=== PATIENT | female | born 1970 | race Caucasian/White ===

== ENCOUNTER 2016-07-29 00:56 | Inpatient (IN) | payer OTHER ==
[~2016-07-29] VITALS: Ht 157.5 cm; Wt 111.1 kg
[~2016-07-29 00:56] MED LIST: ACETAMINOPHEN/T1 TA1 PO; ALBUTEROL2.5 MG/3 M INH; ALLEGRA-D 24 H1 EACH PO; ALPRAZOLAM0.5 M3 PO; AMOXICILLIN500 M2 PO; AUGMENTIN 875875 MG PO; AZITHROMYCIN500 M3 PO; CIPRO 500MG TA500 MG PO; DIAZEPAM5 MG PO; DIOVAN HCT 25 M1 TAB PO; DIVALPROEX SOD500 M3 PO; EXCEDRIN MIGRA1 EAC1 PO; FLONASE ALLERG9.9 ML NAS; FOLIC ACID 1 MG PO; FOLIC ACID1 M1 PO; HYDROCHLOROTHIA25 M1 PO; HYDRODIURIL 2525 MG PO; HYDRODIURIL 5050 MG PO; IPRATROPIU0.2 MG/1 M INH; LEVAQUIN500 M1 PO; MONTELUKAST SOD10 M1 PO; NAPROXEN500 MG PO; NICORELIEF2 MG PO; NICOTINE GUM4 MG PO; NORVASC10 M1 PO; NYSTOP60 GM TOP; ONE DAILY MULT1 EAC2 PO; PREDNISONE 20MG20 MG PO; PREDNISONE10 M2 PO; PREDNISONE2.5 M1 PO; PROPRANOLOL HC120 M1 PO; PROPRANOLOL HY120 MG PO; QUETIAPINE FUM100 MG PO; SEROQUEL XR150 M1 PO; SEROQUEL XR50 MG PO; SEROQUEL50 MG PO; SYMBICORT 16010.2 GM INH; SYNTHROID0.1 MG PO; TORADOL10 MG PO; TRAMADOL HCL50 M1 PO; TYLENOL TAB 32325 MG PO; ULTRACET 325 MG1 TAB PO; ULTRAM(MONOGRAP50 MG PO; VALACYCLOVIR HYD1 GM PO; VALACYCLOVIR1 GM PO; VALACYCLOVIR1000 MG PO; VENTOLIN HFA18 GM INH; VICODIN 5-3001 EACH PO; VITAB121000 SL; VITAMIN B COMP1 EACH PO; VITAMIN B-1100 MG PO; VITAMIN B-150 MG PO; XANAX0.5 M1 PO; nebulizer machine
--- NOTE | 2016-07-29 01:05 | ED DYSPNEA/ASTHMA COMPLAINT ---
History of Present Illness General Chief Complaint: Dyspnea (COPD, CHF, Other) Stated Complaint: DIFF BREATHING Source: patient Exam Limitations: no limitations Vital Signs & Intake/Output Vital Signs & Intake/Output Vital Signs Date Time Temp Pulse Resp B/P Pulse O2 O2 Flow FiO2 Ox Delivery Rate 07/29 0405 98.5 88 20 152/80 94 Nasal 4.0L Cannula 07/29 0210 92 Nasal 5.0L Cannula 07/29 0203 92 Nasal 4.0L Cannula 07/29 0108 98.8 103 24 138/79 92 Nasal 4.0L Cannula Allergies Coded Allergies: apple (Intermediate, HIVES FROM APPLE CIDER 05/21/16) hydromorphone (Intermediate, LIP SWELLING 05/21/16) phenytoin (Intermediate, HIVES 05/21/16) lidocaine (SVT 05/21/16) oxycodone (From Percocet) (ITCHY 05/21/16) Reconcile Medications Acetaminophen/Aspirin/Caffei (Excedrin 250 MG-250 MG-65 MG) 1 TAB TAB 1 TAB PO DAILY SINUS HEADACHE (Reported) Albuterol Sulfate 2.5 MG/3 ML (0.083 %) VIAL.NEB 3 ML INH TID PRN asthma Albuterol Sulfate (Ventolin Hfa) 90 MCG HFA.AER.AD 2 PUF INH Q4-6 PRN PRN asthma Alprazolam (Xanax) 0.5 MG TABLET 1 TAB PO Q6H PRN ANXIETY (Reported) Amlodipine Besylate (Norvasc) 10 MG TABLET 1 TAB PO DAILY hypertension Budesonide/Formoterol Fumarate (Symbicort 160-4.5 Mcg Inhaler) 160 MCG-4.5 MCG/ ACTUATION HFA.AER.AD 2 PUF INH BID ASTHMA (Reported) Divalproex Sodium (Divalproex Sodium ER) 500 MG TAB.ER.24H 1,500 MG PO QPM MENTAL HEALTH (Reported) FEXOFENADINE/PSEUDOEPHEDRINE (Shannan-D 24 Hour Tablet) 180 MG-240 MG TAB.ER.24H 1 TAB PO DAILY ALLERGIES (Reported) Fluticasone Propionate (Flonase) 50 MCG/ACTUATION SPRAY.SUSP 1 SPRAY ELLA BID ALLERGIES (Reported) Levothyroxine Sodium (Synthroid) 0.1 MG TAB 1 TAB PO DAILY AC THYROID ( Reported) Montelukast Sodium 10 MG TABLET 1 TAB PO QHS ASTHMA (Reported) Multivitamin (One Daily Multivitamin) 1 EACH TABLET 1 TAB PO DAILY supplement Nicotine Polacrilex (Nicotine Gum) 4 MG GUM 4 MG PO Q6H PRN SMOKING CESSATION (Reported) Nystatin (Nystop) 100,000 UNIT/GRAM POWDER 1 KAYLEIGH TOP BID UNDER BREASTS ( Reported) Prednisone 2.5 MG TABLET 1 TAB PO DAILY GAL'S (Reported) Propranolol HCl (Propranolol HCl ER) 120 MG CAP.SA.24H 1 CAP PO BID BP ( Reported) Quetiapine Fumarate (Seroquel XR) 150 MG TAB.ER.24H 1 TAB PO QPM MENTAL HEALTH (Reported) Quetiapine Fumarate (Seroquel) 50 MG TAB 1-3 TAB PO QPM SLEEP/MENTAL HEALTH ( Reported) Tramadol HCl 50 MG TABLET 1 TAB PO Q6P PRN PAIN SCALE 7-10 (SEVERE) (Reported ) Valacyclovir HCl (Valacyclovir) 1,000 MG TABLET 1 TAB PO DAILY ANTI VIRAL ( Reported) Triage Nurses Notes Reviewed? yes Onset: Gradual Duration: hour(s):, getting worse Timing: recent history Severity: moderate Activities at Onset: none Prior Episodes/Possible Cause: occasional episodes Modifying Factors: Worsens With: other (worse w/smoking). Associated Symptoms: cough, wheezing HPI: 45 yo h/o asthma presents with 2-3 days of wheezing, cough, phlegm. Symptoms worsened after smoking a cigarette tonight. "I was wheezing so badly that I couldn't even walk across the room." Medics noted that her 02 sat was 75% in the field. She received solumedrol 125mg iv in the field. She notes a cough productive of green sputum. She notes no fever, chills, nausea, vomiting, diarrhea, chest pain. Past History Travel History Traveled to [place] past 21 day No Medical History Any Pertinent Medical History? see below for history Neurological: NONE EENT: allergies Cardiovascular: hypertension Respiratory: asthma, bronchitis Gastrointestinal: NONE Hepatic: RENAL FAILURE Renal: acute kidney injury Musculoskeletal: chronic back pain Psychiatric: alcohol dependence, depression, substance abuse, bipolar disorder, MRE manic Endocrine: hypothyroidism, ADDISONS DX Hashimotos thyroiditis Blood Disorders: NONE Cancer(s): NONE CRM SPECIALIST/Reproductive: Other Medical Hx: Unknown History of MRSA: Yes History of VRE: No History of CDIFF: No Pneumonia Vaccine: 07/07/15 Influenza Vaccine: 04/10/16 Tetanus Vaccine: 11/28/14 Surgical History Surgical History: S/P I&D ABSCESS S/P KNEE SURGERY Psychosocial History Who do you live with Patient/Self Services at Home None What is your primary language Serbian Family History Family History, If Any: MOTHER Relation not specified for: FH: lung cancer Hx Contributory? No Review of Systems Review of Systems Constitutional: Reports: no symptoms. EENTM: Reports: no symptoms. Respiratory: Reports: no symptoms. Cardiovascular: Reports: no symptoms. GI: Reports: no symptoms. Genitourinary: Reports: no symptoms. Musculoskeletal: Reports: no symptoms. Skin: Reports: no symptoms. Neurological/Psychological: Reports: no symptoms. Hematologic/Endocrine: Reports: no symptoms. Immunologic/Allergic: Reports: no symptoms. All Other Systems: Reviewed and Negative Physical Exam Physical Exam General Appearance: well developed/nourished, moderate distress Head: atraumatic, normal appearance Eyes: Bilateral: normal appearance. Ears, Nose, Throat: normal pharynx, normal ENT inspection Neck: normal inspection, supple, full range of motion Respiratory: wheezing, wheezing with prolonged expiratory phase. pt able to speak in complete sentences without problem. Cardiovascular: regular rate/rhythm Gastrointestinal: normal bowel sounds, soft, non-tender, no organomegaly Extremities: normal inspection Neurologic/Psych: no motor/sensory deficits, awake, alert, oriented x 3 Skin: intact, normal color, warm/dry Core Measures ACS in differential dx? No Severe Sepsis Present: No Septic Shock Present: No Progress Differential Diagnosis: asthma, bronchitis, CHF, COPD Plan of Care: Orders Procedure Date/time Status Regular Diet 07/29 B Active CBC WITHOUT DIFFERENTIAL 07/29 06 Active BASIC ELECTROLYTES PLUS BUN&CR 07/29 06 Active Pathway - chart 07/29 0328 Active Code Status 07/29 0328 Active Patient Data 07/29 0235 Active Intake & Output 07/29 0201 Active LOWER RESPIRATORY CULTURE 07/29 0131 Active Saline Lock 07/29 011 Active Misc Message 07/29 011 Active ED Holding Orders 07/29 011 Active Admit to inpatient 07/29 011 Active Vital Signs 07/29 011 Active BLOOD CULTURE 07/29 114 Active Code Status 07/29 011 Complete BLOOD CULTURE 07/29 0114 Active TROPONIN LEVEL 07/29 104 Complete HUMAN BETA HCG SCREEN 07/29 104 Complete COMPREHENSIVE METABOLIC PANEL 07/29 104 Complete CBC WITHOUT DIFFERENTIAL 07/29 104 Complete EKG 07/29 104 Active TRC EVALUATION (GEN) 07/29 UNK Active House Staff 07/29 UNK Active VTE Mechanical Prophylaxis 07/29 UNK Active Vital Signs 07/29 UNK Active CIWA 07/29 UNK Active Current Medications Sig/Rosio Start time Last Medication Dose Stop Time Status Admin Azithromycin 500 MG 07/30 020 AC (Zithromax) Dextrose/Water 250 ML (D5W) Ceftriaxone Sodium 1,000 MG 07/30 020 AC (Rocephin) Divalproex Sodium 1,500 MG AT BEDTIME 07/29 220 AC (Depakote ER) Montelukast Sodium 10 MG AT BEDTIME 07/29 220 AC (Singulair) Quetiapine Fumarate 150 MG AT BEDTIME 07/29 220 AC (SEROquel) Amlodipine Besylate 10 MG DAILY 07/29 1000 AC (Norvasc) Budesonide/ 2 PUF BID 07/29 1000 AC Formoterol Fumarate (Symbicort) Enoxaparin Sodium 40 MG DAILY 07/29 1000 AC (Lovenox) Patient Own 1 UNIT DAILY 07/29 1000 AC Medication (Patients Own Med) Propranolol HCl 120 MG BID 07/29 1000 AC (Inderal [place] 120MG) Valacyclovir HCl 1,000 MG DAILY 07/29 1000 AC (Valtrex) Levothyroxine Sodium 0.1 MG DAILY AC 07/29 0700 AC (Synthroid) Methylprednisolone 40 MG Q6 07/29 0600 AC (Solumedrol) Acetaminophen 650 MG Q6P PRN 07/29 0330 AC (Tylenol) Alprazolam 0.5 MG Q6-PRN PRN 07/29 0330 AC (Xanax) 08/05 032 Nicotine 4 MG Q6P PRN 07/29 033 AC (Nicotine) Tramadol HCl 50 MG Q6P PRN 07/29 033 AC (Ultram) Nystatin 1 KAYLEIGH BID 07/29 0326 AC (Mycostatin) Laboratory Tests 07/29/16 0140: Anion Gap 8, Estimated GFR > 60, BUN/Creatinine Ratio 6.7 L, Glucose 107 H, Calcium 9.4, Total Bilirubin 0.6, AST 31, ALT 45, Alkaline Phosphatase 81, Troponin I < 0.01, Total Protein 6.3, Albumin 3.5, Globulin 2.8, Albumin/ Globulin Ratio 1.3, Total Beta HCG NEGATIVE, CBC w Diff NO MAN DIFF REQ, RBC 3.66 L, MCV 100.2 H, MCH 33.5 H, RDW 17.1 H, MPV 6.9 L, Gran % 72.7, Lymphocytes % 19.9 L, Monocytes % 6.6, Eosinophils % 0.4, Basophils % 0.4, Absolute Granulocytes 7.2 H, Absolute Lymphocytes 2.0, Absolute Monocytes 0.7 H, Absolute Eosinophils 0, Absolute Basophils 0, PUBS MCHC 33.5 Microbiology 07/29 144 BLOOD: Blood Culture - RECD 07/29 139 BLOOD: Blood Culture - RECD 07/29 130 LOWER RESP: Respiratory Culture - ORD 07/29 130 LOWER RESP: Gram Stain - ORD Diagnostic Imaging: Viewed by Me: Radiology Read. Discussed w/RAD: Radiology Read. CXR Impression: no acute abnormality, no infiltrates, normal size heart, normal mediastinum Initial ED EKG: sinus tach Comments: PATIENT: VENICE DAWKINS PRESENT AGE: 45 PATIENT ACCOUNT NO: [id number] : 71 LOCATION: [facility] ORDERING PHYSICIAN: ANDREA FELIZ MD SERVICE DATE: 07/29/16 EXAM TYPE: RAD - XRY-PORTABLE CHEST XRAY EXAMINATION: XR PORTABLE CHEST CLINICAL INFORMATION: Dyspnea, hypoxia COMPARISON: 07/05/2016 TECHNIQUE: Portable view of the chest was obtained. FINDINGS: The lungs are clear with no focal consolidation. No evidence of pneumothorax, pulmonary edema, or pleural effusions. Cardiac size is at the upper limits of normal. No acute osseous findings are seen. IMPRESSION: No acute cardiopulmonary findings. DICTATED BY: MERCEDEZ DE SANTIAGO MD DATE/TIME DICTATED:07/29/16352 DIRECTOR OF CLINICAL SERVICES:SMILEY DATE/TIME TRANSCRIBED:07/29/16352 CONFIDENTIAL, DO NOT COPY WITHOUT APPROPRIATE AUTHORIZATION. <Electronically signed in Other Vendor System> SIGNED BY: MERCEDEZ DE SANTIAGO MD 07/29/16357 Departure Departure Disposition: STILL A PATIENT Condition: Stable Clinical Impression Primary Impression: Asthma exacerbation Referrals: RACHELE HAWK MD (PCP/Family) Departure Forms: Customer Survey General Discharge Information Admission Note Spoke With: SUZANNA WEINER MD Documentation of Exam: Documentation of any treatments & extenuating circumstances including Concerns Regarding Discharge (functional status, medication knowledge or non-compliance, living conditions, etc.) that warrant an admission rather than observation: pt with asthma exacerbation with hypoxia in the field (75%), now feeling better after solumedrol in the field, nebs, abx, 02 support. Given hypoxia, pt merits admission for 02 support. Critical Care Note Critical Care Note Critical Care Time: non-applicable
--- NOTE | 2016-07-29 01:40 | NUR ---
LABS DRAWN--SST,DEL CID,BLUE,LAV, 1ST SET OF BL CULT ALL SENT TO LAB.
--- NOTE | 2016-07-29 01:45 | NUR ---
2ND SET OF BL CULT DRAWN AND SENT.
[2016-07-29 01:59] LABS: ABSOLUTE BASOPHIL COUNT 0 /CUMM (0.0-0.2); ABSOLUTE EOSINOPHIL COUNT 0 /CUMM (0.0-0.7); ABSOLUTE GRANULOCYTE CT 7.2 /CUMM (1.4-6.5); ABSOLUTE MONOCYTE COUNT 0.7 /CUMM (0.10-0.60); BASOPHIL % 0.4 % (0.0-2.0); EOSINOPHIL % 0.4 % (0-5); GRANULOCYTE % 72.7 % (42.2-75.2); HEMATOCRIT 36.7 % (37-47); MEAN CORPUSCULAR HGB 33.5 PG (27.0-31.0); MEAN CORPUSCULAR HGB CONC 33.5 G/DL (33.0-37.0); MEAN CORPUSCULAR VOLUME 100.2 FL (81.0-99.0); MEAN PLATELET VOLUME 6.9 FL (7.4-10.4); PLATELET COUNT 238 /CUMM (130-400); RBC DISTRIBUTION WIDTH 17.1 % (11.5-14.5); RED BLOOD CELL CT 3.66 /CUMM (4.20-5.40); WHITE BLOOD CELL COUNT 9.9 /CUMM (4.8-10.8)
--- NOTE | 2016-07-29 02:02 | NUR ---
PT BIBA FROM HOME C/O SOB X1 WEEK, AND A PRODUCTIVE "JUNKY" COUGH X2 DAYS. PT RECIEVED SOLUMEDROL AND A DUONEB EN ROUTE. PER EMS PT WAS SATTING 75% ON RA UPON THEIR ARRIVAL. UPON ARRIVAL TO THE ED PT SATTING 92% ON 4 L NC. AUDIBLE WHEEZES AND RHONCHI NOTED. AT BEDSIDE FOR EVAL.
--- NOTE | 2016-07-29 02:02 | NUR ---
PT MEDICATED WITH 1G ROCEPHIN AND ZITHRO 500MG INFUSING AT THIS TIME PER ORDER (SEE MAR). RADIOLOGY AT BEDSIDE FOR PORTABLE CHEST XRAY.
--- NOTE | 2016-07-29 02:05 | NUR ---
RESP AT BEDSIDE FOR TX
--- NOTE | 2016-07-29 02:54 | NUR ---
HOUSE STAFF IN TO EVAL PT
--- NOTE | 2016-07-29 03:53 | NUR ---
REPORT GIVEN TO AZUL REAVES 2NB
--- NOTE | 2016-07-29 03:58 | RADIOLOGY REPORT ---
EXAMINATION: XR PORTABLE CHEST CLINICAL INFORMATION: Dyspnea, hypoxia COMPARISON: 07/05/2016 TECHNIQUE: Portable view of the chest was obtained. FINDINGS: The lungs are clear with no focal consolidation. No evidence of pneumothorax, pulmonary edema, or pleural effusions. Cardiac size is at the upper limits of normal. No acute osseous findings are seen. IMPRESSION: No acute cardiopulmonary findings.
--- NOTE | 2016-07-29 04:23 | History & Physical ---
NEGRITO JAIN,WESTON 07/29/16 0422: General Information and HPI MD Statement: I have seen and personally examined VENICE DAWKINS and documented this H&P. The patient is a 45 year old F who presented with a patient stated chief complaint of [Difficulty breathing]. Source of Information: patient, old records, EMS Exam Limitations: no limitations History of Present Illness: Patient is a 45 YO F with PMH significant for HTN, asthma/COPD, bronchitis, alcohol dependence, substance abuse, Hypothyroidism (Joann's), bipolar disorder came to the ER with progressively worsening shortness of breath, weakness and tiredness. Patient got recently discharged from hospital on 2015 and started smoking again along with alcohol intake. She is recently discharged with home oxygentherapy and her oxygen demand appears increasing from 1.5 L to 2 L to 2.5 L.. Yesterday she started to desaturate from 87-93% on 3 L of oxygen and today (07/28/2016) morning she is 69% with oxygen and got confused. She also reports productive cough with greenish phlegm production for the past 3 days. She took Robitussin without any help and also reports fevers since discharge which have to be evaluated. She denies any chest tightness, sick contacts, recent travels. She reports nausea and vomiting along with prednisone intake and she just completed her prednisone taper yesterday. she is alcohol dependent and her last alcohol intake is yesterday with 2 shots of tequila and one new. Allergies/Medications Allergies: Coded Allergies: apple (Intermediate, HIVES FROM APPLE CIDER 05/21/16) hydromorphone (Intermediate, LIP SWELLING 05/21/16) phenytoin (Intermediate, HIVES 05/21/16) lidocaine (SVT 05/21/16) oxycodone (From Percocet) (ITCHY 05/21/16) Home Med list Acetaminophen/Aspirin/Caffei (Excedrin 250 MG-250 MG-65 MG) 1 TAB TAB 1 TAB PO DAILY SINUS HEADACHE (Reported) Albuterol Sulfate 2.5 MG/3 ML (0.083 %) VIAL.NEB 3 ML INH TID PRN asthma Albuterol Sulfate (Ventolin Hfa) 90 MCG HFA.AER.AD 2 PUF INH Q4-6 PRN PRN asthma Alprazolam (Xanax) 0.5 MG TABLET 1 TAB PO Q6H PRN ANXIETY (Reported) Amlodipine Besylate (Norvasc) 10 MG TABLET 1 TAB PO DAILY hypertension Budesonide/Formoterol Fumarate (Symbicort 160-4.5 Mcg Inhaler) 160 MCG-4.5 MCG/ ACTUATION HFA.AER.AD 2 PUF INH BID ASTHMA (Reported) Divalproex Sodium (Divalproex Sodium ER) 500 MG TAB.ER.24H 1,500 MG PO QPM MENTAL HEALTH (Reported) FEXOFENADINE/PSEUDOEPHEDRINE (Shannan-D 24 Hour Tablet) 180 MG-240 MG TAB.ER.24H 1 TAB PO DAILY ALLERGIES (Reported) Fluticasone Propionate (Flonase) 50 MCG/ACTUATION SPRAY.SUSP 1 SPRAY ELLA BID ALLERGIES (Reported) Levothyroxine Sodium (Synthroid) 0.1 MG TAB 1 TAB PO DAILY AC THYROID ( Reported) Montelukast Sodium 10 MG TABLET 1 TAB PO QHS ASTHMA (Reported) Multivitamin (One Daily Multivitamin) 1 EACH TABLET 1 TAB PO DAILY supplement Nicotine Polacrilex (Nicotine Gum) 4 MG GUM 4 MG PO Q6H PRN SMOKING CESSATION (Reported) Nystatin (Nystop) 100,000 UNIT/GRAM POWDER 1 KAYLEIGH TOP BID UNDER BREASTS ( Reported) Prednisone 2.5 MG TABLET 1 TAB PO DAILY GAL'S (Reported) Propranolol HCl (Propranolol HCl ER) 120 MG CAP.SA.24H 1 CAP PO BID BP ( Reported) Quetiapine Fumarate (Seroquel XR) 150 MG TAB.ER.24H 1 TAB PO QPM MENTAL HEALTH (Reported) Quetiapine Fumarate (Seroquel) 50 MG TAB 1-3 TAB PO QPM SLEEP/MENTAL HEALTH ( Reported) Tramadol HCl 50 MG TABLET 1 TAB PO Q6P PRN PAIN SCALE 7-10 (SEVERE) (Reported ) Valacyclovir HCl (Valacyclovir) 1,000 MG TABLET 1 TAB PO DAILY ANTI VIRAL ( Reported) Compliance With Home Meds: GOOD Past History Travel History Traveled to [place] past 21 day No Medical History Neurological: NONE EENT: allergies Cardiovascular: hypertension Respiratory: asthma, bronchitis Gastrointestinal: NONE Hepatic: RENAL FAILURE Renal: acute kidney injury Musculoskeletal: chronic back pain Psychiatric: alcohol dependence, depression, substance abuse, bipolar disorder, MRE manic Endocrine: hypothyroidism, ADDISONS DX Hashimotos thyroiditis Blood Disorders: NONE Cancer(s): NONE 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 Ambulation: independent IADLs Independent: shopping, housework, finances, food prep, telephone, transportation , medication admin. Review of Systems Review of Systems Constitutional: Reports: see HPI, fever, malaise, weakness. EENTM: Reports: no symptoms. Cardiovascular: Reports: see HPI. Respiratory: Reports: cough, short of breath, sputum production. GI: Reports: see HPI, nausea, vomiting. Genitourinary: Reports: see HPI. Musculoskeletal: Reports: see HPI. Skin: Reports: see HPI. Neurological/Psychological: Reports: anxiety. Comments Oral thrush evident cushingoid appearance Exam & Diagnostic Data Last 24 Hrs of Vital Signs/I&O Vital Signs Date Time Temp Pulse Resp B/P Pulse O2 O2 Flow FiO2 Ox Delivery Rate 07/29 0526 98.1 90 20 130/90 96 Nasal 4.0L Cannula 07/29 0451 Nasal 4.0L Cannula 07/29 0405 98.5 88 20 152/80 94 Nasal 4.0L Cannula 07/29 0210 92 Nasal 5.0L Cannula 07/29 0203 92 Nasal 4.0L Cannula 07/29 0108 98.8 103 24 138/79 92 Nasal 4.0L Cannula Intake & Output 07/29 0800 07/29 0000 07/28 1600 Intake Total 490 Output Total Balance 490 Intake, IV 250 Intake, Oral 240 Patient 111.13 kg Weight Physical Exam General Appearance Alert, Oriented X3, Cooperative, Mild Distress Skin No Rashes, No Breakdown HEENT Atraumatic, PERRLA, EOMI Neck Supple, No JVD Cardiovascular Regular Rate, Normal S1, Normal S2, No Murmurs Lungs Clear to Auscultation, Normal Air Movement, scattered expiratory wheezing evident Abdomen Normal Bowel Sounds, Soft, No Tenderness Neurological Normal Speech, Strength at 5/5 X4 Ext, Normal Tone Extremities No Clubbing, No Cyanosis, 4+ edema over both the feet Vascular Pulses Symmetrical Last 24 Hrs of Labs/Kartik: Laboratory Tests 07/29/16 014: Anion Gap 8, Estimated GFR > 60, BUN/Creatinine Ratio 6.7 L, Glucose 107 H, Calcium 9.4, Total Bilirubin 0.6, AST 31, ALT 45, Alkaline Phosphatase 81, Troponin I < 0.01, Total Protein 6.3, Albumin 3.5, Globulin 2.8, Albumin/ Globulin Ratio 1.3, Total Beta HCG NEGATIVE, CBC w Diff NO MAN DIFF REQ, RBC 3.66 L, MCV 100.2 H, MCH 33.5 H, RDW 17.1 H, MPV 6.9 L, Gran % 72.7, Lymphocytes % 19.9 L, Monocytes % 6.6, Eosinophils % 0.4, Basophils % 0.4, Absolute Granulocytes 7.2 H, Absolute Lymphocytes 2.0, Absolute Monocytes 0.7 H, Absolute Eosinophils 0, Absolute Basophils 0, PUBS MCHC 33.5 Microbiology 07/29 144 BLOOD: Blood Culture - RECD 07/29 139 BLOOD: Blood Culture - RECD 07/29 130 LOWER RESP: Respiratory Culture - ORD 07/29 130 LOWER RESP: Gram Stain - ORD Assessment/Plan Assessment: Patient is a 45 YO F with PMH significant for HTN, asthma/COPD, bronchitis, alcohol dependence, substance abuse, Addisons disease, Hypothyroidism (Joann 's), bipolar disorder came to the ER with progressively worsening shortness of breath, weakness and tiredness. She also found to have cough with productive cough and fevers. ER course Vital signs T - afebrile, HR 103, RR 24, BP 138/79, O2 sat 92% on 5 L supplemental O2 Signficant labs include WBC of 9.9, H&H 12.3/36.7, platelet 238, sodium 137, K4.7, BUN 4, creatinine 0.6 , blood glucose 107, normal LFT, troponin negative, beta-hCG negative EKG revealed normal sinus rhythm with rate of 92, no acute ST-T changes, poor R- wave progression unchanged from previous EKG from, QTC 406 She received a single dose of IV solumedriol 125mg in the ER along IV ceftriaxone and azithromycin. Admitted to Gen med floor. Plan Acute hypoxic respiratory failure secondary to COPD exacerbation * Frequent flyer with recurrent exacerbation due to tobacco/alcohol dependence. * Started on IV steroids again with methyl prednisone 40mg Q8 * IV azithromycin * TRC/Nebs/oxygen supplementation as needed * Pulm consult in am * ABG in the am as per her clinical condition Alcohol dependence * Check CIWA score. * start protocol as needed. Hypertension * We will continue her home medications propronol 120mg BID and amlodipine 10mg daily Addissions disease * As she is currently on IV steroids we will hold off her home steroid dosage hypothyroidism secondary to Joann thyroiditis * On levothyroxine * We will continue her home medication Oral thrush * Secondary to chronic steroid intake * starting on nystatin swish and swallow Psychiatric problems * She had bipolar disorder, anxiety/depression * On Seroquel 150 mg at bedtime and naltrexone 50 mg along with proximal 0.5 mg * We will continue her home medications for now Smoking cessation * Patient is educated several times about quitting smoking * Unable to quit despite counseling * Nicotine gum is provided as it helps her according to patient. DVT prophylaxis * Subcutaneous heparin CODE STATUS * Full code As Ranked By This Provider Problem List: 1. Full code status 2. DVT prophylaxis 3. Plantar fasciitis 4. COPD exacerbation 5. Alcohol dependence 6. Bronchitis 7. COPD exacerbation 8. Asthma exacerbation Core Measures/Miscellaneous Acute Coronary Syndrome ACS Diagnosis: No Cerebrovascular Accident CVA/TIA Diagnosis: No Congestive Heart Failure CHF Diagnosis: No Venous Thromboembolism VTE Risk Factors: Immobility, paresis VTE Prophylaxis Ordered Inpt: Pharm- Lovenox No Mech VTE prophylaxis d/t: No contraindications No VTE Pharm Prophylaxis d/t: No contraindications VTE Diagnosis: No VTE Type: NONE VTE Confirmed by (Test): NONE Severe Sepsis Severe Sepsis Present: No Septic Shock Septic Shock Present: No Miscellaneous Documentation Attending Case Discussed With: SUZANNA WEINER MD Primary Care Physician: RACHELE HAWK MD Patient sees these Specialists none Level of Patient Care: General Medicine Consults Needed: Consulting Specialty: Pulmonary Disease Consulting Physician: Reason for Consult: COPD/Asthma exacerbation ADRIANA CASTELLANO MD 07/29/16 0423: Resident Review Statement Resident Statement: examined this patient, discussed with communications marketing intern, agreed with communications marketing intern, reviewed EMR data (avail), reviewed images, amended to note Other Findings: This is 45-year-old morbidly obese female who is a current smoker with past medical history of [place]ke[place]'s disease on prednisone, alcohol dependence, bipolar disorder with history of suicide attempt, anxiety depression, hypertension, asthma/COPD on 2.5 L nocturnal O2, migraine headache, MRSA, Joann thyroiditis who was recently admitted to [facility] in May 2016 and June 2016 for acute COPD/asthma exacerbation and discharged on prednisone taper and supplement O2 was brought in by ambulance from home with chief complaint of progressively worsening shortness of breath and hypoxia. Patient remained noncompliant and has been smoking since discharge from the hospital. She supposed to follow-up with pulmonary Dr. Hilton but hasn't seen him yet. As per the patient for past 3 days her shortness of breath was significantly worse and she started bringing up yellow-green productive cough. She denies any recent sick contact, sore throat, fever, chills, nausea, vomiting, abdominal pain, chest pain, urinary symptoms. She has been drinking 2 shots of tequila and 1 New twice a week with most recent drink was a day prior to admission. Her vitals on admission were T 98.8, HR 103, RR 24, BP 138/79, O2 sat 92% on 5 L supplemental O2 On physical exam patient is alert oriented 3 in moderate respiratory distress, HEENT PERRLA EOMI, noted oral thrush, heart S1-S2 normal without murmur, lungs decrease air entry bilaterally with expiratory wheeze and prolonged expiratory phase, abdomen soft nontender nondistended with preserved bowel sounds, no focal neurologic deficit, bilateral lower extremity 1-2+ pitting edema. Noted cushingoid appearance with back hump and round rocky face. Labs revealed normal WBC of 9.9, H&H 12.3/36.7, platelet 238, sodium 137, K4.7, BUN 4, creatinine 0.6, blood glucose 107, normal LFT, troponin negative, beta- hCG negative EKG revealed normal sinus rhythm with rate of 92, no acute ST-T changes, poor R- wave progression unchanged from previous EKG from, QTC 406 Assessment and plan: 1. Acute hypoxic respiratory failure secondary to COPD exacerbation Admit to general medicine floor Continue supplemental O2 Follow-up sputum culture and blood culture Continue IV Solu-Medrol 40 mg every 6 Continue IV azithromycin for possible bronchitis TRC Continue Symbicort and Singulair Pulmonary consult in a.m. 2. Alcohol dependence Check CIWA score And if needed start Ativan as per CIWA score 3. [place]'s disease Patient is on IV steroid Hold home dose oral steroid 4. Hypertension Continue home dose amlodipine and propranolol 5. Oral thrush Start nystatin swish and swallow 6. Left foot plantar fasciitis Continue pain control with tramadol as needed 7. Joann's thyroiditis Continue Synthroid 8. Anxiety/depression Continue home dose Ativan, Seroquel and Depakote 9. Smoking Patient will was given extensive education about quitting smoking and related risk including worsening COPD/asthma or lung cancer Will start nicotine gum 10. DVT prophylaxis Subcutaneous Lovenox 11. Full code SUZANNA WEINER 07/29/16 0702: Attending MD Review Statement Attending Statement Attending MD Statement: examined this patient, discuss w/resident/PA/HEDIS NURSE, agreed w/resident/PA/HEDIS NURSE, reviewed EMR data (avail), reviewed images, amended to note Attending Assessment/Plan: CC: Acute worsening of shortness of breath PMH: Asthma/COPD, Poughke[place]ie's disease, Joann's thyroiditis, hypothyroidism, migraine, anxiety/depression, bipolar disorder, alcohol dependence, current smoker. Patient presented with acute worsening of shortness of breath, increased oxygen requirement at home, productive cough. Patient was saturating 79-80% at home on 3 L oxygen that's when she called EMS to come to ER. Patient denies any fever or chills, loss of consciousness, pedal edema, palpitation or chest pain. Vitals: Afebrile, mildly tachycardic, RR, BP stable, saturating 94% on 4 L nasal cannula. On examination: A O 3, respiratory distress, morbidly obese, pedal edema, neck supple, no lymphadenopathy, no upper respiratory congestion, and RS: Markedly decreased air entry bilaterally, occasional wheezing present. CVS: S1- S2, RRR. Abdomen: Soft, NT, ND, bowel sounds present. No focal neurological deficit. Labs: Bicarbonate 30, otherwise CBC, BMP, LFT unremarkable, troponin negative Chest x-ray: No acute cardiopulmonary process, EKG unremarkable. ANP #1 asthma/COPD exacerbation: Continue IV methylprednisolone 40 mg 6-8 hourly, IV azithromycin, albuterol Atrovent nebulization, O2 by nasal cannula, Mucinex, incentive spirometry, consult pulmonology in a.m. Repeat ABG at later in AM: Patient appears lethargic, she might be sleepy because overnight in ER but respiratory worsening is a possibility. #2 alcohol dependence: Continue to replace electrolytes, nutritional supplementation with thiamine folate, when necessary Ativan according to CIWA score. #3 [place]'s disease, Joann's thyroiditis, hypothyroidism, migraine, anxiety /depression, bipolar disorder: Continue home medications. #4 DVT prophylaxis with Lovenox, adequate pain control.
[2016-07-29 05:26] VITALS: BP 130/90
--- NOTE | 2016-07-29 05:30 | NUR ---
NURSE NOTE: REPORT RECIEVED FROM SHARDA IN ED. PT BROUGHT UP TO FLOOR AT 0445. AAOX3, 4LNC, INDEPENDENT OOB. IV ACCESS. VITALS: 130/90, 90 PULSE, 98.1, 20 RESP, AND 96% 4LNC. ORIENTED TO FLOOR. CALL RAE IN REACH. BED IN LOWEST POSITION.
--- NOTE | 2016-07-29 06:29 | NUR ---
NURSE NOTE: PT HAS PRE HOSP LINE IN RIGHT HAND. DOES NOT WANT ME TO TAKE OUT AT THIS TIME " JUST INCASE", STATES SHE IS A HARD STICK AND WANTS TO KEEP IN FOR NOW. WILL LET NEXT NURSE KNOW.
--- NOTE | 2016-07-29 07:04 | Admission Certification ---
Admission Certification Certification Statement - As attending physician, I certify that at the time of - admission, based on clinical presentation, severity of - symptoms, need for further diagnostic testing and - therapeutic interventions, and risk of adverse outcomes - without in-hospital treatment, in my clinical assessment, - this patient requires an acute hospital stay for a minimum - of two nights or longer. I have also considered psychsocial - factors such as support system, advanced age, financial - issues, cognitive issues, and failed out-patient treatments, - past re-admission history, safety of patient, and lack of - compliance as applicable. Specific rationale supporting this admission is: Asthma/COPD exacerbation
[2016-07-29 08:19] VITALS: BP 138/70; BP 138/84
[2016-07-29 08:20] VITALS: BP 138/84
[2016-07-29 09:55] LABS: ABSOLUTE BASOPHIL COUNT 0 /CUMM (0.0-0.2); ABSOLUTE EOSINOPHIL COUNT 0 /CUMM (0.0-0.7); ABSOLUTE GRANULOCYTE CT 7.1 /CUMM (1.4-6.5); ABSOLUTE LYMPH COUNT 0.7 /CUMM (1.2-3.4); ABSOLUTE MONOCYTE COUNT 0.1 /CUMM (0.10-0.60); BASOPHIL % 0 % (0.0-2.0); EOSINOPHIL % 0.1 % (0-5); HEMATOCRIT 38.7 % (37-47); MEAN CORPUSCULAR HGB CONC 32.8 G/DL (33.0-37.0); MEAN CORPUSCULAR VOLUME 100.6 FL (81.0-99.0); PLATELET COUNT 219 /CUMM (130-400); RBC DISTRIBUTION WIDTH 17.5 % (11.5-14.5); RED BLOOD CELL CT 3.85 /CUMM (4.20-5.40); WHITE BLOOD CELL COUNT 7.8 /CUMM (4.8-10.8)
[2016-07-29 10:46] LABS: GRANULOCYTE % 90.7 % (42.2-75.2)
--- NOTE | 2016-07-29 12:24 | Cons- Pulmonary ---
General Information and HPI Consulting Request Date of Consult: 07/29/16 Requested By: Dr. Ponce Reason for Consult: dyspnea, hypoxemia Source of Information: patient Exam Limitations: no limitations History of Present Illness: 45 year old woman with a significant smoking history, still smokes 15 cigarettes daily. 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 Persistent pitting edema. Presents with dyspnea, leg edema and an episode of desaturation. Her medical issues other than the above include reactive airway disease, bipolar disorder. Recent admission for dyspnea. History of ground glass opacities. Some productive cough with greenish phlegm, no obvious fevers at this time. No leukocytosis, cxr shows clear lungs. On 5LNC saturating 96%. Speaks in full sentences. Has etoh intake. No hx of withdrawal. No n/v/d/c. Leg edema persists. No cp. Allergies/Medications Allergies: Coded Allergies: apple (Intermediate, HIVES FROM APPLE CIDER 05/21/16) hydromorphone (Intermediate, LIP SWELLING 05/21/16) phenytoin (Intermediate, HIVES 05/21/16) lidocaine (SVT 05/21/16) oxycodone (From Percocet) (ITCHY 05/21/16) Home Med List: Acetaminophen/Aspirin/Caffei (Excedrin 250 MG-250 MG-65 MG) 1 TAB TAB 1 TAB PO DAILY SINUS HEADACHE (Reported) Albuterol Sulfate 2.5 MG/3 ML (0.083 %) VIAL.NEB 3 ML INH TID PRN asthma Albuterol Sulfate (Ventolin Hfa) 90 MCG HFA.AER.AD 2 PUF INH Q4-6 PRN PRN asthma Alprazolam (Xanax) 0.5 MG TABLET 1 TAB PO Q6H PRN ANXIETY (Reported) Amlodipine Besylate (Norvasc) 10 MG TABLET 1 TAB PO DAILY hypertension Budesonide/Formoterol Fumarate (Symbicort 160-4.5 Mcg Inhaler) 160 MCG-4.5 MCG/ ACTUATION HFA.AER.AD 2 PUF INH BID ASTHMA (Reported) Divalproex Sodium (Divalproex Sodium ER) 500 MG TAB.ER.24H 1,500 MG PO QPM MENTAL HEALTH (Reported) FEXOFENADINE/PSEUDOEPHEDRINE (Shannan-D 24 Hour Tablet) 180 MG-240 MG TAB.ER.24H 1 TAB PO DAILY ALLERGIES (Reported) Fluticasone Propionate (Flonase) 50 MCG/ACTUATION SPRAY.SUSP 1 SPRAY ELLA BID ALLERGIES (Reported) Levothyroxine Sodium (Synthroid) 0.1 MG TAB 1 TAB PO DAILY AC THYROID ( Reported) Montelukast Sodium 10 MG TABLET 1 TAB PO QHS ASTHMA (Reported) Multivitamin (One Daily Multivitamin) 1 EACH TABLET 1 TAB PO DAILY supplement Nicotine Polacrilex (Nicotine Gum) 4 MG GUM 4 MG PO Q6H PRN SMOKING CESSATION (Reported) Nystatin (Nystop) 100,000 UNIT/GRAM POWDER 1 KAYLEIGH TOP BID UNDER BREASTS ( Reported) Prednisone 2.5 MG TABLET 1 TAB PO DAILY GRISELDA'S (Reported) Propranolol HCl (Propranolol HCl ER) 120 MG CAP.SA.24H 1 CAP PO BID BP ( Reported) Quetiapine Fumarate (Seroquel XR) 150 MG TAB.ER.24H 1 TAB PO QPM MENTAL HEALTH (Reported) Quetiapine Fumarate (Seroquel) 50 MG TAB 1-3 TAB PO QPM SLEEP/MENTAL HEALTH ( Reported) Tramadol HCl 50 MG TABLET 1 TAB PO Q6P PRN PAIN SCALE 7-10 (SEVERE) (Reported ) Valacyclovir HCl (Valacyclovir) 1,000 MG TABLET 1 TAB PO DAILY ANTI VIRAL ( Reported) Current Medications: Current Medications Sig/Rosio Start time Last Medication Dose Route Stop Time Status Admin Acetaminophen 650 MG Q6P PRN 07/29 0330 AC PO Albuterol Sulfate 3 ML EVERY 4 HRS/AWAKE 07/29 1200 AC 07/29 INH 1043 Albuterol Sulfate 3 ML ONCE ONE 07/29 011 DC 07/29 INH 07/29 0116 0210 Alprazolam 0.5 MG Q6-PRN PRN 07/29 0330 AC 07/29 PO 08/05 0329 0614 Amlodipine Besylate 10 MG DAILY 07/29 1000 AC 07/29 PO 0958 Azithromycin 500 MG 0200 07/30 0200 AC Dextrose/Water 250 ML IV Azithromycin 500 MG ONCE ONE 07/29 0115 DC 07/29 Dextrose/Water 250 ML IV 07/29 0214 0200 Budesonide/ 2 PUF BID 07/29 1000 AC 07/29 Formoterol Fumarate INH 0957 Ceftriaxone Sodium 1,000 MG 0200 07/30 0200 CAN IV Ceftriaxone Sodium 0 .STK-MED ONE 07/29 0150 DC .ROUTE Ceftriaxone Sodium 1,000 MG ONCE ONE 07/29 0115 DC 07/29 IV 07/29 011 0200 Divalproex Sodium 1,500 MG AT BEDTIME 07/29 2200 AC PO Enoxaparin Sodium 40 MG DAILY 07/29 1000 AC 07/29 SC 0959 Ipratropium [place] 2.5 ML EVERY 4 HRS/AWAKE 07/29 1600 AC INH Ipratropium [place] 2.5 ML ONCE ONE 07/29 0115 DC 07/29 INH 07/29 011 0209 Levothyroxine Sodium 0.1 MG DAILY AC 07/29 0700 AC PO Methylprednisolone 40 MG Q6 07/29 0600 AC 07/29 IV 1152 Montelukast Sodium 10 MG AT BEDTIME 07/29 2200 AC PO Nicotine 2 MG Q6-PRN PRN 07/29 1045 DC PO Nicotine 4 MG Q6P PRN 07/29 0330 AC PO Nystatin 5 ML 4 TIMES/DAY 07/29 0330 AC 07/29 PO 0957 Nystatin 1 KAYLEIGH BID 07/29 0326 AC 07/29 TOP 0956 Patient Own 1 UNIT DAILY 07/29 1000 AC Medication PO Propranolol HCl 120 MG BID 07/29 1000 DC PO Propranolol HCl 120 MG BID 07/29 1000 AC 07/29 PO 0959 Quetiapine Fumarate 150 MG AT BEDTIME 07/29 2200 AC PO Quetiapine Fumarate 150 MG ONCE ONE 07/29 0545 DC 07/29 PO 07/29 0546 0615 Tramadol HCl 50 MG Q6P PRN 07/29 0330 AC PO Valacyclovir HCl 1,000 MG DAILY 07/29 1000 AC 07/29 PO 0958 Review of Systems Comments 18 point Review of Systems performed. Positive and negative pertinent findings are deliniated in the HPI. Otherwise the ROS is negative. 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 Ambulation: independent IADLs Independent: shopping, housework, finances, food prep, telephone, transportation , medication admin. ECHO Results (as available) Date of last Echo 09/26/14 EF% 70 Exam & Diagnostic Data Last 24 Hrs of Vital Signs/I&O Vital Signs Date Time Temp Pulse Resp B/P Pulse O2 O2 Flow FiO2 Ox Delivery Rate 07/29 1114 Nasal 5.0L Cannula 07/29 1040 96 Nasal 5.0L Cannula 07/29 0959 103 138/84 07/29 0958 103 138/84 07/29 0820 98.2 103 20 138/84 93 Nasal 4.0L Cannula 07/29 0819 98.2 103 20 138/84 93 Nasal 4.0L Cannula 07/29 0800 103 07/29 0800 93 Nasal 4.0L Cannula 07/29 0526 98.1 90 20 130/90 96 Nasal 4.0L Cannula 07/29 0451 Nasal 4.0L Cannula 07/29 0405 98.5 88 20 152/80 94 Nasal 4.0L Cannula 07/29 0210 92 Nasal 5.0L Cannula 07/29 0203 92 Nasal 4.0L Cannula 07/29 0108 98.8 103 24 138/79 92 Nasal 4.0L Cannula Intake & Output 07/29 1600 07/29 0800 07/29 0000 Intake Total 490 Output Total Balance 490 Intake, IV 250 Intake, Oral 240 Patient 245 lb Weight Physical Exam Other Physical Findings: gen awake and alert heent ncat cvs s1, s2 lungs rare rhonchi abd soft bs+ ext edematous Last 48 Hrs of Labs/Kartik: Laboratory Tests 07/29/16 1025: pH 7.40, pCO2 43, pO2 99, HCO3 26, ABG O2 Sat (Measured) 98.0, P-50 (Temp Corrected) YES, Carboxyhemoglobin 2.8, O2 Concentration % 5L, Temperature 98.2, O2 Delivery Method NC, Phlebotomy Draw Site LEFT RADIAL 07/29/16 0910: Anion Gap 7, Estimated GFR > 60, BUN/Creatinine Ratio 8.3, CBC w Diff NO MAN DIFF REQ, RBC 3.85 L, MCV 100.6 H, MCH 33.0 H, RDW 17.5 H, MPV 7.0 L, Gran % 90.7 H, Lymphocytes % 8.5 L, Monocytes % 0.7 L, Eosinophils % 0.1, Basophils % 0 L, Absolute Granulocytes 7.1 H, Absolute Lymphocytes 0.7 L, Absolute Monocytes 0.1 L, Absolute Eosinophils 0, Absolute Basophils 0, PUBS MCHC 32.8 L 07/29/16 0140: Anion Gap 8, Estimated GFR > 60, BUN/Creatinine Ratio 6.7 L, Glucose 107 H, Calcium 9.4, Total Bilirubin 0.6, AST 31, ALT 45, Alkaline Phosphatase 81, Troponin I < 0.01, Total Protein 6.3, Albumin 3.5, Globulin 2.8, Albumin/ Globulin Ratio 1.3, Total Beta HCG NEGATIVE, CBC w Diff NO MAN DIFF REQ, RBC 3.66 L, MCV 100.2 H, MCH 33.5 H, RDW 17.1 H, MPV 6.9 L, Gran % 72.7, Lymphocytes % 19.9 L, Monocytes % 6.6, Eosinophils % 0.4, Basophils % 0.4, Absolute Granulocytes 7.2 H, Absolute Lymphocytes 2.0, Absolute Monocytes 0.7 H, Absolute Eosinophils 0, Absolute Basophils 0, PUBS MCHC 33.5 Assessment/Plan Impression/Plan: 45 year old woman * reactive airway disease * hypoxemic respiratory failure, previously seen ground glass opacities with a broad differential likely reactive/inflammatory/smoking/environmental exposure related * Francisco's disease/adrenal insufficiency Plan -would reduce solumedrol to 40mg iv q12h in conjunction with endocrinology, plan to taper to baseline and please d/w endocrinology next steps and consideration for adding mineralocorticoids -singulair -albuterol mdi -nebulzier tx/TRC/nebs -cont symbicort -smoking cessation counseling/nicotine patch -pt requests psych consultation to evaluate seroquel need -spo2 goal >88% -DVT prophylaxis at all times Consult Acknowledgment - Thank you for your consult request.
--- NOTE | 2016-07-29 13:14 | PN- Att Addend ---
Attending Addendum Attending Brief Note Patient seen and examined. Resting comfortably in bed not in acute distress. She reports feeling better compared to presentation. Staff reported that she was mildly confused this morning after receiving seroquel. She is currently alert and oriented 3, conversing appropriately. She reports compliance with her respiratory regimen at home. She however does admit to continued tobacco use. She also admits to pet exposure which may be contributing to her exacerbations as well. Vital Signs Date Time Temp Pulse Resp B/P Pulse O2 O2 Flow FiO2 Ox Delivery Rate 07/29 1114 Nasal 5.0L Cannula 07/29 1040 96 Nasal 5.0L Cannula 07/29 0959 103 138/84 07/29 0958 103 138/84 07/29 0820 98.2 103 20 138/84 93 Nasal 4.0L Cannula 07/29 0819 98.2 103 20 138/84 93 Nasal 4.0L Cannula 07/29 0800 103 07/29 0800 93 Nasal 4.0L Cannula 07/29 0526 98.1 90 20 130/90 96 Nasal 4.0L Cannula 07/29 0451 Nasal 4.0L Cannula 07/29 0405 98.5 88 20 152/80 94 Nasal 4.0L Cannula 07/29 0210 92 Nasal 5.0L Cannula 07/29 0203 92 Nasal 4.0L Cannula 07/29 0108 98.8 103 24 138/79 92 Nasal 4.0L Cannula Gen. appearance: Not in acute distress Heart: S1-S2 regular Lungs: Diminished air entry bilaterally, no added sounds Abdomen: Soft, nontender with normal bowel sounds. Extremities: Trace pedal edema bilaterally. Neurologic: Alert and oriented 3 with no gross focal deficits. Laboratory Tests 07/29/16 1025: pH 7.40, pCO2 43, pO2 99, HCO3 26, ABG O2 Sat (Measured) 98.0, P-50 (Temp Corrected) YES, Carboxyhemoglobin 2.8, O2 Concentration % 5L, Temperature 98.2, O2 Delivery Method NC, Phlebotomy Draw Site LEFT RADIAL 07/29/16 0910: Anion Gap 7, Estimated GFR > 60, BUN/Creatinine Ratio 8.3, CBC w Diff NO MAN DIFF REQ, RBC 3.85 L, MCV 100.6 H, MCH 33.0 H, RDW 17.5 H, MPV 7.0 L, Gran % 90.7 H, Lymphocytes % 8.5 L, Monocytes % 0.7 L, Eosinophils % 0.1, Basophils % 0 L, Absolute Granulocytes 7.1 H, Absolute Lymphocytes 0.7 L, Absolute Monocytes 0.1 L, Absolute Eosinophils 0, Absolute Basophils 0, PUBS MCHC 32.8 L 07/29/16 0140: Anion Gap 8, Estimated GFR > 60, BUN/Creatinine Ratio 6.7 L, Glucose 107 H, Calcium 9.4, Total Bilirubin 0.6, AST 31, ALT 45, Alkaline Phosphatase 81, Troponin I < 0.01, Total Protein 6.3, Albumin 3.5, Globulin 2.8, Albumin/ Globulin Ratio 1.3, Total Beta HCG NEGATIVE, CBC w Diff NO MAN DIFF REQ, RBC 3.66 L, MCV 100.2 H, MCH 33.5 H, RDW 17.1 H, MPV 6.9 L, Gran % 72.7, Lymphocytes % 19.9 L, Monocytes % 6.6, Eosinophils % 0.4, Basophils % 0.4, Absolute Granulocytes 7.2 H, Absolute Lymphocytes 2.0, Absolute Monocytes 0.7 H, Absolute Eosinophils 0, Absolute Basophils 0, PUBS MCHC 33.5 Problems: 1. Acute on chronic hypoxic respiratory failure 2. Secondary to asthma/COPD exacerbation. Likely component of interstitial lung disease. 3. Bipolar disorder 4. Hypothyroidism 5. Maricao's disease Plan: -She has evidence of bronchospasm at present. She has evidence of underlying infectious process.-Continue smoking has likely contributed to her recurrent exacerbations since discharge a few weeks ago. There may also be a component of deconditioning related to her Elmo's disease. -Continue bronchodilator therapy. Follow-up with the pulmonary service regarding tapering off her steroid therapy given the lack of bronchospasm at present. -Wean down oxygen supplementation. -Labs today revealed metabolic alkalosis however ABG does not show evidence of respiration acidosis. -Follow-up with psychiatry service regarding her Seroquel. Patient reports confusion on and off when she takes this medication. She is requesting to see a psychiatrist. -Patient has a long-standing history of Maricao's disease. She is currently only on glucocorticoid replacement therapy. Electrolytes are within normal limits. She should continue follow-up with her manager of purchasing as an outpatient.
[2016-07-29 16:11] VITALS: BP 130/80
--- NOTE | 2016-07-29 18:29 | Cons- Endocrinology ---
General Information and HPI Consulting Request Date of Consult: 07/29/16 Requested By: medical team Reason for Consult: History of adrenal insufficiency Source of Information: patient, old records Exam Limitations: poor historian History of Present Illness: This 45-year-old woman with a known history of COPD and heavy smoking came to emergency room because of shortness of breath. She has a history of bipolar disorder alcohol dependence and substance abuse in the past. She also has been told of adrenal insufficiency in the past. She was seen previously in June when she was admitted with shortness of breath and required high-dose steroid therapy. She states after she left the hospital she worked with her medical orderly Dr. Kolton De La Rosa to reduce the dose of prednisone. The patient has had evidence in the past of iatrogenic Francisco's disease with a very round face easy bruisability and weight gain. The patient also has a history of Joann's thyroiditis and is on levothyroxine 0.1 mg daily. Once again during this hospitalization the patient was treated with high-dose steroids. She is presently on methylprednisolone 40 mg twice a day. Allergies/Medications Allergies: Coded Allergies: apple (Intermediate, HIVES FROM APPLE CIDER 05/21/16) hydromorphone (Intermediate, LIP SWELLING 05/21/16) phenytoin (Intermediate, HIVES 05/21/16) lidocaine (SVT 05/21/16) oxycodone (From Percocet) (ITCHY 05/21/16) Home Med List: Acetaminophen/Aspirin/Caffei (Excedrin 250 MG-250 MG-65 MG) 1 TAB TAB 1 TAB PO DAILY SINUS HEADACHE (Reported) Albuterol Sulfate 2.5 MG/3 ML (0.083 %) VIAL.NEB 3 ML INH TID PRN asthma Albuterol Sulfate (Ventolin Hfa) 90 MCG HFA.AER.AD 2 PUF INH Q4-6 PRN PRN asthma Amlodipine Besylate (Norvasc) 10 MG TABLET 1 TAB PO DAILY hypertension Azithromycin 500 MG TABLET 1 TAB PO DAILY BRONCHITIS/COPD STOP AFTER LAST DOSE ON 08/02. Budesonide/Formoterol Fumarate (Symbicort 160-4.5 Mcg Inhaler) 160 MCG-4.5 MCG/ ACTUATION HFA.AER.AD 2 PUF INH BID ASTHMA (Reported) Divalproex Sodium 500 MG TABLET.DR 1,250 MG PO AT BEDTIME MENTAL HEALTH FEXOFENADINE/PSEUDOEPHEDRINE (Shannan-D 24 Hour Tablet) 180 MG-240 MG TAB.ER.24H 1 TAB PO DAILY ALLERGIES (Reported) Fluticasone Propionate (Flonase) 50 MCG/ACTUATION SPRAY.SUSP 1 SPRAY ELLA BID ALLERGIES (Reported) Levothyroxine Sodium (Synthroid) 0.1 MG TAB 1 TAB PO DAILY AC THYROID ( Reported) Montelukast Sodium 10 MG TABLET 1 TAB PO QHS ASTHMA (Reported) Multivitamin (One Daily Multivitamin) 1 EACH TABLET 1 TAB PO DAILY supplement Nicotine Polacrilex (Nicotine Gum) 4 MG GUM 4 MG PO Q6H PRN SMOKING CESSATION (Reported) Nystatin (Nystop) 100,000 UNIT/GRAM POWDER 1 KAYLEIGH TOP BID UNDER BREASTS ( Reported) Prednisone 10 MG TABLET 1 TAB PO DAILY COPD DATE DOSE 08/02 50MG 08/03- 40MG 08/05- 30MG 08/07- 20MG 08/09- 10MG AFTER 08/10, TAKE 10MG DAILY UNTIL YOU SEE Propranolol HCl (Propranolol HCl ER) 120 MG CAP.SA.24H 1 CAP PO BID BP ( Reported) Quetiapine Fumarate (Seroquel XR) 150 MG TAB.ER.24H 1 TAB PO QPM MENTAL HEALTH (Reported) Tramadol HCl 50 MG TABLET 1 TAB PO Q6P PRN PAIN SCALE 7-10 (SEVERE) (Reported ) Valacyclovir HCl (Valacyclovir) 1,000 MG TABLET 1 TAB PO DAILY ANTI VIRAL ( Reported) Review of Systems Review of Systems Constitutional: Denies: chills, fever. Cardiovascular: Denies: chest pain. Respiratory: Reports: cough, short of breath. GI: Denies: abdominal pain. Skin: Reports: rash (ecchymoses). Neurological/Psychological: Reports: anxiety, depressed, emotional problems. Hematologic/Endocrine: Denies: polyuria, polydipsia. 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 Ambulation: independent IADLs Independent: shopping, housework, finances, food prep, telephone, transportation , medication admin. ECHO Results (as available) Date of last Echo 09/26/14 EF% 70 Exam & Diagnostic Data Last 24 Hrs of Vital Signs/I&O Vital Signs Date Time Temp Pulse Resp B/P Pulse O2 O2 Flow FiO2 Ox Delivery Rate 07/29 1702 102 07/29 1650 95 Nasal 3.0L Cannula 07/29 1611 97.5 107 20 130/80 94 Nasal 4.0L Cannula 07/29 1600 95 Nasal 3.0L Cannula 07/29 1114 Nasal 5.0L Cannula 07/29 1040 96 Nasal 5.0L Cannula 07/29 0959 103 138/84 07/29 0958 103 138/84 07/29 0820 98.2 103 20 138/84 93 Nasal 4.0L Cannula 07/29 0819 98.2 103 20 138/84 93 Nasal 4.0L Cannula 07/29 0800 103 07/29 0800 93 Nasal 4.0L Cannula 07/29 0526 98.1 90 20 130/90 96 Nasal 4.0L Cannula 07/29 0451 Nasal 4.0L Cannula 07/29 0405 98.5 88 20 152/80 94 Nasal 4.0L Cannula 07/29 0210 92 Nasal 5.0L Cannula 07/29 0203 92 Nasal 4.0L Cannula 07/29 0108 98.8 103 24 138/79 92 Nasal 4.0L Cannula Intake & Output 07/29 1600 07/29 0800 07/29 0000 Intake Total 600 490 Output Total Balance 600 490 Intake, IV 250 Intake, Oral 600 240 Patient 245 lb Weight Vital Signs Date Time Temp Pulse Resp B/P Pulse O2 O2 Flow FiO2 Ox Delivery Rate 07/29 1702 102 07/29 1650 95 Nasal 3.0L Cannula 07/29 1611 97.5 107 20 130/80 94 Nasal 4.0L Cannula 07/29 1600 95 Nasal 3.0L Cannula 07/29 1114 Nasal 5.0L Cannula 07/29 1040 96 Nasal 5.0L Cannula 07/29 0959 103 138/84 07/29 0958 103 138/84 07/29 0820 98.2 103 20 138/84 93 Nasal 4.0L Cannula 07/29 0819 98.2 103 20 138/84 93 Nasal 4.0L Cannula 07/29 0800 103 07/29 0800 93 Nasal 4.0L Cannula 07/29 0526 98.1 90 20 130/90 96 Nasal 4.0L Cannula 07/29 0451 Nasal 4.0L Cannula 07/29 0405 98.5 88 20 152/80 94 Nasal 4.0L Cannula 07/29 0210 92 Nasal 5.0L Cannula 07/29 0203 92 Nasal 4.0L Cannula 07/29 0108 98.8 103 24 138/79 92 Nasal 4.0L Cannula Intake & Output 07/29 1600 07/29 0800 07/29 0000 Intake Total 600 490 Output Total Balance 600 490 Intake, IV 250 Intake, Oral 600 240 Patient 245 lb Weight Physical Exam General Appearance: alert, awake, comfortable, round face with plethora Head: normal appearance Eyes: Bilateral: normal appearance. Neck: normal inspection Respiratory: normal breath sounds Cardiovascular: regular rate/rhythm Extremities: swelling (both lower legs 2-3+) Labs/Kartik Results: Laboratory Tests 07/29 07/29 1025 0910 Blood Gas pH (7.35 - 7.45 PH) 7.40 pCO2 (35 - 45 TORR) 43 pO2 (80 - 100 TORR) 99 HCO3 (21 - 28 MEQ/L) 26 ABG O2 Sat (Measured) (>96.0 %) 98.0 P-50 (Temp Corrected) YES Carboxyhemoglobin (1.5 - 5.0 %) 2.8 O2 Concentration % 5L Temperature (97.0 - 100.0 FARH) 98.2 O2 Delivery Method NC Chemistry Sodium (137 - 145 mmol/L) 137 Potassium (3.5 - 5.1 mmol/L) 4.9 Chloride (98 - 107 mmol/L) 96 L Carbon Dioxide (22 - 30 mmol/L) 34 H Anion Gap (5 - 16) 7 BUN (7 - 17 mg/dL) 5 L Creatinine (0.5 - 1.0 mg/dL) 0.6 Estimated GFR (>60 ml/min) > 60 BUN/Creatinine Ratio (7 - 25 %) 8.3 Hematology CBC w Diff NO MAN DIFF REQ WBC (4.8 - 10.8 /CUMM) 7.8 RBC (4.20 - 5.40 /CUMM) 3.85 L Hgb (12.0 - 16.0 G/DL) 12.7 Hct (37 - 47 %) 38.7 MCV (81.0 - 99.0 FL) 100.6 H MCH (27.0 - 31.0 PG) 33.0 H RDW (11.5 - 14.5 %) 17.5 H Plt Count (130 - 400 /CUMM) 219 MPV (7.4 - 10.4 FL) 7.0 L Gran % (42.2 - 75.2 %) 90.7 H Lymphocytes % (20.5 - 51.1 %) 8.5 L Monocytes % (1.7 - 9.3 %) 0.7 L Eosinophils % (0 - 5 %) 0.1 Basophils % (0.0 - 2.0 %) 0 L Absolute Granulocytes (1.4 - 6.5 /CUMM) 7.1 H Absolute Lymphocytes (1.2 - 3.4 /CUMM) 0.7 L Absolute Monocytes (0.10 - 0.60 /CUMM) 0.1 L Absolute Eosinophils (0.0 - 0.7 /CUMM) 0 Absolute Basophils (0.0 - 0.2 /CUMM) 0 PUBS MCHC (33.0 - 37.0 G/DL) 32.8 L Miscellaneous Phlebotomy Draw Site LEFT RADIAL 07/29 0140 Chemistry Sodium (137 - 145 mmol/L) 137 Potassium (3.5 - 5.1 mmol/L) 4.7 Chloride (98 - 107 mmol/L) 98 Carbon Dioxide (22 - 30 mmol/L) 30 Anion Gap (5 - 16) 8 BUN (7 - 17 mg/dL) 4 L Creatinine (0.5 - 1.0 mg/dL) 0.6 Estimated GFR (>60 ml/min) > 60 BUN/Creatinine Ratio (7 - 25 %) 6.7 L Glucose (65 - 99 mg/dL) 107 H Calcium (8.4 - 10.2 mg/dL) 9.4 Total Bilirubin (0.2 - 1.3 mg/dL) 0.6 AST (14 - 36 U/L) 31 ALT (9 - 52 U/L) 45 Alkaline Phosphatase (<127 U/L) 81 Troponin I (< 0.11 ng/ml) < 0.01 Total Protein (6.3 - 8.2 g/dL) 6.3 Albumin (3.5 - 5.0 g/dL) 3.5 Globulin (1.9 - 4.2 gm/dL) 2.8 Albumin/Globulin Ratio (1.1 - 2.2 %) 1.3 Total Beta HCG (NEGATIVE) NEGATIVE Hematology CBC w Diff NO MAN DIFF REQ WBC (4.8 - 10.8 /CUMM) 9.9 RBC (4.20 - 5.40 /CUMM) 3.66 L Hgb (12.0 - 16.0 G/DL) 12.3 Hct (37 - 47 %) 36.7 L MCV (81.0 - 99.0 FL) 100.2 H MCH (27.0 - 31.0 PG) 33.5 H RDW (11.5 - 14.5 %) 17.1 H Plt Count (130 - 400 /CUMM) 238 MPV (7.4 - 10.4 FL) 6.9 L Gran % (42.2 - 75.2 %) 72.7 Lymphocytes % (20.5 - 51.1 %) 19.9 L Monocytes % (1.7 - 9.3 %) 6.6 Eosinophils % (0 - 5 %) 0.4 Basophils % (0.0 - 2.0 %) 0.4 Absolute Granulocytes (1.4 - 6.5 /CUMM) 7.2 H Absolute Lymphocytes (1.2 - 3.4 /CUMM) 2.0 Absolute Monocytes (0.10 - 0.60 /CUMM) 0.7 H Absolute Eosinophils (0.0 - 0.7 /CUMM) 0 Absolute Basophils (0.0 - 0.2 /CUMM) 0 PUBS MCHC (33.0 - 37.0 G/DL) 33.5 Assessment/Plan Assessment/Plan At the present time this patient is on high-dose steroid therapy. We do not have to worry about adrenal insufficiency until steroids are tapered to doses which are below 7 1/2 mg of prednisone once a day. The patient has had frequent high-dose steroids because of her pulmonary condition and has evidence of iatrogenic Keota's disease. Her adrenal insufficiency may be due to suppression of the pituitary adrenal axis secondary to high-dose steroids in the past. A 21 hydroxylase antibody to rule out primary adrenal insufficiency was recommended during her last admission but this test was not done. I recommend that this test be done during this admission. In addition we should repeat the patient's thyroid function tests including a free T4 and TSH. To help counteract the effect of high-dose steroids on her bones the patient should be on vitamin D at least 1000 units daily. I also recommended Accu-Cheks be done twice a day before breakfast and before supper while on high-dose steroids to make sure that her blood sugar does not become elevated. In addition the patient is on Inderal LA which is usually contraindicated in COPD and asthma with wheezing. This needs to be reevaluated. Consult Acknowledgment - Thank you for your consult request.
[2016-07-29 23:40] VITALS: BP 116/71
--- NOTE | 2016-07-30 03:38 | PN- Housestaff ---
RENÉ JAIN,HILL 07/30/16 0338: Subjective Follow-up For: COPD exacerbation Subjective: Patient seen and examined at bedside. She reports feeling much better with no compalints. However she becomes very dyspenic off the oxygen when she goes the bathroom and thus would not feel comfortable going home at all. She is coughing intermittently, productive of green sputum. No fever and vitals WNL/stable. Denies any chest pain, palpitations, n/v/c/d. Review of Systems Constitutional: Reports: see HPI. Objective Last 24 Hrs of Vital Signs/I&O Vital Signs Date Time Temp Pulse Resp B/P Pulse O2 O2 Flow FiO2 Ox Delivery Rate 07/30 1221 94 Nasal 2.0L Cannula 07/30 1012 82 138/90 07/30 1011 82 138/90 07/30 0815 97.8 82 20 138/90 98 Nasal 3.0L Cannula 07/30 0800 95 Nasal 2.0L Cannula 07/30 0756 95 Nasal 3.0L Cannula 07/30 0000 Nasal 3.0L Cannula 07/29 2340 99.4 94 20 116/71 96 Nasal 4.0L Cannula 07/29 2135 102 128/88 07/29 1702 102 07/29 1650 95 Nasal 3.0L Cannula 07/29 1611 97.5 107 20 130/80 94 Nasal 4.0L Cannula 07/29 1600 95 Nasal 3.0L Cannula Intake & Output 07/30 1600 07/30 0800 07/30 0000 Intake Total 780 1080 Output Total Balance 780 1080 Intake, IV 300 Intake, Oral 480 1080 Physical Exam General Appearance: Alert, Oriented X3, Cooperative, No Acute Distress Other Physical Findings: Skin No Rashes, No Breakdown HEENT Atraumatic, PERRLA, EOMI Neck Supple, No JVD Cardiovascular Regular Rate, Normal S1, Normal S2, No Murmurs Lungs Clear to Auscultation, Normal Air Movement, No wheezes, Minimal rhonchi Abdomen Normal Bowel Sounds, Soft, No Tenderness Neurological Normal Speech, Strength at 5/5 X4 Ext, Normal Tone Extremities No Clubbing, No Cyanosis, 2+ edema over both the feet Vascular Pulses Symmetrical Current Medications: Current Medications Sig/Rosio Start time Last Medication Dose Route Stop Time Status Admin Acetaminophen 650 MG Q6P PRN 07/29 0330 AC PO Albuterol Sulfate 3 ML EVERY 4 HRS/AWAKE 07/29 1200 AC 07/30 INH 1120 Alprazolam 0.5 MG Q6-PRN PRN 07/29 0330 AC 07/30 PO 08/05 0329 0446 Amlodipine Besylate 10 MG DAILY 07/29 1000 AC 07/30 PO 1011 Azithromycin 500 MG 0200 07/30 0200 AC 07/30 Dextrose/Water 250 ML IV 0217 Budesonide/ 2 PUF BID 07/29 1000 AC 07/30 Formoterol Fumarate INH 1012 Divalproex Sodium 1,500 MG AT BEDTIME 07/29 2200 AC 07/29 PO 2134 Enoxaparin Sodium 40 MG DAILY 07/29 1000 AC 07/30 SC 1013 Ibuprofen 400 MG Q6-PRN PRN 07/30 0745 AC 07/30 PO 1017 Ipratropium Marceline 2.5 ML EVERY 4 HRS/AWAKE 07/29 1600 AC 07/30 INH 1120 Levothyroxine Sodium 0.1 MG DAILY AC 07/29 0700 AC 07/30 PO 0445 Methylprednisolone 40 MG Q12 07/29 2199 DC 07/30 IV 1012 Methylprednisolone 40 MG Q6 07/29 0600 DC 07/29 IV 1152 Montelukast Sodium 10 MG AT BEDTIME 07/29 2200 AC 07/29 PO 2135 Nicotine 4 MG Q6P PRN 07/29 0330 AC PO Nystatin 5 ML 4 TIMES/DAY 07/29 0330 AC 07/30 PO 1012 Nystatin 1 KAYLEIGH BID 07/29 0326 AC 07/30 TOP 1012 Patient Medication 1 ED .STK-MED ONE 07/30 1259 OH Teaching ED 07/30 1300 Patient Own 1 UNIT DAILY 07/29 1000 AC Medication PO Prednisone 40 MG DAILY 07/31 1000 AC PO Prednisone 20 MG ONCE ONE 07/30 1600 AC PO 07/30 1601 Propranolol HCl 120 MG BID 07/29 1000 AC 07/30 PO 1012 Quetiapine Fumarate 150 MG AT BEDTIME 07/29 2199 AC 07/29 PO 2135 Tramadol HCl 50 MG Q6P PRN 07/29 0330 AC 07/30 PO 1016 Valacyclovir HCl 1,000 MG DAILY 07/29 1000 AC 07/30 PO 1011 Last 24 Hrs of Lab/Kartik Results Last 24 Hrs of Labs/Mics: Laboratory Tests 07/30/16 0638: Anion Gap 6, Estimated GFR > 60, BUN/Creatinine Ratio 23.3, TSH 0.115 L, Free T4 1.21, CBC w Diff NO MAN DIFF REQ, RBC 3.49 L, MCV 100.1 H, MCH 33.5 H, RDW 17.3 H, MPV 7.2 L, Gran % 84.6 H, Lymphocytes % 10.1 L, Monocytes % 5.3, Eosinophils % 0, Basophils % 0 L, Absolute Granulocytes 9.9 H, Absolute Lymphocytes 1.2, Absolute Monocytes 0.6, Absolute Eosinophils 0, Absolute Basophils 0, PUBS MCHC 33.5 Microbiology 07/29 2139 LOWER RESP: Respiratory Culture - RES 07/29 2139 LOWER RESP: Gram Stain - RES Assessment/Plan Assessment: Patient is a 45 YO F with PMH significant for HTN, asthma/COPD, bronchitis, alcohol dependence, substance abuse, Addisons disease, Hypothyroidism (Joann 's), bipolar disorder came to the ER with progressively worsening shortness of breath, weakness and tiredness. She also found to have cough with productive cough and fevers, most likely 2/2 COPD exacerbation. # Acute hypoxic respiratory failure secondary to COPD exacerbation She has had multiple admissions recently due to recurrent exacerbation from tobacco/alcohol dependence. Upon admission patient was started on IV Zithromax and Solumedrol 40mg Q8 and then Q12, transitioned to PO prednisone on 07/30. * Cont steroid taper slowly, prednisone 60mg daily for now * Cont IV Zithromax * TRC/Nebs/oxygen supplementation as needed * Cont to appreciate pulm recs # Alcohol dependence * CIWA scores have been 0 * Ativan PRN as needed # Hypertension * Continue her home meds propronol 120mg BID and amlodipine 10mg daily for now * Regarding her home med pranolol patient was told to discuss with her PCP Dr. De La Rosa regarding continuing this medication at such a high dose in the setting of COPD/asthma # Addissions disease * As she is currently on high dose steroids for COPD exacerbation we will hold off her home steroid dosage * Appreciate endo recs - patient has been instructed to follow up with her senior electronics technician Dr. De La Rosa regarding her steroid dose and further workup (i.e. 21- hydroxylase and aldactone levels) to confirm or r/o the diagnosis of [place]'s disease. 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 Free T4 normal at 1.21. * Cont home med levothyroxine 0.1mg PO daily * Patient will need to follow up with Dr. De La Rosa regarding the workup for her low TSH and adjustment of her synthroid dose. # Oral thrush * Secondary to chronic steroid intake * Cont nystatin swish and swallow # Psychiatric problems She carries a h/o bipolar disorder, anxiety/depression for which she takes Seroquel 150 mg at bedtime and naltrexone 50 mg along with proximal 0.5 mg * We will continue her home medications for now * Psych consulted, appreciate recs # Smoking cessation * Patient is educated several times about quitting smoking * Unable to quit despite counseling * Nicotine gum is provided as it helps her according to patient. # DVT prophylaxis * Subcutaneous heparin # CODE STATUS * Full code Problem List: 1. COPD exacerbation Pain Ratin Pain Location: 0 Pain Goal: Remain pain free Pain Plan: Mild path Tomorrow's Labs & Rationales: CBC to monitor for signs of infxn Consulting Request: Consulting Specialty: Pulmonary Disease Consulting Physician: Reason for Consult: COPD/Asthma exacerbation LEONEL PETERSON MD 07/30/16 1207: Attending MD Review Statement Attending Statement Attending MD Statement: examined this patient, discuss w/resident/PA/HOT METAL MIXER OPERATOR, agreed w/resident/PA/HOT METAL MIXER OPERATOR, reviewed EMR data (avail), discussed with nursing, discussed with case mgmt, amended to note Attending Assessment/Plan: Patient seen and examined. Sitting comfortably in bed not in acute distress. She reports feeling better. Her oxygen demand has improved. She denies shortness of breath or cough at rest though she does admit to some dyspnea with exertion. On examination lungs are clear to auscultation bilaterally with adequate air entry. Problems: 1. Acute on chronic hypoxic respiratory failure 2. Secondary to asthma/COPD exacerbation. Likely component of interstitial lung disease. 3. Bipolar disorder 4. Hypothyroidism 5. Adrenal insufficiency Recommendations: -Continue bronchodilator therapy. Taper prednisone as recommended by the pulmonology service. She has been started on oral steroids today. Would recommend tapering down to 10 mg daily after which she should follow-up with her senior electronics technician in [place] for further dosing recommendations. Recommendations made by Dr. Lombardo appreciated however patient states that she will be following up with her own senior electronics technician in [place] upon discharge. -Need to abstain from cigarette smoking has been reinforced. Patient declines referral to any outpatient program. She is willing to try the nicotine gum. -Endocrinology follow-up appreciated. There is concern that her adrenal insufficiency may be due to suppression of the pituitary adrenal axis by exogenous steroids. This may also be causing suppression of her TSH. 21- hydroxylase antibody testing would be appropriate to confirm this diagnosis. This testing however is not available in the hospital and results will not be immediately available if ordered. She also wishes to follow-up with her own senior electronics technician. Patient has been notified of the recommendations. The medical team will call her senior electronics technician and notify him of these recommendations as well as recommendations regarding her prednisone therapy. -Patient has been on propanolol for several years. She appears to be on this for blood pressure control. She reports that her dose was recently doubled by her senior electronics technician who also serves as her primary care provider. She has no history of underlying coronary artery disease. Recommend follow-up with her PCP /senior electronics technician Dr. Roddy De La Rosa for further management of her blood pressure. -Anticipate discharge home tomorrow if she is doing well on oral steroid therapy. She will need to continue on oxygen supplementation at home upon discharge.
--- NOTE | 2016-07-30 07:49 | PN- Endocrinology ---
Assessment/Plan Assessment: The patient states she feels improved. She is still on methylprednisolone 40 mg twice a day. She states that her breathing is good. She is still raising a lot of sputum. Most likely her adrenal insufficiency is due to suppression of the pituitary adrenal axis by exogenous steroids. The patient complains of some leg weakness but this could be due to proximal myopathy related to high-dose steroids. Plan: While the patient is on high-dose steroids she certainly does not need a minerlocorticoid. We can check her aldosterone level today however.. Also her 21 hydroxylase antibodies should be measured. If her 21 hydroxylase antibodies negative than primary adrenal insufficiency would be extremely unlikely. When her steroid therapy gets down to the equivalent dose of prednisone of less than 7-1/2 mg a day then she may want to consider every other day steroid therapy as a way of helping her pituitary adrenal axis recover. Subjective Subjective: Feels improved Review of Systems Constitutional: Denies: chills, fever. Cardiovascular: Denies: chest pain. Respiratory: Reports: cough, short of breath. Gastrointestinal: Denies: nausea, vomiting. Skin: Reports: erythema (FACE). Hematologic/Endocrine: Reports: bruising. Denies: polyuria, polydipsia. Objective Last 24 Hrs of Vital Signs/I&O Vital Signs Date Time Temp Pulse Resp B/P Pulse O2 O2 Flow FiO2 Ox Delivery Rate 07/30 0000 Nasal 3.0L Cannula 07/29 2340 99.4 94 20 116/71 96 Nasal 4.0L Cannula 07/29 2135 102 128/88 07/29 1702 102 07/29 1650 95 Nasal 3.0L Cannula 07/29 1611 97.5 107 20 130/80 94 Nasal 4.0L Cannula 07/29 1600 95 Nasal 3.0L Cannula 07/29 1114 Nasal 5.0L Cannula 07/29 1040 96 Nasal 5.0L Cannula 07/29 0959 103 138/84 07/29 0958 103 138/84 07/29 0820 98.2 103 20 138/84 93 Nasal 4.0L Cannula 07/29 0819 98.2 103 20 138/84 93 Nasal 4.0L Cannula 07/29 0800 103 07/29 0800 93 Nasal 4.0L Cannula Intake & Output 07/30 0800 07/30 0000 07/29 1600 Intake Total 780 1080 600 Output Total Balance 780 1080 600 Intake, IV 300 Intake, Oral 480 7501 076
[2016-07-30 08:11] LABS: ABSOLUTE BASOPHIL COUNT 0 /CUMM (0.0-0.2); ABSOLUTE EOSINOPHIL COUNT 0 /CUMM (0.0-0.7); ABSOLUTE GRANULOCYTE CT 9.9 /CUMM (1.4-6.5); ABSOLUTE LYMPH COUNT 1.2 /CUMM (1.2-3.4); ABSOLUTE MONOCYTE COUNT 0.6 /CUMM (0.10-0.60); BASOPHIL % 0 % (0.0-2.0); EOSINOPHIL % 0 % (0-5); HEMATOCRIT 34.9 % (37-47); MEAN CORPUSCULAR HGB 33.5 PG (27.0-31.0); MEAN CORPUSCULAR HGB CONC 33.5 G/DL (33.0-37.0); MEAN CORPUSCULAR VOLUME 100.1 FL (81.0-99.0); MEAN PLATELET VOLUME 7.2 FL (7.4-10.4); PLATELET COUNT 216 /CUMM (130-400); RBC DISTRIBUTION WIDTH 17.3 % (11.5-14.5); RED BLOOD CELL CT 3.49 /CUMM (4.20-5.40); WHITE BLOOD CELL COUNT 11.7 /CUMM (4.8-10.8)
[2016-07-30 08:15] VITALS: BP 138/90
[2016-07-30 09:23] LABS: GRANULOCYTE % 84.6 % (42.2-75.2)
--- NOTE | 2016-07-30 10:50 | PN- Pulmonary ---
Subjective HPI/Critical Care Issues: Patient seen and examined. No chest pain, dyspnea has significantly improved. No nausea, vomiting, diarrhea or constipation. Afebrile and hemodynamically stable. Saturating 98% on 3 L nasal cannula. Objective Current Medications: Current Medications Sig/Rosio Start time Last Medication Dose Route Stop Time Status Admin Acetaminophen 650 MG Q6P PRN 07/29 0330 AC PO Albuterol Sulfate 3 ML EVERY 4 HRS/AWAKE 07/29 1200 AC 07/30 INH 0753 Alprazolam 0.5 MG Q6-PRN PRN 07/29 0330 AC 07/30 PO 08/05 0329 0446 Amlodipine Besylate 10 MG DAILY 07/29 1000 AC 07/30 PO 1011 Azithromycin 500 MG 0200 07/30 0200 AC 07/30 Dextrose/Water 250 ML IV 0217 Budesonide/ 2 PUF BID 07/29 1000 AC 07/30 Formoterol Fumarate INH 1012 Divalproex Sodium 1,500 MG AT BEDTIME 07/29 2200 AC 07/29 PO 2134 Enoxaparin Sodium 40 MG DAILY 07/29 1000 AC 07/30 SC 1013 Ibuprofen 400 MG Q6-PRN PRN 07/30 0745 AC 07/30 PO 1017 Ipratropium [place]ushing 2.5 ML EVERY 4 HRS/AWAKE 07/29 1600 AC 07/30 INH 0753 Levothyroxine Sodium 0.1 MG DAILY AC 07/29 0700 AC 07/30 PO 0445 Methylprednisolone 40 MG Q12 07/29 2200 AC 07/30 IV 1012 Methylprednisolone 40 MG Q6 07/29 0600 DC 07/29 IV 1152 Montelukast Sodium 10 MG AT BEDTIME 07/29 2200 AC 07/29 PO 2135 Nicotine 2 MG Q6-PRN PRN 07/29 1045 DC PO Nicotine 4 MG Q6P PRN 07/29 0330 AC PO Nystatin 5 ML 4 TIMES/DAY 07/29 0330 AC 07/30 PO 1012 Nystatin 1 KAYLEIGH BID 07/29 0326 AC 07/30 TOP 1012 Patient Own 1 UNIT DAILY 07/29 1000 AC Medication PO Propranolol HCl 120 MG BID 07/29 1000 AC 07/30 PO 1012 Quetiapine Fumarate 150 MG AT BEDTIME 07/29 2200 AC 07/29 PO 2135 Tramadol HCl 50 MG Q6P PRN 07/29 0330 AC 07/30 PO 1016 Valacyclovir HCl 1,000 MG DAILY 07/29 1000 AC 07/30 PO 1011 Vital Signs & I&O Last 24 Hrs of Vitals and I&O: Vital Signs Date Time Temp Pulse Resp B/P Pulse O2 O2 Flow FiO2 Ox Delivery Rate 07/30 1012 82 138/90 07/30 1011 82 138/90 07/30 0815 97.8 82 20 138/90 98 Nasal 3.0L Cannula 07/30 0800 95 Nasal 2.0L Cannula 07/30 0756 95 Nasal 3.0L Cannula 07/30 0000 Nasal 3.0L Cannula 07/29 2340 99.4 94 20 116/71 96 Nasal 4.0L Cannula 07/29 2135 102 128/88 07/29 1702 102 07/29 1650 95 Nasal 3.0L Cannula 07/29 1611 97.5 107 20 130/80 94 Nasal 4.0L Cannula 07/29 1600 95 Nasal 3.0L Cannula 07/29 1114 Nasal 5.0L Cannula Intake & Output 07/30 1600 07/30 0800 07/30 0000 Intake Total 780 1080 Output Total Balance 780 1080 Intake, IV 300 Intake, Oral 480 1080 Exam Other Physical Findings: gen awake and alert heent ncat cvs s1, s2 lungs rare rhonchi abd soft bs+ ext edematous Results Last 24 Hrs of Lab Results: Laboratory Tests 07/30/16 0638: Anion Gap 6, Estimated GFR > 60, BUN/Creatinine Ratio 23.3, TSH 0.115 L, Free T4 1.21, CBC w Diff NO MAN DIFF REQ, RBC 3.49 L, MCV 100.1 H, MCH 33.5 H, RDW 17.3 H, MPV 7.2 L, Gran % 84.6 H, Lymphocytes % 10.1 L, Monocytes % 5.3, Eosinophils % 0, Basophils % 0 L, Absolute Granulocytes 9.9 H, Absolute Lymphocytes 1.2, Absolute Monocytes 0.6, Absolute Eosinophils 0, Absolute Basophils 0, PUBS MCHC 33.5 Impression/Plan Impression/Plan Impression/Plan: 45 year old woman * reactive airway disease * hypoxemic respiratory failure, previously seen ground glass opacities with a broad differential likely reactive/inflammatory/smoking/environmental exposure related * Francisco's disease/adrenal insufficiency Plan -Would continue aggressive reduction of steroids in conjunction with endocrinology, plan to taper to baseline and please d/w endocrinology next steps and consideration for adding mineralocorticoids -singulair -albuterol mdi -nebulzier tx/TRC/nebs -cont symbicort -smoking cessation counseling/nicotine patch -pt requests psych consultation to evaluate seroquel need -spo2 goal >88% -DVT prophylaxis at all times
--- NOTE | 2016-07-30 11:21 | ECHOCARDIOGRAM REPORT ---
VENICE DAWKINS Age: 45 : 1970 Gender: F Exam Date: 07/29/2016 19:46 Exam Location: [address] [place] [address] Ht (in): 62 Wt (lb): 244 BSA: 2.27 BP: 138 / 84 Ordering Physician: HILL MERRITT MD Referring Physician: Moisse Shankar MD Technologist: Cady Chau [facility] Room Number: 213 Indications: LIGHTHEADEDNESS Rhythm: Sinus Technical Quality: Good FINDINGS Left Ventricle Normal global left ventricular size, wall thickness, systolic function with no obvious regional wall motion abnormalities. Normal left ventricular ejection fraction visually estimated at >60 %. Right Ventricle Normal right ventricular size and function. Right Atrium Normal right atrial size. Left Atrium Mild left atrial dilatation. Mitral Valve Structurally normal mitral valve. Trace mitral regurgitation. Aortic Valve Structurally normal trileaflet aortic valve. No aortic stenosis. No aortic regurgitation. Tricuspid Valve Tricuspid valve not well visualized, grossly normal. Trace tricuspid regurgitation. Pulmonic Valve Pulmonic valve not well visualized, grossly normal. Pericardium No pericardial effusion. Great Vessels Normal size aortic root. CONCLUSIONS Normal global left ventricular size, wall thickness, systolic function with no obvious regional wall motion abnormalities. Normal left ventricular ejection fraction visually estimated at >60 Mild left atrial dilatation. Trace tricuspid regurgitation. Moises Shankar M.D. (Electronically Signed) Final Date: 30 July 2016 11:20 MEASUREMENTS (Male / Female) Normal Values 2D ECHO LV Diastolic Diameter PLAX 4.2 cm 4.2 - 5.9 / 3.9 - 5.3 cm LV Systolic Diameter PLAX 2.6 cm 2.1 - 4.0 cm LV Fractional Shortening PLAX 38.1 % 25 - 46 % LV Ejection Fraction 2D Teich 68.7 % IVS Diastolic Thickness 1.2 cm LVPW Diastolic Thickness 1.0 cm LV Relative Wall Thickness 0.5 RV Internal Dim ED PLAX 2.5 cm 1.9 - 3.8 cm LVOT Diameter 1.8 cm Aortic Root Diameter 2.2 cm LA Systolic Diameter LX 4.1 cm 3.0 - 4.0 / 2.7 - 3.8 cm LA Volume 25.0 cm 18 - 58 / 22 - 52 cm Ascending Aorta Diameter 2.4 cm DOPPLER AV Peak Velocity 180.0 cm/s AV Peak Gradient 13.0 mmHg AV Mean Velocity 125.0 cm/s AV Mean Gradient 7.0 mmHg AV Velocity Time Integral 35.3 cm LVOT Peak Velocity 146.0 cm/s LVOT Peak Gradient 8.5 mmHg LVOT Mean Velocity 89.0 cm/s LVOT Mean Gradient 4.0 mmHg LVOT Velocity Time Integral 24.7 cm LVOT Stroke Volume 62.9 cm AV Area Cont Eq vti 1.8 cm AV Area Cont Eq pk 2.1 cm MV Peak Velocity 107.0 cm/s MV Peak Gradient 4.6 mmHg MV Mean Velocity 77.7 cm/s MV Mean Gradient 3.0 mmHg Mitral E Point Velocity 112.0 cm/s Mitral A Point Velocity 137.0 cm/s Mitral E to A Ratio 0.8 MV PHT Velocity 113.0 cm/s MV Deceleration Gordon 710.0 cm/s MV Pressure Half Time 47.7 ms MV Area PHT 4.6 cm MV Deceleration Time 198.0 ms PV Peak Velocity 150.0 cm/s PV Peak Gradient 9.0 mmHg PV Mean Velocity 98.6 cm/s PV Mean Gradient 5.0 mmHg PV Velocity Time Integral 32.6 cm LV E' Lateral Velocity 10.0 cm/s Mitral E to LV E' Lateral Ratio 11.2 LV E' Septal Velocity 5.5 cm/s Mitral E to LV E' Septal Ratio 20.3
[2016-07-30] MEDS ORDERED: AZITHROMYCIN500 M3 PO (13:43)
[2016-07-30] MEDS ORDERED: PREDNISONE20 M1 PO (13:48)
--- NOTE | 2016-07-30 13:53 | Patient Discharge Instructions ---
Discharge Instructions General Discharge Information You were seen/treated for: COPD exacerbation Special Instructions: 1. Please follow up with Dr. De La Rosa (primary care & endocrinology) within a week of discharge. You should address your concerns with your doctor regarding: - Prednisone dose - Prapranolol dose in the setting of COPD/asthma - Checking 24-hydroxylase and aldactone levels to confirm the diagnosis of [place]'s disease - Work up for your low TSH. 2. Please follow up with Dr. Hilton (lung doctor) within a week of discharge. 3. Please restrain from smoking. 4. Please stay on 3L of oxygen continuously until you are further evaluated by Dr. Hilton. We advise that you do not go back to work until then. Diet Continue normal diet: Yes Activity Full Activity/No Limits: Yes Acute Coronary Syndrome Inclusion Criteria At DC or during hospital stay patient has or had the following: ACS DIAGNOSIS No Discharge Core Measures Meds if any: Prescribed or Continued at Discharge Meds if any: NOT Prescribed or Continued at Discharge Congestive Heart Failure Inclusion Criteria At DC or during hospital stay patient has or had the following: CHF DIAGNOSIS No Discharge Core Measures Meds if any: Prescribed or Continued at Discharge Meds if any: NOT Prescribed or Continued at Discharge Cerebrovascular accident Inclusion Criteria At DC or during hospital stay patient has or had the following: CVA/TIA Diagnosis No Discharge Core Measures Meds if any: Prescribed or Continued at Discharge Meds if any: NOT Prescribed or Continued at Discharge Venous thromboembolism Inclusion Criteria VTE Diagnosis No VTE Type NONE VTE Confirmed by (Test) NONE Discharge Core Measures - Per Current guidelines, there needs to be overlap - treatment for the first 5 days of Warfarin therapy. - If discharged on Warfarin prior to 5 days of - overlap therapy, the patient will need to be - assessed for post discharge needs including - *Post discharge parental anticoagulation - *Warfarin and/or parental anticoagulation education - *Follow up date to check INR post discharge At least 5 days overlap therapy as Inpatient No Meds if any: Prescribed or Continued at Discharge Note: Overlap Therapy is Warfarin and Anticoagulant Meds if any: NOT Prescribed or Continued at Discharge
--- NOTE | 2016-07-30 13:54 | Discharge Summary ---
Visit Information Visit Dates Admission Date: 07/29/16 Discharge Date: 08/01/16 Hospital Course Course Attending Physician: LEONEL PETERSON M.D Primary Care Physician: RACHELE DE LA ROSA MD Consulting Request: Consulting Specialty: Pulmonary Disease Consulting Physician: Reason for Consult: COPD/Asthma exacerbation Hospital Course: Patient is a 45 YO F with PMH significant for HTN, asthma/COPD, bronchitis, alcohol dependence, substance abuse, Addisons disease, Hypothyroidism (Joann 's), bipolar disorder came to the ER with progressively worsening shortness of breath, weakness and tiredness. She also found to have cough with productive cough and fevers, most likely 2/2 COPD exacerbation. # Acute hypoxic respiratory failure secondary to COPD exacerbation She has had multiple admissions recently due to recurrent exacerbation from tobacco/alcohol dependence. Upon admission patient was started on IV Zithromax and Solumedrol 40mg Q8. Steroid was tapered to Solumedrol 40mg Q12 and then transitioned to PO Prednisone on 07/30. Patient was discharged on Prednisone taper with a dose of Zithromax to finish at home. During the hospital stay patient required 3 liters of oxygen to maintain saturation above 92% both at rest and on exertion. # Hypertension We continued her home meds propronol 120mg BID and amlodipine 10mg daily. Regarding her home med pranolol patient was told to discuss with her PCP Dr. De La Rosa regarding continuing this medication at such a high dose in the setting of COPD/asthma # Addissions disease Since she was on high dose steroids for COPD exacerbation we held off her home steroid dosage. Endocrinology was consulted and recommended a further workup for her presumed [place]'s disease. Patient was instructed to follow up with her master naval parachutist Dr. De La Rosa regarding her steroid dose and further workup (i.e. 21- hydroxylase and aldactone levels) to confirm or r/o the diagnosis of [place]'s disease. 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 Patient was kept on home med levothyroxine 0.1mg PO daily. Patient was instructed to follow up with Dr. De La Rosa regarding the workup for her low TSH and adjustment of her synthroid dose. # Oral thrush Most likely secondary to chronic steroid intake. Patient was given nystatin swish and swallow. # Psychiatric problems She carries a h/o bipolar disorder, anxiety/depression for which she takes Seroquel 150 mg at bedtime and naltrexone 50 mg. Patient was kept on her home psych meds. Patient's depakote dose was reduced to 1250mg PO qHS per psych rec because her valproprate level was elevated at 91.2 initially. Repeat level was 67.7 after adjusting the dose. Patient was instructed not to take the additional dose of quetiapine 150 mg at 5 p.m. after discharge, until she has spoken with her psychiatrist. # Smoking cessation * Patient was educated several times about quitting smoking * Unable to quit despite counseling * Nicotine gum is provided as it helps her according to patient. Allergies: Coded Allergies: apple (Intermediate, HIVES FROM APPLE CIDER 05/21/16) hydromorphone (Intermediate, LIP SWELLING 05/21/16) phenytoin (Intermediate, HIVES 05/21/16) lidocaine (SVT 05/21/16) oxycodone (From Percocet) (ITCHY 05/21/16) Disposition Summary Disposition Principal Diagnosis: COPD exacerbation Additional Diagnosis: Acute hypoxic respiratory failure Discharge Disposition: home or self care Discharge Instructions General Discharge Information Code Status: Full Code Patient's Diet: Heart healthy Patient's Activity: Full as tolerated with oxygen Follow-Up Instructions/Appts: 1. Please follow up with Dr. De La Rosa (primary care & endocrinology) within a week of discharge. You should address your concerns with your doctor regarding: - Prednisone dose - Prapranolol dose in the setting of COPD/asthma - Checking 24-hydroxylase and aldactone levels to confirm the diagnosis of [place]'s disease - Work up for your low TSH. 2. Please follow up with Dr. Hilton (lung doctor) within a week of discharge. 3. Please restrain from smoking. 4. Please stay on 3L of oxygen continuously until you are further evaluated by Dr. Hilton. We advise that you do not go back to work until then. Medications at Discharge Discharge Medications: Stop taking the following medications: Alprazolam (Xanax) 0.5 MG TABLET ORAL Q6H as needed for ANXIETY Prednisone (Prednisone) 2.5 MG TABLET ORAL DAILY Divalproex Sodium (Divalproex Sodium) [address] GARDNER TWICE DAILY Continue taking these medications: Levothyroxine Sodium (Synthroid) 0.1 MG TAB 1 Tablet ORAL DAILY BEFORE BREAKFAST Qty = 30 Comments: PER PT FEXOFENADINE/PSEUDOEPHEDRINE (Shannan-D 24 Hour Tablet) 180 MG-240 MG TAB.ER.24H 1 Tablet ORAL DAILY Qty = 30 Comments: PER PT Fluticasone Propionate (Flonase) 50 MCG/ACTUATION SPRAY.SUSP 1 [place] In the nose TWICE DAILY Comments: PER PT Acetaminophen/Aspirin/Caffei (Excedrin 250 MG-250 MG-65 MG) 1 TAB TAB 1 Tablet ORAL DAILY Comments: PER PT Propranolol HCl (Propranolol HCl ER) 120 MG CAP.SA.24H 1 Capsule ORAL TWICE DAILY Comments: Last Taken: 08/01/16 Time: 9:00 AM Quetiapine Fumarate (Seroquel XR) 150 MG TAB.ER.24H 1 Tablet ORAL Every night Comments: Last Taken: 07/31/16 Time: 10:00 PM Montelukast Sodium (Montelukast Sodium) 10 MG TABLET 1 Tablet ORAL TAKE AT BEDTIME Qty = 30 Comments: Last Taken: 07/31/16 Time: 10:00PM Budesonide/Formoterol Fumarate (Symbicort 160-4.5 Mcg Inhaler) 160 MCG-4.5 MCG/ ACTUATION HFA.AER.AD 2 Puff Inhale through mouth TWICE DAILY Qty = 10 Comments: Last Taken: 08/01/16 Time: 9:00 AM Valacyclovir HCl (Valacyclovir) 1,000 MG TABLET 1 Tablet ORAL DAILY Qty = 28 Comments: Last Taken: 08/01/16 Time: 10:00 AM Tramadol HCl (Tramadol HCl) 50 MG TABLET 1 Tablet ORAL EVERY SIX HOURS NEEDED as needed for PAIN SCALE 7-10 ( SEVERE) Comments: Last Taken: 08/01/16 Time: 8:00 AM Albuterol Sulfate (Albuterol Sulfate) 2.5 MG/3 ML (0.083 %) VIAL.NEB 3 [place]iliters Inhale through mouth THREE TIMES DAILY as needed for asthma Qty = 5 Comments: Last Taken: 08/01/16 Time: 12:30 PM Multivitamin (One Daily Multivitamin) 1 EACH TABLET 1 Tablet ORAL DAILY Qty = 30 Comments: NOT GIVEN IN HOSPTIAL Amlodipine Besylate (Norvasc) 10 MG TABLET 1 Tablet ORAL DAILY Qty = 30 Comments: Last Taken: 08/01/16 Time: 9:00 AM Albuterol Sulfate (Ventolin Hfa) 90 MCG HFA.AER.AD 2 Puff Inhale through mouth EVERY 4-6 HOURS NEEDED as needed for asthma Qty = 1 Comments: NOT GIVEN IN HOSPITAL Nicotine Polacrilex (Nicotine Gum) 4 MG GUM 4 Milligram ORAL Q6H as needed for SMOKING CESSATION Comments: NOT GIVEN IN HOSPTIAL Nystatin (Nystop) 100,000 UNIT/GRAM POWDER 1 Application On the skin TWICE DAILY Qty = 60 Comments: Last Taken: 08/01/16 Time: 9:00 AM Start taking the following new medications: Azithromycin (Azithromycin) 500 MG TABLET 1 Tablet ORAL DAILY Days = 1 No Refills Instructions: STOP AFTER LAST DOSE ON 08/02. Comments: NOT GIVEN IN HOSPITAL (RECEIVED IV IN HOSPTIAL) Prednisone (Prednisone) 10 MG TABLET 1 Tablet ORAL DAILY Qty = 30 No Refills Instructions: DATE DOSE 08/02 50MG 08/03- 40MG 08/05- 30MG 08/07- 20MG 08/09- 10MG AFTER 08/10, TAKE 10MG DAILY UNTIL YOU SEE Comments: Last Taken: 08/01/16 Time: 9:00 AM Divalproex Sodium (Divalproex Sodium) 500 MG TABLET. 1,250 Milligram ORAL AT BEDTIME Days = 14 No Refills Comments: Last Taken: 07/31/16 Time: 10:00 PM Copies To: FITO JAIN,WICHO; KENN JAIN,RACHELE Barker; KENNA JAIN,GUANAKITO
[2016-07-30 16:09] VITALS: BP 132/98
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
[2016-07-31 00:12] VITALS: BP 140/100
--- NOTE | 2016-07-31 07:58 | PN- Housestaff ---
See Addendum Subjective Follow-up For: COPD exacerbation Complaints: no complaints Subjective: Patient seen and examined at bedside this AM. She reports her respiratory status is much improved and the nurse is tapering down FiO2 as her saturations allow. She is currently on 1 L and saturating well. Patient reports minimal-no wheezing. She does admit to mild low back pain secondary to menstrual cramps. Review of Systems Constitutional: Denies: chills, fever, malaise. EENTM: Denies: blurred vision, visual changes, hearing changes, throat pain. Cardiovascular: Denies: chest pain, palpitations, peripheral edema. Respiratory: Reports: cough, short of breath (Chronic). Denies: wheezing. Gastrointestinal: Denies: abdominal pain, bloating, constipation, diarrhea. Genitourinary: Denies: pain. Musculoskeletal: Reports: back pain (From menstrual cramps). Skin: Denies: change in skin color, change in hair/nails. Neurological/Psychological: Denies: confusion, headache, numbness. Hematologic/Endocrine: Denies: bruising, bleeding. Objective Last 24 Hrs of Vital Signs/I&O Vital Signs Date Time Temp Pulse Resp B/P Pulse O2 O2 Flow FiO2 Ox Delivery Rate 07/31 0918 68 139/83 07/31 0814 97 Nasal 1.0L Cannula 07/31 0806 97.8 68 20 139/83 97 Nasal 2.0L Cannula 07/31 0800 97 Nasal 2.0L Cannula 07/31 0012 98.2 85 20 140/100 92 07/31 0000 96 Nasal 2.0L Cannula 07/30 2146 97 138/98 07/30 2135 95 Nasal 2.0L Cannula 07/30 1710 94 Nasal 2.0L Cannula 07/30 1609 96.8 97 19 132/98 93 Nasal 2.0L Cannula 07/30 1600 93 Nasal 2.0L Cannula 07/30 1221 94 Nasal 2.0L Cannula Intake & Output 07/31 1600 07/31 0800 07/31 0000 Intake Total 680 1180 Output Total Balance 680 1180 Intake, IV 200 Intake, Oral 480 1180 Number 1 Bowel Movements Physical Exam General Appearance: Alert, Oriented X3, Cooperative, No Acute Distress Skin: No Significant Lesion HEENT: Atraumatic, Mucous Membr. moist/pink Neck: Supple Lymphatic: Cervical nl Cardiovascular: Regular Rate, Normal S1, Normal S2 Lungs: CTA B/L, normal air movement, no wheezing appreciated with minimal basilar rhonchi. Abdomen: Normal Bowel Sounds, Soft Neurological: Normal Speech, Normal Tone Extremities: No Clubbing, No Cyanosis Vascular: Pulses Symmetrical Current Medications: Current Medications Sig/Rosio Start time Last Medication Dose Route Stop Time Status Admin Acetaminophen 650 MG Q6P PRN 07/29 0330 AC PO Albuterol Sulfate 3 ML EVERY 4 HRS/AWAKE 07/29 1200 AC 07/31 INH 0810 Alprazolam 0.5 MG Q6-PRN PRN 07/29 0330 AC 07/31 PO 08/05 0329 0919 Amlodipine Besylate 10 MG DAILY 07/29 1000 AC 07/31 PO 0918 Azithromycin 500 MG 0200 07/30 0200 AC 07/31 Dextrose/Water 250 ML IV 0112 Budesonide/ 2 PUF BID 07/29 1000 AC 07/31 Formoterol Fumarate INH 0918 Divalproex Sodium 1,500 MG AT BEDTIME 07/29 2200 AC 07/30 PO 2147 Enoxaparin Sodium 40 MG DAILY 07/29 1000 AC 07/30 SC 1013 Ibuprofen 400 MG Q6-PRN PRN 07/30 0745 AC 07/31 PO 0047 Ipratropium [place] 2.5 ML EVERY 4 HRS/AWAKE 07/29 1600 AC 07/31 INH 0810 Levothyroxine Sodium 0.1 MG DAILY AC 07/29 0700 AC 07/31 PO 0618 Methylprednisolone 40 MG Q12 07/29 2200 DC 07/30 IV 1012 Montelukast Sodium 10 MG AT BEDTIME 07/29 2200 AC 07/30 PO 2147 Nicotine 4 MG Q6P PRN 07/29 0330 AC PO Nystatin 5 ML 4 TIMES/DAY 07/29 0330 AC 07/31 PO 0918 Nystatin 1 KAYLEIGH BID 07/29 0326 AC 07/31 TOP 0917 Patient Medication 1 ED .STK-MED ONE 07/30 1259 LA Teaching ED 07/30 1300 Patient Own 1 UNIT DAILY 07/29 1000 AC Medication PO Prednisone 40 MG DAILY 07/31 1000 AC 07/31 PO 0918 Prednisone 20 MG ONCE ONE 07/30 1600 DC 07/30 PO 07/30 1601 1627 Propranolol HCl 120 MG BID 07/29 1000 AC 07/31 PO 0918 Quetiapine Fumarate 150 MG AT BEDTIME 07/29 2200 AC 07/30 PO 2147 Tramadol HCl 50 MG Q6P PRN 07/29 0330 AC 07/31 PO 0047 Valacyclovir HCl 1,000 MG DAILY 07/29 1000 AC 07/31 PO 0919 Last 24 Hrs of Lab/Kartik Results Last 24 Hrs of Labs/Mics: Laboratory Tests 07/31/16 0800: CBC w Diff NO MAN DIFF REQ, RBC 3.57 L, MCV 100.8 H, MCH 33.3 H, RDW 17.4 H, MPV 6.9 L, Gran % 76.0 H, Lymphocytes % 18.5 L, Monocytes % 5.2, Eosinophils % 0, Basophils % 0.3, Absolute Granulocytes 10.2 H, Absolute Lymphocytes 2.5, Absolute Monocytes 0.7 H, Absolute Eosinophils 0, Absolute Basophils 0, PUBS MCHC 33.0, Valproic Acid 91.2 07/30/16 2000: Valproic Acid Cancelled Orders ECHO Findings: CONCLUSIONS Normal global left ventricular size, wall thickness, systolic function with no obvious regional wall motion abnormalities. Normal left ventricular ejection fraction visually estimated at >60 Radiology Findings: EXAMINATION: XR PORTABLE CHEST CLINICAL INFORMATION: Dyspnea, hypoxia COMPARISON: 07/05/2016 TECHNIQUE: Portable view of the chest was obtained. FINDINGS: The lungs are clear with no focal consolidation. No evidence of pneumothorax, pulmonary edema, or pleural effusions. Cardiac size is at the upper limits of normal. No acute osseous findings are seen. IMPRESSION: No acute cardiopulmonary findings. Assessment/Plan Assessment: Patient is a 45 YO F with PMH significant for HTN, asthma/COPD, bronchitis, alcohol dependence, substance abuse, Addisons disease, Hypothyroidism (Joann 's), bipolar disorder came to the ER with progressively worsening shortness of breath, weakness and tiredness. She also found to have cough with productive cough and fevers, most likely 2/2 COPD exacerbation. # Acute hypoxic respiratory failure secondary to COPD exacerbation She has had multiple admissions recently due to recurrent exacerbation from tobacco/alcohol dependence. Upon admission patient was started on IV Zithromax and Solumedrol 40mg Q8 and then Q12, transitioned to PO prednisone on 07/30. * Cont steroid taper slowly, prednisone 40mg daily for now * Cont IV Zithromax * TRC/Nebs/oxygen supplementation as needed, taper FiO2 as O2 saturations allow * Cont to appreciate pulm recs # Alcohol dependence * CIWA scores have been 0 * Ativan PRN as needed # Hypertension * Continue her home meds propronol 120mg BID and amlodipine 10mg daily for now * Regarding her home med pranolol patient was told to discuss with her PCP Dr. De La Rosa regarding continuing this medication at such a high dose in the setting of COPD/asthma # Addissions disease * As she is currently on high dose steroids for COPD exacerbation we will hold off her home steroid dosage * Appreciate endo recs - patient has been instructed to follow up with her stock supervisor Dr. De La Rosa regarding her steroid dose and further workup (i.e. 21- hydroxylase and aldactone levels) to confirm or r/o the diagnosis of [place]field's disease. 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 Free T4 normal at 1.21. * Cont home med levothyroxine 0.1mg PO daily * Patient will need to follow up with Dr. De La Rosa regarding the workup for her low TSH and adjustment of her synthroid dose. # Oral thrush * Secondary to chronic steroid intake * Cont nystatin swish and swallow # Psychiatric problems She carries a h/o bipolar disorder, anxiety/depression for which she takes Seroquel 150 mg at bedtime and naltrexone 50 mg along with proximal 0.5 mg * We will continue her home medications for now * Psych consulted, appreciate recs * Valproic acid this AM is 91.2, will call psych for recommendations on adjustment of depakote dose * Discharge summary to be sent to her psychiatrist Dr. Lazaro Resendiz * Please will be instructed not to take the additional dose of quetiapine 150 mg at 5 p.m. after discharge, until she has spoken with her psychiatrist. # Smoking cessation * Patient is educated several times about quitting smoking * Unable to quit despite counseling * Nicotine gum is provided as it helps her according to patient. # DVT prophylaxis * Subcutaneous heparin # CODE STATUS * Full code Problem List: 1. Hypothyroidism 2. Acute and chronic respiratory failure with hypoxia 3. Adrenal insufficiency 4. COPD exacerbation Pain Ratin Pain Location: Lower back Pain Goal: Pain 4 or less Pain Plan: Motrin as needed for back pain. Tomorrow's Labs & Rationales: CBC (monitor leukocytosis), BEP (monitor electrolytes, HCO3) Consulting Request: Consulting Specialty: Pulmonary Disease Consulting Physician: Reason for Consult: COPD/Asthma exacerbation
[2016-07-31 08:06] VITALS: BP 139/83
[2016-07-31 09:19] LABS: ABSOLUTE BASOPHIL COUNT 0 /CUMM (0.0-0.2); ABSOLUTE EOSINOPHIL COUNT 0 /CUMM (0.0-0.7); ABSOLUTE GRANULOCYTE CT 10.2 /CUMM (1.4-6.5); ABSOLUTE LYMPH COUNT 2.5 /CUMM (1.2-3.4); ABSOLUTE MONOCYTE COUNT 0.7 /CUMM (0.10-0.60); BASOPHIL % 0.3 % (0.0-2.0); EOSINOPHIL % 0 % (0-5); MEAN PLATELET VOLUME 6.9 FL (7.4-10.4); PLATELET COUNT 215 /CUMM (130-400); RBC DISTRIBUTION WIDTH 17.4 % (11.5-14.5); RED BLOOD CELL CT 3.57 /CUMM (4.20-5.40); WHITE BLOOD CELL COUNT 13.5 /CUMM (4.8-10.8)
[2016-07-31 09:56] LABS: HEMATOCRIT 35.9 % (37-47); MEAN CORPUSCULAR HGB 33.3 PG (27.0-31.0); MEAN CORPUSCULAR VOLUME 100.8 FL (81.0-99.0)
--- NOTE | 2016-07-31 10:41 | PN- Pulmonary ---
Subjective HPI/Critical Care Issues: Patient is resting comfortably on nasal oxygen Objective Current Medications: Current Medications Sig/Rosio Start time Last Medication Dose Route Stop Time Status Admin Acetaminophen 650 MG Q6P PRN 07/29 0330 AC PO Albuterol Sulfate 3 ML EVERY 4 HRS/AWAKE 07/29 1200 AC 07/31 INH 0810 Alprazolam 0.5 MG Q6-PRN PRN 07/29 0330 AC 07/31 PO 08/05 0329 0919 Amlodipine Besylate 10 MG DAILY 07/29 1000 AC 07/31 PO 0918 Azithromycin 500 MG 0200 07/30 0200 AC 07/31 Dextrose/Water 250 ML IV 0112 Budesonide/ 2 PUF BID 07/29 1000 AC 07/31 Formoterol Fumarate INH 0918 Divalproex Sodium 1,500 MG AT BEDTIME 07/29 2200 AC 07/30 PO 2147 Enoxaparin Sodium 40 MG DAILY 07/29 1000 AC 07/30 SC 1013 Ibuprofen 400 MG Q6-PRN PRN 07/30 0745 AC 07/31 PO 0047 Ipratropium [place] 2.5 ML EVERY 4 HRS/AWAKE 07/29 1600 AC 07/31 INH 0810 Levothyroxine Sodium 0.1 MG DAILY AC 07/29 0700 AC 07/31 PO 0618 Methylprednisolone 40 MG Q12 07/29 220 DC 07/30 IV 1012 Montelukast Sodium 10 MG AT BEDTIME 07/29 220 AC 07/30 PO 2147 Nicotine 4 MG Q6P PRN 07/29 0330 AC PO Nystatin 5 ML 4 TIMES/DAY 07/29 0330 AC 07/31 PO 0918 Nystatin 1 KAYLEIGH BID 07/29 0326 07/31 TOP 0917 Patient Medication 1 ED .STK-MED ONE 07/30 1259 IN Teaching ED 07/30 1300 Patient Own 1 UNIT DAILY 07/29 1000 AC Medication PO Prednisone 40 MG DAILY 07/31 1000 AC 07/31 PO 0918 Prednisone 20 MG ONCE ONE 07/30 1600 DC 07/30 PO 07/30 1601 1627 Propranolol HCl 120 MG BID 07/29 1000 AC 07/31 PO 0918 Quetiapine Fumarate 150 MG AT BEDTIME 07/29 2200 AC 07/30 PO 2147 Tramadol HCl 50 MG Q6P PRN 07/29 0330 AC 07/31 PO 0047 Valacyclovir HCl 1,000 MG DAILY 07/29 1000 AC 07/31 PO 0919 Vital Signs & I&O Last 24 Hrs of Vitals and I&O: Vital Signs Date Time Temp Pulse Resp B/P Pulse O2 O2 Flow FiO2 Ox Delivery Rate 07/31 0918 68 139/83 07/31 0814 97 Nasal 1.0L Cannula 07/31 0806 97.8 68 20 139/83 97 Nasal 2.0L Cannula 07/31 0800 97 Nasal 2.0L Cannula 07/31 0012 98.2 85 20 140/100 92 07/31 0000 96 Nasal 2.0L Cannula 07/30 2146 97 138/98 07/30 2135 95 Nasal 2.0L Cannula 07/30 1710 94 Nasal 2.0L Cannula 07/30 1609 96.8 97 19 132/98 93 Nasal 2.0L Cannula 07/30 1600 93 Nasal 2.0L Cannula 07/30 1221 94 Nasal 2.0L Cannula Intake & Output 07/31 1600 07/31 0800 07/31 0000 Intake Total 680 1180 Output Total Balance 680 1180 Intake, IV 200 Intake, Oral 480 1180 Number 1 Bowel Movements Ox and saturation 1 L 97% exam for chest shows faint expiratory wheezes bilaterally cardiac exam shows regular S1 and S2 without murmurs Impression/Plan Impression/Plan Impression/Plan: 45-year-old woman has evidence of bronchospasm which appears to be slowly improving Recommendations: Continue prednisone check room air oxygen saturations
--- NOTE | 2016-07-31 13:19 | PN- Endocrinology ---
Assessment/Plan Assessment: The patient states she feels improved. Solumedrol was discontinued. She is on prednisone taper. She received prednisone 60 mg today. She will be on prednisone 50 mg tomorrow. Most likely her adrenal insufficiency is due to suppression of the pituitary adrenal axis by exogenous steroids. Her glucose levels were 128, 123, 184, 128 and 82. As per patient, she probably will go home tomorrow. Plan: Taper down prednisone as per pulmonary. F/U with her care attendant after discharge. Subjective Subjective: She feels better today. Objective Last 24 Hrs of Vital Signs/I&O Vital Signs Date Time Temp Pulse Resp B/P Pulse O2 O2 Flow FiO2 Ox Delivery Rate 07/31 0918 68 139/83 07/31 0814 97 Nasal 1.0L Cannula 07/31 0806 97.8 68 20 139/83 97 Nasal 2.0L Cannula 07/31 0800 97 Nasal 2.0L Cannula 07/31 0012 98.2 85 20 140/100 92 07/31 0000 96 Nasal 2.0L Cannula 07/30 2146 97 138/98 07/30 2135 95 Nasal 2.0L Cannula 07/30 1710 94 Nasal 2.0L Cannula 07/30 1609 96.8 97 19 132/98 93 Nasal 2.0L Cannula 07/30 1600 93 Nasal 2.0L Cannula Intake & Output 07/31 1600 07/31 0800 07/31 0000 Intake Total 680 1180 Output Total Balance 680 1180 Intake, IV 200 Intake, Oral 480 1180 Number 1 Bowel Movements Results Pertinent Lab/Kartik Results: Laboratory Tests 07/31 07/30 0800 2000 Hematology CBC w Diff NO MAN DIFF REQ WBC (4.8 - 10.8 /CUMM) 13.5 H RBC (4.20 - 5.40 /CUMM) 3.57 L Hgb (12.0 - 16.0 G/DL) 11.9 L Hct (37 - 47 %) 35.9 L MCV (81.0 - 99.0 FL) 100.8 H MCH (27.0 - 31.0 PG) 33.3 H RDW (11.5 - 14.5 %) 17.4 H Plt Count (130 - 400 /CUMM) 215 MPV (7.4 - 10.4 FL) 6.9 L Gran % (42.2 - 75.2 %) 76.0 H Lymphocytes % (20.5 - 51.1 %) 18.5 L Monocytes % (1.7 - 9.3 %) 5.2 Eosinophils % (0 - 5 %) 0 Basophils % (0.0 - 2.0 %) 0.3 Absolute Granulocytes (1.4 - 6.5 /CUMM) 10.2 H Absolute Lymphocytes (1.2 - 3.4 /CUMM) 2.5 Absolute Monocytes (0.10 - 0.60 /CUMM) 0.7 H Absolute Eosinophils (0.0 - 0.7 /CUMM) 0 Absolute Basophils (0.0 - 0.2 /CUMM) 0 PUBS MCHC (33.0 - 37.0 G/DL) 33.0 Toxicology Valproic Acid (50 - 120 ug/mL) 91.2 Cancelled
[2016-07-31 16:01] VITALS: BP 132/88
[2016-07-31 23:51] VITALS: BP 132/88
[2016-08-01 08:05] VITALS: BP 142/98
--- NOTE | 2016-08-01 08:33 | PN- Housestaff ---
ERNÉ JAIN,[place] 08/01/16 0833: Subjective Follow-up For: COPD exacerbation Subjective: Patient seen and examined at bedside this AM. She reports her respiratory status is much improved and the nurse is tapering down FiO2 as her saturations allow. She is currently on 2-3 L and saturating well. She would really like to go home today. Review of Systems Constitutional: Reports: see HPI. Objective Last 24 Hrs of Vital Signs/I&O Vital Signs Date Time Temp Pulse Resp B/P Pulse O2 O2 Flow FiO2 Ox Delivery Rate 08/01 1100 92 Nasal 3.0L Cannula 08/01 1030 87 Nasal 2.0L Cannula 08/01 0915 68 142/98 08/01 0915 68 142/98 08/01 0855 98 Nasal 1.0L Cannula 08/01 0805 97.7 68 20 142/98 94 08/01 0800 94 Nasal 1.0L Cannula 08/01 0000 98 Nasal 1.0L Cannula 07/31 2351 98.1 96 20 132/88 94 07/31 2311 135/87 07/31 1617 93 Nasal 1.0L Cannula 07/31 1601 98.0 88 17 132/88 92 Nasal 1.0L Cannula 07/31 1600 Nasal 2.0L Cannula Intake & Output 08/01 1600 08/01 0800 08/01 0000 Intake Total 730 650 Output Total Balance 730 650 Intake, IV 250 Intake, Oral 480 650 Physical Exam General Appearance: Alert, Oriented X3, Cooperative, No Acute Distress Other Physical Findings: Skin No Rashes, No Breakdown HEENT Atraumatic, PERRLA, EOMI Neck Supple, No JVD Cardiovascular Regular Rate, Normal S1, Normal S2, No Murmurs Lungs Clear to Auscultation, Normal Air Movement, No wheezes, Minimal rhonchi Abdomen Normal Bowel Sounds, Soft, No Tenderness Neurological Normal Speech, Strength at 5/5 X4 Ext, Normal Tone Extremities No Clubbing, No Cyanosis, 2+ edema over both the feet Vascular Pulses Symmetrical Current Medications: Current Medications Sig/Rosio Start time Last Medication Dose Route Stop Time Status Admin Acetaminophen 650 MG Q6P PRN 07/29 0330 DCD PO Albuterol Sulfate 3 ML EVERY 4 HRS/AWAKE 07/29 1200 DCD 08/01 INH 0853 Alprazolam 0.5 MG Q6-PRN PRN 07/29 0330 DCD 08/01 PO 08/05 0329 0312 Amlodipine Besylate 10 MG DAILY 07/29 1000 DCD 08/01 PO 0915 Azithromycin 500 MG 0200 07/30 0200 DCD 08/01 Dextrose/Water 250 ML IV 0104 Budesonide/ 2 PUF BID 07/29 1000 DCD 08/01 Formoterol Fumarate INH 0917 Divalproex Sodium 1,250 MG AT BEDTIME 07/31 2199 DCD 07/31 PO 2200 Enoxaparin Sodium 40 MG DAILY 07/29 1000 DCD 07/30 SC 1013 Ibuprofen 400 MG Q6-PRN PRN 07/30 0745 DCD 08/01 PO 0759 Ipratropium [place] 2.5 ML EVERY 4 HRS/AWAKE 07/29 1600 DCD 08/01 INH 0853 Levothyroxine Sodium 0.1 MG DAILY AC 07/29 0700 DCD 08/01 PO 0552 Montelukast Sodium 10 MG AT BEDTIME 07/29 2199 DCD 07/31 PO 2206 Nicotine 4 MG Q6P PRN 07/29 0330 DCD PO Nystatin 5 ML 4 TIMES/DAY 07/29 0330 DCD 07/31 PO 2204 Nystatin 1 KAYLEIGH BID 07/29 0326 DCD 08/01 TOP 0917 Patient Own 1 UNIT DAILY 07/29 1000 DCD Medication PO Prednisone 50 MG DAILY 08/01 1000 DCD 08/01 PO 0916 Propranolol HCl 120 MG BID 07/29 1000 DCD 08/01 PO 0915 Quetiapine Fumarate 150 MG AT BEDTIME 07/29 2199 DCD 07/31 PO 2201 Tramadol HCl 50 MG Q6P PRN 07/29 0330 DCD 08/01 PO 0759 Valacyclovir HCl 1,000 MG DAILY 07/29 1000 DCD 08/01 PO 0916 Last 24 Hrs of Lab/Kartik Results Last 24 Hrs of Labs/Mics: Laboratory Tests 08/01/16 0750: Anion Gap 3 L, Estimated GFR > 60, BUN/Creatinine Ratio 30.0 H, CBC w Diff NO MAN DIFF REQ, RBC 3.31 L, MCV 101.1 H, MCH 33.4 H, RDW 17.2 H, MPV 6.6 L, Gran % 61.4, Lymphocytes % 30.7, Monocytes % 7.7, Eosinophils % 0, Basophils % 0.2, Absolute Granulocytes 6.0, Absolute Lymphocytes 3.0, Absolute Monocytes 0.8 H, Absolute Eosinophils 0, Absolute Basophils 0, PUBS MCHC 33.0, Valproic Acid 67.7 Assessment/Plan Assessment: Patient is a 45 YO F with PMH significant for HTN, asthma/COPD, bronchitis, alcohol dependence, substance abuse, Addisons disease, Hypothyroidism (Joann 's), bipolar disorder came to the ER with progressively worsening shortness of breath, weakness and tiredness. She also found to have cough with productive cough and fevers, most likely 2/2 COPD exacerbation. # Acute hypoxic respiratory failure secondary to COPD exacerbation She has had multiple admissions recently due to recurrent exacerbation from tobacco/alcohol dependence. Upon admission patient was started on IV Zithromax and Solumedrol 40mg Q8 and then Q12, transitioned to PO prednisone on 07/30. * Cont steroid taper slowly, prednisone 50mg daily for today * Cont IV Zithromax * TRC/Nebs/oxygen supplementation as needed, taper FiO2 as O2 saturations allow * Cont to appreciate pulm recs # Alcohol dependence * CIWA scores have been 0 * Ativan PRN as needed # Hypertension * Continue her home meds propronol 120mg BID and amlodipine 10mg daily for now * Regarding her home med pranolol patient was told to discuss with her PCP Dr. De La Rosa regarding continuing this medication at such a high dose in the setting of COPD/asthma # Addissions disease * As she is currently on high dose steroids for COPD exacerbation we will hold off her home steroid dosage * Appreciate endo recs - patient has been instructed to follow up with her graduate engineer Dr. De La Rosa regarding her steroid dose and further workup (i.e. 21- hydroxylase and aldactone levels) to confirm or r/o the diagnosis of [place]'s disease. 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 Free T4 normal at 1.21. * Cont home med levothyroxine 0.1mg PO daily * Patient will need to follow up with Dr. De La Rosa regarding the workup for her low TSH and adjustment of her synthroid dose. # Oral thrush * Secondary to chronic steroid intake * Cont nystatin swish and swallow # Psychiatric problems She carries a h/o bipolar disorder, anxiety/depression for which she takes Seroquel 150 mg at bedtime and naltrexone 50 mg along with proximal 0.5 mg * We will continue her home medications for now * Psych consulted, appreciate recs * Reduced depakote dose to 1250mg PO qHS per psych rec * Discharge summary to be sent to her psychiatrist Dr. Lazaro Resendiz * Please will be instructed not to take the additional dose of quetiapine 150 mg at 5 p.m. after discharge, until she has spoken with her psychiatrist. # Smoking cessation * Patient is educated several times about quitting smoking * Unable to quit despite counseling * Nicotine gum is provided as it helps her according to patient. # DVT prophylaxis * Subcutaneous heparin # CODE STATUS * Full code Problem List: 1. Acute and chronic respiratory failure with hypoxia 2. COPD exacerbation Pain Ratin Pain Location: 0 Pain Goal: Remain pain free Pain Plan: Mild path Tomorrow's Labs & Rationales: None Consulting Request: Consulting Specialty: Pulmonary Disease Consulting Physician: Reason for Consult: COPD/Asthma exacerbation REJI JAIN,[facility] 08/01/16 1252: Attending MD Review Statement Attending Statement Attending MD Statement: examined this patient, discuss w/resident/PA/TECHNICAL SPECIALIST, agreed w/resident/PA/TECHNICAL SPECIALIST, discussed with family, reviewed EMR data (avail), discussed with nursing, discussed with case mgmt, reviewed images, amended to note Attending Assessment/Plan: Patient seen and examined. Sitting comfortably in bed currently on 2 L of oxygen. And she ambulated without oxygen and desaturated to 83. Patient will need oxygen at home 31/01. She is aware of this. We checked her saturation on ambulating with oxygen, she'll need about 3 L of oxygen. Patient was informed to see Dr. Hilton & primary care within a week. She was also consult use oxygen 24 hours, unless she sees Dr. Hilton and her primary care and is reevaluated. 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 All this was explained to the patient. She can be discharged home today on by mouth steroid taper.
[2016-08-01 09:15] VITALS: BP 142/98
[2016-08-01] MEDS ORDERED: PREDNISONE20 M1 PO (10:08)
[2016-08-01 10:24] LABS: ABSOLUTE BASOPHIL COUNT 0 /CUMM (0.0-0.2); ABSOLUTE EOSINOPHIL COUNT 0 /CUMM (0.0-0.7); ABSOLUTE MONOCYTE COUNT 0.8 /CUMM (0.10-0.60); BASOPHIL % 0.2 % (0.0-2.0); EOSINOPHIL % 0 % (0-5); GRANULOCYTE % 61.4 % (42.2-75.2); HEMATOCRIT 33.5 % (37-47); MEAN CORPUSCULAR HGB 33.4 PG (27.0-31.0); MEAN CORPUSCULAR VOLUME 101.1 FL (81.0-99.0); MEAN PLATELET VOLUME 6.6 FL (7.4-10.4); PLATELET COUNT 178 /CUMM (130-400); RBC DISTRIBUTION WIDTH 17.2 % (11.5-14.5); RED BLOOD CELL CT 3.31 /CUMM (4.20-5.40); WHITE BLOOD CELL COUNT 9.8 /CUMM (4.8-10.8)
[2016-08-01] MEDS ORDERED: PREDNISONE10 M2 PO ×2 (11:07→11:39)
[2016-08-01] MEDS ORDERED: AZITHROMYCIN500 M3 PO (11:09)
[2016-08-01] MEDS ORDERED: DIVALPROEX SOD500 M3 PO (11:24)
[2016-08-01] MEDS ORDERED: DIVALPROEX SOD500 M2 PO ×2 (11:26→11:27)
--- NOTE | 2016-08-01 11:55 | PN- Pulmonary ---
Subjective HPI/Critical Care Issues: Patient feels somewhat improved remains oxygen dependent Objective Current Medications: Current Medications Sig/Rosio Start time Last Medication Dose Route Stop Time Status Admin Acetaminophen 650 MG Q6P PRN 07/29 0330 AC PO Albuterol Sulfate 3 ML EVERY 4 HRS/AWAKE 07/29 1200 AC 08/01 INH 0853 Alprazolam 0.5 MG Q6-PRN PRN 07/29 0330 AC 08/01 PO 08/05 0329 0312 Amlodipine Besylate 10 MG DAILY 07/29 1000 AC 08/01 PO 0915 Azithromycin 500 MG 0200 07/30 0200 AC 08/01 Dextrose/Water 250 ML IV 0104 Budesonide/ 2 PUF BID 07/29 1000 AC 08/01 Formoterol Fumarate INH 0917 Divalproex Sodium 1,250 MG AT BEDTIME 07/31 220 AC 07/31 PO 2200 Enoxaparin Sodium 40 MG DAILY 07/29 1000 AC 07/30 SC 1013 Ibuprofen 400 MG Q6-PRN PRN 07/30 0745 AC 08/01 PO 0759 Ipratropium [place] 2.5 ML EVERY 4 HRS/AWAKE 07/29 1600 AC 08/01 INH 0853 Levothyroxine Sodium 0.1 MG DAILY AC 07/29 0700 AC 08/01 PO 0552 Montelukast Sodium 10 MG AT BEDTIME 07/29 2199 AC 07/31 PO 2206 Nicotine 4 MG Q6P PRN 07/29 0330 AC PO Nystatin 5 ML 4 TIMES/DAY 07/29 0330 AC 07/31 PO 2204 Nystatin 1 KAYLEIGH BID 07/29 0326 AC 08/01 TOP 0917 Patient Own 1 UNIT DAILY 07/29 1000 AC Medication PO Prednisone 50 MG DAILY 08/01 1000 AC 08/01 PO 0916 Prednisone 20 MG ONCE ONE 07/31 1230 DC 07/31 PO 07/31 1231 1426 Prednisone 10 MG ONCE ONE 07/31 1215 CAN PO 07/31 1216 Prednisone 40 MG DAILY 07/31 1000 DC 07/31 PO 0918 Propranolol HCl 120 MG BID 07/29 1000 AC 08/01 PO 0915 Quetiapine Fumarate 150 MG AT BEDTIME 07/29 2200 AC 07/31 PO 2201 Tramadol HCl 50 MG Q6P PRN 07/29 0330 AC 08/01 PO 0759 Valacyclovir HCl 1,000 MG DAILY 07/29 1000 AC 08/01 PO 0916 Vital Signs & I&O Last 24 Hrs of Vitals and I&O: Vital Signs Date Time Temp Pulse Resp B/P Pulse O2 O2 Flow FiO2 Ox Delivery Rate 08/01 1100 92 Nasal 3.0L Cannula 08/01 1030 87 Nasal 2.0L Cannula 08/01 0915 68 142/98 08/01 0915 68 142/98 08/01 0855 98 Nasal 1.0L Cannula 08/01 0805 97.7 68 20 142/98 94 08/01 0800 94 Nasal 1.0L Cannula 08/01 0000 98 Nasal 1.0L Cannula 07/31 2351 98.1 96 20 132/88 94 07/31 2311 135/87 07/31 1617 93 Nasal 1.0L Cannula 07/31 1601 98.0 88 17 132/88 92 Nasal 1.0L Cannula 07/31 1600 Nasal 2.0L Cannula Intake & Output 08/01 1600 08/01 0800 08/01 0000 Intake Total 730 650 Output Total Balance 730 650 Intake, IV 250 Intake, Oral 480 650 Impression/Plan Impression/Plan Impression/Plan: 45-year-old woman has evidence of bronchospasm which appears to be slowly improving patient extensively counseled regarding the need for smoking cessation Recommendations: Continue prednisone attempt to taper O2 sat
--- NOTE | 2016-08-01 12:23 | PN- Endocrinology ---
Assessment/Plan Assessment: The patient states she feels improved. Solumedrol was discontinued. She is on prednisone taper. She received prednisone 60 mg yesterday. She will be on prednisone 50 mg today. She will go home today. Most likely her adrenal insufficiency is due to suppression of the pituitary adrenal axis by exogenous steroids. Her glucose levels were 78 and 110. Plan: Prednisone taper is as per pulmonary. 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 Subjective Subjective: She is going home today. Objective Last 24 Hrs of Vital Signs/I&O Vital Signs Date Time Temp Pulse Resp B/P Pulse O2 O2 Flow FiO2 Ox Delivery Rate 08/01 1100 92 Nasal 3.0L Cannula 08/01 1030 87 Nasal 2.0L Cannula 08/01 0915 68 142/98 08/01 0915 68 142/98 08/01 0855 98 Nasal 1.0L Cannula 08/01 0805 97.7 68 20 142/98 94 08/01 0800 94 Nasal 1.0L Cannula 08/01 0000 98 Nasal 1.0L Cannula 07/31 2351 98.1 96 20 132/88 94 07/31 2311 135/87 07/31 1617 93 Nasal 1.0L Cannula 07/31 1601 98.0 88 17 132/88 92 Nasal 1.0L Cannula 07/31 1600 Nasal 2.0L Cannula Intake & Output 08/01 1600 08/01 0800 08/01 0000 Intake Total 730 650 Output Total Balance 730 650 Intake, IV 250 Intake, Oral 480 650 Results Pertinent Lab/Kartik Results: Laboratory Tests 08/01 0750 Chemistry Sodium (137 - 145 mmol/L) 138 Potassium (3.5 - 5.1 mmol/L) 4.1 Chloride (98 - 107 mmol/L) 96 L Carbon Dioxide (22 - 30 mmol/L) 38 H Anion Gap (5 - 16) 3 L BUN (7 - 17 mg/dL) 21 H Creatinine (0.5 - 1.0 mg/dL) 0.7 Estimated GFR (>60 ml/min) > 60 BUN/Creatinine Ratio (7 - 25 %) 30.0 H Hematology CBC w Diff NO MAN DIFF REQ WBC (4.8 - 10.8 /CUMM) 9.8 RBC (4.20 - 5.40 /CUMM) 3.31 L Hgb (12.0 - 16.0 G/DL) 11.1 L Hct (37 - 47 %) 33.5 L MCV (81.0 - 99.0 FL) 101.1 H MCH (27.0 - 31.0 PG) 33.4 H RDW (11.5 - 14.5 %) 17.2 H Plt Count (130 - 400 /CUMM) 178 MPV (7.4 - 10.4 FL) 6.6 L Gran % (42.2 - 75.2 %) 61.4 Lymphocytes % (20.5 - 51.1 %) 30.7 Monocytes % (1.7 - 9.3 %) 7.7 Eosinophils % (0 - 5 %) 0 Basophils % (0.0 - 2.0 %) 0.2 Absolute Granulocytes (1.4 - 6.5 /CUMM) 6.0 Absolute Lymphocytes (1.2 - 3.4 /CUMM) 3.0 Absolute Monocytes (0.10 - 0.60 /CUMM) 0.8 H Absolute Eosinophils (0.0 - 0.7 /CUMM) 0 Absolute Basophils (0.0 - 0.2 /CUMM) 0 PUBS MCHC (33.0 - 37.0 G/DL) 33.0 Toxicology Valproic Acid (50 - 120 ug/mL) 67.7
--- NOTE | 2016-08-01 13:05 | NUR ---
NURSING NOTE: DISCHARGE INSTURCTIONS AND PRECRIPTIONS GIVEN WITH VERBAL UNDERSTANDING. PT EDUCATED ON THE NEED TO QUIT SMOKING.
== END 2016-08-01 13:10 | DRG 190 ==
LOC: ENRESERVTM → ENRESERVDT → ERH 00:56 → ERHI 01:15 → 2NB 01:15 → ENPENDDIS 01:15 → ERH 01:32 → 2NB 04:39
PROVIDERS: Internal Medicine; Pediatrics; Student in an Organized Health Care Education/Training Program; ADMIT Internal Medicine
DX: J44.1 Chronic obstructive pulmonary disease with (acute) exacerbation (principal); J96.01 Acute respiratory failure with hypoxia; E27.1 Primary adrenocortical insufficiency; B37.0 Candidal stomatitis; I10 Essential (primary) hypertension; F10.20 Alcohol dependence, uncomplicated; E06.3 Autoimmune thyroiditis; F31.9 Bipolar disorder, unspecified; F17.200 Nicotine dependence, unspecified, uncomplicated
CPT/HCPCS: 2NBP; 36415; 82436; 87040; 87070; 87071; 87804; 87804-59; 93005; 93010; 93306; 96374; 99233; J0456; J0696; J1650; J2920; J3490; J7060

== ENCOUNTER 2016-08-26 17:41 | Inpatient (IN) | payer OTHER ==
[~2016-08-26] VITALS: Ht 157.5 cm; Wt 115.7 kg
[~2016-08-26 17:41] MED LIST changes: +DIVALPROEX SOD500 M2 PO; +PREDNISONE20 M1 PO
--- NOTE | 2016-08-26 17:45 | NUR ---
ELLIOT FROM HOME FOR LOW SPO2 AND SOB. PT STATES SHE WAS COOKING AND CHECKED HER SPO2, WAS 65% HX COPD AND ADRENAL INSUFFICIENCY. WAS RECENTLY DECREASED ON HER PREDNISONE. RECEIVED 2 ALBUTEROL TXS AND 2 GRAMS OF MAGENSIUM BY EMS.
--- NOTE | 2016-08-26 17:49 | NUR ---
AMALIA [place] TO BEDSIDE FOR EVAL. RT TO BEDSIDE AT THIS TIME.
--- NOTE | 2016-08-26 17:51 | ED DYSPNEA/ASTHMA COMPLAINT ---
History of Present Illness General Chief Complaint: Dyspnea (COPD, CHF, Other) Stated Complaint: BIBA LOW SPO2 AND SOB Source: patient, old records, EMS Exam Limitations: no limitations Vital Signs & Intake/Output Vital Signs & Intake/Output Vital Signs Date Time Temp Pulse Resp B/P Pulse O2 O2 Flow FiO2 Ox Delivery Rate 08/26 2132 98.5 87 24 124/60 92 Nasal 3.0L Cannula 08/26 1836 84 24 120/61 93 Nasal 4.0L Cannula 08/26 1753 86 08/26 175 Room Air 08/26 1745 96 30 85 Room Air Allergies Coded Allergies: apple (Intermediate, HIVES FROM APPLE CIDER 08/26/16) hydromorphone (Intermediate, LIP SWELLING 08/26/16) phenytoin (Intermediate, HIVES 08/26/16) lidocaine (SVT 08/26/16) oxycodone (From Percocet) (ITCHY 08/26/16) Triage Nurses Notes Reviewed? yes Onset: Abrupt Duration: day(s): (couple), getting worse Timing: recent history Severity: moderate, severe HPI: 45-year-old female with a history of asthma bronchitis and COPD comes into emergency room with shortness of breath since been going on worse over last [address] Hilton. Patient reports that her oxygen level at home was 65%. Patient reports her breathing got progressively worse. Patient came in by ambulance. O2 saturation is in the mid 80s on room air. Denies any chest pain. Denies any fever. Symptoms of the cough. Denies any other associated symptoms. (DES HOLLAND,MARCUS) Reconcile Medications Albuterol Sulfate 2.5 MG/3 ML (0.083 %) VIAL.NEB 3 ML INH TID PRN asthma Albuterol Sulfate (Ventolin Hfa) 90 MCG HFA.AER.AD 2 PUF INH Q4-6 PRN PRN asthma Alprazolam 0.5 MG TABLET 1 TAB PO Q6H ANXIETY (Reported) Amlodipine Besylate (Norvasc) 10 MG TABLET 1 TAB PO DAILY hypertension Aspirin/Acetaminophen/Caffeine (Excedrin Migraine Caplet) 250 MG-250 MG-65 MG TABLET 1 TAB PO DAILY SINUS HEADACHE (Reported) Budesonide/Formoterol Fumarate (Symbicort 160-4.5 Mcg Inhaler) 160 MCG-4.5 MCG/ ACTUATION HFA.AER.AD 2 PUF INH BID ASTHMA (Reported) Cyclobenzaprine HCl 5 MG TABLET 1 TAB PO PRN MUSCLE SPASMS (Reported) Fexofenadine/Pseudoephedrine (Shannan-D 24 Hour Tablet) 180 MG-240 MG TAB.ER.24H 1 TAB PO DAILY ALLERGIES (Reported) Fluticasone Propionate (Flonase Allergy Relief) 50 MCG/ACTUATION SPRAY.SUSP 1 SPRAY ELLA BID ALLERGIES (Reported) Levothyroxine Sodium (Synthroid) 88 MCG TABLET 1 TAB PO DAILY THYROID ( Reported) Montelukast Sodium 10 MG TABLET 1 TAB PO QHS ASTHMA (Reported) Multivitamin (One Daily Multivitamin) 1 EACH TABLET 1 TAB PO DAILY supplement Nicotine Polacrilex (Nicotine Gum) 4 MG GUM 4 MG PO Q6H PRN SMOKING CESSATION (Reported) Nystatin (Nystop) 100,000 UNIT/GRAM POWDER 1 KAYLEIGH TOP BID UNDER BREASTS ( Reported) Prednisone 5 MG TABLET 1 TAB PO EOD CUSHINGS (Reported) Prednisone 10 MG TABLET 1 TAB PO EOD CUSHINGS (Reported) Propranolol HCl (Propranolol HCl ER) 120 MG CAP.SA.24H 1 CAP PO BID BP ( Reported) Quetiapine Fumarate 50 MG TABLET 150 MG PO QPM MENTAL HEALTH/SLEEP (Reported) Tramadol HCl 50 MG TABLET 1 TAB PO Q6P PRN PAIN SCALE 7-10 (SEVERE) (Reported ) Valacyclovir HCl (Valacyclovir) 1,000 MG TABLET 1 TAB PO DAILY ANTI VIRAL ( Reported) (LEANDER CAPUTO MD) Past History Medical History Any Pertinent Medical History? 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 No (MARCUS ORNELAS) Review of Systems Review of Systems Constitutional: Reports: no symptoms. EENTM: Reports: no symptoms. Respiratory: Reports: see HPI. Cardiovascular: Reports: no symptoms. GI: Reports: no symptoms. Genitourinary: Reports: no symptoms. Musculoskeletal: Reports: no symptoms. Skin: Reports: no symptoms. Neurological/Psychological: Reports: no symptoms. Hematologic/Endocrine: Reports: no symptoms. Immunologic/Allergic: Reports: no symptoms. All Other Systems: Reviewed and Negative (MARCUS ORNELAS) Physical Exam Physical Exam General Appearance: alert, awake, moderate distress Head: atraumatic, normal appearance Eyes: Bilateral: normal appearance, EOMI. Ears, Nose, Throat: normal pharynx, normal ENT inspection Neck: normal inspection, full range of motion Respiratory: decreased breath sounds, rhonchi, wheezing, respiratory distress ( moderate) Cardiovascular: regular rate/rhythm Gastrointestinal: soft Extremities: normal inspection Neurologic/Psych: awake, alert, oriented x 3, normal gait, normal mood/affect Skin: intact, normal color Core Measures ACS in differential dx? No Severe Sepsis Present: No Septic Shock Present: No (MARCUS ORNELAS) Progress Differential Diagnosis: asthma, AMI, bronchitis, costochondritis, CHF, COPD, musculoskeletal pain, pericarditis, pulmonary embolism, pneumonia, pneumothorax, rib fracture, unstable angina Plan of Care: Orders Procedure Date/time Status Regular Diet 08/27 B Active Intake & Output 08/26 2132 Active TRC EVALUATION (GEN) 08/26 2118 Active OXYGEN SETUP (GEN) 08/26 2118 Active Pathway - chart 08/26 2118 Active House Staff 08/26 2118 Active Patient Data 08/26 2118 Active Code Status 08/26 2118 Active Patient Data 08/26 2015 Active OXYGEN SETUP (GEN) 08/26 1948 Active Saline Lock 08/26 1948 Active Admit to inpatient 08/26 194 Active Vital Signs 08/26 1948 Active Activity/Ambulation 08/26 1948 Active Code Status 08/26 1948 Complete TROPONIN LEVEL 08/26 175 Complete COMPREHENSIVE METABOLIC PANEL 08/26 1750 Complete CBC WITHOUT DIFFERENTIAL 08/26 1750 Complete EKG 08/26 1750 Active PEAK FLOW MEASUREMENT (GEN) 08/26 UNK Active VTE Mechanical Prophylaxis 08/26 UNK Active CIWA 08/26 UNK Active Current Medications Sig/Rosio Start time Last Medication Dose Stop Time Status Admin Amlodipine Besylate 10 MG DAILY 08/27 1000 AC (Norvasc) Enoxaparin Sodium 40 MG DAILY 08/27 1000 AC (Lovenox) Multivitamins 1 TAB DAILY 08/27 1000 AC Therapeutic (Theragran-M Vitamins Tabs) Valacyclovir HCl 1,000 MG DAILY 08/27 1000 AC (Valtrex) Levothyroxine Sodium 0.088 MG DAILY AC 08/27 0700 AC (Synthroid) Budesonide/ 2 PUF BID 08/26 2199 AC Formoterol Fumarate (Symbicort) Fluticasone 1 SPRAY BID 08/26 2199 AC Propionate (Flonase) Methylprednisolone 40 MG Q8 08/26 2199 AC (Solumedrol) Montelukast Sodium 10 MG AT BEDTIME 08/26 2199 AC (Singulair) Quetiapine Fumarate 150 MG QPM 08/26 2199 AC (SEROquel) Albuterol Sulfate 3 ML TID PRN 08/26 2129 AC (Proventil) Alprazolam 0.5 MG Q6-PRN PRN 08/26 2129 AC (Xanax) 09/02 2128 Ibuprofen 600 MG Q6 PRN 08/26 2129 AC (Motrin) Ipratropium [place] 2.5 ML Q4 HRS NEEDED PRN 08/26 2129 AC (Atrovent) Nicotine 4 MG Q6H PRN 08/26 2129 AC (Nicotine) Non-Formulary 0 SEE ADMIN CRITERIA 08/26 2129 UNVr Medication (NON FORMULARY) Non-Formulary 0 SEE ADMIN CRITERIA 08/26 2129 UNVr Medication (NON FORMULARY) Tramadol HCl 50 MG Q6P PRN 08/26 2129 AC (Ultram) Laboratory Tests 08/26/16 1830: Anion Gap 12, Estimated GFR > 60, BUN/Creatinine Ratio 13.3, Glucose 126 H, Calcium 9.4, Total Bilirubin 0.5, AST 48 H, ALT 63 H, Alkaline Phosphatase 87, Troponin I < 0.01, Total Protein 6.6, Albumin 3.9, Globulin 2.7, Albumin/ Globulin Ratio 1.4, CBC w Diff NO MAN DIFF REQ, RBC 3.66 L, MCV 98.9, MCH 32.5 H, RDW 16.8 H, MPV 6.7 L, Gran % 77.0 H, Lymphocytes % 19.1 L, Monocytes % 3.2, Eosinophils % 0.6, Basophils % 0.1, Absolute Granulocytes 11.2 H, Absolute Lymphocytes 2.8, Absolute Monocytes 0.5, Absolute Eosinophils 0.1, Absolute Basophils 0, PUBS MCHC 32.8 L Diagnostic Imaging: Viewed by Me: Radiology Read. Discussed w/RAD: Radiology Read. Radiology Impression: EXAM TYPE: RAD - XRY-PORTABLE CHEST XRAY EXAMINATION: XR PORTABLE CHEST CLINICAL INFORMATION: Shortness of breath in a 45-year-old female. COMPARISON: Chest x-ray done 07/29/2016. TECHNIQUE: Portable portable semierect view of the chest was obtained. FINDINGS: The heart remains normal in size. Lungs are symmetrically aerated and clear showing no sign of edema or consolidation. There is no pleural effusion is visible on this exam. IMPRESSION: Unremarkable examination. Initial ED EKG: normal intervals, normal QRS complex, normal sinus rhythm, rate (84) (MARCUS ORNELAS) Departure Departure Disposition: STILL A PATIENT Condition: Stable Clinical Impression Primary Impression: Hypoxia Secondary Impressions: COPD exacerbation Referrals: KENN JAIN,RACHELE Barker (PCP/Family) Departure Forms: Customer Survey General Discharge Information Admission Note Spoke With: SUZANNA WEINER MD Documentation of Exam: Documentation of any treatments & extenuating circumstances including Concerns Regarding Discharge (functional status, medication knowledge or non-compliance, living conditions, etc.) that warrant an admission rather than observation: Patient will require IV steroids. Supplemental oxygen. Pulmonary consult. Serial breathing treatments. Repeat blood work. Possibly IV magnesium. High risk. Patient came in in moderate respiratory distress. Hypoxia of 84-85% on room air. Patient reports her oxygen level was 65% when she was at home. Patient would do poorly as an outpatient. (MARCUS ORNELAS) PA/[employer]UTION [employer]ER Co-Sign Statement Statement: ED Attending supervision documentation- x I saw and evaluated the patient. I have also reviewed all the pertinent lab results and diagnostic results. I agree with the findings and the plan of care as documented in the PA's/FLUORESCENT SOLUTION MIXER's documentation. [] I have reviewed the ED Record and agree with the PA's/FLUORESCENT SOLUTION MIXER's documentation. [] Additions or exceptions (if any) to the PAs/FLUORESCENT SOLUTION MIXER's note and plan are summarized below: [] (HARSHAL JAIN,LEANDER) Critical Care Note Critical Care Note Critical Care Time: non-applicable (DES HOLLAND,MARCUS)
--- NOTE | 2016-08-26 18:19 | RADIOLOGY REPORT ---
EXAMINATION: XR PORTABLE CHEST CLINICAL INFORMATION: Shortness of breath in a 45-year-old female. COMPARISON: Chest x-ray done 07/29/2016. TECHNIQUE: Portable portable semierect view of the chest was obtained. FINDINGS: The heart remains normal in size. Lungs are symmetrically aerated and clear showing no sign of edema or consolidation. There is no pleural effusion is visible on this exam. IMPRESSION: Unremarkable examination.
--- NOTE | 2016-08-26 18:33 | NUR ---
LABS DRAWN AND SENT BY THIS [facility] (2 SST,LAV,DEL CID)
[2016-08-26 18:46] LABS: ABSOLUTE BASOPHIL COUNT 0 /CUMM (0.0-0.2); ABSOLUTE EOSINOPHIL COUNT 0.1 /CUMM (0.0-0.7); ABSOLUTE GRANULOCYTE CT 11.2 /CUMM (1.4-6.5); ABSOLUTE LYMPH COUNT 2.8 /CUMM (1.2-3.4); ABSOLUTE MONOCYTE COUNT 0.5 /CUMM (0.10-0.60); BASOPHIL % 0.1 % (0.0-2.0); EOSINOPHIL % 0.6 % (0-5); HEMATOCRIT 36.2 % (37-47); MEAN CORPUSCULAR HGB 32.5 PG (27.0-31.0); MEAN CORPUSCULAR HGB CONC 32.8 G/DL (33.0-37.0); MEAN CORPUSCULAR VOLUME 98.9 FL (81.0-99.0); MEAN PLATELET VOLUME 6.7 FL (7.4-10.4); PLATELET COUNT 289 /CUMM (130-400); RBC DISTRIBUTION WIDTH 16.8 % (11.5-14.5); RED BLOOD CELL CT 3.66 /CUMM (4.20-5.40); WHITE BLOOD CELL COUNT 14.5 /CUMM (4.8-10.8)
--- NOTE | 2016-08-26 19:43 | NUR ---
AMALIA DES TO BEDSIDE TO DISCUSS RESULTS AND POC.
[2016-08-26] MEDS ORDERED: SYNTHROID88 MCG PO (19:57)
[2016-08-26] MEDS ORDERED: ALPRAZOLAM0.5 M4 PO (19:58)
[2016-08-26] MEDS ORDERED: QUETIAPINE FUMA50 M1 PO (20:00)
[2016-08-26] MEDS ORDERED: CYCLOBENZAPRINE5 M2 PO (20:01)
[2016-08-26] MEDS ORDERED: PREDNISONE5 M1 PO (20:03)
[2016-08-26] MEDS ORDERED: PREDNISONE10 M2 PO (20:03)
--- NOTE | 2016-08-26 20:34 | History & Physical ---
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 She told that she had sinusitis but denies fever, chills, nausea, vomiting, diarrhea, constipation, dysuria, anorexia. 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 Family history-history of lung cancer Allergies/Medications Allergies: Coded Allergies: apple (Intermediate, HIVES FROM APPLE CIDER 08/26/16) hydromorphone (Intermediate, LIP SWELLING 08/26/16) phenytoin (Intermediate, HIVES 08/26/16) lidocaine (SVT 08/26/16) oxycodone (From Percocet) (ITCHY 08/26/16) Home Med list Albuterol Sulfate 2.5 MG/3 ML (0.083 %) VIAL.NEB 3 ML INH TID PRN asthma Albuterol Sulfate (Ventolin Hfa) 90 MCG HFA.AER.AD 2 PUF INH Q4-6 PRN PRN asthma Alprazolam 0.5 MG TABLET 1 TAB PO Q6H ANXIETY (Reported) Amlodipine Besylate (Norvasc) 10 MG TABLET 1 TAB PO DAILY hypertension Aspirin/Acetaminophen/Caffeine (Excedrin Migraine Caplet) 250 MG-250 MG-65 MG TABLET 1 TAB PO DAILY SINUS HEADACHE (Reported) Budesonide/Formoterol Fumarate (Symbicort 160-4.5 Mcg Inhaler) 160 MCG-4.5 MCG/ ACTUATION HFA.AER.AD 2 PUF INH BID ASTHMA (Reported) Cyclobenzaprine HCl 5 MG TABLET 1 TAB PO PRN MUSCLE SPASMS (Reported) Fexofenadine/Pseudoephedrine (Shannan-D 24 Hour Tablet) 180 MG-240 MG TAB.ER.24H 1 TAB PO DAILY ALLERGIES (Reported) Fluticasone Propionate (Flonase Allergy Relief) 50 MCG/ACTUATION SPRAY.SUSP 1 SPRAY ELLA BID ALLERGIES (Reported) Levothyroxine Sodium (Synthroid) 88 MCG TABLET 1 TAB PO DAILY THYROID ( Reported) Montelukast Sodium 10 MG TABLET 1 TAB PO QHS ASTHMA (Reported) Multivitamin (One Daily Multivitamin) 1 EACH TABLET 1 TAB PO DAILY supplement Nicotine Polacrilex (Nicotine Gum) 4 MG GUM 4 MG PO Q6H PRN SMOKING CESSATION (Reported) Nystatin (Nystop) 100,000 UNIT/GRAM POWDER 1 KAYLEIGH TOP BID UNDER BREASTS ( Reported) Prednisone 10 MG TABLET 0 PO SEE ADMIN CRITERIA bronchospasm please take: 08/29-08/30 30 MG - 3 tabs/day 08/31-09/01 20 MG -2 tabs/day 09/02 10 MG - continue indefinetely Propranolol HCl (Propranolol HCl ER) 120 MG CAP.SA.24H 1 CAP PO BID BP ( Reported) Quetiapine Fumarate 50 MG TABLET 150 MG PO QPM MENTAL HEALTH/SLEEP (Reported) Tramadol HCl 50 MG TABLET 1 TAB PO Q6P PRN PAIN SCALE 7-10 (SEVERE) (Reported ) Valacyclovir HCl (Valacyclovir) 1,000 MG TABLET 1 TAB PO DAILY ANTI VIRAL ( Reported) Past History Travel History Traveled to [place] past 21 day No Medical History Neurological: NONE EENT: allergies Cardiovascular: hypertension Respiratory: asthma, bronchitis Gastrointestinal: NONE Hepatic: RENAL FAILURE Renal: acute kidney injury Musculoskeletal: chronic back pain Psychiatric: alcohol dependence, depression, substance abuse, bipolar disorder, MRE manic Endocrine: hypothyroidism, ADDISONS DX Hashimotos thyroiditis Blood Disorders: NONE Cancer(s): NONE 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 Ambulation: independent IADLs Independent: shopping, housework, finances, food prep, telephone, transportation , medication admin. Review of Systems Review of Systems Constitutional: Reports: weakness. Denies: chills, diaphoresis, fever. EENTM: Denies: no symptoms. Cardiovascular: Denies: chest pain, edema, orthopena, palpitations, peripheral edema. Respiratory: Reports: cough, short of breath, wheezing. Denies: hemoptysis, orthopnea, sputum production, stridor. GI: Denies: abdominal pain, bloating, constipation, diarrhea, distention, bowel incontinence, melena, nausea, bloody stool. Genitourinary: Denies: discharge, dysuria, frequency, hematuria, hesitation, nocturia. Musculoskeletal: Denies: back pain, gout, joint pain, joint swelling, muscle pain. Skin: Reports: change in skin color, erythema. Denies: cysts. Neurological/Psychological: Reports: anxiety, confusion, depressed. Exam & Diagnostic Data Last 24 Hrs of Vital Signs/I&O Vital Signs Date Time Temp Pulse Resp B/P Pulse O2 O2 Flow FiO2 Ox Delivery Rate 08/27 0418 97.4 84 20 138/98 08/27 0015 98.4 08/27 0000 Nasal 3.0L Cannula 08/26 2237 98.1 86 19 161/108 92 Nasal 3.0L Cannula 08/26 2236 92 Nasal 3.0L Cannula 08/26 2133 98.5 87 24 124/60 92 Nasal 3.0L Cannula 08/26 1836 84 24 120/61 93 Nasal 4.0L Cannula 08/26 1753 86 08/26 1750 Room Air 08/26 1745 96 30 85 Room Air Intake & Output 08/27 0800 08/27 0000 08/26 1600 Intake Total 220 50 Output Total 370 Balance -150 50 Intake, Oral 220 50 Output, Urine 370 Patient 115.666 kg Weight Physical Exam General Appearance Alert, Oriented X3, Cooperative, No Acute Distress Skin bluish striae in lower abdoman HEENT Atraumatic, PERRLA, EOMI Neck Supple, No JVD Cardiovascular Normal S1, Normal S2 Lungs wheezing Abdomen Soft, No Tenderness Neurological Normal Speech Extremities No Clubbing, No Cyanosis, bilateral pitting edema Vascular Normal Pulses, Pulses Symmetrical Assessment/Plan Assessment: Patient is a 45-year-old woman with significant past medical history of COPD on oxygen 1 to 1.5 liter, asthma, steroid induced Mclean syndrome on alternate day 5 to 10 milligrams of prednisone, allergic rhinitis using Shannan-D , tensor fasciatis on tramadol, hypertension, chronic back pain, Joann thyroiditis, bipolar, depression, anxiety, genital herpes on valacyclovir prophylaxis, presented with chief complaints of shortness of breath and decreased oxygen saturation 65% on room air. Vital signs at the time of admission-temperature 98.5, pulse 87, respiration 24, blood pressure 124/60, SPO2 92% on nasal cannula 3 liters oxygen. Chest x-ray-no any acute cardiopulmonary abnormality Problem list - Chronic kidney disease Chronic back pain Alcohol dependence Depression Bipolar disorder Hypertension Hypothyroidism Francisco syndrome History of knee surgery Plan - * We'll continue oxygen with a target of SPO2 more than 92% * We'll start her on injection, methylprednisolone 40mg IV BID, * TRC/nebulization * We will continue her on tablet valacyclovir for genital herpes * We'll continue all home medication including Synthyroid, amlodipine. * Will check blood sugar 3 times a day and at the bedtime * We will check CIWA, and gave Ativan according to CIWA protocol * Diet-heart healthy diet * DVT prophylaxis-ALP S/heparin * CODE STATUS-full code As Ranked By This Provider Problem List: 1. Hypothyroidism 2. Adrenal insufficiency 3. COPD exacerbation 4. Hypertension Core Measures/Miscellaneous Acute Coronary Syndrome ACS Diagnosis: No Cerebrovascular Accident CVA/TIA Diagnosis: No Congestive Heart Failure CHF Diagnosis: No Venous Thromboembolism VTE Risk Factors: Age > 40 VTE Prophylaxis Ordered Inpt: Mechanical (ALPS/TEDS) No Mech VTE prophylaxis d/t: No contraindications No VTE Pharm Prophylaxis d/t: No contraindications VTE Diagnosis: No VTE Type: NONE VTE Confirmed by (Test): NONE Severe Sepsis Severe Sepsis Present: No Septic Shock Septic Shock Present: No Miscellaneous Documentation Attending Case Discussed With: WILIAN PEREIRA MD Primary Care Physician: RACHELE HAWK MD Patient sees these Specialists Dr Hilton Level of Patient Care: General Medicine VISH THAKUR 08/27/16 0329: Resident Review Statement Resident Statement: discussed with tax intern Other Findings: She is 45-year-old woman with past medical history of asthma, COPD on nocturnal oxygen 1-1.5 L at home, hypertension, chronic back pain, Joann thyroiditis, 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 According to patient for last 2 days she was using oxygen all the time especially on exertion, 3 L. She received neb treatment and 2 g of magnesium by EMS enroute to hospital. She reports chills and cough but denies any fever, chest pain or discomfort, palpitations, nausea, vomiting, abdominal pain, diarrhea or constipation. She reports left leg swelling that is not new. She was recently discharged from [facility] after getting treatment for COPD exacerbation. Since discharge she was stressed and smoking and drinking a lot. According to patient she was smoking 1- 1 and 1/2 per day and daily at least 3 shots of beer for last few weeks. Denies illicit drug use. Vitals on admission: Temperature 98, pulse 96, respiratory rate 30, blood pressure 120/61 and oxygen saturation 85% room air. She was put on 4 L of oxygen via nasal cannula. Positive physical exam findings: Bee facies. Hooker hump. Abdominal striae. Small bruise on her right leg. Decreased air entry bilaterally on lung auscultation without any wheezing, rales or crackles. Pertinent labs: WBC count 14.5, H&H 11.9/36.2, MCV 98, RDW 16.8, AST 48, ALT 63 EKG: No acute ST-T wave changes CXR: Normal In ER patient was given nebulization treatment, Zithromax 500 mg by mouth 1 and Solu-Medrol 60 mg IV 1. 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 She is going to be admitted on general medicine floor for following problems. Problem list 1. Acute hypoxemic respiratory failure secondary to COPD exacerbation 2. Leukocytosis. Most likely Steroid-induced. Patient is on steroids at home for Morganton's disease. 3. Normocytic anemia 4. Transaminitis. Most likely fatty liver disease/alcohol hepatitis 5. Alcohol abuse Plan * Monitor vitals closely * Continue supplemental oxygen. Keep oxygen saturation more than 92%. Titrate down accordingly. * Continue TRC nebs * We will continue IV steroids. * Sputum cultures * Will check iron panel, folate, vitamin B12 * CIWA protocol and IV Ativan as needed per [facility] * Will continue all her home medications except home dose of by mouth prednisone and propranolol in the setting of probable spasm and COPD exacerbation * Pain management pathway * Subcutaneous Lovenox for DVT prophylaxis * Smoking cessation counseling * Full code SUZANNA WEINER 08/27/16 0644: Attending MD Review Statement Attending Statement Attending MD Statement: examined this patient, discuss w/resident/PA/NUTRITION CONSULTANT, agreed w/resident/PA/NUTRITION CONSULTANT, reviewed EMR data (avail), reviewed images, amended to note Attending Assessment/Plan: CC: Acute worsening of shortness of breath PMH: Asthma/COPD, Morganton's disease with cushingoid features, Joann's thyroiditis, hypothyroidism, migraine, anxiety/depression, bipolar disorder, alcohol dependence, current smoker. Patient presented with acute worsening of shortness of breath, increased oxygen requirement at home, productive cough. Patient was saturating 65% on room air improved to 90% at home on 4 L oxygen but shortness of breath persisted that's when she called EMS to come to ER. Patient denies any fever or chills, loss of consciousness, pedal edema, palpitation or chest pain. Vitals: Afebrile, mildly tachycardic, RR, BP stable, saturating 94% on 4 L nasal cannula. On examination: A O 3, mild respiratory distress, morbidly obese, pedal edema bilateral, neck supple, no lymphadenopathy, no upper respiratory congestion, RS: occasional wheezing present. CVS: S1-S2, RRR. Abdomen: Soft, NT, ND, bowel sounds present. No focal neurological deficit. Labs: WBC 14.5, otherwise unremarkable Chest x-ray: No acute cardiopulmonary process, EKG unremarkable. A and P #1 acute hypoxic respiratory failure secondary to asthma/COPD exacerbation: Continue IV methylprednisolone 40 mg 12 hourly, no antibiotics, albuterol and Atrovent nebulization scheduled and when necessary, O2 by nasal cannula, Mucinex , incentive spirometry, consult pulmonology in a.m. patient still smoking, noncompliant. #2 alcohol dependence: Continue to replace electrolytes, nutritional supplementation with thiamine folate, when necessary Ativan according to CIWA score. #3 Morganton's disease, Joann's thyroiditis, hypothyroidism, migraine, anxiety /depression, bipolar disorder: Continue home medications. #4 DVT prophylaxis with Lovenox, adequate pain control.
--- NOTE | 2016-08-26 20:52 | NUR ---
PT MEDICATED PER EMAR. HOUSE STAFF TO BEDSIDE FOR EVAL.
--- NOTE | 2016-08-26 20:56 | NUR ---
[facility] ASSIGNMENT [phone]
--- NOTE | 2016-08-26 21:33 | NUR ---
REPORT GIVEN TO RN. DISTRIBUTION CALLED FOR PT TRANSPORT.
[2016-08-26 22:37] VITALS: BP 161/108
--- NOTE | 2016-08-26 23:22 | NUR ---
PATIENT ARRIVED TO FLOOR AT 2230 VIA STRETHCER, ON 3L OF 02. PATIENT CURRENTLY NOT SOB, RESTING COMFORTABLY. VSS, ALERT AND ORIENTED X3, PATIENT STATES ONLY PAIN IS CHRONIC BACK PAIN. CALL RAE WITHIN REACH.
[2016-08-27 04:18] VITALS: BP 138/98
--- NOTE | 2016-08-27 06:45 | Admission Certification ---
Admission Certification Certification Statement - As attending physician, I certify that at the time of - admission, based on clinical presentation, severity of - symptoms, need for further diagnostic testing and - therapeutic interventions, and risk of adverse outcomes - without in-hospital treatment, in my clinical assessment, - this patient requires an acute hospital stay for a minimum - of two nights or longer. I have also considered psychsocial - factors such as support system, advanced age, financial - issues, cognitive issues, and failed out-patient treatments, - past re-admission history, safety of patient, and lack of - compliance as applicable. Specific rationale supporting this admission is: COPD exacerbation
--- NOTE | 2016-08-27 06:53 | PN- Housestaff ---
See Addendum Subjective Follow-up For: COPD exacerbation Subjective: I signed examined the patient today morning. She is feeling much better, almost reports back to her baseline. She denies any cough, shortness of breath, fever overnight. Review of Systems Constitutional: Reports: see HPI, malaise, weakness. Comments: ROS negative except the above. Objective Last 24 Hrs of Vital Signs/I&O Vital Signs Date Time Temp Pulse Resp B/P Pulse O2 O2 Flow FiO2 Ox Delivery Rate 08/27 0418 97.4 84 20 138/98 08/27 0015 98.4 08/27 0000 Nasal 3.0L Cannula 08/26 2236 98.1 86 19 161/108 92 Nasal 3.0L Cannula 08/26 223 92 Nasal 3.0L Cannula 08/26 2133 98.5 87 24 124/60 92 Nasal 3.0L Cannula 08/26 1836 84 24 120/61 93 Nasal 4.0L Cannula 08/26 1753 86 08/26 1750 Room Air 08/26 1745 96 30 85 Room Air Intake & Output 08/27 0800 08/27 0000 08/26 1600 Intake Total 220 50 Output Total 370 Balance -150 50 Intake, Oral 220 50 Output, Urine 370 Patient 115.666 kg Weight Physical Exam General Appearance: Alert, Oriented X3, Cooperative, No Acute Distress, Cushingoid features present Skin: No Rashes, No Breakdown HEENT: Atraumatic, PERRLA Neck: Supple Cardiovascular: Regular Rate, Normal S1, Normal S2, No Murmurs Lungs: Clear to Auscultation, Normal Air Movement Abdomen: Normal Bowel Sounds, Soft, No Tenderness Current Medications: Current Medications Sig/Rosio Start time Last Medication Dose Route Stop Time Status Admin Acetaminophen/ 1 TAB Q4P PRN 08/27 1000 AC Butalbital/Caffeine PO Albuterol Sulfate 3 ML TID 08/27 1600 CAN INH Albuterol Sulfate 3 ML TID 08/27 1600 AC 08/27 INH 1935 Albuterol Sulfate 3 ML Q6 PRN 08/27 1315 AC INH Albuterol Sulfate 3 ML TID PRN 08/26 2130 DC INH 08/27 1559 Alprazolam 0.5 MG Q6-PRN PRN 08/26 2130 AC 08/27 PO 09/02 2128 0946 Amlodipine Besylate 10 MG DAILY 08/27 1000 AC 08/27 PO 0938 Azithromycin 0 .STK-MED ONE 08/26 2042 DC PO Azithromycin 500 MG ONCE ONE 08/26 1999 DC 08/26 PO 08/26 Budesonide/ 2 PUF BID 08/26 2200 AC 08/27 Formoterol Fumarate INH 0937 Enoxaparin Sodium 40 MG DAILY 08/27 1000 AC SC Fluticasone 1 SPRAY BID 08/26 2200 AC 08/27 Propionate ELLA 0937 Folic Acid 1 MG DAILY 08/27 1000 AC 08/27 PO 0938 Guaifenesin 600 MG Q12 08/27 1000 AC 08/27 PO 0938 Ibuprofen 400 MG .STK-MED ONE 08/26 2250 DC PO 08/26 2251 Ibuprofen 600 MG Q6 PRN 08/26 2130 AC 08/27 PO 0947 Ipratropium [place] 2.5 ML Q4 HRS NEEDED PRN 08/26 2130 DC INH Levothyroxine Sodium 0.088 MG DAILY AC 08/27 0700 AC 08/27 PO 0602 Lorazepam 0 Q1P PRN 08/27 0345 AC 08/27 IV 0424 Methylprednisolone 40 MG Q12 08/27 1000 DC 08/27 IV 0940 Methylprednisolone 40 MG Q8 08/26 220 DC IV Methylprednisolone 0 .STK-MED ONE 08/26 2043 DC .ROUTE Methylprednisolone 60 MG ONCE ONE 08/26 1999 DC 08/26 IV 08/26 Montelukast Sodium 10 MG AT BEDTIME 08/26 2200 AC 08/27 PO 0024 Multivitamins 1 TAB DAILY 08/27 1000 AC 08/27 Therapeutic PO 0938 Nicotine 4 MG Q6H PRN 08/26 2130 AC PO Prednisone 10 MG DAILY 09/02 1000 AC PO 09/04 0959 Prednisone 20 MG DAILY 08/31 1000 AC PO 09/02 0959 Prednisone 30 MG DAILY 08/29 1000 AC PO 08/31 0959 Prednisone 40 MG DAILY 08/27 1414 AC 08/27 PO 08/29 0959 1531 Prednisone 40 MG DAILY 08/27 1411 CAN PO 09/04 1410 Propranolol HCl 120 MG BID 08/27 1200 AC 08/27 PO 1240 Propranolol HCl 120 MG BID 08/27 1006 DC PO Quetiapine Fumarate 150 MG QPM 08/26 2200 AC 08/27 PO 0024 Ramelteon 8 MG ONCE ONE 08/27 0345 DC PO 08/27 0346 Thiamine HCl 100 MG DAILY 08/27 1000 AC 08/27 PO 0938 Tramadol HCl 50 MG Q6P PRN 08/26 2130 AC 08/27 PO 0946 Valacyclovir HCl 1,000 MG DAILY 08/27 1000 AC 08/27 PO 0939 Last 24 Hrs of Lab/Kartik Results Last 24 Hrs of Labs/Mics: Laboratory Tests 08/27/16 0615: CBC w Diff MAN DIFF ORDERED, RBC 3.55 L, MCV 99.6 H, MCH 32.4 H, RDW 16.7 H, MPV 7.1 L, Gran % 91.1 H, Lymphocytes % 8.1 L, Monocytes % 0.7 L, Eosinophils % 0, Basophils % 0.1, Absolute Granulocytes 9.8 H, Segmented Neutrophils 90 H, Band Neutrophils 1, Absolute Lymphocytes 0.9 L, Lymphocytes 7 L, Monocytes 2, Absolute Monocytes 0.1 L, Absolute Eosinophils 0, Absolute Basophils 0, Platelet Estimate ADEQUATE, Hypochromic-Microcytic 1+, Anisocytosis 1+, Stomatocytes 1+, PUBS MCHC 32.5 L Microbiology 08/27 1540 LOWER RESP: Respiratory Culture - RES 08/27 1540 LOWER RESP: Gram Stain - RES 08/26 2302 LOWER RESP: Respiratory Culture - CAN Cancelled: SPECIMEN NOT RECEIVED IN LABORATORY 08/26 2302 LOWER RESP: Gram Stain - CAN Cancelled: SPECIMEN NOT RECEIVED IN LABORATORY Lines/Diet/Fluids Lines: peripheral lines Assessment/Plan Assessment: Patient is a 45-year-old female with past medical history significant for COPD ( on 1/1.5 L home oxygen, iatrogenic cushingoid habitus, asthma, asthma, hypothyroidism, chronic steroid therapy alternate 5 and 10 mg, allergic rhinitis , tensa fascia is on tramadol, hypertension, chronic back pain, depression, anxiety, genital herpes (on chronic valacyclovir or), bipolar came with shortness of breath and decreased oxygen saturations to 65% on room air. On admission afebrile, mildly tachycardic, saturating well on 4 L oxygen. Significant labs include white count of 14.5. Unremarkable chest x-ray Patient is admitted to general medicine floor and the following issues are addressed Acute hypoxic respiratory failure secondary to asthma/COPD exacerbation * Current smoker, noncompliant patient * Initially started on IV methylprednisone 40 mg every 12, a single dose of azithromycin is also given. * However she appeared so stable today, eventually we converted her to oral prednisone taper * Prednisone taper 402, 302, 202, 10 indefinitely * TRC/nebs/Mucinex * Pulmonary consult placed Dr. Hilton following * She is stable to discharge tomorrow according to their recommendations Chronic steroid therapy for Elmo's disease * Patient had classic cushingoid features as a result of iatrogenic steroid use * She is on alternate 10 and 5 mg of prednisone * Currently she is placed on prednisone taper which stops with 10 mg indefinitely Hypertension * Home medications amlodipine 10 mg once a day and propranolol 120 mg twice a day of continue Hypothyroidism * Home medication levothyroxine 88 g is continued Genital herpes * On valacyclovir maintenance therapy * We will continue that Seasonal allergies * On fluticasone nasal spray and montelukast 10 mg Anxiety/Depression/Bipolar * On xanax, seroquel. * psych consult regarding her Seroquel dose Alcohol dependence * On CIWA protocol, folic acid, thiamine, multivitamin. DVT prophylaxis * Subcutaneous Lovenox CODE STATUS * Full code Problem List: 1. Hypoxia 2. Asthma exacerbation 3. Alcohol dependence 4. COPD exacerbation 5. Acute and chronic respiratory failure with hypoxia 6. Adrenal insufficiency Pain Ratin Pain Location: n/a Pain Goal: Pain 4 or less Pain Plan: Fioricet Q4PRN Tomorrow's Labs & Rationales: none
[2016-08-27 07:51] LABS: ABSOLUTE BASOPHIL COUNT 0 /CUMM (0.0-0.2); ABSOLUTE EOSINOPHIL COUNT 0 /CUMM (0.0-0.7); ABSOLUTE GRANULOCYTE CT 9.8 /CUMM (1.4-6.5); ABSOLUTE LYMPH COUNT 0.9 /CUMM (1.2-3.4); ABSOLUTE MONOCYTE COUNT 0.1 /CUMM (0.10-0.60); BASOPHIL % 0.1 % (0.0-2.0); EOSINOPHIL % 0 % (0-5); GRANULOCYTE % 91.1 % (42.2-75.2); HEMATOCRIT 35.3 % (37-47); MEAN CORPUSCULAR HGB 32.4 PG (27.0-31.0); MEAN CORPUSCULAR HGB CONC 32.5 G/DL (33.0-37.0); MEAN CORPUSCULAR VOLUME 99.6 FL (81.0-99.0); MEAN PLATELET VOLUME 7.1 FL (7.4-10.4); PLATELET COUNT 244 /CUMM (130-400); RBC DISTRIBUTION WIDTH 16.7 % (11.5-14.5); RED BLOOD CELL CT 3.55 /CUMM (4.20-5.40); WHITE BLOOD CELL COUNT 10.8 /CUMM (4.8-10.8)
[2016-08-27 08:34] VITALS: BP 132/78
--- NOTE | 2016-08-27 08:55 | Cons- Pulmonary ---
General Information and HPI Consulting Request Date of Consult: 08/27/16 Requested By: Dr. Darby Reason for Consult: hypoxemic respiratory failure Source of Information: patient Exam Limitations: no limitations History of Present Illness: 45 year old woman with a history of reactive airway disease, recent admission for hypoxemic respiratory failure, previously seen ground glass opacities with a broad differential likely reactive/inflammatory/smoking/environmental exposure related. Cranks's disease/adrenal insufficiency Still smoking since year 1999. Down to about 3/4 PPD from 1PPD. Nocturnal o2 and as needed exertional O2 (J&L). Post nasal drip and allergic rhinitis. Robitussin helps. Leg edema improved. Symbicort 160/4.5 2 puffs am and 2 puffs pm. Proair for rescue. Nebulizer as needed. Was on Prednisone 10mg, now on Solumedrol since admission. CTA 06/2016 Bilateral, multifocal patchy ground-glass opacification and scattered ground-glass centrilobular opacities. Findings are suspicious for an infectious/inflammatory process. Allergies/Medications Allergies: Coded Allergies: apple (Intermediate, HIVES FROM APPLE CIDER 08/26/16) hydromorphone (Intermediate, LIP SWELLING 08/26/16) phenytoin (Intermediate, HIVES 08/26/16) lidocaine (SVT 08/26/16) oxycodone (From Percocet) (ITCHY 08/26/16) Home Med List: Albuterol Sulfate 2.5 MG/3 ML (0.083 %) VIAL.NEB 3 ML INH TID PRN asthma Albuterol Sulfate (Ventolin Hfa) 90 MCG HFA.AER.AD 2 PUF INH Q4-6 PRN PRN asthma Alprazolam 0.5 MG TABLET 1 TAB PO Q6H ANXIETY (Reported) Amlodipine Besylate (Norvasc) 10 MG TABLET 1 TAB PO DAILY hypertension Aspirin/Acetaminophen/Caffeine (Excedrin Migraine Caplet) 250 MG-250 MG-65 MG TABLET 1 TAB PO DAILY SINUS HEADACHE (Reported) Budesonide/Formoterol Fumarate (Symbicort 160-4.5 Mcg Inhaler) 160 MCG-4.5 MCG/ ACTUATION HFA.AER.AD 2 PUF INH BID ASTHMA (Reported) Cyclobenzaprine HCl 5 MG TABLET 1 TAB PO PRN MUSCLE SPASMS (Reported) Fexofenadine/Pseudoephedrine (Shannan-D 24 Hour Tablet) 180 MG-240 MG TAB.ER.24H 1 TAB PO DAILY ALLERGIES (Reported) Fluticasone Propionate (Flonase Allergy Relief) 50 MCG/ACTUATION SPRAY.SUSP 1 SPRAY ELLA BID ALLERGIES (Reported) Levothyroxine Sodium (Synthroid) 88 MCG TABLET 1 TAB PO DAILY THYROID ( Reported) Montelukast Sodium 10 MG TABLET 1 TAB PO QHS ASTHMA (Reported) Multivitamin (One Daily Multivitamin) 1 EACH TABLET 1 TAB PO DAILY supplement Nicotine Polacrilex (Nicotine Gum) 4 MG GUM 4 MG PO Q6H PRN SMOKING CESSATION (Reported) Nystatin (Nystop) 100,000 UNIT/GRAM POWDER 1 KAYLEIGH TOP BID UNDER BREASTS ( Reported) Prednisone 5 MG TABLET 1 TAB PO EOD CUSHINGS (Reported) Prednisone 10 MG TABLET 1 TAB PO EOD CUSHINGS (Reported) Propranolol HCl (Propranolol HCl ER) 120 MG CAP.SA.24H 1 CAP PO BID BP ( Reported) Quetiapine Fumarate 50 MG TABLET 150 MG PO QPM MENTAL HEALTH/SLEEP (Reported) Tramadol HCl 50 MG TABLET 1 TAB PO Q6P PRN PAIN SCALE 7-10 (SEVERE) (Reported ) Valacyclovir HCl (Valacyclovir) 1,000 MG TABLET 1 TAB PO DAILY ANTI VIRAL ( Reported) Current Medications: Current Medications Sig/Rosio Start time Last Medication Dose Route Stop Time Status Admin Acetaminophen/ 1 TAB Q4P PRN 08/27 1000 AC Butalbital/Caffeine PO Albuterol Sulfate 3 ML TID PRN 08/26 2130 AC INH Albuterol Sulfate 3 ML ONCE ONE 08/26 1800 DC 08/26 INH 08/26 1801 1753 Alprazolam 0.5 MG Q6-PRN PRN 08/26 2130 AC 08/26 PO 09/02 212 2255 Amlodipine Besylate 10 MG DAILY 08/27 1000 AC PO Azithromycin 0 .STK-MED ONE 08/26 2042 DC PO Azithromycin 500 MG ONCE ONE 08/26 2000 DC 08/26 PO 08/26 Budesonide/ 2 PUF BID 08/26 2200 AC 08/27 Formoterol Fumarate INH 0026 Enoxaparin Sodium 40 MG DAILY 08/27 1000 AC SC Fluticasone 1 SPRAY BID 08/26 2200 AC 08/27 Propionate ELLA 0025 Folic Acid 1 MG DAILY 08/27 1000 AC PO Guaifenesin 600 MG Q12 08/27 1000 AC PO Ibuprofen 400 MG .STK-MED ONE 08/26 2250 DC PO 08/26 2251 Ibuprofen 600 MG Q6 PRN 08/26 2130 AC PO Ipratropium [place] 2.5 ML Q4 HRS NEEDED PRN 08/26 2130 AC INH Ipratropium [place] 2.5 ML ONCE ONE 08/26 1800 DC 08/26 INH 08/26 1801 1753 Levothyroxine Sodium 0.088 MG DAILY AC 08/27 0700 AC 08/27 PO 0602 Lorazepam 0 Q1P PRN 08/27 0345 AC 08/27 IV 0424 Methylprednisolone 40 MG Q12 08/27 1000 AC IV Methylprednisolone 40 MG Q8 08/26 2200 DC IV Methylprednisolone 0 .STK-MED ONE 08/26 2044 DC .ROUTE Methylprednisolone 60 MG ONCE ONE 08/26 2000 DC 08/26 IV 08/26 Montelukast Sodium 10 MG AT BEDTIME 08/26 2200 AC 08/27 PO 0024 Multivitamins 1 TAB DAILY 08/27 1000 AC Therapeutic PO Nicotine 4 MG Q6H PRN 08/26 2130 AC PO Quetiapine Fumarate 150 MG QPM 08/26 2200 AC 08/27 PO 0024 Ramelteon 8 MG ONCE ONE 08/27 0345 DC PO 08/27 0346 Thiamine HCl 100 MG DAILY 08/27 1000 AC PO Tramadol HCl 50 MG Q6P PRN 08/26 2130 AC 08/26 PO 2255 Valacyclovir HCl 1,000 MG DAILY 08/27 1000 AC PO Review of Systems Comments 18 point Review of Systems performed. Positive and negative pertinent findings are deliniated in the HPI. Otherwise the ROS is negative. 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 Home Services at Home: None Smoking Status: Current Everyday Smoker ETOH Use: heavy use Illicit Drug Use: denies illicit drug use Functional Ability ADLs Independent: dressing, eating, toileting, bathing. Ambulation: independent IADLs Independent: shopping, housework, finances, food prep, telephone, transportation , medication admin. Exam & Diagnostic Data Last 24 Hrs of Vital Signs/I&O Vital Signs Date Time Temp Pulse Resp B/P Pulse O2 O2 Flow FiO2 Ox Delivery Rate 08/27 0938 75 132/78 08/27 0834 98.1 75 20 132/78 97 Nasal 2.0L Cannula 08/27 0418 97.4 84 20 138/98 08/27 0015 98.4 08/27 0000 Nasal 3.0L Cannula 08/26 2237 98.1 86 19 161/108 92 Nasal 3.0L Cannula 08/26 2236 92 Nasal 3.0L Cannula 08/26 2133 98.5 87 24 124/60 92 Nasal 3.0L Cannula 08/26 1836 84 24 120/61 93 Nasal 4.0L Cannula 08/26 1753 86 08/26 1750 Room Air 08/26 1745 96 30 85 Room Air Intake & Output 08/27 1600 08/27 0800 08/27 0000 Intake Total 220 50 Output Total 370 Balance -150 50 Intake, Oral 220 50 Output, Urine 370 Patient 255 lb Weight Physical Exam Other Physical Findings: gen awake and alert heent ncat cvs s1, s2 lungs rare rhonchi at the bases abd soft bs+ ext edematous but improved from baseline Last 48 Hrs of Labs/Kartik: Laboratory Tests 08/27/1615: CBC w Diff MAN DIFF ORDERED, RBC 3.55 L, MCV 99.6 H, MCH 32.4 H, RDW 16.7 H, MPV 7.1 L, Gran % 91.1 H, Lymphocytes % 8.1 L, Monocytes % 0.7 L, Eosinophils % 0, Basophils % 0.1, Absolute Granulocytes 9.8 H, Segmented Neutrophils 90 H, Band Neutrophils 1, Absolute Lymphocytes 0.9 L, Lymphocytes 7 L, Monocytes 2, Absolute Monocytes 0.1 L, Absolute Eosinophils 0, Absolute Basophils 0, Platelet Estimate ADEQUATE, Hypochromic-Microcytic 1+, Anisocytosis 1+, Stomatocytes 1+, PUBS MCHC 32.5 L 08/26/16 1830: Anion Gap 12, Estimated GFR > 60, BUN/Creatinine Ratio 13.3, Glucose 126 H, Calcium 9.4, Total Bilirubin 0.5, AST 48 H, ALT 63 H, Alkaline Phosphatase 87, Troponin I < 0.01, Total Protein 6.6, Albumin 3.9, Globulin 2.7, Albumin/ Globulin Ratio 1.4, CBC w Diff NO MAN DIFF REQ, RBC 3.66 L, MCV 98.9, MCH 32.5 H, RDW 16.8 H, MPV 6.7 L, Gran % 77.0 H, Lymphocytes % 19.1 L, Monocytes % 3.2, Eosinophils % 0.6, Basophils % 0.1, Absolute Granulocytes 11.2 H, Absolute Lymphocytes 2.8, Absolute Monocytes 0.5, Absolute Eosinophils 0.1, Absolute Basophils 0, PUBS MCHC 32.8 L Assessment/Plan Impression/Plan: Impression 45 year old woman * reactive airway disease/bronchospasm * hypoxemic respiratory failure, previously seen ground glass opacities with a broad differential likely reactive/inflammatory/smoking/environmental exposure related * Cranks's disease/adrenal insufficiency Plan -dc solumedrol -prednisone 40mg x 2 days, 30x2, 20x2, 10x2 -okay for dc tomorrow as long as feeling better and o2 sat appropriate -has o2 arranged with [facility] -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
--- NOTE | 2016-08-27 14:29 | PN- Att Addend ---
Attending Addendum Attending Brief Note Patient seen and examined, overall feeling much better. Not requiring any oxygen and denies any shortness of breath. Vital Signs Date Time Temp Pulse Resp B/P Pulse O2 O2 Flow FiO2 Ox Delivery Rate 08/27 1419 97 Non 2.0L ReBreather 08/27 1240 75 132/78 08/27 0938 75 132/78 08/27 0834 98.1 75 20 132/78 97 Nasal 2.0L Cannula 08/27 0800 95 Nasal 2.0L Cannula 08/27 0418 97.4 84 20 138/98 08/27 0015 98.4 08/27 0000 Nasal 3.0L Cannula 08/26 2237 98.1 86 19 161/108 92 Nasal 3.0L Cannula 08/26 2236 92 Nasal 3.0L Cannula 08/26 2133 98.5 87 24 124/60 92 Nasal 3.0L Cannula 08/26 1836 84 24 120/61 93 Nasal 4.0L Cannula 08/26 1753 86 08/26 1750 Room Air 08/26 1745 96 30 85 Room Air on exam; aox3, nad. Cushingoid facies. cv; s1, s2, rrr. resp; clear abd; soft, nt, bs+ ext: no edema. Laboratory Tests 08/27 08/26 0615 1830 Chemistry Sodium (137 - 145 mmol/L) 141 Potassium (3.5 - 5.1 mmol/L) 4.0 Chloride (98 - 107 mmol/L) 100 Carbon Dioxide (22 - 30 mmol/L) 29 Anion Gap (5 - 16) 12 BUN (7 - 17 mg/dL) 8 Creatinine (0.5 - 1.0 mg/dL) 0.6 Estimated GFR (>60 ml/min) > 60 BUN/Creatinine Ratio (7 - 25 %) 13.3 Glucose (65 - 99 mg/dL) 126 H Calcium (8.4 - 10.2 mg/dL) 9.4 Total Bilirubin (0.2 - 1.3 mg/dL) 0.5 AST (14 - 36 U/L) 48 H ALT (9 - 52 U/L) 63 H Alkaline Phosphatase (<127 U/L) 87 Troponin I (< 0.11 ng/ml) < 0.01 Total Protein (6.3 - 8.2 g/dL) 6.6 Albumin (3.5 - 5.0 g/dL) 3.9 Globulin (1.9 - 4.2 gm/dL) 2.7 Albumin/Globulin Ratio (1.1 - 2.2 %) 1.4 Hematology CBC w Diff MAN DIFF ORDERED NO MAN DIFF REQ WBC (4.8 - 10.8 /CUMM) 10.8 14.5 H RBC (4.20 - 5.40 /CUMM) 3.55 L 3.66 L Hgb (12.0 - 16.0 G/DL) 11.5 L 11.9 L Hct (37 - 47 %) 35.3 L 36.2 L MCV (81.0 - 99.0 FL) 99.6 H 98.9 MCH (27.0 - 31.0 PG) 32.4 H 32.5 H RDW (11.5 - 14.5 %) 16.7 H 16.8 H Plt Count (130 - 400 /CUMM) 244 289 MPV (7.4 - 10.4 FL) 7.1 L 6.7 L Gran % (42.2 - 75.2 %) 91.1 H 77.0 H Lymphocytes % (20.5 - 51.1 %) 8.1 L 19.1 L Monocytes % (1.7 - 9.3 %) 0.7 L 3.2 Eosinophils % (0 - 5 %) 0 0.6 Basophils % (0.0 - 2.0 %) 0.1 0.1 Absolute Granulocytes (1.4 - 6.5 /CUMM) 9.8 H 11.2 H Segmented Neutrophils (42.2 - 75.2 %) 90 H Band Neutrophils (0.0 - 5.0 %) 1 Absolute Lymphocytes (1.2 - 3.4 /CUMM) 0.9 L 2.8 Lymphocytes (20.5 - 51.1 %) 7 L Monocytes (1.7 - 9.3 %) 2 Absolute Monocytes (0.10 - 0.60 /CUMM) 0.1 L 0.5 Absolute Eosinophils (0.0 - 0.7 /CUMM) 0 0.1 Absolute Basophils (0.0 - 0.2 /CUMM) 0 0 Platelet Estimate (ADEQUATE) ADEQUATE Hypochromic-Microcytic 1+ Anisocytosis 1+ Stomatocytes 1+ PUBS MCHC (33.0 - 37.0 G/DL) 32.5 L 32.8 L A/P; 45 y/o F with pmh sig for COPD on prn oxygen 1 to 1.5 liter, asthma, on chronic prednisone with steroid induced Francisco syndrome, allergic rhinitis , planter fasciatis on tramadol, hypertension, chronic back pain, Joann thyroiditis, bipolar, depression, anxiety, genital herpes on valacyclovir prophylaxis admitted with acute hypoxic respiratory failure. Patient was on Depakote previously for mode disorder but then has been told by her psychiatrist to stop it because Depakote can produce but with spasm. This respiratory failure was likely secondary to bronchospasm which has not resolved after she was started on steroids. Seen by pulmonology, recommending starting the patient on prednisone tomorrow and then taper. Continue TRC nebs and inhalers per Currently not requiring any oxygen at rest but will check ambulatory O2 sats. Continue all other current medications. DVT prophylaxis: Lovenox. Possible discharge tomorrow.
[2016-08-27] MEDS ORDERED: PREDNISONE10 M2 PO ×2 (15:50→15:52)
[2016-08-27 16:41] VITALS: BP 140/80
--- NOTE | 2016-08-27 19:36 | Patient Discharge Instructions ---
Discharge Instructions General Discharge Information You were seen/treated for: COPD exacerbation Special Instructions: 1. Please follow up with your PCP in a week 2. 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 Please follow up with your in a week. 4. Please follow with AA women's meeting in [place]. Meeting starts around 9AM on Saturdays at the [facility], [address] [place] [address] ( [facility]) 5. Pleaes discuss possible initiation of aripiprazole/Abilify and fluoxetine/ Prozac therapy with your PCP. Diet Continue normal diet: Yes Recommended Diet: Diabetic Activity Full Activity/No Limits: No Activity Self Limited: Yes Acute Coronary Syndrome Inclusion Criteria At DC or during hospital stay patient has or had the following: ACS DIAGNOSIS No Discharge Core Measures Meds if any: Prescribed or Continued at Discharge Meds if any: NOT Prescribed or Continued at Discharge Congestive Heart Failure Inclusion Criteria At DC or during hospital stay patient has or had the following: CHF DIAGNOSIS No Discharge Core Measures Meds if any: Prescribed or Continued at Discharge Meds if any: NOT Prescribed or Continued at Discharge Cerebrovascular accident Inclusion Criteria At DC or during hospital stay patient has or had the following: CVA/TIA Diagnosis No Discharge Core Measures Meds if any: Prescribed or Continued at Discharge Meds if any: NOT Prescribed or Continued at Discharge Venous thromboembolism Inclusion Criteria VTE Diagnosis No VTE Type NONE VTE Confirmed by (Test) NONE Discharge Core Measures - Per Current guidelines, there needs to be overlap - treatment for the first 5 days of Warfarin therapy. - If discharged on Warfarin prior to 5 days of - overlap therapy, the patient will need to be - assessed for post discharge needs including - *Post discharge parental anticoagulation - *Warfarin and/or parental anticoagulation education - *Follow up date to check INR post discharge At least 5 days overlap therapy as Inpatient No Meds if any: Prescribed or Continued at Discharge Note: Overlap Therapy is Warfarin and Anticoagulant Meds if any: NOT Prescribed or Continued at Discharge
--- NOTE | 2016-08-27 20:00 | Cons- Psychiatry ---
Psychiatric Consult Date of Consult: 08/27/16 Reason for Consult: "bipolar, depression, anxiety, patient requested consult for the need of serequel use" History of Present Illness: 45-year-old female brought in by ambulance from home on 08/26/2016 at 1745 with a chief complaint of low SPO2, 65% on room air, in her home. Allergies: Coded Allergies: apple (Intermediate, HIVES FROM APPLE CIDER 08/26/16) hydromorphone (Intermediate, LIP SWELLING 08/26/16) phenytoin (Intermediate, HIVES 08/26/16) lidocaine (SVT 08/26/16) oxycodone (From Percocet) (ITCHY 08/26/16) Current Medications: Current Medications Sig/Rosio Start time Last Medication Dose Route Stop Time Status Admin Acetaminophen/ 1 TAB Q4P PRN 08/27 1000 AC Butalbital/Caffeine PO Albuterol Sulfate 3 ML TID 08/27 1600 CAN INH Albuterol Sulfate 3 ML TID 08/27 1600 AC 08/27 INH 1935 Albuterol Sulfate 3 ML Q6 PRN 08/27 1315 AC INH Albuterol Sulfate 3 ML TID PRN 08/26 2130 DC INH 08/27 1559 Alprazolam 0.5 MG Q6-PRN PRN 08/26 2130 AC 08/27 PO 09/02 2128 0946 Amlodipine Besylate 10 MG DAILY 08/27 1000 AC 08/27 PO 0938 Azithromycin 0 .STK-MED ONE 08/26 2043 DC PO Azithromycin 500 MG ONCE ONE 08/26 1999 DC 08/26 PO 08/26 Budesonide/ 2 PUF BID 08/26 2200 AC 08/27 Formoterol Fumarate INH 0937 Enoxaparin Sodium 40 MG DAILY 08/27 1000 AC SC Fluticasone 1 SPRAY BID 08/26 2200 AC 08/27 Propionate ELLA 0937 Folic Acid 1 MG DAILY 08/27 1000 AC 08/27 PO 0938 Guaifenesin 600 MG Q12 08/27 1000 AC 08/27 PO 0938 Ibuprofen 400 MG .STK-MED ONE 08/26 2250 DC PO 08/26 2251 Ibuprofen 600 MG Q6 PRN 08/26 2130 AC 08/27 PO 0947 Ipratropium [place] 2.5 ML Q4 HRS NEEDED PRN 08/26 2130 DC INH Levothyroxine Sodium 0.088 MG DAILY AC 08/27 0700 AC 08/27 PO 0602 Lorazepam 0 Q1P PRN 08/27 0345 AC 08/27 IV 0424 Methylprednisolone 40 MG Q12 08/27 1000 DC 08/27 IV 0940 Methylprednisolone 40 MG Q8 08/26 2200 DC IV Methylprednisolone 0 .STK-MED ONE 08/26 2044 DC .ROUTE Methylprednisolone 60 MG ONCE ONE 08/26 2000 DC 08/26 IV 08/26 Montelukast Sodium 10 MG AT BEDTIME 08/26 2200 AC 08/27 PO 0024 Multivitamins 1 TAB DAILY 08/27 1000 AC 08/27 Therapeutic PO 0938 Nicotine 4 MG Q6H PRN 08/26 2130 AC PO Prednisone 10 MG DAILY 09/02 1000 AC PO 09/04 0959 Prednisone 20 MG DAILY 08/31 1000 AC PO 09/02 0959 Prednisone 30 MG DAILY 08/29 1000 AC PO 08/31 0959 Prednisone 40 MG DAILY 08/27 1414 AC 08/27 PO 08/29 0959 1531 Prednisone 40 MG DAILY 08/27 1411 CAN PO 09/04 1410 Propranolol HCl 120 MG BID 08/27 1200 AC 08/27 PO 1240 Propranolol HCl 120 MG BID 08/27 1006 DC PO Quetiapine Fumarate 150 MG QPM 08/26 2200 AC 08/27 PO 0024 Ramelteon 8 MG ONCE ONE 08/27 0345 DC PO 08/27 0346 Thiamine HCl 100 MG DAILY 08/27 1000 AC 08/27 PO 0938 Tramadol HCl 50 MG Q6P PRN 08/26 2130 AC 08/27 PO 0946 Valacyclovir HCl 1,000 MG DAILY 08/27 1000 AC 08/27 PO 0939 Past History Past Medical History Neurological: NONE EENT: allergies Cardiovascular: hypertension Respiratory: asthma, bronchitis Gastrointestinal: NONE Hepatic: RENAL FAILURE Renal: acute kidney injury Musculoskeletal: chronic back pain Psychiatric: alcohol dependence, depression, substance abuse, bipolar disorder, MRE manic Endocrine: hypothyroidism, Cushings Dz, steroid-induced Hashimotos thyroiditis Blood Disorders: NONE Cancer(s): 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 Resendiz Reason for Treatment Bipolar 2 disorder Alcohol dependence History of Opiate overdose Benzodiazepine dependence Response to Treatment Improved Diagnosis: See above Risk Factors: high anxiety/distress, substance abuse, lives alone Substance Use/Abuse History Drug Use/Abuse Substances Used/Abused Yes Substance Used/Abused Alcohol Substance Abuse Treatment Substance Abuse Treatment Past Substance Abuse [place] Yes Inpatient Treatment Yes Outpatient Treatment Yes Location of Treatment [facility] Response to Treatment Improved Assessment/Plan Mental Status Mental Status Exam: The patient's is sitting in her cool, darkened room 214-1, today, Tuesday, 2016, at 1730. She is alert and oriented. Scales her depressive symptoms as 0/10, anxiety is 8/10 (but manageable, per her report); 10/10 would be the most severe in either case. The patient denies suicidal or homicidal ideation. She denies auditory or visual hallucinations, and presents no sophie delusions. Insight and judgment are intact. She reports that she had been drinking more with her friends since we last visited with her last month, but indicates that she wishes to stop. Lab Results: Laboratory Tests 08/27 0615 Hematology CBC w Diff MAN DIFF ORDERED WBC (4.8 - 10.8 /CUMM) 10.8 RBC (4.20 - 5.40 /CUMM) 3.55 L Hgb (12.0 - 16.0 G/DL) 11.5 L Hct (37 - 47 %) 35.3 L MCV (81.0 - 99.0 FL) 99.6 H MCH (27.0 - 31.0 PG) 32.4 H RDW (11.5 - 14.5 %) 16.7 H Plt Count (130 - 400 /CUMM) 244 MPV (7.4 - 10.4 FL) 7.1 L Gran % (42.2 - 75.2 %) 91.1 H Lymphocytes % (20.5 - 51.1 %) 8.1 L Monocytes % (1.7 - 9.3 %) 0.7 L Eosinophils % (0 - 5 %) 0 Basophils % (0.0 - 2.0 %) 0.1 Absolute Granulocytes (1.4 - 6.5 /CUMM) 9.8 H Segmented Neutrophils (42.2 - 75.2 %) 90 H Band Neutrophils (0.0 - 5.0 %) 1 Absolute Lymphocytes (1.2 - 3.4 /CUMM) 0.9 L Lymphocytes (20.5 - 51.1 %) 7 L Monocytes (1.7 - 9.3 %) 2 Absolute Monocytes (0.10 - 0.60 /CUMM) 0.1 L Absolute Eosinophils (0.0 - 0.7 /CUMM) 0 Absolute Basophils (0.0 - 0.2 /CUMM) 0 Platelet Estimate (ADEQUATE) ADEQUATE Hypochromic-Microcytic 1+ Anisocytosis 1+ Stomatocytes 1+ PUBS MCHC (33.0 - 37.0 G/DL) 32.5 L Diffential Diagnosis: Bipolar 2 disorder Alcohol use disorder, moderate Benzodiazepine dependence, prescribed Impression: The patient reports that she has been working closely with her outpatient psychiatrist, Dr. Lazaro Resendiz. The patient had been on: Quetiapine IR 150 mg by mouth at bedtime Quetiapine XL 150 mg by mouth at bedtime Alprazolam 0.5 mg PO 3 times per day, and may take one additional tablet daily Depakote ER 1500 mg by mouth at bedtime She states that Dr. Resendiz believes that the Depakote was contributing to her bilateral lower extremity edema and COPD exacerbations, and instructed her to taper off this medication. The patient felt escobar at a reduced dose of Depakote ER 500 mg at bedtime, increase the dosing to Depakote ER 1000 mg at bedtime, and experienced the COPD exacerbation which resulted in her hospitalization. She discussed this with Dr. Resendiz, who instructed her to stop Depakote. The patient likes this medication, but agrees with the M.D. that it should be discontinued. The patient and Dr. Resendiz also agreed to stop the quetiapine XR 150 mg at bedtime, but to continue the quetiapine IR 150 mg at bedtime. During her last visit, the patient reported that she had had an IM injection of Abilify, but could not recall why it was discontinued. During this visit, the patient reports that this particular medication and route worked very well for her bipolar symptoms. She also reports that she had done well in the past on Prozac, but I informed her that we would be reluctant to restart this unopposed in the setting of diagnosed bipolar spectrum disorder. She is in agreement, and we'll discuss this with Dr. Resendiz, and also asked about the aripiprazole/Abilify IM injection. 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 She is in no apparent distress. She is not suicidal, delirious, nor psychotic. She is ready for discharge from a psychiatric viewpoint. Provisional Treatment Plan: 1. Do not restart Depakote 2. Continue quetiapine IR 150 mg by mouth at bedtime for sleep. This may also be helping with quelling the patient's bipolar symptoms, but she will likely need another supplement, such as aripiprazole from her outpatient provider. 3. Continue alprazolam at her home dosing. I have suggested to the patient that she utilize this medication as a rescue medication, and not scheduled. She is in agreement, and reports that she usually takes no more than 2 per day. I asked that she discuss this with her psychiatrist, and reduce the prescribed amounts if she is not using all her medication, which would be the responsible decision by her as a patient. 4. Remind the patient to discuss possible initiation of aripiprazole/Abilify and fluoxetine/Prozac therapy with her outpatient provider. 5. The patient has expressed an interest in stopping her alcohol consumption, and is interested in attending an AA women's meeting in [place]. Please tell her that this meeting is at 9AM on Saturdays at the [facility], [address] [place] [address] ([facility]) We do not anticipate further visits. Please reconsult if other psychiatric matters arise. Thank you for asking us to participate in Jackie's care. Moises Garcia APRN, pager [phone].
[2016-08-28] VITALS: BP 138/80
--- NOTE | 2016-08-28 08:25 | PN- Housestaff ---
ALY CORDOVA 08/28/16 0824: Subjective Follow-up For: COPD exacerbation Subjective: She was comfortable. Stated that she did not have any difficulty breathing. Afebrile overnight. Vitals were stable overnight. Currently on room air, and states that she has oxygen at home. Uses home oxygen. Patient made aware of use of oxygen. Discussed with her about [id number], temporary office assistant, leadite heater, and psychiatrist. Discussed about prednisone taper. Also made her aware that she needs to discuss about changes in medications related to mental health that need to be changed in the future. Anxious to be discharged. Review of Systems Constitutional: Reports: see HPI. Objective Last 24 Hrs of Vital Signs/I&O Vital Signs Date Time Temp Pulse Resp B/P Pulse O2 O2 Flow FiO2 Ox Delivery Rate 08/28 0821 95 Nasal 2.0L Cannula 08/28 0000 97.5 78 20 138/80 08/28 0000 95 Nasal 2.0L Cannula 08/27 2330 95 Nasal 2.0L Cannula 08/27 2156 78 138/80 08/27 1935 90 Room Air 08/27 1641 97.5 85 20 140/80 100 Room Air 08/27 1600 Nasal 2.0L Cannula 08/27 1423 Nasal 2.0L Cannula 08/27 1419 97 Non 2.0L ReBreather 08/27 1240 75 132/78 08/27 0938 75 132/78 08/27 0834 98.1 75 20 132/78 97 Nasal 2.0L Cannula Intake & Output 08/28 1600 08/28 0800 08/28 0000 Intake Total 240 800 Output Total Balance 240 800 Intake, Oral 240 800 Physical Exam General Appearance: No Acute Distress Other Physical Findings: General Exam: AAOx3, No acute distress, Skin: No rashes, no breakdown HEENT: PERRLA, EOMI Neck: Supple, No JVD No cervical lymphadenopathy CVS: Reg Rate, Normal S1,S2, No MGR Resp: Normal air entry, no ronchi/rales Abdomen: Soft, No tenderness, Normal Bowel Sounds, abdominal striae Neuro: Normal Speech, Strength 5/5 b/l x 4 extremities, Sensation intact, CN III -XII NL, Reflexes 2+ Extremities: No cyanosis, pedal edema 3+ Current Medications: Current Medications Sig/Rosio Start time Last Medication Dose Route Stop Time Status Admin Acetaminophen/ 1 TAB Q4P PRN 08/27 1000 AC Butalbital/Caffeine PO Albuterol Sulfate 3 ML TID 08/27 1600 CAN INH Albuterol Sulfate 3 ML TID 08/27 1600 AC 08/28 INH 0818 Albuterol Sulfate 3 ML Q6 PRN 08/27 1315 AC INH Albuterol Sulfate 3 ML TID PRN 08/26 2130 DC INH 08/27 1559 Alprazolam 0.5 MG Q6-PRN PRN 08/26 2130 AC 08/28 PO 09/02 2129 0207 Amlodipine Besylate 10 MG DAILY 08/27 1000 AC 08/27 PO 0938 Budesonide/ 2 PUF BID 08/26 2200 AC 08/28 Formoterol Fumarate INH 0557 Enoxaparin Sodium 40 MG DAILY 08/27 1000 AC SC Fluticasone 1 SPRAY BID 08/26 2200 AC 08/28 Propionate ELLA 0557 Folic Acid 1 MG DAILY 08/27 1000 AC 08/27 PO 0938 Guaifenesin 600 MG Q12 08/27 1000 AC 08/27 PO 2156 Ibuprofen 600 MG Q6 PRN 08/26 2130 AC 08/28 PO 0206 Ipratropium [place] 2.5 ML Q4 HRS NEEDED PRN 08/26 2130 DC INH Levothyroxine Sodium 0.088 MG DAILY AC 08/27 0700 AC 08/28 PO 0554 Lorazepam 0 Q1P PRN 08/27 0345 AC 08/27 IV 1949 Methylprednisolone 40 MG Q12 08/27 1000 DC 08/27 IV 0940 Montelukast Sodium 10 MG AT BEDTIME 08/26 2200 AC 08/27 PO 2156 Multivitamins 1 TAB DAILY 08/27 1000 AC 08/27 Therapeutic PO 0938 Nicotine 4 MG Q6H PRN 08/26 2130 AC PO Prednisone 10 MG DAILY 09/02 1000 AC PO 09/04 0959 Prednisone 20 MG DAILY 08/31 1000 AC PO 09/02 0959 Prednisone 30 MG DAILY 08/29 1000 AC PO 08/31 0959 Prednisone 40 MG DAILY 08/27 1414 AC 08/27 PO 08/29 0959 1531 Prednisone 40 MG DAILY 08/27 1411 CAN PO 09/04 1410 Propranolol HCl 120 MG BID 08/27 1200 AC 08/27 PO 2156 Propranolol HCl 120 MG BID 08/27 1006 DC PO Quetiapine Fumarate 150 MG QPM 08/26 2200 AC 08/27 PO 2156 Thiamine HCl 100 MG DAILY 08/27 1000 AC 08/27 PO 0938 Tramadol HCl 50 MG Q6P PRN 08/26 2130 AC 08/28 PO 0207 Valacyclovir HCl 1,000 MG DAILY 08/27 1000 AC 08/27 PO 0939 Last 24 Hrs of Lab/Kartik Results Last 24 Hrs of Labs/Mics: Microbiology 08/27 1540 LOWER RESP: Respiratory Culture - RES 08/27 1540 LOWER RESP: Gram Stain - RES Assessment/Plan Assessment: Patient is a 45-year-old female with past medical history significant for COPD ( on 1.5 L home oxygen, iatrogenic cushingoid habitus, asthma, asthma, hypothyroidism, chronic steroid therapy alternate 5 and 10 mg, allergic rhinitis , tensa fascia is on tramadol, hypertension, chronic back pain, depression, anxiety, genital herpes (on chronic valacyclovir or), bipolar came with shortness of breath and decreased oxygen saturations to 65% on room air. Patient is admitted to general medicine floor and the following issues are addressed Acute hypoxic respiratory failure secondary to asthma/COPD exacerbation * Current smoker, motivated to quit. * Started on IV Solu-Medrol which was tapered to by mouth prednisone. * Prednisone taper 401, 302, 202, 10 pills she sees the PCP next. * TRC/nebs/Mucinex * Dr. Hilton advising * Respiratory status stable. Could be discharged home. Chronic steroid therapy for [place]'s disease * Patient had classic cushingoid features as a result of iatrogenic steroid use * She is on alternate 10 and 5 mg of prednisone * Currently on steroids. To continue on 10 mg dose of prednisone pills she sees her PCP/temporary office assistant. Hypertension * Home medications amlodipine 10 mg once a day and propranolol 120 mg twice a day of continue Hypothyroidism * Home medication levothyroxine 88 g is continued Genital herpes * On valacyclovir maintenance therapy * We will continue that Seasonal allergies * On fluticasone nasal spray and montelukast 10 mg Anxiety/Depression/Bipolar * On xanax, seroquel. * To continue the same dose of Seroquel (home dose). To follow-up with her primary care/psychiatrist for change in the dose of Seroquel. Alcohol dependence * On CIWA protocol, folic acid, thiamine, multivitamin. DVT prophylaxis * Subcutaneous Lovenox CODE STATUS * Full code Problem List: 1. Hypothyroidism Pain Ratin Pain Location: Back Pain Goal: Pain 4 or less Pain Plan: Tylenol when necessary Tomorrow's Labs & Rationales: -No labs necessary. The patient is going to be discharged. REJI JAIN,[facility] 08/28/16 1421: Attending MD Review Statement Attending Statement Attending MD Statement: examined this patient, discuss w/resident/PA/REPROGRAPHICS TECHNICIAN, agreed w/resident/PA/REPROGRAPHICS TECHNICIAN, discussed with family, reviewed EMR data (avail), discussed with nursing, discussed with case mgmt, reviewed images, amended to note Attending Assessment/Plan: Patient sitting comfortably in bed. Using her own oxygen. Feeling better and is anxious to go home. She was extensively counseled about the importance of using oxygen at home. She can be discharged on steroid taper. Follow-up primary care physician and Dr. Hilton as an outpatient.
[2016-08-28 08:40] VITALS: BP 132/80
--- NOTE | 2016-08-28 09:29 | PN- Pulmonary ---
Subjective HPI/Critical Care Issues: Patient feels well without shortness of breath Objective Current Medications: Current Medications Sig/Rosio Start time Last Medication Dose Route Stop Time Status Admin Acetaminophen/ 1 TAB Q4P PRN 08/27 1000 AC Butalbital/Caffeine PO Albuterol Sulfate 3 ML TID 08/27 1600 CAN INH Albuterol Sulfate 3 ML TID 08/27 1600 AC 08/28 INH 0818 Albuterol Sulfate 3 ML Q6 PRN 08/27 1315 AC INH Albuterol Sulfate 3 ML TID PRN 08/26 2130 DC INH 08/27 1559 Alprazolam 0.5 MG Q6-PRN PRN 08/26 2130 AC 08/28 PO 09/02 2129 0207 Amlodipine Besylate 10 MG DAILY 08/27 1000 AC 08/27 PO 0938 Budesonide/ 2 PUF BID 08/26 2200 AC 08/28 Formoterol Fumarate INH 0557 Enoxaparin Sodium 40 MG DAILY 08/27 1000 AC SC Fluticasone 1 SPRAY BID 08/26 2200 AC 08/28 Propionate ELLA 0557 Folic Acid 1 MG DAILY 08/27 1000 AC 08/27 PO 0938 Guaifenesin 600 MG Q12 08/27 1000 AC 08/27 PO 2156 Ibuprofen 600 MG Q6 PRN 08/26 2130 AC 08/28 PO 0206 Ipratropium [place] 2.5 ML Q4 HRS NEEDED PRN 08/26 2130 DC INH Levothyroxine Sodium 0.088 MG DAILY AC 08/27 0700 AC 08/28 PO 0554 Lorazepam 0 Q1P PRN 08/27 0345 AC 08/27 IV 1949 Methylprednisolone 40 MG Q12 08/27 1000 DC 08/27 IV 0940 Montelukast Sodium 10 MG AT BEDTIME 08/26 2200 AC 08/27 PO 2156 Multivitamins 1 TAB DAILY 08/27 1000 AC 08/27 Therapeutic PO 0938 Nicotine 4 MG Q6H PRN 08/26 2130 AC PO Prednisone 10 MG DAILY 09/02 1000 AC PO 09/04 0959 Prednisone 20 MG DAILY 08/31 1000 AC PO 09/02 0959 Prednisone 30 MG DAILY 08/29 1000 AC PO 08/31 0959 Prednisone 40 MG DAILY 08/27 1414 AC 08/27 PO 08/29 0959 1531 Prednisone 40 MG DAILY 08/27 1411 CAN PO 09/04 1410 Propranolol HCl 120 MG BID 08/27 1200 AC 08/27 PO 2156 Propranolol HCl 120 MG BID 08/27 1006 DC PO Quetiapine Fumarate 150 MG QPM 08/26 2200 AC 08/27 PO 2156 Thiamine HCl 100 MG DAILY 08/27 1000 AC 08/27 PO 0938 Tramadol HCl 50 MG Q6P PRN 08/26 2130 AC 08/28 PO 0207 Valacyclovir HCl 1,000 MG DAILY 08/27 1000 AC 08/27 PO 0939 Vital Signs & I&O Last 24 Hrs of Vitals and I&O: Vital Signs Date Time Temp Pulse Resp B/P Pulse O2 O2 Flow FiO2 Ox Delivery Rate 08/28 0840 98.1 84 20 132/80 97 Nasal 2.0L Cannula 08/28 0821 95 Nasal 2.0L Cannula 08/28 0000 97.5 78 20 138/80 08/28 0000 95 Nasal 2.0L Cannula 08/27 2330 95 Nasal 2.0L Cannula 08/27 2156 78 138/80 08/27 1935 90 Room Air 08/27 1641 97.5 85 20 140/80 100 Room Air 08/27 1600 Nasal 2.0L Cannula 08/27 1423 Nasal 2.0L Cannula 08/27 1419 97 Non 2.0L ReBreather 08/27 1240 75 132/78 08/27 0938 75 132/78 Intake & Output 08/28 1600 08/28 0800 08/28 0000 Intake Total 240 800 Output Total Balance 240 800 Intake, Oral 240 800 Oxygen saturation 2 L 97% exam for chest shows clear lung [place] are no wheezes heard cardiac exam shows regular S1 and S2 without murmurs Impression/Plan Impression/Plan Impression/Plan: Resolved acute exacerbation of asthma Recommendations: Continue prednisone taper smoking cessation counseling discussed resume baseline outpatient bronchodilator regimen follow-up with Dr. Hilton in the office Taper FiO2
[2016-08-28 09:52] VITALS: BP 142/76
[2016-08-28] MEDS ORDERED: PREDNISONE10 M2 PO ×2 (09:53→10:05)
--- NOTE | 2016-08-29 17:19 | Discharge Summary ---
Visit Information Visit Dates Admission Date: 08/26/16 Discharge Date: 08/28/16 Hospital Course Course Attending Physician: WILIAN PEREIRA MD Primary Care Physician: KENN JAIN,RACHELE Barker Consulting Request: Consulting Specialty: Pulmonary Disease Consulting Physician: Reason for Consult: COPD/asthma exacerbation Hospital Course: Patient is a 45-year-old female with PMH significant for COPD (on 11.5 L home oxygen, iatrogenic cushingoid habitus, asthma, asthma, hypothyroidism, chronic steroid therapy alternate 5 and 10 mg, allergic rhinitis, tensa fascia is on tramadol, hypertension, chronic back pain, depression, anxiety, genital herpes ( on chronic valacyclovir or), bipolar came with shortness of breath and decreased oxygen saturations to 65% on room air. On admission afebrile, mildly tachycardic, saturating well on 4 L oxygen. Significant labs include white count of 14.5. Unremarkable chest x-ray Patient is admitted to general medicine floor and the following issues are addressed Acute hypoxic respiratory failure secondary to asthma/COPD exacerbation She is saturating well on 4L of oxygen in ER (07/11.5 at home). Initially started on IV methylprednisone 40 mg BID with a single dose of azithromycin. However she appeared so stable next day, eventually we converted her to oral prednisone taper of 402, 302, 202, 10 indefinitely. Provided with TRC/nebs/Mucinex. Consulted pulmonology - need to follow as an outpatient. Recently started on Depakote which might have caused bronchospasm and worsened the condition. Her oxygen requirement slowly tapered to 2L. She is a Current smoker and noncompliant patient. Suggested to quit. Need further counselling as an outpatient. Chronic steroid therapy for [place]'s disease Patient had classic cushingoid features as a result of iatrogenic steroid use. She was on alternate 10 and 5 mg of prednisone. Currently she is placed on prednisone taper which stops with 10 mg indefinitely Hypertension Her home medications amlodipine 10 mg once a day and propranolol 120 mg twice a day are continued. Hypothyroidism Her home medication levothyroxine 88 g is continued Genital herpes On valacyclovir maintenance therapy which was continued during her hospital course. Seasonal allergies On fluticasone nasal spray and montelukast 10 mg along with Shannan D which were continued. Anxiety/Depression/Bipolar On xanax, sereoquel. She was recently started on depakote which might have caused her bronchospasm, eventually her psychiatrist advised her to stop the medication. Needs further evaluation regarding her seroquel and depakote maintenence. Alcohol dependence * On CIWA protocol, folic acid, thiamine, multivitamin. DVT prophylaxis * Subcutaneous Lovenox CODE STATUS * Full code Complications: None Allergies: Coded Allergies: apple (Intermediate, HIVES FROM APPLE CIDER 08/26/16) hydromorphone (Intermediate, LIP SWELLING 08/26/16) phenytoin (Intermediate, HIVES 08/26/16) lidocaine (SVT 08/26/16) oxycodone (From Percocet) (ITCHY 08/26/16) Significant Procedures: none Pertinent Lab Results: White count of 14.5 at admission which eventually came down to 10.7. CXR - unremarkable. Disposition Summary Disposition Principal Diagnosis: Acute hypoxic respiratory failure secondary to asthma/COPD exacerbation Additional Diagnosis: None Discharge Disposition: home or self care Discharge Instructions General Discharge Information Code Status: Full Code Patient's Diet: Regular diet Patient's Activity: Activity as tolerated Follow-Up Instructions/Appts: 1. Please follow up with your PCP in a week 2. Please follow up with your Jig Boring Machine Set Up Operator in a week 3. Please follow up with your in a week. 4. Please follow up with your psychiatrist in a week. Medications at Discharge Discharge Medications: Stop taking the following medications: Prednisone (Prednisone) 5 MG TABLET ORAL Every other day Prednisone (Prednisone) 10 MG TABLET ORAL Every other day Continue taking these medications: Fexofenadine/Pseudoephedrine (Shannan-D 24 Hour Tablet) 180 MG-240 MG TAB.ER.24H 1 Tablet ORAL DAILY Comments: Last Taken: 08/28/16 Time: 1000 AM Fluticasone Propionate (Flonase Allergy Relief) 50 MCG/ACTUATION SPRAY.SUSP 1 [place] In the nose TWICE DAILY Comments: PER PT Last Taken: 08/28/16 Time: 0600 AM Aspirin/Acetaminophen/Caffeine (Excedrin Migraine Caplet) 250 MG-250 MG-65 MG TABLET 1 Tablet ORAL DAILY Comments: NOT GIVEN IN HOSPITAL Propranolol HCl (Propranolol HCl ER) 120 MG CAP.SA.24H 1 Capsule ORAL TWICE DAILY Comments: Last Taken: 08/28/16 Time: 1000 AM Montelukast Sodium (Montelukast Sodium) 10 MG TABLET 1 Tablet ORAL TAKE AT BEDTIME Qty = 30 Comments: Last Taken: 08/27/16 Time: 1000 PM Budesonide/Formoterol Fumarate (Symbicort 160-4.5 Mcg Inhaler) 160 MCG-4.5 MCG/ ACTUATION HFA.AER.AD 2 Puff Inhale through mouth TWICE DAILY Qty = 10 Comments: Last Taken: 08/27/16 Time: 600 AM Valacyclovir HCl (Valacyclovir) 1,000 MG TABLET 1 Tablet ORAL DAILY Qty = 28 Comments: UNLESS OUTBREAK THEN 2 A DAY Last Taken: 08/28/16 Time: 1000 AM Tramadol HCl (Tramadol HCl) 50 MG TABLET 1 Tablet ORAL EVERY SIX HOURS NEEDED as needed for PAIN SCALE 7-10 ( SEVERE) Comments: Last Taken: 08/28/16 Time: 1100 AM Albuterol Sulfate (Albuterol Sulfate) 2.5 MG/3 ML (0.083 %) VIAL.NEB 3 [place] Inhale through mouth THREE TIMES DAILY as needed for asthma Qty = 5 Comments: Last Taken: 08/01/16 Time: 12:30 PM Multivitamin (One Daily Multivitamin) 1 EACH TABLET 1 Tablet ORAL DAILY Qty = 30 Comments: Last Taken: 08/28/16 Time: 1000 AM Amlodipine Besylate (Norvasc) 10 MG TABLET 1 Tablet ORAL DAILY Qty = 30 Comments: Last Taken: 08/28/16 Time: 1000 AM Albuterol Sulfate (Ventolin Hfa) 90 MCG HFA.AER.AD 2 Puff Inhale through mouth EVERY 4-6 HOURS NEEDED as needed for asthma Qty = 1 Comments: Last Taken: 08/28/16 Time: 800 AM Nicotine Polacrilex (Nicotine Gum) 4 MG GUM 4 Millig[place] ORAL Q6H as needed for SMOKING CESSATION Comments: NOT GIVEN IN HOSPTIAL Nystatin (Nystop) 100,000 UNIT/GRAM POWDER 1 Application On the skin TWICE DAILY Qty = 60 Comments: Last Taken: 08/01/16 Time: 9:00 AM Levothyroxine Sodium (Synthroid) 88 MCG TABLET 1 Tablet ORAL DAILY Comments: PER PT MD DECREASED FROM 100MCG DAILY Last Taken: 08/28/16 Time: 0600 AM Alprazolam (Alprazolam) 0.5 MG TABLET 1 Tablet ORAL Q6H Comments: PER PT Last Taken: 08/28/16 Time: 1100 AM Quetiapine Fumarate (Quetiapine Fumarate) 50 MG TABLET 150 Milligram ORAL Every night Qty = 90 Comments: PER PT Last Taken: 08/27/16 Time: 1000 PM Cyclobenzaprine HCl (Cyclobenzaprine HCl) 5 MG TABLET 1 Tablet ORAL as needed for MUSCLE SPASMS Qty = 60 Comments: PER PT Start taking the following new medications: Prednisone (Prednisone) 10 MG TABLET 0 ORAL SEE INSTRUCTIONS Qty = 30 No Refills Instructions: please take: 08/29-08/30 30 MG - 3 tabs/day 08/31-09/01 20 MG -2 tabs/day 09/02 10 MG - continue indefinetely Comments: Last Taken: 08/28/16 Time: 1000 AM Copies To: KELLI JAIN,WILIAN; KENN JAIN,RACHELE Barker; KENNA JAIN,GUANAKITO Attending Review Statement Documenting Attending: WILIAN PEREIRA MD Other Findings: Discharging phsician is Dr. Abbey Jacob.
== END 2016-08-28 12:00 | DRG 190 ==
LOC: ERH 17:41 → 2NB 19:49 → ERHI 19:49 → ENPENDDIS 19:49 → 2NB 22:20
PROVIDERS: Internal Medicine; Physician Assistant Medical; ADMIT Internal Medicine
DX: J44.1 Chronic obstructive pulmonary disease with (acute) exacerbation (principal); J96.00 Acute respiratory failure, unspecified whether with hypoxia or hypercapnia; E27.1 Primary adrenocortical insufficiency; E03.9 Hypothyroidism, unspecified; I10 Essential (primary) hypertension; F32.9 Major depressive disorder, single episode, unspecified; F41.9 Anxiety disorder, unspecified; F31.9 Bipolar disorder, unspecified; A60.00 Herpesviral infection of urogenital system, unspecified; F10.20 Alcohol dependence, uncomplicated
CPT/HCPCS: 2NBP; 36415; 87070; 87071; 93005; 93010; J0456; J1650; J2920; J2930; J3490; J7512

== ENCOUNTER 2016-10-01 15:44 | Inpatient (IN) | payer OTHER ==
[~2016-10-01] VITALS: Ht 157.5 cm; Wt 115.7 kg
[~2016-10-01 15:44] MED LIST changes: +ALPRAZOLAM0.5 M4 PO; +CYCLOBENZAPRINE5 M2 PO; +PREDNISONE5 M1 PO; +QUETIAPINE FUMA50 M1 PO; +SYNTHROID88 MCG PO
--- NOTE | 2016-10-01 15:59 | ED GENERAL ADULT ---
See Addendum History of Present Illness General Chief Complaint: Dyspnea (COPD, CHF, Other) Stated Complaint: BIBA FOR SOB Source: patient Exam Limitations: no limitations Vital Signs & Intake/Output Vital Signs & Intake/Output Vital Signs Date Time Temp Pulse Resp B/P Pulse O2 O2 Flow FiO2 Ox Delivery Rate 10/01 1919 92 Nasal 4.0L Cannula 10/01 1732 97.3 77 14 186/83 94 2.0L 10/01 1722 98 Nasal 2.0L Cannula 10/01 1703 93 Nasal 3.5L Cannula Allergies Coded Allergies: apple (Intermediate, HIVES FROM APPLE CIDER 08/26/16) hydromorphone (Intermediate, LIP SWELLING 08/26/16) phenytoin (Intermediate, HIVES 08/26/16) lidocaine (SVT 08/26/16) oxycodone (From Percocet) (ITCHY 08/26/16) Reconcile Medications Albuterol Sulfate 2.5 MG/3 ML (0.083 %) VIAL.NEB 3 ML INH TID PRN asthma Albuterol Sulfate (Ventolin Hfa) 90 MCG HFA.AER.AD 2 PUF INH Q4-6 PRN PRN asthma Alprazolam 0.5 MG TABLET 1 TAB PO PRN ANXIETY (Reported) Amlodipine Besylate (Norvasc) 10 MG TABLET 1 TAB PO DAILY hypertension Aspirin/Acetaminophen/Caffeine (Excedrin Migraine Caplet) 250 MG-250 MG-65 MG TABLET 1 TAB PO DAILY SINUS HEADACHE (Reported) Budesonide/Formoterol Fumarate (Symbicort 160-4.5 Mcg Inhaler) 160 MCG-4.5 MCG/ ACTUATION HFA.AER.AD 2 PUF INH BID ASTHMA (Reported) Cyclobenzaprine HCl 5 MG TABLET 1 TAB PO PRN MUSCLE SPASMS (Reported) Divalproex Sodium (Divalproex Sodium ER) 500 MG TAB.ER.24H 2 TAB PO QPM INSOMNIA/MENTAL HEALTH (Reported) Fexofenadine/Pseudoephedrine (Shannan-D 24 Hour Tablet) 180 MG-240 MG TAB.ER.24H 1 TAB PO DAILY ALLERGIES (Reported) Fluticasone Propionate (Flonase Allergy Relief) 50 MCG/ACTUATION SPRAY.SUSP 1 SPRAY ELLA BID ALLERGIES (Reported) Levothyroxine Sodium (Synthroid) 88 MCG TABLET 1 TAB PO DAILY THYROID ( Reported) Montelukast Sodium 10 MG TABLET 1 TAB PO QHS ASTHMA (Reported) Multivitamin (One Daily Multivitamin) 1 EACH TABLET 1 TAB PO DAILY supplement Nicotine Polacrilex (Nicotine Gum) 4 MG GUM 4 MG PO Q6H PRN SMOKING CESSATION (Reported) Nystatin (Nystop) 100,000 UNIT/GRAM POWDER 1 KAYLEIGH TOP BID UNDER BREASTS ( Reported) Prednisone 10 MG TABLET 0 PO SEE ADMIN CRITERIA bronchospasm please take: 08/29-08/30 30 MG - 3 tabs/day 08/31-09/01 20 MG -2 tabs/day 09/02 10 MG - continue indefinetely Propranolol HCl (Propranolol HCl ER) 120 MG CAP.SA.24H 1 CAP PO BID BP ( Reported) Quetiapine Fumarate 50 MG TABLET 100 MG PO QPM MENTAL HEALTH/SLEEP (Reported) Quetiapine Fumarate (Seroquel) 50 MG TABLET 1 TAB PO QPM PRN MENTAL HEALTH/ SLEEP (Reported) Tramadol HCl 50 MG TABLET 1 TAB PO Q6P PRN PAIN SCALE 7-10 (SEVERE) (Reported ) Valacyclovir HCl (Valacyclovir) 1,000 MG TABLET 1 TAB PO DAILY ANTI VIRAL ( Reported) Triage Nurses Notes Reviewed? yes Onset: Abrupt Duration: hour(s): Timing: recent history HPI: 10/01/16 45 female presents to the emergency department complaining of difficulty breathing. The patient states she was here recently for an exacerbation of COPD. She went home and actually felt better so she had a drink today. Suddenly she became profoundly short of breath. The onset of the symptoms were abrupt, the duration was just today, the severity was significant; as her symptoms required her to come to the emergency department for care. On physical exam she is diaphoretic tripoding and in acute distress Past History Travel History Traveled to [place] past 21 day No Medical History Any Pertinent Medical History? see below for history Neurological: NONE EENT: allergies Cardiovascular: hypertension Respiratory: asthma, bronchitis Gastrointestinal: NONE Hepatic: RENAL FAILURE Renal: acute kidney injury Musculoskeletal: chronic back pain Psychiatric: alcohol dependence, depression, substance abuse, bipolar disorder, MRE manic Endocrine: hypothyroidism, Cushings Dz, steroid-induced Hashimotos thyroiditis Blood Disorders: NONE Cancer(s): NONE WARD MAID/Reproductive: Other Medical Hx: Unknown History of MRSA: Yes History of VRE: No History of CDIFF: No Influenza Vaccine: 05/09/16 Tetanus Vaccine: 11/28/14 Surgical History Surgical History: S/P I&D ABSCESS S/P KNEE SURGERY Psychosocial History Who do you live with Patient/Self Services at Home None What is your primary language Polish Family History Family History, If Any: MOTHER FH: lung cancer Hx Contributory? No Review of Systems Review of Systems Constitutional: Denies: fever. EENTM: Denies: visual changes. Respiratory: Reports: cough, sputum production. Cardiovascular: Denies: chest pain. GI: Denies: abdominal pain. Genitourinary: Reports: no symptoms. Musculoskeletal: Reports: no symptoms. Skin: Reports: no symptoms. Neurological/Psychological: Reports: no symptoms. Hematologic/Endocrine: Reports: no symptoms. Immunologic/Allergic: Reports: no symptoms. Physical Exam Physical Exam General Appearance: no apparent distress, alert, awake, anxious, moderate distress Head: atraumatic, normal appearance Eyes: Bilateral: normal appearance, PERRL, EOMI. Ears, Nose, Throat: normal pharynx, normal ENT inspection Neck: normal inspection, supple Respiratory: decreased breath sounds, wheezing, respiratory distress Cardiovascular: regular rate/rhythm Peripheral Pulses: 4+ radial (R), 4+ radial (L) Gastrointestinal: soft, non-tender Back: normal range of motion Extremities: normal inspection, normal range of motion, pedal edema Neurologic/Psych: no motor/sensory deficits, awake, alert, oriented x 3 Skin: intact, normal color, warm/dry Core Measures ACS in differential dx? No CVA/TIA Diagnosis: No Severe Sepsis Present: No Septic Shock Present: No Progress Differential Diagnoses I considered the following diagnoses in my evaluation of the patient: [Asthma, COPD, pneumonia, pulmonary embolism] Plan of Care: Orders Procedure Date/time Status Heart Healthy Diet 10/02 B Active Regular Diet 10/01 L Complete ED Holding Orders 10/02 1923 Active Admit to inpatient 10/02 1923 Active Vital Signs 10/02 1923 Active Code Status 10/02 1923 Active ARTERIAL BLOOD GAS (GEN) 10/02 1911 Active ETHANOL 10/01 1626 Complete TROPONIN LEVEL 10/01 1625 Complete D-DIMER 10/01 162 Complete COMPREHENSIVE METABOLIC PANEL 10/01 1625 Complete CBC WITHOUT DIFFERENTIAL 10/01 1625 Complete EKG 10/01 1625 Active Laboratory Tests 10/01/16 1644: Anion Gap 10, Estimated GFR 49 L, BUN/Creatinine Ratio 9.2, Glucose 109 H, Calcium 9.5, Total Bilirubin 0.8, AST 50 H, ALT 70 H, Alkaline Phosphatase 112 , Troponin I < 0.01, Total Protein 6.7, Albumin 3.8, Globulin 2.9, Albumin/ Globulin Ratio 1.3, D-Dimer < 200, CBC w Diff MAN DIFF ORDERED, RBC 3.55 L, MCV 95.6, MCH 31.6 H, RDW 16.7 H, MPV 6.9 L, Gran % 87.9 H, Lymphocytes % 8.0 L , Monocytes % 3.6, Eosinophils % 0.2, Basophils % 0.3, Absolute Granulocytes 17.3 H, Segmented Neutrophils 79 H, Band Neutrophils 2, Absolute Lymphocytes 1.6, Lymphocytes 13 L, Monocytes 5, Absolute Monocytes 0.7 H, Absolute Eosinophils 0, Absolute Basophils 0.1, Metamyelocytes 1, Nucleated RBCs 1 H, Platelet Estimate VERIFIED BY SMEAR, Polychromasia 1+, Anisocytosis 1+, PUBS MCHC 33.1, Fld Total RBCs Counted 100, Serum Alcohol < 10.0 Initial ED EKG: NSR Prior EKG: unchanged Departure Departure Disposition: STILL A PATIENT Condition: Stable Clinical Impression Primary Impression: Asthma Referrals: KENN JAIN,RACHELE Barker (PCP/Family) Departure Forms: Customer Survey General Discharge Information Admission Note Spoke With: BERRY LANDRY MD Documentation of Exam: Documentation of any treatments & extenuating circumstances including Concerns Regarding Discharge (functional status, medication knowledge or non-compliance, living conditions, etc.) that warrant an admission rather than observation: [ Patient needs admission for IV fluids, IV steroids, oxygen, monitoring of O2 saturations] Critical Care Note Critical Care Note Critical Care Time: 30-74 min
--- NOTE | 2016-10-01 16:49 | NUR ---
NOTED EYES CLOSING AND HARD TO KEEP OPEN, STATES TOOK MY SERIQUEL, XANAX AND 2 GLASSES OF SMALL WINE, 20 GA IN L FA INTACT PER EMS, FLUSHES NICE
[2016-10-01 17:01] LABS: ABSOLUTE BASOPHIL COUNT 0.1 /CUMM (0.0-0.2); ABSOLUTE EOSINOPHIL COUNT 0 /CUMM (0.0-0.7); ABSOLUTE GRANULOCYTE CT 17.3 /CUMM (1.4-6.5); ABSOLUTE LYMPH COUNT 1.6 /CUMM (1.2-3.4); ABSOLUTE MONOCYTE COUNT 0.7 /CUMM (0.10-0.60); BASOPHIL % 0.3 % (0.0-2.0); EOSINOPHIL % 0.2 % (0-5); HEMATOCRIT 33.9 % (37-47); MEAN CORPUSCULAR HGB 31.6 PG (27.0-31.0); MEAN CORPUSCULAR HGB CONC 33.1 G/DL (33.0-37.0); MEAN CORPUSCULAR VOLUME 95.6 FL (81.0-99.0); MEAN PLATELET VOLUME 6.9 FL (7.4-10.4); PLATELET COUNT 291 /CUMM (130-400); RBC DISTRIBUTION WIDTH 16.7 % (11.5-14.5); RED BLOOD CELL CT 3.55 /CUMM (4.20-5.40); WHITE BLOOD CELL COUNT 19.7 /CUMM (4.8-10.8)
[2016-10-01 17:06] LABS: GRANULOCYTE % 87.9 % (42.2-75.2)
[2016-10-01] MEDS ORDERED: DIVALPROEX SOD500 M3 PO (17:09)
--- NOTE | 2016-10-01 17:11 | NUR ---
2 BOWLS OF CLAM YANDEL ORDERED FOR PT.
[2016-10-01] MEDS ORDERED: SEROQUEL50 M1 PO (17:13)
--- NOTE | 2016-10-01 17:18 | NUR ---
INFILTRATION TO 20 GA IN LEFT AC APPROX 100ML NS INFUSED
--- NOTE | 2016-10-01 18:31 | RADIOLOGY REPORT ---
EXAMINATION: XR PORTABLE CHEST CLINICAL INFORMATION: Shortness of breath COMPARISON: Prior chest August 26, 2016 TECHNIQUE: Portable AP view of the chest was obtained. FINDINGS: No significant abnormality is noted involving the heart, lungs, mediastinum, bony thorax or soft tissues. IMPRESSION: Unremarkable examination.
--- NOTE | 2016-10-01 19:05 | NUR ---
TOOK OFF OXYGEN, SATS ARE NOW 72% ON RA WITH A GOOD PLETH, PLACED BACK ON 2L/NC
--- NOTE | 2016-10-01 19:11 | NUR ---
RESPIRATORY CALLED FOR TX'S
--- NOTE | 2016-10-01 19:23 | NUR ---
PT PLACED ON 4L BY RN ZELDA, O2 SAT UP TO 91%. RESPIRATORY AT BEDSIDE FOR TX
--- NOTE | 2016-10-01 19:41 | Admission Certification ---
Admission Certification Certification Statement - As attending physician, I certify that at the time of - admission, based on clinical presentation, severity of - symptoms, need for further diagnostic testing and - therapeutic interventions, and risk of adverse outcomes - without in-hospital treatment, in my clinical assessment, - this patient requires an acute hospital stay for a minimum - of two nights or longer. I have also considered psychsocial - factors such as support system, advanced age, financial - issues, cognitive issues, and failed out-patient treatments, - past re-admission history, safety of patient, and lack of - compliance as applicable. Specific rationale supporting this admission is: Acute on chronic hypoxemic and hypercarbic respiratory failure, asthma/ COPD exacerbation, hyponatremia and KIMO.
--- NOTE | 2016-10-01 20:54 | NUR ---
PT ATTEMPTED TO BE PLACED ON BED GRIDER WITH ASSISTANCE OF THIS RN AND AZUL GOODWIN. PT YELLING STATING, "I WANT TO GO TO [place], THIS PLACE IS A JOKE. I DONT KNOW WHY IM HERE. GET THIS MACHINE OFF MY FACE. NO ONE KNOWS WHATS WRONG WITH ME." DR. LANDRY MADE AWARE. PT GIVEN OPTION OF USE OF BEDSIDE COMMODE.
--- NOTE | 2016-10-01 21:43 | NUR ---
PT MEDICATED WITH 500MG ZITHROMAX PER EMAR
--- NOTE | 2016-10-01 21:45 | History & Physical ---
DIANA WOLFF MD 10/01/16 0944: General Information and HPI MD Statement: I have seen and personally examined VENICE EAGLE and documented this H&P. The patient is a 45 year old F who presented with a patient stated chief complaint of difficulty breathing. Source of Information: patient, old records Exam Limitations: no limitations History of Present Illness: Ms. 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 Patient has several recent admissions, including June 2016, July 2016 and August 2016, all for acute asthma/COPD exacerbations. Patient reports she was in her usual state of health until yesterday when she had the sudden onset of cough and difficulty breathing. Her oxygen saturation both of those times were noted to be in the 70's. This difficulty breathing persisted through today and was associated with cough productive of green sputum and pain under her right breast each time she coughs. Patient admits to two sick contacts, being her niece and nephew. She denies recent travel. [place] currently denies fever, chills , dizziness, throat pain, palpitations, abdominal pain, nausea, vomiting, dysuria hematuria. She does admit to mild confusion associated with the intake of her tramadol for low back pain, wheezing, cough, shortness of breath worse with exertion, chronic lower extremity swelling, oral thrush currently on diflucan, irregular menstrual cycles due to seroquel and difficulty performing some ADLS due to low back pain with sciatica down her left leg. Social history is sigificant for tobacco use, currently at 5 cigarettes a day. She also occasionally drinks alcohol. She denies illicit drug use. 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 Past surgical history is significant for one and 4 knee surgeries. She follows with a psychiatrist, special services agent, denture laboratory technician, chronic pain (Maninder) and a PCP. Of note, patient's chronic pain specialist has given her tramadol for her low back pain and patient reports confusion and lethargy every time she takes this medication; she is however unwilling to discontinue the medication at this time as it offers her the most relief of her low back pain. Allergies/Medications Allergies: Coded Allergies: apple (Intermediate, HIVES FROM APPLE CIDER 08/26/16) hydromorphone (Intermediate, LIP SWELLING 08/26/16) phenytoin (Intermediate, HIVES 08/26/16) lidocaine (SVT 08/26/16) oxycodone (From Percocet) (ITCHY 08/26/16) Home Med list Albuterol Sulfate 2.5 MG/3 ML (0.083 %) VIAL.NEB 3 ML INH TID PRN asthma Albuterol Sulfate (Ventolin Hfa) 90 MCG HFA.AER.AD 2 PUF INH Q4-6 PRN PRN asthma Alprazolam 0.5 MG TABLET 1 TAB PO PRN ANXIETY (Reported) Amlodipine Besylate (Norvasc) 10 MG TABLET 1 TAB PO DAILY hypertension Aspirin/Acetaminophen/Caffeine (Excedrin Migraine Caplet) 250 MG-250 MG-65 MG TABLET 1 TAB PO DAILY SINUS HEADACHE (Reported) Budesonide/Formoterol Fumarate (Symbicort 160-4.5 Mcg Inhaler) 160 MCG-4.5 MCG/ ACTUATION HFA.AER.AD 2 PUF INH BID ASTHMA (Reported) Cyclobenzaprine HCl 5 MG TABLET 1 TAB PO PRN MUSCLE SPASMS (Reported) Divalproex Sodium (Divalproex Sodium ER) 500 MG TAB.ER.24H 2 TAB PO QPM INSOMNIA/MENTAL HEALTH (Reported) Fexofenadine/Pseudoephedrine (Shannan-D 24 Hour Tablet) 180 MG-240 MG TAB.ER.24H 1 TAB PO DAILY ALLERGIES (Reported) Fluconazole 100 MG TABLET 1 TAB PO DAILY ORAL THRUSH (Reported) Fluticasone Propionate (Flonase Allergy Relief) 50 MCG/ACTUATION SPRAY.SUSP 1 SPRAY ELLA BID ALLERGIES (Reported) Levothyroxine Sodium (Synthroid) 88 MCG TABLET 1 TAB PO DAILY THYROID ( Reported) Montelukast Sodium 10 MG TABLET 1 TAB PO QHS ASTHMA (Reported) Multivitamin (One Daily Multivitamin) 1 EACH TABLET 1 TAB PO DAILY supplement Nicotine Polacrilex (Nicotine Gum) 4 MG GUM 4 MG PO Q6H PRN SMOKING CESSATION (Reported) Prednisone 10 MG TABLET 1 TAB PO DAILY BRONCHOSPASM (Reported) Propranolol HCl (Propranolol HCl ER) 120 MG CAP.SA.24H 1 CAP PO BID BP ( Reported) Quetiapine Fumarate 50 MG TABLET 100 MG PO QPM MENTAL HEALTH/SLEEP (Reported) Quetiapine Fumarate (Seroquel) 50 MG TABLET 1 TAB PO QPM PRN MENTAL HEALTH/ SLEEP (Reported) Tramadol HCl 50 MG TABLET 1 TAB PO Q6P PRN PAIN SCALE 7-10 (SEVERE) (Reported ) Valacyclovir HCl (Valacyclovir) 1,000 MG TABLET 1 TAB PO DAILY ANTI VIRAL ( Reported) Compliance With Home Meds: UNKNOWN Past History Travel History Traveled to [place] past 21 day No Medical History Neurological: NONE EENT: allergies Cardiovascular: hypertension Respiratory: asthma, bronchitis Gastrointestinal: NONE Hepatic: RENAL FAILURE Renal: acute kidney injury Musculoskeletal: chronic back pain Psychiatric: alcohol dependence, depression, substance abuse, bipolar disorder, MRE manic Endocrine: hypothyroidism, Cushings Dz, steroid-induced Hashimotos thyroiditis Blood Disorders: NONE Cancer(s): NONE MANAGER PHILOSOPHY/Reproductive: Other Medical Hx: Unknown History of MRSA: Yes History of VRE: No History of CDIFF: No Influenza Vaccine: 05/09/16 Tetanus Vaccine: 11/28/14 Surgical History Surgical History: S/P I&D ABSCESS S/P KNEE SURGERY Past Family/Social History Family History Relations & Conditions if any MOTHER FH: lung cancer Psychosocial History Where do you live? Home Services at Home: None Primary Language: Sinhala Smoking Status: Current Everyday Smoker ETOH Use: occasional use Illicit Drug Use: denies illicit drug use Living Will? no Functional Ability ADLs Independent: dressing, eating, toileting, bathing. Ambulation: independent IADLs Independent: shopping, housework, finances, food prep, telephone, transportation , medication admin. 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 Denies: chills, diaphoresis, fever. EENTM: Reports: see HPI. Denies: blurred vision, visual changes, hearing changes, nasal congestion. Cardiovascular: Reports: chest pain (Right side inframammary), peripheral edema. Denies: orthopena, palpitations, syncope. Respiratory: Reports: cough, short of breath, sputum production, wheezing. Denies: hemoptysis, orthopnea, stridor. GI: Denies: abdominal pain, nausea, vomiting. Genitourinary: Denies: dysuria, hematuria. Musculoskeletal: Reports: back pain, muscle pain. Denies: neck pain. Skin: Denies: change in skin color, change in hair/nails, lesions. Neurological/Psychological: Reports: confusion (When she takes tramadol). Denies: headache, numbness, paresthesia. Hematologic/Endocrine: Denies: bruising, bleeding, polyuria, polydipsia. Immunologic/Allergic: Denies: splenectomy. All Other Systems: Reviewed and Negative Exam & Diagnostic Data Last 24 Hrs of Vital Signs/I&O Vital Signs Date Time Temp Pulse Resp B/P Pulse O2 O2 Flow FiO2 Ox Delivery Rate 10/01 2030 99 92 10/01 1919 92 Nasal 4.0L Cannula 10/01 1732 97.3 77 14 186/83 94 2.0L 10/01 1722 98 Nasal 2.0L Cannula 10/01 1703 93 Nasal 3.5L Cannula Intake & Output 10/01 1600 10/01 0800 10/01 0000 Intake Total Output Total Balance Patient 220 lb Weight Physical Exam General Appearance Cooperative, Mild Distress, Very drowsy, occasionally falling asleep during interview, on BiPAP. Skin No Rashes, No Significant Lesion HEENT Atraumatic, PERRLA, EOMI, Oral thrush appreciated. Neck Supple, +2 Carotid Pulse wo Bruit Lymphatic Cervical nl Cardiovascular Regular Rate, Normal S1, Normal S2, No Murmurs Lungs Decreased air entry bilaterally, occasional wheeze. Abdomen Normal Bowel Sounds, Soft, No Tenderness, Obese Neurological Normal Speech, Normal Tone Extremities No Clubbing, No Cyanosis, 2+ pitting edema bilaterally to level of knees Vascular Pulses Symmetrical Last 24 Hrs of Labs/Kartik: Laboratory Tests 10/01/162055: Urine Opiates Screen 154.00, Methadone Screen 74, Barbiturate Screen < 60, Ur Phencyclidine Scrn 20.20, Amphetamines Screen 209, U Benzodiazepines Scrn > 800 H, Urine Cocaine Screen < 50, Urine Cannabis Screen < 5.00 10/01/161943: pH 7.29 *L, pCO2 60 *H, pO2 70 L, HCO3 28, ABG O2 Sat (Measured) 93.0 L, Carboxyhemoglobin 9.4 *H, O2 Concentration % 4L, O2 Delivery Method NC, Phlebotomy Draw Site RIGHT RADIAL 10/01/16 1644: Valproic Acid 63.6 10/01/16 1644: Anion Gap 10, Estimated GFR 49 L, BUN/Creatinine Ratio 9.2, Glucose 109 H, Calcium 9.5, Total Bilirubin 0.8, AST 50 H, ALT 70 H, Alkaline Phosphatase 112 , Troponin I < 0.01, Total Protein 6.7, Albumin 3.8, Globulin 2.9, Albumin/ Globulin Ratio 1.3, D-Dimer < 200, CBC w Diff MAN DIFF ORDERED, RBC 3.55 L, MCV 95.6, MCH 31.6 H, RDW 16.7 H, MPV 6.9 L, Gran % 87.9 H, Lymphocytes % 8.0 L , Monocytes % 3.6, Eosinophils % 0.2, Basophils % 0.3, Absolute Granulocytes 17.3 H, Segmented Neutrophils 79 H, Band Neutrophils 2, Absolute Lymphocytes 1.6, Lymphocytes 13 L, Monocytes 5, Absolute Monocytes 0.7 H, Absolute Eosinophils 0, Absolute Basophils 0.1, Metamyelocytes 1, Nucleated RBCs 1 H, Platelet Estimate VERIFIED BY SMEAR, Polychromasia 1+, Anisocytosis 1+, PUBS MCHC 33.1, Fld Total RBCs Counted 100, Serum Alcohol < 10.0 Diagnostic Data EKG Results NSR HR 90, QTC 436. CXR Results IMPRESSION: Unremarkable examination. Assessment/Plan Assessment: Ms. 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 In the ED: Vital signs showed T 97.3, HR 77, BP 186/83 and O2 saturation of 94% on 2 L nasal cannula. Labs were significant for leukocytosis to 19.7 with 2 bands and 79% neutrophils, normocytic anemia to 11.2/33.9 (chronic), Na 126, Cl 88, Cre 1/2, Glu 109, AST/ALT 50/70, troponin <0.01, DDimer <200 and UTox + for benzos. CXR was unremarkable. EKG showed NSR. ABG showed pH 7.29, pCO2 60, pO2 70, HCO3 28, O2 sat 93%, carboxyhemoglobin 9.4. Patient is admitted to the telemetry floor and the following is the management: 1. Acute hypoxemic and hypercarbic respiratory failure with reactive airway disease * Likely exacerbation of underlying reactive airway disease * Patient placed on BiPAP on admission with noted acidosis and CO2 retention on ABG * Continue BiPAP for now, titrate to O2 via nasal cannula as patient improves * Continuous pulse ox * Repeat ABG at 2 am * Patient given IV solumedrol 125 mg along with azithromycin in the ED * Of note, leukocytosis likely reactive as patient is on steroids, however will continue IV azithro * LRC ordered, f/u results * IV solumedrol 60 mg Q6 * Symbicort 2 PUF BID * TRC nebs * Pulm consult in AM * Smoking cessation counseling * Consider switching propanolol to another medication as this may contribute to bronchospasm 2. KIMO * Baseline cre 0.6, cre currently at 1.2 (likely due to dehydration) * Patient received 1 L NS in the ED * Hold off on further fluids for now as patient has hyponatremia and lower extremity edema * Monitor repeat BEP in AM * Avoid nephrotoxins 3. Hyponatremia * Likely chronic as patient has history of hyponatremia on previous admissions * HCTZ previously discontinued as this was believed to be culprit for hyponatremia * Consideration for SIADH in the setting of depakote and seroquel usage * Follow up UA, urine Na, urine lytes, urine osm, serum osm * Follow up repeat BEP in AM * 1000 cc fluid restriction once patient off BiPAP 4. Alcohol/tobacco dependance * Smoking cessation as noted above, nicotine patch ordered * Start CIWA scoring * If patient increases her CIWA scores, will order ativan if she scores high on CIWA * Consider thiamine, MV, folate supplementation 5. Oral thrush * Continue diflucan that patient was prescribed (started 2 days ago, has 5 more days as per patient) 6. Manhattan's * Continue IV solumedrol * Taper down steroids without decreasing below home dose of 10 mg PO prednisone daily 7. Mental Health * Patient currently denies SI/HI, thoughts to harm self/others * Hold xanax and seroquel for now in setting of severe drowsiness * Consider restarting when patient becomes more alert * Continue depakote ER * Psych consult in AM to consider valproate adjustment as it may cause bronchospasm 8. Hypothyroidism * Continue synthroid 0.088 mg PO daily 9. Genital herpes * Continue valtrex 1000 mg PO daily 10. HTN * Continue norvasc and propanolol 120 mg PO BID 11. Chronic low back pain * Continue tramadol 50 mg PO Q6P FULL CODE DVTP: Heparin SC NPO for now Tramadol for severe pain As Ranked By This Provider Problem List: 1. KIMO (acute kidney injury) 2. Leukocytosis 3. Hyponatremia 4. Full code status 5. DVT prophylaxis 6. Back pain 7. Hypertension 8. Asthma exacerbation 9. COPD exacerbation 10. Plantar fasciitis 11. Adrenal insufficiency 12. Acute and chronic respiratory failure with hypoxia 13. Hypothyroidism Core Measures/Miscellaneous Acute Coronary Syndrome ACS Diagnosis: No Cerebrovascular Accident CVA/TIA Diagnosis: No Congestive Heart Failure CHF Diagnosis: No Venous Thromboembolism VTE Risk Factors: Acute medical illness, Age > 40, Obesity, Smoking No [facility] VTE prophylaxis d/t: No contraindications No VTE Pharm Prophylaxis d/t: No contraindications VTE Diagnosis: No VTE Type: NONE VTE Confirmed by (Test): NONE Severe Sepsis Severe Sepsis Present: No Septic Shock Septic Shock Present: No Miscellaneous Documentation Attending Case Discussed With: MICHAEL LANDRY MDAyanna Primary Care Physician: RACHELE HAWK MD Patient sees these Specialists Endocrinology, Chronic Pain, Pulmonology, Psychiatry, PCP. Level of Patient Care: Telemetry ADRIANA CASTELLANO MD 10/01/16 2336: Resident Review Statement Resident Statement: examined this patient, discussed with international account representative, agreed with international account representative, reviewed EMR data (avail), reviewed images, amended to note Other Findings: This is 45 year old morbidly obese female who is a current smoker with past medical history of reactive airway disease on 1.5L home O2, Manhattan's disease on prednisone, alcohol dependence, bipolar disorder with history of suicide attempt , anxiety depression, hypertension, migraine, MRSA, Joann thyroiditis, allergic rhinitis, genital herpes on chr. valacyclovir who was recently admitted to [facility] from 08/26/16-08/28/16 for acute on chr. Hypoxic respiratory failure presented from home with chief complaint of progressively worsening shortness of breath for past 2 days associated with 2 days history of productive cough with greenish sputum production. Patient also complains of subcostal chest pain which occurs on coughing. She reported having 10/10 lower back pain radiating to her left lower extremity. She denies any chest pressure, lightheadedness, dizziness, abdominal pain, nausea vomiting or urinary symptoms. She reported having oral thrush and was started on oral Diflucan for total 7 days course. Patient also reported the setting to 71% prior to coming to ER. Her vitals on admission were T 97.3, HR 77, RR 14, BP 186/83, O2 sat 94% on BiPAP On physical exam patient is noted very drowsy, on BiPAP but able to conserve all the questions, oriented 3, HEENT PERRLA EOMI, flushed face, neck supple, lungs bilateral decreased air entry with expiratory wheeze, heart S1-S2 normal without murmur, abdomen soft nontender nondistended with preserved bowel sounds, no focal gross neuro deficit, bilateral 1-2+ pitting edema. Her labs were significant for leukocytosis of 19,700 with left shift, H&H 11.2/ 33.9, sodium 126 (last sodium was 141 on 08/26/2016), creatinine 1.2 (baseline creatinine 0.6 on 08/26/2016), blood glucose 109, AST 50, ALT 70, alkaline phosphatase 112, troponin negative. D-dimer was less than 200 U tox was positive for benzos, serum alcohol noted less than 10 ABG revealed pH of 7.29, PCO2 of 60, PO2 of 70, O2 sat 93% on 4 L nasal cannula Chest x-ray did not reveal any significant abnormality EKG noted with normal sinus rhythm at rate of 90, no acute ST-T changes noted poor R-wave progression, QTC 436 Assessment: 1. Acute on chronic hypoxemic hypercarbic respiratory failure in setting of reactive airway disease and active smoking - Patient noted significant shortness of breath with desaturation up to 71% with significant change in mental status - Admit to telemetry, continuous pulse ox - Continue IV steroid Solu-Medrol 60 mg every 6 hours - Continue TRC - Continue Singulair and Symbicort - Pulmonary consult in a.m. - Repeat ABG in 2 hours of BiPAP - Continue BiPAP overnight 2. Leukocytosis - Chest x-ray noted negative - Patient has been on chronic steroid prednisone 10 mg daily - Likely secondary to steroid use, but acute bronchitis cannot rule out as patient is reporting productive cough - We will check UA - Continue IV azithromycin for bronchitis 3. AK I - Likely secondary to dehydration, baseline creatinine 0.6 - Avoid all nephrotoxic agent - Patient received 1 L of fluid in ER, hold off fluids for now and - If no improvement in kidney function in a.m., check spot urine protein/ creatinine ratio and also consider renal ultrasound 4. Hyponatremia - Likely secondary to SIADH with urine osmolarity 172 and serum osmolarity 268 - Keep her on 1 L fluid restriction - Recheck sodium in a.m. 5. Hypertension Continue amlodipine and propranolol - Consider to switch propranolol to other medication as it can cause bronchospasm 7. Bipolar disorder - - In the past patient's valproic acid tapered off because of the concern of bronchospasm, consider psychiatry consult for evaluation if patient needs for Percocet for polyp disorder - Continue [place] for now - Hold Seroquel as patient is very drowsy - Hold Xanax 8. Manhattan's disease -Patient is on IV steroid 9. Hypothyroidism - Continue home dose levothyroxine 88 g daily 10. Alcohol dependence - Check CIWA - Start thiamine and folate and multivitamin 11. Tobacco dependence - Start nicotine patch 12. Chronic low back pain - Continue tramadol 50 mg every 6 hours as needed 13. DVT prophylaxis Subcutaneous heparin 14. Full code GRIS JAIN, [facility] 10/02/16 0433: Attending MD Review Statement Attending Statement Attending MD Statement: examined this patient, discuss w/resident/PA/ELECTRICAL DESIGN TECHNOLOGIST, agreed w/resident/PA/ELECTRICAL DESIGN TECHNOLOGIST Attending Assessment/Plan: 45 yo morbidly obese F with h/o Manhattan's disease on prednisone now with Cushingoid features, chronic benzo dependence, chronic pain (follows Dr. Dickens), alcohol dependence, bipolar d/o, HTN, asthma/ reactive airway disease on 2L O2 as needed, migraine, MRSA, Joann thyroiditis, is here with 2 day h/o worsening LUN[place]ORD, cough productive of green phlegm and O2 sats in 70's on RA. Admitted 1 month ago for asthma exacerbation at which point there was a concern about her depakote causing bronchospasm (as suggested by patient's outpatient psyciatrist Dr. Resendiz), however she has been restarted on this medication about 2 weeks back. She also continues to smoke but is trying to cut down. Sick contacts+. Vitals: afebrile, HR 90 - 100's, BP 134/76, sats 72% RA --> 92% on 4L. Exam: lethargic, drowsy, falls asleep during conversation, Chest b/l reduced air entry with expiratory wheezes, LE: 2+ b/l pitting edema. Labs: WBC 19.7, normocytic anemia, Na 126, bicarb 28, creat 1.2 (baseline 0.6), AST 50, ALT 70, trop neg, d-dimer < 200, alcohol <10, valproic acid level 63.6. Urine tox screen positive for benzos. UA clear. AB.29/60/70/28 (acute on chronic respiratory acidosis). CXR: neg. EKG: SR. 1. Acute on chronic hypoxemic and hypercarbic respiratory failure in the setting of asthma/reactive airway disease and ongoing smoking. PE less likely since d- dimer is <200. Tele admit for continuous pulse ox monitoring, TRC nebs, sputum culture, IV steroids. Repeat ABG in 2 hours showed borderline improvement in pCO2 as patient was noncompliant and kept taking off the mask, she however was more awake. We continued with Bipap and another ABG showed overall improvement pH 7.32/53/70/27. Pulm consult. Ct. symbicort, tucker. Smoking cessation counseling, nicotine patch. No clear evidence of depakote causing bronchospasm, although propranolol does not seem to be a good choice in this patient with reactive airway disease. 2. Hyponatremia drug induced vs. SIADH. She has bilateral pitting LE edema. Her urine and serum osmolality are low, s/o possible SIADH. Will place on free water restriction of 1 L. Recheck sodium in AM. Depakote has a <1% chance of causing hyponatremia. She also has KIMO - received 1 L NS in ER, hold off further IV fluids. Monitor renal functions. 3. B/l LE edema worsening in the setting of prednisone use. Would consider changing amlodipine to maybe ACEI or ARB once renal functions improve. 4. Bipolar disorder. Continue depakote, obtain Psych consult to help with med adjustment. Hold seroquel and xanax due to lethargy. 5. Alcohol abuse. Monitor for withdrawal, CIWA protocol. Ativan only if CIWAs are high. 6. Leukocytosis - steroid induced. 7. Oral thrush. Ct. Fluconazole to complete 7 days of therapy. 8. Genital herpes. Ct. Valcyclovir. DVT ppx Hep SC. Full code
--- NOTE | 2016-10-01 22:01 | NUR ---
PT GOING TO ROOM 183-1.
--- NOTE | 2016-10-01 22:10 | NUR ---
HOUSE STAFF AT BEDSIDE
[2016-10-01] MEDS ORDERED: FLUCONAZOLE100 M1 PO (22:12)
[2016-10-01] MEDS ORDERED: PREDNISONE10 M2 PO (22:13)
--- NOTE | 2016-10-01 22:45 | NUR ---
ATTEMPTED TO CALL REPORT TO TELE FLOOR, WAS TOLD THE NURSE WOULD CALL ME BACK
--- NOTE | 2016-10-01 22:54 | NUR ---
REPORT GIVEN TO AZUL CARMONA
[2016-10-02] VITALS (10 sets, daily range): BP systolic 100–146; BP diastolic 76–80
--- NOTE | 2016-10-02 00:59 | PN- Housestaff ---
NONA JAIN,ADRIANA 10/02/16 0049: Subjective Follow-up For: Acute hypoxemic hypercarbic respiratory failure Complaints: shortness of breath and cough Subjective: Patient is lying in bed, noted short of breath improved compared to yesterday. Patient got more sob when she walked to bathroom. She is not on bipap and maintaining well on 2L supplement O2. She is more alert and awake today. She remains afebrile denies any chest pressure, abdominal pain, nausea, vomiting, urinary symptoms. Review of Systems Constitutional: Reports: see HPI. Objective Last 24 Hrs of Vital Signs/I&O Vital Signs Date Time Temp Pulse Resp B/P Pulse O2 O2 Flow FiO2 Ox Delivery Rate 10/02 0040 97.9 95 22 134/76 97 Non ReBreather 10/02 0017 95 Nasal 2.0L Cannula 10/01 2310 97 94 10/01 2245 98 16 130/69 96 BIPAP 40% 10/01 2029 99 92 10/01 1919 92 Nasal 4.0L Cannula 10/01 1732 97.3 77 14 186/83 94 2.0L 10/01 1722 98 Nasal 2.0L Cannula 10/01 1703 93 Nasal 3.5L Cannula Intake & Output 10/02 0800 10/02 0000 10/01 1600 Intake Total 1250 Output Total 800 Balance 450 Intake, IV 1250 Output, Urine 800 Patient 220 lb Weight Physical Exam General Appearance: Alert, Oriented X3, Cooperative, Moderate Distress Skin: No Rashes HEENT: Atraumatic, PERRLA, EOMI, Mucous Membr. moist/pink Neck: Supple, No JVD Cardiovascular: Normal S1, Normal S2, No Murmurs Lungs: nnoted bilateral expiratory wheeze Abdomen: Normal Bowel Sounds, Soft, No Tenderness Neurological: Normal Speech, Normal Tone, Sensation Intact Extremities: bilateral lower extremity pitting edema Vascular: Pulses Symmetrical Current Medications: Current Medications Sig/Rosio Start time Last Medication Dose Route Stop Time Status Admin Albuterol Sulfate 3 ML ONCE ONE 10/01 1745 DC 10/01 INH 10/01 1746 1805 Albuterol Sulfate 3 ML ONCE ONE 10/01 1630 DC 10/01 INH 10/01 1631 1636 Amlodipine Besylate 10 MG DAILY 10/02 1000 AC PO Azithromycin 500 MG 10/02 AC Sodium Chloride 250 ML IV Azithromycin 500 MG ONCE ONE 10/01 2029 DC 10/01 Sodium Chloride 250 ML IV 10/019 2143 Budesonide/ 2 PUF BID 10/01 220 AC Formoterol Fumarate INH Cyanocobalamin 1,000 MCG DAILY 10/02 1000 AC PO Divalproex Sodium 1,000 MG AT BEDTIME 10/01 2199 AC PO Fluconazole 100 MG DAILY 10/02 1000 AC PO 10/06 1001 Folic Acid 1 MG DAILY 10/02 1000 AC PO Heparin Sodium 5,000 UNIT Q8 10/01 220 AC (Porcine) SC Ipratropium [place] 2.5 ML ONCE ONE 10/01 1745 DC 10/01 INH 10/01 1746 1809 Ipratropium [place] 2.5 ML ONCE ONE 10/01 1630 DC 10/01 INH 10/01 1631 1636 Levothyroxine Sodium 0.088 MG DAILY AC 10/02 0700 AC PO Methylprednisolone 60 MG Q6 10/01 2359 AC IV Methylprednisolone 0 .STK-MED ONE 10/01 1645 DC .ROUTE Methylprednisolone 125 MG ONCE ONE 10/01 1630 DC 10/01 IV 10/01 1631 1648 Montelukast Sodium 10 MG AT BEDTIME 10/01 2214 AC PO Nicotine 7 MG DAILY 10/02 1000 AC TOP Propranolol HCl 120 MG BID 10/02 1000 AC PO Propranolol HCl 120 MG BID 10/01 2201 DC PO Sodium Chloride 1,000 ML SEE RATE 10/01 220 DC IV Sodium Chloride 1,000 ML ONCE ONE 10/01 1630 AC 10/01 IV 10/02 1229 1648 Thiamine HCl 50 MG DAILY 10/02 1000 AC PO Tramadol HCl 50 MG Q6P PRN 10/01 2214 AC PO Valacyclovir HCl 1,000 MG DAILY 10/02 1000 AC PO Last 24 Hrs of Lab/Kartik Results Last 24 Hrs of Labs/Mics: Laboratory Tests 10/01/162224: pH 7.29 *L, pCO2 56 H, pO2 100, HCO3 26, ABG O2 Sat (Measured) 97.0, P-50 (Temp Corrected) N, Carboxyhemoglobin 5.8 *H, O2 Concentration % 40%, Respiration Rate 24, O2 Delivery Method BIPAP, Vent Mode ST, Expiratory Pressure 6, Inspiratory Pressure 16, Phlebotomy Draw Site RIGHT RADIAL 10/01/162055: Urine Opiates Screen 154.00, Methadone Screen 74, Barbiturate Screen < 60, Ur Phencyclidine Scrn 20.20, Amphetamines Screen 209, U Benzodiazepines Scrn > 800 H, Urine Cocaine Screen < 50, Urine Cannabis Screen < 5.00, Urine Osmolality 172 L, Ur Random Creatinine 68.9, Ur Random Sodium 7 L, Ur Random Potassium 12.1, Fraction Sodium Excret 0.1 10/01/161943: pH 7.29 *L, pCO2 60 *H, pO2 70 L, HCO3 28, ABG O2 Sat (Measured) 93.0 L, Carboxyhemoglobin 9.4 *H, O2 Concentration % 4L, O2 Delivery Method NC, Phlebotomy Draw Site RIGHT RADIAL 10/01/161935: Urine Color YEL, Urine Clarity CLEAR, Urine pH 6.0, Ur Specific [place] 1.010, Urine Protein NEG, Urine Ketones NEG, Urine Nitrite NEG, Urine Bilirubin NEG, Urine Urobilinogen 0.2, Ur Leukocyte Esterase TRACE H, Ur Microscopic SEDIMENT EXAMINED, Urine WBC 3-5 H, Ur Epithelial Cells MOD H, Urine Hemoglobin NEG, Urine Glucose NEG 10/01/16 1644: Valproic Acid 63.6 10/01/16 164: Anion Gap 10, Estimated GFR 49 L, BUN/Creatinine Ratio 9.2, Glucose 109 H, Serum Osmolality 268 L, Calcium 9.5, Total Bilirubin 0.8, AST 50 H, ALT 70 H, Alkaline Phosphatase 112, Troponin I < 0.01, Total Protein 6.7, Albumin 3.8, Globulin 2.9, Albumin/Globulin Ratio 1.3, D-Dimer < 200, CBC w Diff MAN DIFF ORDERED, RBC 3.55 L, MCV 95.6, MCH 31.6 H, RDW 16.7 H, MPV 6.9 L, Gran % 87.9 H, Lymphocytes % 8.0 L, Monocytes % 3.6, Eosinophils % 0.2, Basophils % 0.3, Absolute Granulocytes 17.3 H, Segmented Neutrophils 79 H, Band Neutrophils 2, Absolute Lymphocytes 1.6, Lymphocytes 13 L, Monocytes 5, Absolute Monocytes 0.7 H, Absolute Eosinophils 0, Absolute Basophils 0.1, Metamyelocytes 1, Nucleated RBCs 1 H, Platelet Estimate VERIFIED BY SMEAR, Polychromasia 1+, Anisocytosis 1+, PUBS MCHC 33.1, Fld Total RBCs Counted 100, Serum Alcohol < 10.0 Assessment/Plan Assessment: This is 45 year old morbidly obese female who is a current smoker with past medical history of reactive airway disease on 1.5L home O2, 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 valacyclovir who was recently admitted to [facility] from 08/26/16-08/28/16 for acute on chr. Hypoxic respiratory failure presented from home with chief complaint of progressively worsening shortness of breath for past 2 days associated with 2 days history of productive cough with greenish sputum production. She noted to have leukocytosis, chest x- ray noted unremarkable and she remained afebrile. 1. Acute on chronic hypoxemic hypercarbic respiratory failure in setting of reactive airway disease and active smoking - continuous pulse ox and supplement O2 to keep O2 sat over 92% - Continue IV steroid Solu-Medrol 60 mg every 6 hours - Continue TRC - Continue Singulair and Symbicort - Pulmonary consult in a.m. - BiPAP as needed - Aspiration precaution 2. Leukocytosis - Chest x-ray and UA noted negative - Patient has been on chronic steroid prednisone 10 mg daily - Likely secondary to steroid use, - Continue IV azithromycin for bronchitis 3. AK I - Likely secondary to dehydration, baseline creatinine 0.6 - Avoid all nephrotoxic agent - Morning labs are pending 4. Hyponatremia - Likely secondary to SIADH with urine osmolarity 172 and serum osmolarity 268 - Keep her on 1 L fluid restriction - Morning sodium level is pending 5. Hypertension Continue amlodipine and propranolol - Consider to switch propranolol to other medication as it can cause bronchospasm 7. 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 Hypothyroidism - Continue home dose levothyroxine 88 g daily 10. Alcohol dependence - Check CIWA -Continue thiamine and folate and multivitamin 11. Tobacco dependence -Continue nicotine patch 12. Chronic low back pain - Continue tramadol 50 mg every 6 hours as needed 13. DVT prophylaxis Subcutaneous heparin 14. Full code Problem List: 1. Acute and chronic respiratory failure with hypoxia 2. Hypothyroidism 3. Alcohol dependence 4. Hyponatremia Pain Ratin Pain Location: back Pain Goal: Pain 4 or less Pain Plan: tylenol, tramadol Tomorrow's Labs & Rationales: bep, cbc DVT/Prophylaxis: pharmacological BRAULIO RICH MD 10/02/16 1130: Attending MD Review Statement Attending Statement Attending MD Statement: examined this patient, discuss w/resident/PA/PUMP REBUILDER, agreed w/resident/PA/PUMP REBUILDER, reviewed EMR data (avail), discussed with nursing, discussed with case mgmt, reviewed images Attending Assessment/Plan: 45-year-old female multiple medical problems most recently here from August 26 to August 28. Underlying prednisone dependence for Cedar[place]'s disease, reactive airway disease with oxygen at baseline but still actively smoking. Also multiple psychiatric comorbidities with multiple psychiatric meds some of which are causing respiratory depression. She is here with acute hypoxic and hypercapnic failure and we are treating her with IV Solu-Medrol for this presumed COPD exacerbation with azithromycin. Flu swab is pending but most recently in July was negative. Leukocytosis is hard to interpret given underlying's prednisone use. I'm worried that she is going to go into benzo withdrawal and will need to restart that when necessary while watching closely for sedation. We'll need Psych's help given the polypharmacy. Tobacco cessation counseled at length and pulmonary follow-up.
[2016-10-02 10:23] LABS: ABSOLUTE BASOPHIL COUNT 0 /CUMM (0.0-0.2); ABSOLUTE EOSINOPHIL COUNT 0 /CUMM (0.0-0.7); ABSOLUTE GRANULOCYTE CT 16.1 /CUMM (1.4-6.5); ABSOLUTE LYMPH COUNT 0.9 /CUMM (1.2-3.4); ABSOLUTE MONOCYTE COUNT 0.3 /CUMM (0.10-0.60); BASOPHIL % 0 % (0.0-2.0); EOSINOPHIL % 0 % (0-5); GRANULOCYTE % 93.1 % (42.2-75.2); HEMATOCRIT 34.9 % (37-47); MEAN CORPUSCULAR HGB CONC 32.2 G/DL (33.0-37.0); MEAN CORPUSCULAR VOLUME 96.4 FL (81.0-99.0); MEAN PLATELET VOLUME 7.2 FL (7.4-10.4); PLATELET COUNT 291 /CUMM (130-400); RBC DISTRIBUTION WIDTH 16.9 % (11.5-14.5); RED BLOOD CELL CT 3.62 /CUMM (4.20-5.40)
[2016-10-02 11:24] LABS: WHITE BLOOD CELL COUNT 17.3 /CUMM (4.8-10.8)
--- NOTE | 2016-10-02 13:48 | PN- Psychiatry ---
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 The question related to the need for current dose of Depakote ER given exacerbation in her COPD/bronchospasm which precipitated her admission to the medical service. Patient has a number of factors which contribute to risks of intensifying her breathing difficulties. She is still a smoker though trying to cut down and claiming to smoke no more than 5-10 cigarettes a day at home and denies any difficulty in not smoking since admission; she is willing to utilize nicotine gum PRN. Patient also takes Seroquel for insomnia, up to 150mg/night which she finds quiet helpful and does not wish to discontinue at this time; she is aware of possible interaction with Depakote to worsen/intensify bronchospasm. Patient also acknowledges using low dose Xanax, 0.5mg (up to BID PRN) for anxiety and to drinking 2-3 vodka drinks up to twice a week, but completely denies ever combining the alcohol and Xanax. Patient also claims the alcohol helps her fall asleep but that she awakens during the night, at times with increased difficulty breathing/short of breath. Patient asserts that Depakote ER had been very effective in evening out her mood, particularly the overenergized episodes; she notes current dose of 1,000mg/day being effective ( current concentrations in low 60's) though she had been discharged from [facility] on 1,500mg/day in 2014. 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 During interview with me today patient was quite forthcoming and appeared to be disclosing her current situation rather openly and fully. She acknowledged the difficulty in stopping smoking and drinking and their negative impact on her breathing, as well as in other ways. She appeared mildly flushed but not short of breath at rest in her bed. Her affect and mood appeared euthymic and thinking coherent, rational and goal-directed. She denied any symptoms of hypomania or depression and was thankful for this, emphasizing the effectiveness of her Depakote and not wanting to discontinue it or switch over to some other medication trial at this time. Patient noted having lost her treating psychiatrist when he was arrested for various criminal offenses, including his practices with regard to prescribing controlled substances; patient said she picked her current psychiatrist, Dr. Resendiz, "out of a hat" and is not happy with her current treatment appointments. IMPRESSION/PLAN: Patient's bipolar disorder appears to be in adequate control on current dose of Depakote ER and would not recommend lowering the dose; repeating the valproic acid level this AM showed continuing relatively marginal serum concentrations (on low 60's) already on current dose; she was willing to split the dose to 500mg 2x/day, instead of taking the whole daily dose at HS. Patient usually takes 100mg of Seroquel as HS and another 50mg PRN for sleep difficulty; she told me that low dose Remeron had helped in the past with sleep and anxiety and was will to try 7.5mg HS PRN instead of PRN Seroquel. Patient was receptive to counseling with regard to smoking cessation and cutting down on drinking (which she contends in not daily or high at this time) and I urged her to begin attending the [facility] on 10/13/2016 at 4pm (with [facility] Fre[facility]). I also gave patient Dr. Chauhan's name as a possible local replacement for her out-of-town psychiatrist (her office is much closer to patient's home), noting that Dr. Chauhan's training as a general medical physician , psychiatrist and addictionologist might prove particularly beneficial in coordinating patient's care with her several other physicians/specialists ( endocrinology and pulmonology, in particular). I had patient's TSH, thyroid functions checked. I also spoke directly with patient's treating hospitalist/ housestaff physician and unit nurse and told patient and the latter I would be happy to return to make a f/u visit, if requested. Suggestion: see above Subjective Subjective: see above
--- NOTE | 2016-10-02 14:06 | Cons- Pulmonary ---
General Information and HPI Consulting Request Date of Consult: 10/02/16 Requested By: med team History of Present Illness: Ms. 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 Patient has several recent admissions, including June 2016, July 2016 and August 2016, all for acute asthma/COPD exacerbations. Patient reports she was in her usual state of health until yesterday when she had the sudden onset of cough and difficulty breathing. Her oxygen saturation both of those times were noted to be in the 70's. This difficulty breathing persisted through today and was associated with cough productive of green sputum and pain under her right breast each time she coughs. Patient admits to two sick contacts, being her niece and nephew. She denies recent travel. Jackie currently denies fever, chills, dizziness, throat pain, palpitations, abdominal pain, nausea, vomiting, dysuria hematuria. She does admit to mild confusion associated with the intake of her tramadol for low back pain, wheezing, cough, shortness of breath worse with exertion, chronic lower extremity swelling, oral thrush currently on diflucan, irregular menstrual cycles due to seroquel and difficulty performing some ADLS due to low back pain with sciatica down her left leg. Social history is sigificant for tobacco use, currently at 5 cigarettes a day. She also occasionally drinks alcohol. She denies illicit drug use. 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 Past surgical history is significant for one and 4 knee surgeries. She follows with a psychiatrist, lining folder, rental representative, chronic pain (Maninder) and a PCP. Of note, patient's chronic pain specialist has given her tramadol for her low back pain and patient reports confusion and lethargy every time she takes this medication; she is however unwilling to discontinue the medication at this time as it offers her the most relief of her low back pain. Allergies/Medications Allergies: Coded Allergies: apple (Intermediate, HIVES FROM APPLE CIDER 08/26/16) hydromorphone (Intermediate, LIP SWELLING 08/26/16) phenytoin (Intermediate, HIVES 08/26/16) lidocaine (SVT 08/26/16) oxycodone (From Percocet) (ITCHY 08/26/16) Home Med List: Albuterol Sulfate 2.5 MG/3 ML (0.083 %) VIAL.NEB 3 ML INH TID PRN asthma Albuterol Sulfate (Ventolin Hfa) 90 MCG HFA.AER.AD 2 PUF INH Q4-6 PRN PRN asthma Alprazolam 0.5 MG TABLET 1 TAB PO PRN ANXIETY (Reported) Amlodipine Besylate (Norvasc) 10 MG TABLET 1 TAB PO DAILY hypertension Aspirin/Acetaminophen/Caffeine (Excedrin Migraine Caplet) 250 MG-250 MG-65 MG TABLET 1 TAB PO DAILY SINUS HEADACHE (Reported) Budesonide/Formoterol Fumarate (Symbicort 160-4.5 Mcg Inhaler) 160 MCG-4.5 MCG/ ACTUATION HFA.AER.AD 2 PUF INH BID ASTHMA (Reported) Cyclobenzaprine HCl 5 MG TABLET 1 TAB PO PRN MUSCLE SPASMS (Reported) Divalproex Sodium (Divalproex Sodium ER) 500 MG TAB.ER.24H 2 TAB PO QPM INSOMNIA/MENTAL HEALTH (Reported) Fexofenadine/Pseudoephedrine (Shannan-D 24 Hour Tablet) 180 MG-240 MG TAB.ER.24H 1 TAB PO DAILY ALLERGIES (Reported) Fluconazole 100 MG TABLET 1 TAB PO DAILY ORAL THRUSH (Reported) Fluticasone Propionate (Flonase Allergy Relief) 50 MCG/ACTUATION SPRAY.SUSP 1 SPRAY ELLA BID ALLERGIES (Reported) Levothyroxine Sodium (Synthroid) 88 MCG TABLET 1 TAB PO DAILY THYROID ( Reported) Montelukast Sodium 10 MG TABLET 1 TAB PO QHS ASTHMA (Reported) Multivitamin (One Daily Multivitamin) 1 EACH TABLET 1 TAB PO DAILY supplement Nicotine Polacrilex (Nicotine Gum) 4 MG GUM 4 MG PO Q6H PRN SMOKING CESSATION (Reported) Prednisone 10 MG TABLET 1 TAB PO DAILY BRONCHOSPASM (Reported) Propranolol HCl (Propranolol HCl ER) 120 MG CAP.SA.24H 1 CAP PO BID BP ( Reported) Quetiapine Fumarate 50 MG TABLET 100 MG PO QPM MENTAL HEALTH/SLEEP (Reported) Quetiapine Fumarate (Seroquel) 50 MG TABLET 1 TAB PO QPM PRN MENTAL HEALTH/ SLEEP (Reported) Tramadol HCl 50 MG TABLET 1 TAB PO Q6P PRN PAIN SCALE 7-10 (SEVERE) (Reported ) Valacyclovir HCl (Valacyclovir) 1,000 MG TABLET 1 TAB PO DAILY ANTI VIRAL ( Reported) Review of Systems Comments Review of Systems Constitutional: Reports: malaise. Denies: chills, diaphoresis, fever. EENTM: Reports: see HPI. Denies: blurred vision, visual changes, hearing changes, nasal congestion. Cardiovascular: Reports: chest pain (Right side inframammary), peripheral edema. Denies: orthopena, palpitations, syncope. Respiratory: Reports: cough, short of breath, sputum production, wheezing. Denies: hemoptysis, orthopnea, stridor. GI: Denies: abdominal pain, nausea, vomiting. Genitourinary: Denies: dysuria, hematuria. Musculoskeletal: Reports: back pain, muscle pain. Denies: neck pain. Skin: Denies: change in skin color, change in hair/nails, lesions. Neurological/Psychological: Reports: confusion (When she takes tramadol). Denies: headache, numbness, paresthesia. Hematologic/Endocrine: Denies: bruising, bleeding, polyuria, polydipsia. Immunologic/Allergic: Denies: splenectomy. All Other Systems: Reviewed and Negative Past History Travel History Traveled to [place] past 21 day No Medical History Neurological: NONE EENT: allergies Cardiovascular: hypertension Respiratory: asthma, bronchitis Gastrointestinal: NONE Hepatic: RENAL FAILURE Renal: acute kidney injury Musculoskeletal: chronic back pain Psychiatric: alcohol dependence, depression, substance abuse, bipolar disorder, MRE manic Endocrine: hypothyroidism, Cushings Dz, steroid-induced Hashimotos thyroiditis Blood Disorders: NONE Cancer(s): NONE [employer]ODUCTION/Reproductive: Other Medical Hx: Unknown Surgical History Surgical History: S/P I&D ABSCESS S/P KNEE SURGERY Family History Relations & Conditions If Any: MOTHER FH: lung cancer Psychosocial History Where Do You Live? Home Services at Home: None Primary Language: Uzbek Smoking Status: Current Everyday Smoker ETOH Use: occasional use Illicit Drug Use: denies illicit drug use Living Will? no Functional Ability ADLs Independent: dressing, eating, toileting, bathing. Ambulation: independent IADLs Independent: shopping, housework, finances, food prep, telephone, transportation , medication admin. 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 Exam & Diagnostic Data Last 24 Hrs of Vital Signs/I&O Vital Signs Date Time Temp Pulse Resp B/P Pulse O2 O2 Flow FiO2 Ox Delivery Rate 10/02 1054 108 146/80 10/02 1054 108 146/80 10/02 1000 108 146/80 10/02 0938 Nasal 2.0L Cannula 10/02 0808 98.6 102 18 100/80 93 Nasal 2.0L Cannula 10/02 0807 94 Nasal 2.0L Cannula 10/02 0800 98.6 102 18 100/80 10/02 0356 100 93 10/02 0209 97 94 10/02 0118 98 Nasal 2.0L Cannula 10/02 0040 97.9 95 22 134/76 97 Non ReBreather 10/02 0017 95 Nasal 2.0L Cannula 10/01 2310 97 94 10/01 2245 98 16 130/69 96 BIPAP 40% 10/01 2030 99 92 10/01 1919 92 Nasal 4.0L Cannula 10/01 1732 97.3 77 14 186/83 94 2.0L 10/01 1722 98 Nasal 2.0L Cannula 10/01 1703 93 Nasal 3.5L Cannula Intake & Output 10/02 1600 10/02 0800 10/02 0000 Intake Total 1250 Output Total 800 Balance 450 Intake, IV 1250 Output, Urine 800 Patient 255 lb Weight Last 48 Hrs of Labs/Kartik: Laboratory Tests 10/02/16 0925: Anion Gap 11, Estimated GFR > 60, BUN/Creatinine Ratio 10.0, TSH 0.765, Free T4 1.26, CBC w Diff NO MAN DIFF REQ, RBC 3.62 L, MCV 96.4, MCH 31.0, RDW 16.9 H, MPV 7.2 L, Gran % 93.1 H, Lymphocytes % 5.3 L, Monocytes % 1.6 L, Eosinophils % 0, Basophils % 0 L, Absolute Granulocytes 16.1 H, Absolute Lymphocytes 0.9 L, Absolute Monocytes 0.3, Absolute Eosinophils 0, Absolute Basophils 0, PUBS MCHC 32.2 L, Valproic Acid 61.0 10/02/16 0150: pH 7.32 L, pCO2 53 H, pO2 70 L, HCO3 27, ABG O2 Sat (Measured) 90.0 L, P-50 (Temp Corrected) Y, Carboxyhemoglobin 3.4, O2 Concentration % 2 LPM, Temperature 97.9, O2 Delivery Method N/C, Phlebotomy Draw Site [facility] 10/01/162224: pH 7.29 *L, pCO2 56 H, pO2 100, HCO3 26, ABG O2 Sat (Measured) 97.0, P-50 (Temp Corrected) N, Carboxyhemoglobin 5.8 *H, O2 Concentration % 40%, Respiration Rate 24, O2 Delivery Method BIPAP, Vent Mode ST, Expiratory Pressure 6, Inspiratory Pressure 16, Phlebotomy Draw Site [facility] 10/01/162055: Urine Opiates Screen 154.00, Methadone Screen 74, Barbiturate Screen < 60, Ur Phencyclidine Scrn 20.20, Amphetamines Screen 209, U Benzodiazepines Scrn > 800 H, Urine Cocaine Screen < 50, Urine Cannabis Screen < 5.00, Urine Osmolality 172 L, Ur Random Creatinine 68.9, Ur Random Sodium 7 L, Ur Random Potassium 12.1, Fraction Sodium Excret 0.1 10/01/161943: pH 7.29 *L, pCO2 60 *H, pO2 70 L, HCO3 28, ABG O2 Sat (Measured) 93.0 L, Carboxyhemoglobin 9.4 *H, O2 Concentration % 4L, O2 Delivery Method NC, Phlebotomy Draw Site RIGHT [facility] 10/01/161935: Urine Color YEL, Urine Clarity CLEAR, Urine pH 6.0, Ur Specific [place] 1.010, Urine Protein NEG, Urine Ketones NEG, Urine Nitrite NEG, Urine Bilirubin NEG, Urine Urobilinogen 0.2, Ur Leukocyte Esterase TRACE H, Ur Microscopic SEDIMENT EXAMINED, Urine WBC 3-5 H, Ur Epithelial Cells MOD H, Urine Hemoglobin NEG, Urine Glucose NEG 10/01/16 1644: Valproic Acid 63.6 10/01/16 164: Anion Gap 10, Estimated GFR 49 L, BUN/Creatinine Ratio 9.2, Glucose 109 H, Serum Osmolality 268 L, Calcium 9.5, Total Bilirubin 0.8, AST 50 H, ALT 70 H, Alkaline Phosphatase 112, Troponin I < 0.01, Total Protein 6.7, Albumin 3.8, Globulin 2.9, Albumin/Globulin Ratio 1.3, D-Dimer < 200, CBC w Diff MAN DIFF ORDERED, RBC 3.55 L, MCV 95.6, MCH 31.6 H, RDW 16.7 H, MPV 6.9 L, Gran % 87.9 H, Lymphocytes % 8.0 L, Monocytes % 3.6, Eosinophils % 0.2, Basophils % 0.3, Absolute Granulocytes 17.3 H, Segmented Neutrophils 79 H, Band Neutrophils 2, Absolute Lymphocytes 1.6, Lymphocytes 13 L, Monocytes 5, Absolute Monocytes 0.7 H, Absolute Eosinophils 0, Absolute Basophils 0.1, Metamyelocytes 1, Nucleated RBCs 1 H, Platelet Estimate VERIFIED BY SMEAR, Polychromasia 1+, Anisocytosis 1+, PUBS MCHC 33.1, Fld Total RBCs Counted 100, Serum Alcohol < 10.0 Assessment/Plan Impression/Plan: Physical Exam General Appearance Cooperative, Mild Distress, Very drowsy, occasionally falling asleep during interview, on BiPAP. Skin No Rashes, No Significant Lesion HEENT Atraumatic, PERRLA, EOMI, Oral thrush appreciated. Neck Supple, +2 Carotid Pulse wo Bruit Lymphatic Cervical nl Cardiovascular Regular Rate, Normal S1, Normal S2, No Murmurs Lungs Decreased air entry bilaterally, occasional wheeze. Abdomen Normal Bowel Sounds, Soft, No Tenderness, Obese Neurological Normal Speech, Normal Tone Extremities No Clubbing, No Cyanosis, 2+ pitting edema bilaterally to level of knees Vascular Pulses Symmetrical SIGNIFICANT DATA Chest x-ray was unremarkable ABGs reviewed 7.32/53/70 on 2 L White count 17.3 with 92% segs while on steroids Blood work revealed her baseline bicarbonate is 31 potassium is adequate BUN/ creatinine stable Previous chest CT showed no pulmonary embolism bilateral mild groundglass opacities suspicious for an inflammatory process. IMPRESSION This is a lady with known history of bipolar disorder significant smoking history, reactive airway disease, multiple admissions to the hospital with acute hypercarbic respiratory failure now has * Acute hypoxemic and hypercarbic respiratory failure most likely related to worsening bronchospasm with untreated obesity hypoventilation syndrome. Patient is not keen on doing any sleep study and she absolutely does not wish to use CPAP at home. * She has significant nicotine dependency * Bilateral groundglass opacity seen in June which seems to be resolved with chest x-ray probably due related to inflammatory lung disease * Reactive airway disease probable asthma with significant smoking and COPD * GERD with morbid obesity * Significant anxiety, depression, previous suicide attempt, bipolar disorder, multiple issues with recurrent exacerbation of her bronchitis with polypharmacy RECOMMENDATION * Continue her current antibiotics * Can change her to by mouth prednisone 60 mg * Tried to see if her propranolol could be reduced if patient is willing * Sputum culture if any * Minimize sedatives and narcotics * Use BiPAP tonight if patient is willing at this time she appears to be relatively stable * Watch her sodium * Continu synthyroid * Patient does have alcohol dependency watch for DTs Consult Acknowledgment - Thank you for your consult request.
--- NOTE | 2016-10-03 00:39 | NUR ---
ALERT AND ORIENTED X 3. VITAL SIGNS STABLE. DENIES CHEST PAIN. + PULSES ON 2L OXYGEN VIA NASAL CANNULA. SKIN C/D/I. STEADY GAIT. PATIENT RESTING COMFORTABLY AT THIS TIME. WILL CONTINUE TO MONITOR
[2016-10-03 00:45] VITALS: BP 144/78
[2016-10-03 07:45] VITALS: BP 110/70
[2016-10-03 08:00] VITALS: BP 110/70
--- NOTE | 2016-10-03 08:08 | PN- Att Addend ---
Attending Addendum Attending Brief Note Patient seen and examined. She is much more awake and alert today and conversant. Appreciate pulmonary and psych follow-up. 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 Appreciate psych's help in titrating her psych meds. We have left her on the Depakote, no more Seroquel and using Remeron at bedtime. At this point I wouldn't give her both the Xanax and the Ativan when necessary. Her CMR is says Xanax but she is asking for Ativan. Will talk to the team about giving one or the other benzo when necessary. Switched her to by mouth prednisone and will taper to her usual dose. She has Elmo's disease and takes prednisone chronically and is cushingoid in appearance. Her hyponatremia resolved nicely yesterday and will follow that today. Her leukocytosis is hard to interpret given chronic steroid use. She is on antibiotics for the possibility of a bronchitis. At this point I don't think she needs continuous pulse ox monitoring or Telemetry as her respiratory status has stabilized and I think she can be downgraded to general medicine.
[2016-10-03 08:27] LABS: ABSOLUTE BASOPHIL COUNT 0 /CUMM (0.0-0.2); ABSOLUTE EOSINOPHIL COUNT 0 /CUMM (0.0-0.7); ABSOLUTE GRANULOCYTE CT 14.2 /CUMM (1.4-6.5); ABSOLUTE LYMPH COUNT 1.8 /CUMM (1.2-3.4); ABSOLUTE MONOCYTE COUNT 0.2 /CUMM (0.10-0.60); BASOPHIL % 0 % (0.0-2.0); EOSINOPHIL % 0 % (0-5); MEAN CORPUSCULAR HGB 31.3 PG (27.0-31.0); MEAN CORPUSCULAR HGB CONC 32.3 G/DL (33.0-37.0); MEAN PLATELET VOLUME 7.4 FL (7.4-10.4); PLATELET COUNT 257 /CUMM (130-400); RBC DISTRIBUTION WIDTH 17.1 % (11.5-14.5); WHITE BLOOD CELL COUNT 16.1 /CUMM (4.8-10.8)
--- NOTE | 2016-10-03 08:48 | PN- Housestaff ---
Subjective Follow-up For: Acute hypoxic and hypercarbic respiratory failure Acute kidney injury Complaints: no complaints Subjective: The patient was comfortable this morning. Stated that she did not have any difficulty breathing. Improved compared to yesterday. He remained afebrile overnight. Currently on 2 L oxygen. Review of Systems Constitutional: Reports: see HPI. Objective Last 24 Hrs of Vital Signs/I&O Vital Signs Date Time Temp Pulse Resp B/P Pulse O2 O2 Flow FiO2 Ox Delivery Rate 10/03 0745 97.1 85 18 110/70 94 Nasal 2.0L Cannula 10/03 0045 97.8 87 18 144/78 97 Nasal Cannula 10/03 0000 Nasal 2.0L Cannula 10/02 2238 90 98 10/02 2200 98.0 98 18 130/78 10/02 2142 94 127/80 10/02 2000 98.0 98 18 130/78 10/02 1900 98.2 96 18 126/80 10/02 1800 98.7 106 18 118/78 10/02 1635 96 Nasal 2.0L Cannula 10/02 1613 98.7 111 18 118/78 95 Nasal 2.0L Cannula 10/02 1600 Nasal 2.0L Cannula 10/02 1600 98.7 111 18 118/78 10/02 1054 108 146/80 10/02 1054 108 146/80 10/02 1000 108 146/80 10/02 0938 Nasal 2.0L Cannula Intake & Output 10/03 1600 10/03 0800 10/03 0000 Intake Total 250 500 Output Total Balance 250 500 Intake, IV 200 Intake, Oral 50 500 Physical Exam General Appearance: No Acute Distress Other Physical Findings: General Exam: AAOx3, No acute distress, Skin: No rashes, no breakdown HEENT: PERRLA, EOMI Neck: Supple, No JVD No cervical lymphadenopathy CVS: Reg Rate, Normal S1,S2, No MGR Resp: Decreased air entry bilaterally, no rhonchi. Abdomen: Soft, No tenderness, Normal Bowel Sounds Neuro: Normal Speech, Strength 5/5 b/l x 4 extremities, Sensation intact, CN III -XII NL, Reflexes 2+ Extremities: No cyanosis, pedal edema Current Medications: Current Medications Sig/Rosio Start time Last Medication Dose Route Stop Time Status Admin Acetaminophen 650 MG Q6P PRN 10/02 0100 AC PO Albuterol Sulfate 3 ML EVERY 4 HRS/AWAKE 10/02 0815 AC 10/02 INH 2025 Alprazolam 0.5 MG BID PRN 10/02 1145 AC 10/02 PO 10/09 1144 2156 Amlodipine Besylate 10 MG DAILY 10/02 1000 AC 10/02 PO 1054 Azithromycin 500 MG 2200 10/020 AC 10/02 Sodium Chloride 250 ML IV 2141 Budesonide/ 2 PUF BID 10/01 2200 AC 10/02 Formoterol Fumarate INH 214 Cyanocobalamin 1,000 MCG DAILY 10/02 1000 AC 10/02 PO 1054 Divalproex Sodium 500 MG BID 10/03 1000 DC PO Divalproex Sodium 500 MG 0800,10/02 2000 AC 10/02 PO 203 Divalproex Sodium 1,000 MG AT BEDTIME 10/010 DC 10/01 PO 2200 Fluconazole 100 MG DAILY 10/02 1000 AC 10/02 PO 10/06 1001 1054 Folic Acid 1 MG DAILY 10/02 1000 AC 10/02 PO 1054 Heparin Sodium 5,000 UNIT Q8 10/01 2200 AC 10/02 (Porcine) SC 1443 Ipratropium [place] 2.5 ML EVERY 4 HRS/AWAKE 10/02 0815 AC 10/02 INH 202 Levothyroxine Sodium 0.088 MG DAILY AC 10/02 0700 AC 10/03 PO 0644 Lorazepam 0.5 MG Q4H PRN 10/02 1545 AC 10/02 PO 10/09 1544 1850 Lorazepam 1 MG Q4H PRN 10/02 1545 AC PO Methylprednisolone 60 MG Q6 10/01 2359 DC 10/02 IV 1158 Mirtazapine 7.5 MG AT BEDTIME PRN 10/02 1445 AC 10/02 PO 2155 Montelukast Sodium 10 MG AT BEDTIME 10/01 2215 AC 10/02 PO 2147 Nicotine 7 MG DAILY 10/02 1000 AC TOP Prednisone 60 MG DAILY 10/03 1000 AC PO Propranolol HCl 120 MG BID 10/02 1000 AC 10/02 PO 2142 Sodium Chloride 1,000 ML ONCE ONE 10/01 1630 DC 10/01 IV 10/02 1229 1648 Thiamine HCl 50 MG DAILY 10/02 1000 AC 10/02 PO 1054 Tramadol HCl 50 MG Q6P PRN 10/01 2215 AC 10/03 PO 0023 Valacyclovir HCl 1,000 MG DAILY 10/02 1000 AC 10/02 PO 1054 Last 24 Hrs of Lab/Kartik Results Last 24 Hrs of Labs/Mics: Laboratory Tests 10/03/16 0753: Sodium Pending, Potassium Pending, Chloride Pending, Carbon Dioxide Pending, Anion Gap Pending, BUN Pending, Creatinine Pending, BUN/Creatinine Ratio Pending , CBC w Diff NO MAN DIFF REQ, RBC 3.40 L, MCV 97.0, MCH 31.3 H, RDW 17.1 H, MPV 7.4, Gran % 88.0 H, Lymphocytes % 10.9 L, Monocytes % 1.1 L, Eosinophils % 0, Basophils % 0 L, Absolute Granulocytes 14.2 H, Absolute Lymphocytes 1.8, Absolute Monocytes 0.2, Absolute Eosinophils 0, Absolute Basophils 0, PUBS MCHC 32.3 L, Valproic Acid Pending 10/02/16 0925: Anion Gap 11, Estimated GFR > 60, BUN/Creatinine Ratio 10.0, TSH 0.765, Free T4 1.26, CBC w Diff NO MAN DIFF REQ, RBC 3.62 L, MCV 96.4, MCH 31.0, RDW 16.9 H, MPV 7.2 L, Gran % 93.1 H, Lymphocytes % 5.3 L, Monocytes % 1.6 L, Eosinophils % 0, Basophils % 0 L, Absolute Granulocytes 16.1 H, Absolute Lymphocytes 0.9 L, Absolute Monocytes 0.3, Absolute Eosinophils 0, Absolute Basophils 0, PUBS MCHC 32.2 L, Valproic Acid 61.0 Microbiology 10/02 1625 NASOPHARYN: Influenza Virus A & B Rapid Smear - COMP 10/02 1200 NASOPHARYN: Influenza Virus A & B Rapid Smear - COMP Assessment/Plan Assessment: She is a 45 year old female with high BMI, current smoker with past medical history of reactive airway disease on 1.5 L home O2, [place]'s disease on prednisone, alcohol dependence, bipolar disorder with history of suicide attempt , anxiety, hypertension, MRSA, Joann thyroiditis, allergic rhinitis, genital herpes on chr. valacyclovir who was recently admitted to [facility] from -08/28/16 for acute on chr. Hypoxic respiratory failure presented from home with chief complaint of progressively worsening shortness of breath for past 2 days associated with 2 days history of productive cough with greenish sputum production. She was noted to have leukocytosis, chest x-ray noted unremarkable and she remained afebrile. 1. Acute on chronic hypoxemic hypercarbic respiratory failure in setting of reactive airway disease and active smoking -IV Solu-Medrol has been changed to by mouth. Plan to taper in the a.m. - Continue TRC - Continue Singulair and Symbicort - BiPAP as needed 2. Leukocytosis - Chest x-ray and UA noted negative - Patient has been on chronic steroid prednisone 10 mg daily - Likely secondary to steroid use, - Continue IV azithromycin for bronchitis 3. AK I - Likely secondary to dehydration, baseline creatinine 0.6 - Avoid all nephrotoxic agent - Morning labs are pending 4. Hyponatremia - Likely secondary to SIADH with urine osmolarity 172 and serum osmolarity 268. - Keep her on 1 L fluid restriction - Morning sodium level is pending 5. Hypertension Continue amlodipine and propranolol - Consider to switch propranolol to other medication as it can cause bronchospasm 7. Bipolar disorder - In the past patient's valproic acid tapered off because of the concern of bronchospasm, consider psychiatry consult for evaluation if patient needs for valproic acid for mood disorder - Continue valproic acid for now - Held Seroquel as patient is very drowsy - Held Xanax 8. [place]'s disease -Patient is on steroids at this time. 9. Hypothyroidism - Continue home dose levothyroxine 88 g daily 10. Alcohol dependence - Check CIWA -Continue thiamine and folate and multivitamin 11. Tobacco dependence -Continue nicotine patch 12. Chronic low back pain - Continue tramadol 50 mg every 6 hours as needed 13. DVT prophylaxis Subcutaneous heparin 14. Full code Problem List: 1. Asthma 2. Hypothyroidism 3. Adrenal insufficiency 4. COPD exacerbation Pain Ratin Pain Location: Low back Pain Goal: Pain 4 or less Pain Plan: Tramadol Tomorrow's Labs & Rationales: CBC-to monitor for leukocytosis.
[2016-10-03 14:00] VITALS: BP 136/82
[2016-10-03 14:06] VITALS: BP 136/82
[2016-10-03 22:45] VITALS: BP 144/84
[2016-10-04 06:19] VITALS: BP 138/86
--- NOTE | 2016-10-04 08:21 | PN- Housestaff ---
DOMINIC JAIN,ISNVIL 10/04/16 0820: Subjective Follow-up For: Acute hypoxic and hypercarbic respiratory failure Acute kidney injury Subjective: Afebrile, white blood cell improved, she is in 2 L of oxygen saturating mid 90s. No acute overnight events reported. She is laying on bed looks relaxed uncomfortable. Patient reports significant improvement. She is stable to be discharged today. Review of Systems Constitutional: Reports: no symptoms. Objective Last 24 Hrs of Vital Signs/I&O Vital Signs Date Time Temp Pulse Resp B/P Pulse O2 O2 Flow FiO2 Ox Delivery Rate 10/04 0845 74 138/86 10/04 0844 74 138/86 10/04 0821 95 Nasal 3.0L Cannula 10/04 0800 95 Nasal 2.0L Cannula 10/04 0619 98.4 74 20 138/86 93 Nasal 2.0L Cannula 10/04 0000 Nasal 2.0L Cannula 10/03 2245 98.0 88 21 144/84 94 Nasal 2.0L Cannula 10/03 2145 88 144/84 10/03 1655 85 Room Air 10/03 1600 96 Nasal 2.0L Cannula 10/03 1406 98.1 93 20 136/82 96 Nasal 2.0L Cannula 10/03 1400 98.1 93 20 136/82 Intake & Output 10/04 1600 10/04 0800 10/04 0000 Intake Total 120 510 Output Total Balance 120 510 Intake, IV 270 Intake, Oral 120 240 Physical Exam General Appearance: Alert, Oriented X3, Cooperative, No Acute Distress Skin: No Rashes HEENT: Atraumatic, PERRLA, EOMI, Mucous Membr. moist/pink Cardiovascular: Regular Rate, Normal S1, Normal S2, No Murmurs Lungs: Clear to Auscultation Abdomen: Soft, No Tenderness Neurological: Normal Speech Extremities: No Clubbing, No Cyanosis, No Edema Current Medications: Current Medications Sig/Rosio Start time Last Medication Dose Route Stop Time Status Admin Acetaminophen 650 MG Q6P PRN 10/02 0100 AC PO Albuterol Sulfate 3 ML EVERY 4 HRS/AWAKE 10/02 0815 AC 10/04 INH 0818 Alprazolam 0.5 MG BID PRN 10/02 1145 AC 10/03 PO 10/09 1144 2204 Amlodipine Besylate 10 MG DAILY 10/02 1000 AC 10/04 PO 0845 Azithromycin 250 MG 10/040 AC PO Azithromycin 500 MG 0 10/02 2200 DC 10/03 Sodium Chloride 250 ML IV 2144 Budesonide/ 2 PUF BID 10/01 2200 AC 10/04 Formoterol Fumarate INH 0845 Cyanocobalamin 1,000 MCG DAILY 10/02 1000 AC 10/04 PO 0846 Divalproex Sodium 500 MG 0800,2000 10/02 2000 AC 10/04 PO 0843 Fluconazole 100 MG DAILY 10/02 1000 AC 10/04 PO 10/06 1001 0844 Folic Acid 1 MG DAILY 10/02 1000 AC 10/04 PO 0844 Heparin Sodium 5,000 UNIT Q8 10/01 2200 AC 10/02 (Porcine) SC 1443 Ibuprofen 400 MG Q6 10/03 2359 DC PO Ibuprofen 400 MG Q6P PRN 10/03 2245 AC 10/03 PO 2350 Ibuprofen 400 MG ONCE ONE 10/03 1415 DC 10/03 PO 10/03 1416 1417 Ipratropium [place] 2.5 ML EVERY 4 HRS/AWAKE 10/02 0815 AC 10/04 INH 0818 Levothyroxine Sodium 0.088 MG DAILY AC 10/02 0700 AC 10/04 PO 0548 Lorazepam 0.5 MG Q4H PRN 10/02 1545 AC 10/04 PO 10/09 1544 0551 Lorazepam 1 MG Q4H PRN 10/02 1545 AC PO Mirtazapine 7.5 MG AT BEDTIME PRN 10/02 1445 AC 10/03 PO 2350 Montelukast Sodium 10 MG AT BEDTIME 10/01 2215 AC 10/03 PO 2145 Nicotine 7 MG DAILY 10/02 1000 AC TOP Prednisone 60 MG DAILY 10/03 1000 AC 10/04 PO 0845 Propranolol HCl 120 MG BID 10/02 1000 AC 10/04 PO 0844 Thiamine HCl 50 MG DAILY 10/02 1000 AC 10/04 PO 0846 Tramadol HCl 50 MG Q6P PRN 10/01 2215 AC 10/03 PO 2012 Valacyclovir HCl 1,000 MG DAILY 10/02 1000 AC 10/04 PO 0845 Last 24 Hrs of Lab/Kartik Results Last 24 Hrs of Labs/Mics: Laboratory Tests 10/04/16 0720: CBC w Diff NO MAN DIFF REQ, RBC 3.39 L, MCV 98.3, MCH 31.1 H, RDW 17.6 H, MPV 7.9, Gran % 73.8, Lymphocytes % 21.2, Monocytes % 4.5, Eosinophils % 0.1, Basophils % 0.4, Absolute Granulocytes 10.1 H, Absolute Lymphocytes 2.9, Absolute Monocytes 0.6, Absolute Eosinophils 0, Absolute Basophils 0.1, PUBS MCHC 31.6 L Assessment/Plan Assessment: 1. Acute on chronic hypoxemic hypercarbic respiratory failure in setting of reactive airway disease , acute bronchitis, and active smoking * Patient will be switched to oral azithromycin, she'll be discharge to finish a total of 5 days * Patient will be discharged on prednisone taper * Continue Singulair and Symbicort * Patient will be instructed to use oxygen at home event that she desaturated on ambulation to 85% 2. KIMO(resolved) * Avoid all nephrotoxic agent 3. Hyponatremia(resolved) Likely secondary to SIADH with urine osmolarity 172 and serum osmolarity 268. * Keep her on 1 L fluid restriction 4. Hypertension * Continue amlodipine and propranolol 5. Bipolar disorder In the past patient's valproic acid tapered off because of the concern of bronchospasm, psychiatric to was consulted and he agreed to decrease valproic acid from 1000 daily to 750 daily. 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 * She will be instructed to go back to prednisone 10 mg daily for it since eased after she finished the prednisone taper. 7. Hypothyroidism * Continue home dose levothyroxine 88 g daily 8.Alcohol dependence * Continue as per CIWA * Continue thiamine and folate and multivitamin DVT prophylaxis Subcutaneous heparin Regular diet Full code Problem List: 1. KIMO (acute kidney injury) 2. Leukocytosis 3. Hyponatremia 4. Back pain 5. Hypertension 6. Bronchitis 7. Alcohol dependence Pain Ratin Pain Location: back Pain Goal: Remain pain free Pain Plan: see A&P Tomorrow's Labs & Rationales: none, she will be discharged today WILIAN PEREIRA MD 10/04/16 1156: Attending Review Statement Attending Statement Attending MD Statement: examined this patient, discuss w/resident/PA/JUVENILE JUSTICE OFFICER, agreed w/resident/PA/JUVENILE JUSTICE OFFICER, reviewed EMR data (avail), discussed with nursing, discussed with case mgmt, reviewed images, amended to note Attending Assessment/Plan: Patient seen and examined, feeling overall better. Currently denies feeling short of breath. She was still needing oxygen but thinks that she can go off oxygen. She has been started on oral prednisone and azithromycin. Patient can be discharged home today. We checked her ambulatory O2 sat and it was 85%. Would recommend that patient should use continuous oxygen. Patient should follow-up with her primary care doctor as well as psychiatrist as an outpatient. As there was a concern about valproic acid being a risk factor for bronchospasm , we recommended a psych consult. Patient was seen by psychiatry and they recommended reducing her dose of valproic acid from thousand milligrams a day to 750 mg per day. This change will be made and patient will follow-up with her psychiatrist as an outpatient.
[2016-10-04 08:43] LABS: ABSOLUTE BASOPHIL COUNT 0.1 /CUMM (0.0-0.2); ABSOLUTE EOSINOPHIL COUNT 0 /CUMM (0.0-0.7); ABSOLUTE GRANULOCYTE CT 10.1 /CUMM (1.4-6.5); ABSOLUTE LYMPH COUNT 2.9 /CUMM (1.2-3.4); ABSOLUTE MONOCYTE COUNT 0.6 /CUMM (0.10-0.60); BASOPHIL % 0.4 % (0.0-2.0); EOSINOPHIL % 0.1 % (0-5); GRANULOCYTE % 73.8 % (42.2-75.2); HEMATOCRIT 33.3 % (37-47); MEAN CORPUSCULAR HGB 31.1 PG (27.0-31.0); MEAN CORPUSCULAR HGB CONC 31.6 G/DL (33.0-37.0); MEAN CORPUSCULAR VOLUME 98.3 FL (81.0-99.0); MEAN PLATELET VOLUME 7.9 FL (7.4-10.4); PLATELET COUNT 139 /CUMM (130-400); RBC DISTRIBUTION WIDTH 17.6 % (11.5-14.5); RED BLOOD CELL CT 3.39 /CUMM (4.20-5.40); WHITE BLOOD CELL COUNT 13.6 /CUMM (4.8-10.8)
[2016-10-04 08:45] VITALS: BP 138/86
[2016-10-04] MEDS ORDERED: PREDNISONE10 M2 PO (10:40)
[2016-10-04] MEDS ORDERED: AZITHROMYCIN250 M1 PO ×2 (10:49→11:17)
[2016-10-04] MEDS ORDERED: DIVALPROEX SOD500 M3 PO (10:53)
[2016-10-04] MEDS ORDERED: DIVALPROEX SOD250 M2 PO (10:53)
--- NOTE | 2016-10-04 10:54 | Patient Discharge Instructions ---
Discharge Instructions General Discharge Information You were seen/treated for: Reactive airway disease exacerbation most likely secondary to acute bronchitis Special Instructions: Please follow-up with your primary care doctor within 1 week Please follow-up with your psychiatrics within 4 days and ask for Depakote level. Diet Continue normal diet: Yes Recommended Diet: Regular Activity Full Activity/No Limits: Yes Activity Self Limited: Yes Acute Coronary Syndrome Inclusion Criteria At DC or during hospital stay patient has or had the following: ACS DIAGNOSIS No Discharge Core Measures Meds if any: Prescribed or Continued at Discharge Meds if any: NOT Prescribed or Continued at Discharge Congestive Heart Failure Inclusion Criteria At DC or during hospital stay patient has or had the following: CHF DIAGNOSIS No Discharge Core Measures Meds if any: Prescribed or Continued at Discharge Meds if any: NOT Prescribed or Continued at Discharge Cerebrovascular accident Inclusion Criteria At DC or during hospital stay patient has or had the following: CVA/TIA Diagnosis No Discharge Core Measures Meds if any: Prescribed or Continued at Discharge Meds if any: NOT Prescribed or Continued at Discharge Venous thromboembolism Inclusion Criteria VTE Diagnosis No VTE Type NONE VTE Confirmed by (Test) NONE Discharge Core Measures - Per Current guidelines, there needs to be overlap - treatment for the first 5 days of Warfarin therapy. - If discharged on Warfarin prior to 5 days of - overlap therapy, the patient will need to be - assessed for post discharge needs including - *Post discharge parental anticoagulation - *Warfarin and/or parental anticoagulation education - *Follow up date to check INR post discharge At least 5 days overlap therapy as Inpatient No Meds if any: Prescribed or Continued at Discharge Note: Overlap Therapy is Warfarin and Anticoagulant Meds if any: NOT Prescribed or Continued at Discharge
[2016-10-04] MEDS ORDERED: DIVALPROEX SOD250 M3 PO (11:07)
--- NOTE | 2016-10-04 11:20 | Discharge Summary ---
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 She was noted to be afebrile, but with leukocytosis. Chest x-ray was unremarkable. Issue that was addressed during this admission 1. Acute on chronic hypoxemic hypercarbic respiratory failure in setting of reactive airway disease , acute bronchitis, and active smoking Patient was treated with azithromycin, she was started on IV steroid and was discharged on prednisone taper. Patient was instructed to continue Singulair and Symbicort. Patient will be instructed to use oxygen at home as needed. We instructed patient to follow up with 8th grade teacher as an outpatient 2. KIMO She was started on IV fluid, we avoid all nephrotoxic agents. On the day of discharge her KIMO was results 3. Hyponatremia Most likely secondary to SIADH with urine osmolarity 172 and serum osmolarity 268.she was kept on 1 L fluid restriction after which her hyponatremia resolved. 4. Hypertension We continue amlodipine and propranolol 5. Bipolar disorder In the past patient's valproic acid tapered off because of the concern of bronchospasm, psychiatric was consulted and he agreed to decrease valproic acid from 1000 daily to 750 daily. Patient was instructed to take 500 at bedtime and 250 in the morning. She was also instructed to follow up with psychiatric service as an outpatient to do valproic acid level within 4 days. 6. [place]'s disease Patient was discharged on steroid taper. She was instructed to go back to prednisone 10 mg daily after she finished the prednisone taper. 7. Hypothyroidism We continue home dose levothyroxine 88 g daily 8.Alcohol dependence Patient was on [facility] protocol. She received thiamine and folate and multivitamin Allergies: Coded Allergies: apple (Intermediate, HIVES FROM APPLE CIDER 02/16/17) hydromorphone (Intermediate, LIP SWELLING 08/26/16) phenytoin (Intermediate, HIVES 08/26/16) lidocaine (SVT 08/26/16) oxycodone (From Percocet) (ITCHY 08/26/16) Disposition Summary Disposition Principal Diagnosis: Acute on chronic hypoxemic hypercarbic respiratory failure most likely secondary to bronchitis Additional Diagnosis: [place] disease Discharge Disposition: home or self care Discharge Instructions General Discharge Information Code Status: Full Code Patient's Diet: Regular as tolerated Patient's Activity: Normal activity as tolerated Follow-Up Instructions/Appts: Please follow-up with your primary care doctor within 1 week Please follow with your 8th grade teacher within 1 week Please follow-up with your psychiatrics within 4 days and ask for Depakote level. Medications at Discharge Discharge Medications: Continue taking these medications: Fexofenadine/Pseudoephedrine (Shannan-D 24 Hour Tablet) 180 MG-240 MG TAB.ER.24H 1 Tablet ORAL DAILY Comments: NOT GIVEN AT HOSPITAL Fluticasone Propionate (Flonase Allergy Relief) 50 MCG/ACTUATION SPRAY.SUSP 1 [place] In the nose TWICE DAILY Comments: NOT GIVEN AT HOSPITAL Aspirin/Acetaminophen/Caffeine (Excedrin Migraine Caplet) 250 MG-250 MG-65 MG TABLET 1 Tablet ORAL DAILY Comments: NOT GIVEN IN HOSPITAL Propranolol HCl (Propranolol HCl ER) 120 MG CAP.SA.24H 1 Capsule ORAL TWICE DAILY Comments: Last Taken: 10/04/16 Time: 800 AM Montelukast Sodium (Montelukast Sodium) 10 MG TABLET 1 Tablet ORAL TAKE AT BEDTIME Qty = 30 Comments: Last Taken: 10/03/16 Time: 1000 PM Budesonide/Formoterol Fumarate (Symbicort 160-4.5 Mcg Inhaler) 160 MCG-4.5 MCG/ ACTUATION HFA.AER.AD 2 Puff Inhale through mouth TWICE DAILY Qty = 10 Comments: Last Taken: 10/04/16 Time: 8AM Valacyclovir HCl (Valacyclovir) 1,000 MG TABLET 1 Tablet ORAL DAILY Qty = 28 Comments: Last Taken: 10/04/16 Time: 800 AM Tramadol HCl (Tramadol HCl) 50 MG TABLET 1 Tablet ORAL EVERY SIX HOURS NEEDED as needed for PAIN SCALE 7-10 ( SEVERE) Comments: Last Taken: 10/04/16 Time: 800 PM Albuterol Sulfate (Albuterol Sulfate) 2.5 MG/3 ML (0.083 %) VIAL.NEB 3 [place] Inhale through mouth THREE TIMES DAILY as needed for asthma Qty = 5 Comments: Last Taken: 10/04/16 Time: 8:00AM Multivitamin (One Daily Multivitamin) 1 EACH TABLET 1 Tablet ORAL DAILY Qty = 30 Comments: NOT GIVEN AT HOSPITAL Amlodipine Besylate (Norvasc) 10 MG TABLET 1 Tablet ORAL DAILY Qty = 30 Comments: Last Taken: Time: 800AM Albuterol Sulfate (Ventolin Hfa) 90 MCG HFA.AER.AD 2 Puff Inhale through mouth EVERY 4-6 HOURS NEEDED as needed for asthma Qty = 1 Comments: DID NOT RECIEVE IN HOSPITAL Nicotine Polacrilex (Nicotine Gum) 4 MG GUM 4 Milligram ORAL Q6H as needed for SMOKING CESSATION Comments: NOT GIVEN IN HOSPTIAL Levothyroxine Sodium (Synthroid) 88 MCG TABLET 1 Tablet ORAL DAILY Comments: Last Taken: 10/04/16 Time: 0600 AM Alprazolam (Alprazolam) 0.5 MG TABLET 1 Tablet ORAL as needed for ANXIETY Comments: Last Taken: 10/03/16 Time: 10PM Quetiapine Fumarate (Quetiapine Fumarate) 50 MG TABLET 100 Milligram ORAL Every night Qty = 90 Comments: NOT GIVEN AT HOSPITAL Cyclobenzaprine HCl (Cyclobenzaprine HCl) 5 MG TABLET 1 Tablet ORAL as needed for MUSCLE SPASMS Qty = 60 Comments: NOT GIVEN AT HOSPITAL Quetiapine Fumarate (Seroquel) 50 MG TABLET 1 Tablet ORAL Every night as needed for MENTAL HEALTH/SLEEP Comments: NOT GIVEN AT HOSPITAL Fluconazole (Fluconazole) 100 MG TABLET 1 Tablet ORAL DAILY Comments: Last Taken: 10/04/16 Time: 800AM Prednisone (Prednisone) 10 MG TABLET 1 Tablet ORAL DAILY Comments: NOT GIVEN AT HOSPITAL Start taking the following new medications: Azithromycin (Azithromycin) 250 MG TABLET 250 Milligram ORAL 2200 Qty = 2 No Refills Comments: PO NOT GIVEN WHILE HOSPITALIZED IV GIVEN LAST: 10/03/16 TIME: 9:00 PM Prednisone (Prednisone) 10 MG TABLET 1 Tablet ORAL DAILY Qty = 42 No Refills Instructions: 5 TAB x 3 DAYS 4 TAB x 3 DAYS 3 TAB X 3 DAYS 2 TAB X 3 DAYS THEN GO BACK TO YOUR REGULAR STEROID 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 Comments: Last Taken: 10/04/16 Time: 800 AM DOSE: 60 MG Divalproex Sodium (Divalproex Sodium ER) 250 MG TAB.ER.24H 1 Tablet ORAL DAILY,1000 Qty = 30 No Refills Comments: NOT GIVEN IN HOSPITAL The following medications have been changed: Old: Divalproex Sodium (Divalproex Sodium ER) 500 MG TAB.ER.24H 2 Tablet ORAL Every night Qty = 60 New: Divalproex Sodium (Divalproex Sodium ER) 500 MG TAB.ER.24H 1 Tablet ORAL Every night Qty = 60 Comments: Last Taken: 10/04/16 Time: 800 AM Copies To: KENN JAIN,RACHELE Barker; KENNA JAIN,GUANAKITO
--- NOTE | 2016-10-04 11:31 | PN- Pulmonary ---
Subjective HPI/Critical Care Issues: pt seen and examined afebrile 95% on 3LNC comfortable cxr normal 10/01 feels well and anticipating dc Objective Current Medications: Current Medications Sig/Rosio Start time Last Medication Dose Route Stop Time Status Admin Acetaminophen 650 MG Q6P PRN 10/02 0100 AC PO Albuterol Sulfate 3 ML EVERY 4 HRS/AWAKE 10/02 0815 AC 10/04 INH 0818 Alprazolam 0.5 MG BID PRN 10/02 1145 AC 10/03 PO 10/09 1144 2204 Amlodipine Besylate 10 MG DAILY 10/02 1000 AC 10/04 PO 0845 Azithromycin 250 MG 10/040 AC PO Azithromycin 500 MG 10/02 DC 10/03 Sodium Chloride 250 ML IV 2144 Budesonide/ 2 PUF BID 10/01 2199 AC 10/04 Formoterol Fumarate INH 0845 Cyanocobalamin 1,000 MCG DAILY 10/02 1000 AC 10/04 PO 0846 Divalproex Sodium 500 MG 0800,10/02 2000 AC 10/04 PO 0843 Fluconazole 100 MG DAILY 10/02 1000 AC 10/04 PO 10/06 1001 0844 Folic Acid 1 MG DAILY 10/02 1000 AC 10/04 PO 0844 Heparin Sodium 5,000 UNIT Q8 10/010 AC 10/02 (Porcine) SC 1443 Ibuprofen 400 MG Q6 10/03 2359 DC PO Ibuprofen 400 MG Q6P PRN 10/03 2245 AC 10/03 PO 2350 Ibuprofen 400 MG ONCE ONE 10/03 1415 DC 10/03 PO 10/03 1416 1417 Ipratropium [place] 2.5 ML EVERY 4 HRS/AWAKE 10/02 0815 AC 10/04 INH 0818 Levothyroxine Sodium 0.088 MG DAILY AC 10/02 0700 AC 10/04 PO 0548 Lorazepam 0.5 MG Q4H PRN 10/02 1545 AC 10/04 PO 10/09 1544 0551 Lorazepam 1 MG Q4H PRN 10/02 1545 AC PO Mirtazapine 7.5 MG AT BEDTIME PRN 10/02 1445 AC 10/03 PO 2350 Montelukast Sodium 10 MG AT BEDTIME 10/01 2215 AC 10/03 PO 2145 Nicotine 7 MG DAILY 10/02 1000 AC TOP Prednisone 60 MG DAILY 10/03 1000 AC 10/04 PO 0845 Propranolol HCl 120 MG BID 10/02 1000 AC 10/04 PO 0844 Thiamine HCl 50 MG DAILY 10/02 1000 AC 10/04 PO 0846 Tramadol HCl 50 MG Q6P PRN 10/01 2215 AC 10/03 PO 2011 Valacyclovir HCl 1,000 MG DAILY 10/02 1000 AC 10/04 PO 0845 Vital Signs & I&O Last 24 Hrs of Vitals and I&O: Vital Signs Date Time Temp Pulse Resp B/P Pulse O2 O2 Flow FiO2 Ox Delivery Rate 10/04 0845 74 138/86 10/04 0844 74 138/86 10/04 0821 95 Nasal 3.0L Cannula 10/04 0800 95 Nasal 2.0L Cannula 10/04 0619 98.4 74 20 138/86 93 Nasal 2.0L Cannula 10/04 0000 Nasal 2.0L Cannula 10/03 2245 98.0 88 21 144/84 94 Nasal 2.0L Cannula 10/03 2145 88 144/84 10/03 1655 85 Room Air 10/03 1600 96 Nasal 2.0L Cannula 10/03 1406 98.1 93 20 136/82 96 Nasal 2.0L Cannula 10/03 1400 98.1 93 20 136/82 Intake & Output 10/04 1600 10/04 0800 10/04 0000 Intake Total 120 510 Output Total Balance 120 510 Intake, IV 270 Intake, Oral 120 240 Exam Other Physical Findings: gen awake and alert heent ncat cvs s1, s2 lungs rare rhonchi abd soft bs+ ext non pitting edema Results Last 24 Hrs of Lab Results: Laboratory Tests 10/04/16 0720: CBC w Diff NO MAN DIFF REQ, RBC 3.39 L, MCV 98.3, MCH 31.1 H, RDW 17.6 H, MPV 7.9, Gran % 73.8, Lymphocytes % 21.2, Monocytes % 4.5, Eosinophils % 0.1, Basophils % 0.4, Absolute Granulocytes 10.1 H, Absolute Lymphocytes 2.9, Absolute Monocytes 0.6, Absolute Eosinophils 0, Absolute Basophils 0.1, PUBS MCHC 31.6 L Impression/Plan Impression/Plan Impression/Plan: Impression 45 year old woman * reactive airway disease * tobacco dependence * improved hypoxemic respiratory failure * 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
--- NOTE | 2016-10-04 14:10 | PN- Psychiatry ---
Assessment/Plan Impression: Agree with lowering Depakote ER to 250 mg qAM and 500 mg qHS, despite not being at an optimum therapeutic lab level, due to concern that this med may be contributing to bronchospasm. I reviewed this with pharmacy, who could not find a reference citing this as a side effect. Pharmacy will review the rest of the medication regimen and report back to the medical staff or myself if other possible causes of bronchospasm found. We will agree to this lowering of Depakote, provided that the patient calls her current treating psychiatrist, Dr. Lazaro Resendiz, upon discharge to make a follow -up appointment, so that he can review this medication. The patient had stopped Depakote about one month ago, but did not do well, becoming hypomanic and not sleeping. She reports she wants to go on Prozac, and will discuss with her psychiatrist, Dr. Resendiz. Suggestion: 1. Depakote level for Tuesday morning at trough. 2. Patient is to call and see her psychiatrist within one week. thank-you for asking us to assist with Jackie's care. Venessa Garcia APRN, Pager [phone] Subjective Subjective: The patient was seen today, 10/04/16, in room 208, at approx. 1100. She is alert and oriented. Denies AVH; presents no sophie delusions. Denies symptoms of med or hypomania Denies SI/HI Deneis feelings of helplessness, hopelessness or worthlessness.
== END 2016-10-04 12:42 | DRG 189 ==
LOC: ENRESERVTM → ENRESERVDT → ERH 15:44 → ERHI 19:24 → ENPENDDIS 19:24 → EDBEDREQ 21:15 → EDBEDREQTM 21:15 → EDBEDREQ 21:39 → EDBEDREQTM 21:39 → ERHI 21:42 → 1NO 23:23 → 2NB 10-03 14:00
PROVIDERS: Emergency Medicine; Internal Medicine; Internal Medicine Endocrinology, Diabetes & Metabolism; ADMIT Student in an Organized Health Care Education/Training Program
PROC: 5A09357 Assistance with Respiratory Ventilation, Less than 24 Consecutive Hours, Continuous Positive Airway Pressure (ICD-10-PCS; principal; 2016-10-02)
DX: J96.21 Acute and chronic respiratory failure with hypoxia (principal); N17.9 Acute kidney failure, unspecified; B37.0 Candidal stomatitis; E87.1 Hypo-osmolality and hyponatremia; E27.1 Primary adrenocortical insufficiency; J44.0 Chronic obstructive pulmonary disease with (acute) lower respiratory infection; Z68.42 Body mass index [BMI] 45.0-49.9, adult; F13.20 Sedative, hypnotic or anxiolytic dependence, uncomplicated; E66.2 Morbid (severe) obesity with alveolar hypoventilation; J44.1 Chronic obstructive pulmonary disease with (acute) exacerbation; E86.0 Dehydration; J96.22 Acute and chronic respiratory failure with hypercapnia; J20.9 Acute bronchitis, unspecified; E06.3 Autoimmune thyroiditis; F41.9 Anxiety disorder, unspecified; I10 Essential (primary) hypertension; M54.42 Lumbago with sciatica, left side; F10.20 Alcohol dependence, uncomplicated; A60.00 Herpesviral infection of urogenital system, unspecified; F31.9 Bipolar disorder, unspecified; Z79.52 Long term (current) use of systemic steroids; F17.200 Nicotine dependence, unspecified, uncomplicated
CPT/HCPCS: 1NP; 2NBP; 84133; 84300; 36415; 80307; 81001; 82436; 82570; 87070; 87804; 87804-59; 93005; 93010; 96361; 96374; 96375; 99232; 99291; G0480; J0456; J1644; J2930; J3490; J7040

== ENCOUNTER 2016-11-06 22:40 | Emergency (ER) | payer OTHER ==
[~2016-11-06] VITALS: Ht 157.5 cm; Wt 113.4 kg
[~2016-11-06 22:40] MED LIST changes: +AZITHROMYCIN250 M1 PO; +DIVALPROEX SOD250 M2 PO; +DIVALPROEX SOD250 M3 PO; +FLUCONAZOLE100 M1 PO; +SEROQUEL50 M1 PO
--- NOTE | 2016-11-06 22:47 | ED DYSPNEA/ASTHMA COMPLAINT ---
History of Present Illness General Chief Complaint: Dyspnea (COPD, CHF, Other) Stated Complaint: SOB Source: patient, old records Exam Limitations: no limitations Vital Signs & Intake/Output Vital Signs & Intake/Output Vital Signs Date Time Temp Pulse Resp B/P B/P Pulse O2 O2 Flow FiO2 Mean Ox Delivery Rate 11/06 2352 98.2 87 18 139/87 92 Nasal 3.0L Cannula 11/06 2313 92 Nasal 2.0L Cannula 11/06 2242 97.6 90 20 123/74 93 Nasal 2.0L Cannula Allergies Coded Allergies: apple (Intermediate, HIVES FROM APPLE CIDER 08/26/16) hydromorphone (Intermediate, LIP SWELLING 08/26/16) phenytoin (Intermediate, HIVES 08/26/16) lidocaine (SVT 08/26/16) oxycodone (From Percocet) (ITCHY 08/26/16) valsartan (From DIOVAN) (ACUTE RENAL FAILURE 11/06/16) Reconcile Medications Albuterol Sulfate 2.5 MG/3 ML (0.083 %) VIAL.NEB 3 ML INH TID PRN asthma Albuterol Sulfate (Ventolin Hfa) 90 MCG HFA.AER.AD 2 PUF INH Q4-6 PRN PRN asthma Alprazolam 0.5 MG TABLET 1 TAB PO PRN ANXIETY (Reported) Amlodipine Besylate (Norvasc) 10 MG TABLET 1 TAB PO DAILY hypertension Aspirin/Acetaminophen/Caffeine (Excedrin Migraine Caplet) 250 MG-250 MG-65 MG TABLET 1 TAB PO DAILY SINUS HEADACHE (Reported) Azithromycin 250 MG TABLET 250 MG PO 2200 BRONCHITIS Budesonide/Formoterol Fumarate (Symbicort 160-4.5 Mcg Inhaler) 160 MCG-4.5 MCG/ ACTUATION HFA.AER.AD 2 PUF INH BID ASTHMA (Reported) Cyclobenzaprine HCl 5 MG TABLET 1 TAB PO PRN MUSCLE SPASMS (Reported) Divalproex Sodium (Divalproex Sodium ER) 500 MG TAB.ER.24H 1 TAB PO QPM INSOMNIA/MENTAL HEALTH Divalproex Sodium (Divalproex Sodium ER) 250 MG TAB.ER.24H 1 TAB PO DAILY,1000 mood Fexofenadine/Pseudoephedrine (Shannan-D 24 Hour Tablet) 180 MG-240 MG TAB.ER.24H 1 TAB PO DAILY ALLERGIES (Reported) Fluconazole 100 MG TABLET 1 TAB PO DAILY ORAL THRUSH (Reported) Fluticasone Propionate (Flonase Allergy Relief) 50 MCG/ACTUATION SPRAY.SUSP 1 SPRAY ELLA BID ALLERGIES (Reported) Levofloxacin (Levaquin) 500 MG TABLET 1 TAB PO DAILY PNEUMONIA Levothyroxine Sodium (Synthroid) 88 MCG TABLET 1 TAB PO DAILY THYROID ( Reported) Montelukast Sodium 10 MG TABLET 1 TAB PO QHS ASTHMA (Reported) Multivitamin (One Daily Multivitamin) 1 EACH TABLET 1 TAB PO DAILY supplement Nicotine Polacrilex (Nicotine Gum) 4 MG GUM 4 MG PO Q6H PRN SMOKING CESSATION (Reported) Prednisone 10 MG TABLET 1 TAB PO DAILY BRONCHOSPASM (Reported) Prednisone 10 MG TABLET 1 TAB PO DAILY BREATHING 5 TAB x 3 DAYS 4 TAB x 3 DAYS 3 TAB X 3 DAYS 2 TAB X 3 DAYS THEN GO BACK TO YOUR REGULAR STEROID 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 Propranolol HCl (Propranolol HCl ER) 120 MG CAP.SA.24H 1 CAP PO BID BP ( Reported) Quetiapine Fumarate 50 MG TABLET 100 MG PO QPM MENTAL HEALTH/SLEEP (Reported) Quetiapine Fumarate (Seroquel) 50 MG TABLET 1 TAB PO QPM PRN MENTAL HEALTH/ SLEEP (Reported) Tramadol HCl 50 MG TABLET 1 TAB PO Q6P PRN PAIN SCALE 7-10 (SEVERE) (Reported ) Valacyclovir HCl (Valacyclovir) 1,000 MG TABLET 1 TAB PO DAILY ANTI VIRAL ( Reported) Triage Nurses Notes Reviewed? yes Onset: Gradual Duration: day(s): (6), waxing and waning (today), worse persistent since Timing: recent history Severity: mild, moderate Associated Symptoms: cough, PURULENT SPUTUM HPI: 45 year old female with history of asthma and bronchitis, oxygen PRN at home at night who presents to the ER for chief complaint of shortness of breath for the past 6 days. She used a nebulizer at home and then received one on the way to the hospital via EMS. Denies chest pain. Admits to purulent sputum. No fever or chills. Patient saturating 90-92% on arrival. Patient follows up with Dr. Hilton, currently on prednisone 10 mg daily. She states she has gained 100 lbs secondary to weight gain in the past year. She states that if she tapers down from 10mg per day that her symptoms get worse. Current smoker. Past History Travel History Traveled to [place] past 21 day No Medical History Any Pertinent Medical History? 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 No Review of Systems Review of Systems Constitutional: Denies: chills, fever. EENTM: Reports: no symptoms. Respiratory: Reports: cough, short of breath, sputum production. Cardiovascular: Denies: chest pain, palpitations, peripheral edema. GI: Denies: abdominal pain, nausea, vomiting. Genitourinary: Reports: no symptoms. Musculoskeletal: Reports: no symptoms. Skin: Reports: no symptoms. Neurological/Psychological: Reports: no symptoms. Hematologic/Endocrine: Denies: bruising, bleeding. Immunologic/Allergic: Denies: splenectomy. All Other Systems: Reviewed and Negative Physical Exam Physical Exam General Appearance: well developed/nourished, alert, awake, anxious, mild distress, moderate distress, obese Head: atraumatic, normal appearance Eyes: Bilateral: normal appearance, PERRL. Ears, Nose, Throat: normal pharynx, normal ENT inspection, hearing grossly normal Neck: normal inspection, supple, full range of motion Respiratory: decreased breath sounds, wheezing Cardiovascular: regular rate/rhythm Peripheral Pulses: 2+ radial (R), 2+ radial (L) Gastrointestinal: normal bowel sounds, soft Extremities: normal inspection, normal range of motion, no edema Neurologic/Psych: no motor/sensory deficits, awake, alert, oriented x 3 Skin: intact, normal color, warm/dry Core Measures ACS in differential dx? No Severe Sepsis Present: No Septic Shock Present: No Progress Differential Diagnosis: asthma, bronchitis, CHF, COPD, pulmonary embolism, pneumothorax Plan of Care: Orders Procedure Date/time Status RT ED ORDERS 11/06 2300 Active Current Medications Sig/Rosio Start time Last Medication Dose Stop Time Status Admin Prednisone 50 MG ONCE ONE 11/065 UNVr 11/06 11/06 2346 2352 Diagnostic Imaging: Viewed by Me: Radiology Read. Discussed w/RAD: Radiology Read. CXR Impression: PATIENT: VENICE DAWKINS PRESENT AGE: 45 PATIENT ACCOUNT NO: [id number] : 71 LOCATION: ER ORDERING PHYSICIAN: JANETH WILSON MD SERVICE DATE: 11/06/16 EXAM TYPE: RAD - XRY-PORTABLE CHEST XRAY EXAMINATION: XR PORTABLE CHEST CLINICAL INFORMATION: Respiratory distress COMPARISON: Chest x-ray 10/01/2016 TECHNIQUE: Portable frontal view of the chest was obtained. FINDINGS: No significant abnormality is noted involving the heart, lungs, mediastinum, bony thorax or soft tissues. IMPRESSION: No acute abnormality of the chest. DICTATED BY: BEATRICE URIARTE MD DATE/TIME DICTATED:2318 CLINICAL ASSESSMENT MANAGER:SMILEY DATE/TIME TRANSCRIBED:11/06/162318 CONFIDENTIAL, DO NOT COPY WITHOUT APPROPRIATE AUTHORIZATION. <Electronically signed in Other Vendor System> SIGNED BY: BEATRICE URIARTE MD 11/06/162323 Initial ED EKG: none Departure Departure Time of Disposition: 2354 Disposition: HOME OR SELF CARE Condition: Stable Clinical Impression Primary Impression: Bronchitis Referrals: KENN JAIN,RACHELE Braker (PCP/Family) GUANAKITO HILTON MD Additional Instructions: Take the Levaquin as directed. Increase her prednisone for the next few days as discussed. Please follow-up with Dr. Hilton in the office. Use your albuterol nebulizer treatments and your oxygen as needed. Return if worse. Departure Forms: Customer Survey General Discharge Information Prescriptions: Current Visit Scripts Levofloxacin (Levaquin) 1 TAB PO DAILY #7 TAB Critical Care Note Critical Care Note Critical Care Time: non-applicable
--- NOTE | 2016-11-06 23:24 | RADIOLOGY REPORT ---
EXAMINATION: XR PORTABLE CHEST CLINICAL INFORMATION: Respiratory distress COMPARISON: Chest x-ray 10/01/2016 TECHNIQUE: Portable frontal view of the chest was obtained. FINDINGS: No significant abnormality is noted involving the heart, lungs, mediastinum, bony thorax or soft tissues. IMPRESSION: No acute abnormality of the chest.
[2016-11-06 23:52] VITALS: BP 139/87
[2016-11-06] MEDS ORDERED: LEVAQUIN500 M1 PO (23:56)
== END 2016-11-07 00:02 ==
LOC: ERH 22:40
DX: J40 Bronchitis, not specified as acute or chronic (principal); Z72.0 Tobacco use
CPT/HCPCS: 1263; J7512

== ENCOUNTER 2016-12-07 11:51 | Emergency (ER) | payer OTHER ==
[~2016-12-07] VITALS: Ht 157.5 cm; Wt 113.4 kg
--- NOTE | 2016-12-07 12:33 | ED CARDIAC/CP/PALPITATIONS ---
History of Present Illness General Chief Complaint: Dyspnea (COPD, CHF, Other) Stated Complaint: LOW O2 SAT Source: patient, old records Exam Limitations: no limitations Vital Signs & Intake/Output Vital Signs & Intake/Output Vital Signs Date Time Temp Pulse Resp B/P B/P Pulse O2 O2 Flow FiO2 Mean Ox Delivery Rate 12/07 1525 97.5 98 18 142/68 97 Room Air Room Air 12/07 1415 97.0 100 19 145/70 12/07 1415 97.0 100 18 145/70 97 Nasal 2.0L Cannula 12/07 1332 103 146/63 12/07 1255 95 Nasal 2.0L Cannula 12/07 1250 96.3 124 20 161/91 12/07 1202 96.3 124 20 96 Nasal 2.0L Cannula Allergies Coded Allergies: apple (Intermediate, HIVES FROM APPLE CIDER 08/26/16) hydromorphone (Intermediate, LIP SWELLING 08/26/16) phenytoin (Intermediate, HIVES 08/26/16) lidocaine (SVT 08/26/16) oxycodone (From Percocet) (ITCHY 08/26/16) valsartan (From DIOVAN) (ACUTE RENAL FAILURE 11/06/16) Reconcile Medications Albuterol Sulfate 2.5 MG/3 ML (0.083 %) VIAL.NEB 3 ML INH TID PRN asthma Albuterol Sulfate (Ventolin Hfa) 90 MCG HFA.AER.AD 2 PUF INH Q4-6 PRN PRN asthma Alprazolam 0.5 MG TABLET 1 TAB PO PRN ANXIETY (Reported) Amlodipine Besylate (Norvasc) 10 MG TABLET 1 TAB PO DAILY hypertension Aspirin/Acetaminophen/Caffeine (Excedrin Migraine Caplet) 250 MG-250 MG-65 MG TABLET 1 TAB PO DAILY SINUS HEADACHE (Reported) Azithromycin 250 MG TABLET 250 MG PO 2200 BRONCHITIS Budesonide/Formoterol Fumarate (Symbicort 160-4.5 Mcg Inhaler) 160 MCG-4.5 MCG/ ACTUATION HFA.AER.AD 2 PUF INH BID ASTHMA (Reported) Chlordiazepoxide HCl 25 MG CAPSULE 1 CAP PO AD ETOH 2 TABS TID FOR DAY 1 2 TABS BID FOR DAY 2 2 TABS DAILY FOR DAY 3 Cyclobenzaprine HCl 5 MG TABLET 1 TAB PO PRN MUSCLE SPASMS (Reported) Divalproex Sodium (Divalproex Sodium ER) 500 MG TAB.ER.24H 1 TAB PO QPM INSOMNIA/MENTAL HEALTH Divalproex Sodium (Divalproex Sodium ER) 250 MG TAB.ER.24H 1 TAB PO DAILY,1000 mood Fexofenadine/Pseudoephedrine (Shannan-D 24 Hour Tablet) 180 MG-240 MG TAB.ER.24H 1 TAB PO DAILY ALLERGIES (Reported) Fluconazole 100 MG TABLET 1 TAB PO DAILY ORAL THRUSH (Reported) Fluticasone Propionate (Flonase Allergy Relief) 50 MCG/ACTUATION SPRAY.SUSP 1 SPRAY ELLA BID ALLERGIES (Reported) Levofloxacin (Levaquin) 500 MG TABLET 1 TAB PO DAILY PNEUMONIA Levothyroxine Sodium (Synthroid) 88 MCG TABLET 1 TAB PO DAILY THYROID ( Reported) Montelukast Sodium 10 MG TABLET 1 TAB PO QHS ASTHMA (Reported) Multivitamin (One Daily Multivitamin) 1 EACH TABLET 1 TAB PO DAILY supplement Nicotine Polacrilex (Nicotine Gum) 4 MG GUM 4 MG PO Q6H PRN SMOKING CESSATION (Reported) Prednisone 10 MG TABLET 1 TAB PO DAILY BRONCHOSPASM (Reported) Prednisone 10 MG TABLET 1 TAB PO DAILY BREATHING 5 TAB x 3 DAYS 4 TAB x 3 DAYS 3 TAB X 3 DAYS 2 TAB X 3 DAYS THEN GO BACK TO YOUR REGULAR STEROID 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 Propranolol HCl (Propranolol HCl ER) 120 MG CAP.SA.24H 1 CAP PO BID BP ( Reported) Propranolol HCl (Propranolol HCl ER) 120 MG CAP.SA.24H 1 CAP PO BID HTN Quetiapine Fumarate 50 MG TABLET 100 MG PO QPM MENTAL HEALTH/SLEEP (Reported) Quetiapine Fumarate (Seroquel) 50 MG TABLET 1 TAB PO QPM PRN MENTAL HEALTH/ SLEEP (Reported) Tramadol HCl 50 MG TABLET 1 TAB PO Q6P PRN PAIN SCALE 7-10 (SEVERE) (Reported ) Valacyclovir HCl (Valacyclovir) 1,000 MG TABLET 1 TAB PO DAILY ANTI VIRAL ( Reported) Triage Note: C/O "HEART RACING", CHEST PAIN THIS AM, WITH LOW 02 SAT (77%). STATES SHE IS 02 DEPENDENT DUE TO COPD ANS ASTHMA. EKG DONE ON ARRIVAL. Triage Nurses Notes Reviewed? yes Onset: Abrupt Duration: day(s):, constant, getting worse Timing: recent history Radiation: no radiation : No Patient currently breastfeeds: No HPI: 46-year-old female with a complex medical history comes into emergency room with primarily complaints of increased heart rate since this morning with palpitations. Patient reports that she ran out of her propranolol 120 mg extended release that she takes twice daily. She did not take her dose this morning. She also admits that she's been drinking alcohol recently over the past month heavily 2 pints a day. She reports that her last drink was around 2 AM last night. She denies any chest pain. She has chronic shortness of breath which is her normal baseline. Denies any vomiting. Patient has intermittent oxygen that she uses at home. She is supposed to Dr. flores who is going to be her new primary care doctor today. Denies any other associated symptoms. (MARCUS ORNELAS) Past History Travel History Traveled to [place] past 21 day No Medical History Any Pertinent Medical History? 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 No (MARCUS ORNELAS) Review of Systems Review of Systems Constitutional: Reports: no symptoms. EENTM: Reports: no symptoms. Respiratory: Reports: see HPI. Cardiovascular: Reports: see HPI. GI: Reports: no symptoms. Genitourinary: Reports: no symptoms. Musculoskeletal: Reports: no symptoms. Skin: Reports: no symptoms. Neurological/Psychological: Reports: see HPI. Hematologic/Endocrine: Reports: no symptoms. Immunologic/Allergic: Reports: no symptoms. All Other Systems: Reviewed and Negative (MARCUS ORNELAS) Physical Exam Physical Exam General Appearance: well developed/nourished, alert, awake Head: atraumatic, normal appearance Eyes: Bilateral: normal appearance, EOMI. Ears, Nose, Throat: normal ENT inspection, hearing grossly normal Neck: normal inspection, full range of motion Respiratory: normal breath sounds, no respiratory distress Cardiovascular: regular rate/rhythm, tachycardia Gastrointestinal: soft, non-tender Back: normal inspection Extremities: normal inspection, normal range of motion, no edema Neurologic/Psych: awake, alert, oriented x 3, normal gait, normal mood/affect Skin: intact, normal color Core Measures ACS in differential dx? Yes Severe Sepsis Present: No Septic Shock Present: No (DES HOLLAND,MARCUS) Progress Differential Diagnosis: AMI, aortic dissection, atrial fibrillation, hyperthyroid, hyperventilation, musculoskeletal pain, myocarditis, pancreatitis, pericarditis, pneumonia, pneumothorax, pulmonary embolism, PUD/GERD, PVCs/PACs, respiratory failure, rib fracture, sepsis, unstable angina, V-fib/V-Tach Plan of Care: Orders Procedure Date/time Status EKG 12/07 1415 Active CIWA 12/07 1225 Active TROPONIN LEVEL 12/07 1225 Complete ETHANOL 12/07 1225 Complete COMPREHENSIVE METABOLIC PANEL 12/07 1225 Complete CBC WITHOUT DIFFERENTIAL 12/07 1225 Complete EKG 12/07 1152 Active Laboratory Tests 12/07/16 1234: Anion Gap 8, Estimated GFR > 60, BUN/Creatinine Ratio 10.0, Glucose 115 H, Calcium 9.1, Total Bilirubin 0.9, AST 87 H, ALT 91 H, Alkaline Phosphatase 105 , Troponin I 0.01, Total Protein 6.2 L, Albumin 3.5, Globulin 2.7, Albumin/ Globulin Ratio 1.3, CBC w Diff MAN DIFF ORDERED, RBC 4.17 L, MCV 89.6, MCH 28.5 , RDW 17.6 H, MPV 6.4 L, Gran % 86.7 H, Lymphocytes % 10.6 L, Monocytes % 2.1, Eosinophils % 0.5, Basophils % 0.1, Absolute Granulocytes 10.7 H, Segmented Neutrophils 83 H, Absolute Lymphocytes 1.3, Lymphocytes 11 L, Monocytes 5, Absolute Monocytes 0.3, Eosinophils 1, Absolute Eosinophils 0.1, Absolute Basophils 0, Platelet Estimate ADEQUATE, Normocytic RBCs VERIFIED, Normochromic RBCs VERIFIED, Polychromasia 1+, Basophilic Stippling , Stomatocytes 2+, PUBS MCHC 31.9 L, Serum Alcohol < 10.0 12/07/16 1225: Methadone Screen Cancelled, Barbiturate Screen Cancelled, Ur Phencyclidine Scrn Cancelled, Amphetamines Screen Cancelled, U Benzodiazepines Scrn Cancelled, Urine Cocaine Screen Cancelled, Urine Cannabis Screen Cancelled, Urine Color Cancelled, Urine Clarity Cancelled, Urine pH Cancelled, Ur Specific [place] Cancelled, Urine Protein Cancelled, Urine Ketones Cancelled, Urine Nitrite Cancelled, Urine Bilirubin Cancelled, Urine Urobilinogen Cancelled, Ur Leukocyte Esterase Cancelled, Ur Microscopic Cancelled, Urine Hemoglobin Cancelled, Urine Glucose Cancelled Diagnostic Imaging: Viewed by Me: Radiology Read. Discussed w/RAD: Radiology Read. Radiology Impression: EXAM TYPE: RAD - XRY-PORTABLE CHEST XRAY EXAMINATION: XR PORTABLE CHEST CLINICAL INFORMATION: Shortness of breath COMPARISON: 11/06/2016 TECHNIQUE: Portable frontal view of the chest was obtained. FINDINGS: No focal consolidation, pulmonary edema, or pleural effusion. Stable cardiomediastinal silhouette. IMPRESSION: No acute cardiopulmonary findings. No change. Initial ED EKG: normal sinus rhythm, rate (133) Repeat EKG: changed (improved, NSR, rate 98) (DES HOLLAND,MARCUS) Departure Departure Disposition: HOME OR SELF CARE Condition: Stable Clinical Impression Primary Impression: Tachycardia Secondary Impressions: ETOH abuse Referrals: KENN JAIN,RACHELE Barker Additional Instructions: Take propranolol and Librium as prescribed. Follow-up with your primary care doctor. Return if any concerns worsening symptoms. Please go over all results of today's visit with your primary care doctor. Contact your primary care doctor to let them know you were here in the emergency room. There may be nonspecific findings which may not be related to your visit today here in the emergency room but may require further evaluation and chronic monitoring by your primary care doctor. If you had a laceration today the chance of foreign body always remains. You should follow-up with your primary care doctor for recheck in 3-5 days for a wound check. If you had an x-ray done there is a chance that a fracture could have been missed on initial read and you should follow-up with your primary care doctor for repeat x-rays if symptoms persist. If your blood pressure was elevated here in the emergency room please have rechecked by her primary care doctor within the next 48 hours by your primary care doctor. If you were prescribed a narcotic here in the emergency room or any type of controlled substances you're not allowed to drive while taking this medication or operate any type of heavy machinery. Narcotics can make you feel lightheaded dizziness nausea and can cause constipation. 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 Thank you for choosing [facility] emergency room. Please return to the emergency room immediately if you have any other concerns worsening of symptoms. Departure Forms: Customer Survey General Discharge Information Prescriptions: Current Visit Scripts Propranolol HCl (Propranolol HCl ER) 1 CAP PO BID #60 CAP Chlordiazepoxide HCl 1 CAP PO AD #12 CAP 2 TABS TID FOR DAY 1 2 TABS BID FOR DAY 2 2 TABS DAILY FOR DAY 3 Comments 12/07/2016 3:07:20 PM Patient feels better than when she came in. She has not had any chest pain here in the emergency room. Patient reported that she felt spasming in her chest and thats why the EKG was repeated. Patient told the nurse that it was muscular and she gets these spasming at times. The EKG is significantly improved. She reports that it feels muscular in nature and those symptoms have resolved. Her first troponin was negative. Her difficulty breathing is baseline for her and she does not appear to be in any type of respiratory distress upon evaluation. Her heart rate has improved after her propranolol. Her CIWA score was 0 according to the nurse. She does not meet criteria for inpatient detox. Patient will be given oral medications to go home with for outpatient detox. Patient was instructed to follow-up with her new primary care doctor. Case was dsicussed with dr bello. Refill on propranolol. Discussed with the patient about getting a third EKG as well as a second troponin. She does not feel that this is heart related at all and she was here only primarily for her tachycardia due to the fact that she ran out of her propranolol. She currently has no chest pain and looks well. She feels better patient be discharged with close follow- up with primary care doctor instructed to return if any concerns worsening symptoms. (MARCUS ORNELAS) PA/FORKLIFT WHEEL LOADER Co-Sign Statement Statement: ED Attending supervision documentation- [] I saw and evaluated the patient. I have also reviewed all the pertinent lab results and diagnostic results. I agree with the findings and the plan of care as documented in the PA's/FORKLIFT WHEEL LOADER's documentation. [X] I have reviewed the ED Record and agree with the PA's/FORKLIFT WHEEL LOADER's documentation. [] Additions or exceptions (if any) to the PAs/FORKLIFT WHEEL LOADER's note and plan are summarized below: [] (STEVE JAIN,JANETH) Critical Care Note Critical Care Note Critical Care Time: non-applicable (MARCUS ORNELAS)
[2016-12-07 12:43] LABS: ABSOLUTE BASOPHIL COUNT 0 /CUMM (0.0-0.2); ABSOLUTE EOSINOPHIL COUNT 0.1 /CUMM (0.0-0.7); ABSOLUTE GRANULOCYTE CT 10.7 /CUMM (1.4-6.5); ABSOLUTE LYMPH COUNT 1.3 /CUMM (1.2-3.4); ABSOLUTE MONOCYTE COUNT 0.3 /CUMM (0.10-0.60); BASOPHIL % 0.1 % (0.0-2.0); EOSINOPHIL % 0.5 % (0-5); GRANULOCYTE % 86.7 % (42.2-75.2); HEMATOCRIT 37.4 % (37-47); MEAN CORPUSCULAR HGB 28.5 PG (27.0-31.0); MEAN CORPUSCULAR HGB CONC 31.9 G/DL (33.0-37.0); MEAN CORPUSCULAR VOLUME 89.6 FL (81.0-99.0); MEAN PLATELET VOLUME 6.4 FL (7.4-10.4); PLATELET COUNT 257 /CUMM (130-400); RBC DISTRIBUTION WIDTH 17.6 % (11.5-14.5); RED BLOOD CELL CT 4.17 /CUMM (4.20-5.40); WHITE BLOOD CELL COUNT 12.4 /CUMM (4.8-10.8)
--- NOTE | 2016-12-07 13:08 | RADIOLOGY REPORT ---
EXAMINATION: XR PORTABLE CHEST CLINICAL INFORMATION: Shortness of breath COMPARISON: 11/06/2016 TECHNIQUE: Portable frontal view of the chest was obtained. FINDINGS: No focal consolidation, pulmonary edema, or pleural effusion. Stable cardiomediastinal silhouette. IMPRESSION: No acute cardiopulmonary findings. No change.
[2016-12-07] MEDS ORDERED: CHLORDIAZEPOXID25 M3 PO (15:01)
[2016-12-07] MEDS ORDERED: PROPRANOLOL HC120 M1 PO (15:01)
[2016-12-07 15:25] VITALS: BP 142/68
== END 2016-12-07 15:26 ==
LOC: ERH 11:51
PROVIDERS: Physician Assistant Medical
DX: R00.0 Tachycardia, unspecified (principal); F10.10 Alcohol abuse, uncomplicated; R07.9 Chest pain, unspecified
CPT/HCPCS: 80307; 93005; 93010; G0480

== ENCOUNTER 2017-09-01 19:26 | Inpatient (IN) | payer OTHER ==
[~2017-09-01] VITALS: Ht 157.5 cm; Wt 113.4 kg
[~2017-09-01 19:26] MED LIST changes: +ATORVASTATIN CA40 M1 PO; +CHLORDIAZEPOXID25 M3 PO; +NORCO 7.5-3251 EACH PO; +PERCOCET 5-3251 EACH PO; +TESSALON PERLE100 M1 PO
--- NOTE | 2017-09-01 19:58 | ED DYSPNEA/ASTHMA COMPLAINT ---
History of Present Illness General Chief Complaint: Dyspnea (COPD, CHF, Other) Stated Complaint: SOB Source: patient, old records Exam Limitations: no limitations Vital Signs & Intake/Output Vital Signs & Intake/Output Vital Signs Date Time Temp Pulse Resp B/P B/P Pulse O2 O2 Flow FiO2 Mean Ox Delivery Rate 09/01 2234 94 Nasal 3.0L Cannula 09/01 2231 97.6 09/01 2222 95.8 78 16 144/76 95 Room Air 09/01 2134 97.4 72 22 110/60 95 Room Air 09/01 1946 95 Nasal 3.0L Cannula 09/01 1936 97.9 76 22 111/57 93 Nasal 3.0L Cannula ED Intake and Output 09/02 0000 09/01 1200 Intake Total Output Total Balance Patient 247 lb Weight Weight Reported by Patient Measurement Method Allergies Coded Allergies: apple (Intermediate, HIVES FROM APPLE CIDER 02/15/17) hydromorphone (Intermediate, LIP SWELLING 02/15/17) phenytoin (Intermediate, HIVES 02/15/17) lidocaine (SVT 02/15/17) oxycodone (From Percocet) (ITCHY 02/15/17) valsartan (From DIOVAN) (ACUTE RENAL FAILURE 02/15/17) Reconcile Medications Albuterol Sulfate 2.5 MG/3 ML (0.083 %) VIAL.NEB 3 ML INH TID PRN asthma Albuterol Sulfate (Ventolin Hfa) 90 MCG HFA.AER.AD 2 PUF INH Q4-6 PRN PRN asthma Alprazolam 0.5 MG TABLET 1 TAB PO PRN ANXIETY (Reported) Amlodipine Besylate (Norvasc) 10 MG TABLET 1 TAB PO DAILY hypertension Aspirin/Acetaminophen/Caffeine (Excedrin Migraine Caplet) 250 MG-250 MG-65 MG TABLET 1 TAB PO DAILY SINUS HEADACHE (Reported) Atorvastatin Calcium 40 MG TABLET 1 TAB PO DAILY CHOLESTEROL (Reported) Benzonatate (Tessalon Perle) 100 MG CAPSULE 1 CAP PO TID PRN COUGH Budesonide/Formoterol Fumarate (Symbicort 160-4.5 Mcg Inhaler) 160 MCG-4.5 MCG/ ACTUATION HFA.AER.AD 2 PUF INH BID ASTHMA (Reported) Cyclobenzaprine HCl 5 MG TABLET 1 TAB PO DAILY PRN MUSCLE SPASMS (Reported) Divalproex Sodium (Divalproex Sodium ER) 500 MG TAB.ER.24H 2 TAB PO QPM MENTAL HEALTH (Reported) Fexofenadine/Pseudoephedrine (Shannan-D 24 Hour Tablet) 180 MG-240 MG TAB.ER.24H 1 TAB PO DAILY ALLERGIES (Reported) Fluticasone Propionate (Flonase Allergy Relief) 50 MCG/ACTUATION SPRAY.SUSP 1 SPRAY ELLA BID ALLERGIES (Reported) Hydrocodone/Acetaminophen ([place] 7.5-325 Tablet) 7.5 MG-325 MG TABLET 1 TAB PO BID CHRONIC BACK PAIN Hydrocodone/Acetaminophen (Vicodin 5-300 MG Tablet) 5 MG-300 MG TABLET 1 TAB PO BID PRN PAIN Levothyroxine Sodium (Synthroid) 88 MCG TABLET 1 TAB PO DAILY THYROID ( Reported) Montelukast Sodium 10 MG TABLET 1 TAB PO QHS ASTHMA (Reported) Multivitamin (One Daily Multivitamin) 1 EACH TABLET 1 TAB PO DAILY supplement Prednisone 10 MG TABLET 1 TAB PO DAILY STEROID (Reported) Propranolol HCl (Propranolol HCl ER) 120 MG CAP.SA.24H 1 CAP PO BID HTN Quetiapine Fumarate (Seroquel) 50 MG TABLET 3 TAB PO QPM PRN MENTAL HEALTH/ SLEEP (Reported) Tramadol HCl 50 MG TABLET 1 TAB PO Q6P PRN PAIN Triage Note: 46 Y/O FEMALE BIBA BY FROM HOME WITH C/O EXERTIONAL SOB X 1 WEEK. INCREASE SOB WALKING FROM BATHROOM TO BEDROOM OFF HOME OXYGEN. Triage Nurses Notes Reviewed? yes Onset: Gradual Duration: day(s): Timing: recent history Severity: severe : No Patient currently breastfeeds: No HPI: 46yo female with hx of asthma, alcohol dependence, daily tobacco abuse (1 pack per day) BIBA to ED complaining of dyspnea worsening x one week. Patient states that she checks her oxygen saturation at home and notes oxygen saturation for the past 3 days. Patient states his symptoms are worse with exertion. Patient has supplemental oxygen prescribed intermittently however she's been using oxygen constantly, requiring 3 L at home. Patient arrives intoxicated, reports she drinks several glasses of wine. She states she does not normally drink alcohol however was drinking today because she was upset about her breathing and did not want to come to the hospital. Patient reports chest pain only with cough. Patient reports dry cough intermittently 1 week. Patient reports chronic swelling to left lower extremity times over one year. Patient denies fevers, chills, hemoptysis, abdominal pain, nausea, vomiting. Past History Travel History Traveled to [place] past 21 day No Medical History Any Pertinent Medical History? 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 , Age 70; Cause: Lung cancer. FH: lung cancer FATHER, , Age 75; Cause: SBO (small bowel obstruction). Hx Contributory? No Review of Systems Review of Systems Constitutional: Reports: no symptoms. EENTM: Reports: no symptoms. Respiratory: Reports: see HPI. Cardiovascular: Reports: no symptoms. GI: Reports: no symptoms. Genitourinary: Reports: no symptoms. Musculoskeletal: Reports: no symptoms. Skin: Reports: no symptoms. Neurological/Psychological: Reports: see HPI. Hematologic/Endocrine: Reports: no symptoms. Immunologic/Allergic: Reports: no symptoms. All Other Systems: Reviewed and Negative Physical Exam Physical Exam General Appearance: well developed/nourished, alert, awake, intoxicated, obese Head: atraumatic, normal appearance Eyes: Bilateral: normal appearance. Ears, Nose, Throat: hearing grossly normal Neck: normal inspection, supple, full range of motion Respiratory: no respiratory distress, diminished breath sounds posterior lung macedo Cardiovascular: heart sounds diminished Peripheral Pulses: 2+ radial (R), 2+ radial (L) Gastrointestinal: normal bowel sounds, soft, non-tender, no organomegaly Extremities: 2+ pitting edema left lower leg Neurologic/Psych: awake, alert, oriented x 3 Skin: intact, normal color, warm/dry Core Measures ACS in differential dx? Yes CVA/TIA Diagnosis No Sepsis Present: No Sepsis Focused Exam Completed? No Progress Differential Diagnosis: asthma, AMI, bronchitis, costochondritis, CHF, COPD, musculoskeletal pain, pericarditis, pulmonary embolism, pneumonia, pneumothorax, unstable angina Plan of Care: Orders Procedure Date/time Status Regular Diet 09/02 B Active URINALYSIS 09/01 2351 Active TRC EVALUATION (GEN) 09/01 2346 Active OXYGEN SETUP (GEN) 09/01 2346 Active Pathway - chart 09/01 2346 Active House Staff 09/01 2346 Active Patient Data 09/01 2346 Active Code Status 09/01 2346 Active Patient Data 09/01 2343 Active Admit to inpatient 09/01 2341 Active ARTERIAL BLOOD GAS (GEN) 09/01 2217 Complete RAPID VIRAL INFLUENZA A 09/01 2119 Complete URINE DRUG SCREEN FOR ER ONLY 09/01 1956 Active TROPONIN LEVEL 09/01 1956 Complete HUMAN BETA HCG SCREEN 09/01 1956 Complete ETHANOL 09/01 1956 Complete COMPREHENSIVE METABOLIC PANEL 09/01 1956 Complete CBC WITHOUT DIFFERENTIAL 09/01 1956 Complete EKG 09/01 1956 Active Current Medications Sig/Rosio Start time Last Medication Dose Stop Time Status Admin Enoxaparin Sodium 40 MG DAILY 09/02 1000 UNVr (Lovenox) Methylprednisolone 40 MG Q8 09/02 1000 UNVr (Solumedrol) Nicotine 21 MG Q24 09/02 1000 UNVr (Nicoderm) Azithromycin 500 MG DAILY 09/02 0015 UNVr (Zithromax) Dextrose/Water 250 ML (D5W) Docusate Sodium 100 MG DAILY PRN 09/01 2345 UNVr (Colace) Laboratory Tests 09/01/172229: pH 7.41, pCO2 60 *H, pO2 78 L, HCO3 37 H, ABG O2 Sat (Measured) 88.0 L, P-50 (Temp Corrected) N, Carboxyhemoglobin 7.1 *H, O2 Concentration % 3L, Temperature 97.6, O2 Delivery Method NC, Phlebotomy Draw Site RIGHT RADIAL 09/01/17 2015: Anion Gap 14, Estimated GFR > 60, BUN/Creatinine Ratio 21.7, Glucose 107 H, Calcium 9.7, Total Bilirubin 0.5, AST 22, ALT 30, Alkaline Phosphatase 90, Troponin I < 0.01, Total Protein 6.5, Albumin 3.9, Globulin 2.6, Albumin/ Globulin Ratio 1.5, Total Beta HCG NEGATIVE, CBC w Diff NO MAN DIFF REQ, RBC 4.28, MCV 91.8, MCH 28.7, MCHC 31.2 L, RDW 23.9 H, MPV 6.0 L, Gran % 82.8 H, Lymphocytes % 12.4 L, Monocytes % 4.4, Eosinophils % 0.1, Basophils % 0.3, Absolute Granulocytes 12.1 H, Absolute Lymphocytes 1.8, Absolute Monocytes 0.6, Absolute Eosinophils 0, Absolute Basophils 0, Serum Alcohol 123.0 Microbiology 09/01 2126 NASOPHARYN: Influenza Virus A & B Rapid Smear - COMP CXR is without acute abnormality. Labs show elevated CO2 in venous sample, will obtain ABG. Patient's blood gas shows hypercarbic respiratory failure. Discussed this patient with Dr. Centeno who spoke with hospitalist Dr. Dickson for ICU admission. Diagnostic Imaging: Viewed by Me: Radiology Read. Discussed w/RAD: Radiology Read. CXR Impression: PATIENT: VENICE DAWKINS PRESENT AGE: 46 PATIENT ACCOUNT NO: [id number] : 71 LOCATION: [facility] ORDERING PHYSICIAN: Patricia HOLLAND SERVICE DATE: 09/01/17 EXAM TYPE: RAD - XRY- PORTABLE CHEST XRAY EXAMINATION: XR PORTABLE CHEST CLINICAL INFORMATION: Dyspnea. COMPARISON: Chest x-ray from 05/19/2017. TECHNIQUE: Portable frontal view of the chest was obtained. FINDINGS: No airspace opacities or pleural effusions are seen. The cardiomediastinal silhouette is normal. No acute osseous abnormality is seen. IMPRESSION: Clear lungs. No acute process. DICTATED BY: Leroy Babcock MD DATE/TIME DICTATED:09/01/172154 [facility] DATE/TIME TRANSCRIBED:09/01/172154 CONFIDENTIAL, DO NOT COPY WITHOUT APPROPRIATE AUTHORIZATION. <Electronically signed in Other Vendor System> SIGNED BY: Leroy Babcock MD 09/01/172158 Initial ED EKG: sinus rhythm @72bpm, nonspecific ST changes Prior EKG: unchanged (05/19/17) Departure Departure Disposition: STILL A PATIENT Condition: Stable Clinical Impression Primary Impression: Hypercapnic respiratory failure Secondary Impressions: Alcohol intoxication, Dyspnea Referrals: Jose JAIN,Hua Clifford (PCP/Family) Departure Forms: Customer Survey General Discharge Information Admission Note Spoke With: Grant Escoto MD Documentation of Exam: Documentation of any treatments & extenuating circumstances including Concerns Regarding Discharge (functional status, medication knowledge or non-compliance, living conditions, etc.) that warrant an admission rather than observation: [ Acute hypercarbic respiratory failure requiring BiPAP, ICU monitoring, pulmonology consult, supplemental oxygen, respiratory therapy, repeat ABG, premature discharge could be medically unsafe] Critical Care Note Critical Care Note Critical Care Time: 30-74 min
[2017-09-01 20:31] LABS: ABSOLUTE BASOPHIL COUNT 0 /CUMM (0.0-0.2); ABSOLUTE EOSINOPHIL COUNT 0 /CUMM (0.0-0.7); ABSOLUTE GRANULOCYTE CT 12.1 /CUMM (1.4-6.5); ABSOLUTE LYMPH COUNT 1.8 /CUMM (1.2-3.4); ABSOLUTE MONOCYTE COUNT 0.6 /CUMM (0.10-0.60); BASOPHIL % 0.3 % (0.0-2.0); EOSINOPHIL % 0.1 % (0-5); GRANULOCYTE % 82.8 % (42.2-75.2); HEMATOCRIT 39.3 % (37-47); MEAN CORPUSCULAR HGB 28.7 PG (27.0-31.0); MEAN CORPUSCULAR HGB CONC 31.2 G/DL (33.0-37.0); MEAN CORPUSCULAR VOLUME 91.8 FL (81.0-99.0); PLATELET COUNT 286 /CUMM (130-400); RBC DISTRIBUTION WIDTH 23.9 % (11.5-14.5); RED BLOOD CELL CT 4.28 /CUMM (4.20-5.40); WHITE BLOOD CELL COUNT 14.6 /CUMM (4.8-10.8)
--- NOTE | 2017-09-01 21:59 | RADIOLOGY REPORT ---
EXAMINATION: XR PORTABLE CHEST CLINICAL INFORMATION: Dyspnea. COMPARISON: Chest x-ray from 05/19/2017. TECHNIQUE: Portable frontal view of the chest was obtained. FINDINGS: No airspace opacities or pleural effusions are seen. The cardiomediastinal silhouette is normal. No acute osseous abnormality is seen. IMPRESSION: Clear lungs. No acute process.
--- NOTE | 2017-09-01 23:43 | History & Physical ---
Sheila White 09/01/17 3743: General Information and HPI MD Statement: I have seen and personally examined VENICE DAWKINS and documented this H&P. The patient is a 46 year old F who presented with a patient stated chief complaint of SOB Source of Information: patient, old records Exam Limitations: clinical condition, confusion History of Present Illness: 46-year-old woman, current smoker with a past medical history significant COPD on 3 L O2 at home, asthma, alcohol abuse (no history of inpatient detox, seizures or DTs), adrenal insufficiency on 10 prednisone daily, Joann's thyroiditis, benzodiazepine dependence, hypertension, bipolar disease, chronic unilateral right lower extremity swelling, 2 weeks ago ago she had a fall and imaging showed she had a fracture at level of T12 and was given a Brace, now BIBA for worsening shortness of breath one week duration. During the history taking patient would often node off and would have to be prompted awake. Patient states that since the past one week she's been having worsening shortness of breath. Later this evening patient said that she felt very short of breath and desaturated to 55% on 3 L of oxygen and she decided to call the ambulance to bring her into the hospital. Earlier today she had about 3 shots of vodka and one beer with her friends earlier that night. She has also had been worsening cough in the last 2 days the cough has been productive 3 was greenish in color. Denies fever, chills, pain, nausea, vomiting, abdominal pain, diarrhea, worsening lower extremity swelling, sick contacts bowel or bladder incontinence. Allergies/Medications Allergies: Coded Allergies: apple (Intermediate, HIVES FROM APPLE CIDER 02/15/17) hydromorphone (Intermediate, LIP SWELLING 02/15/17) phenytoin (Intermediate, HIVES 02/15/17) lidocaine (SVT 02/15/17) oxycodone (From Percocet) (ITCHY 02/15/17) valsartan (From DIOVAN) (ACUTE RENAL FAILURE 02/15/17) Home Med list Albuterol Sulfate 2.5 MG/3 ML (0.083 %) VIAL.NEB 3 ML INH TID PRN asthma Albuterol Sulfate (Ventolin Hfa) 90 MCG HFA.AER.AD 2 PUF INH Q4-6 PRN PRN asthma Alprazolam 0.5 MG TABLET 1 TAB PO PRN ANXIETY (Reported) Amlodipine Besylate (Norvasc) 10 MG TABLET 1 TAB PO DAILY hypertension Aspirin/Acetaminophen/Caffeine (Excedrin Migraine Caplet) 250 MG-250 MG-65 MG TABLET 1 TAB PO DAILY SINUS HEADACHE (Reported) Atorvastatin Calcium 40 MG TABLET 1 TAB PO DAILY CHOLESTEROL (Reported) Benzonatate (Tessalon Perle) 100 MG CAPSULE 1 CAP PO TID PRN COUGH Budesonide/Formoterol Fumarate (Symbicort 160-4.5 Mcg Inhaler) 160 MCG-4.5 MCG/ ACTUATION HFA.AER.AD 2 PUF INH BID ASTHMA (Reported) Divalproex Sodium (Divalproex Sodium ER) 500 MG TAB.ER.24H 2 TAB PO QPM MENTAL HEALTH (Reported) Fexofenadine/Pseudoephedrine (Shannan-D 24 Hour Tablet) 180 MG-240 MG TAB.ER.24H 1 TAB PO DAILY ALLERGIES (Reported) Fluticasone Propionate (Flonase Allergy Relief) 50 MCG/ACTUATION SPRAY.SUSP 1 SPRAY ELLA BID ALLERGIES (Reported) Hydrocodone/Acetaminophen ([place] 7.5-325 Tablet) 7.5 MG-325 MG TABLET 1 TAB PO BID CHRONIC BACK PAIN Hydrocodone/Acetaminophen (Vicodin 5-300 MG Tablet) 5 MG-300 MG TABLET 1 TAB PO BID PRN PAIN Levothyroxine Sodium (Synthroid) 88 MCG TABLET 1 TAB PO DAILY THYROID ( Reported) Montelukast Sodium 10 MG TABLET 1 TAB PO QHS ASTHMA (Reported) Multivitamin (One Daily Multivitamin) 1 EACH TABLET 1 TAB PO DAILY supplement Prednisone 10 MG TABLET 1 TAB PO DAILY STEROID (Reported) Propranolol HCl (Propranolol HCl ER) 120 MG CAP.SA.24H 1 CAP PO BID HTN Quetiapine Fumarate (Seroquel) 50 MG TABLET 3 TAB PO QPM PRN MENTAL HEALTH/ SLEEP (Reported) Tramadol HCl 50 MG TABLET 1 TAB PO Q6P PRN PAIN Compliance With Home Meds: GOOD Past History Travel History Traveled to [place] past 21 day No Medical History Neurological: NONE EENT: allergies Cardiovascular: hypertension, HIGH CHOLESTEROL Respiratory: asthma, bronchitis, COPD Gastrointestinal: NONE Hepatic: fatty liver Renal: acute kidney injury- resolved Musculoskeletal: chronic back pain Psychiatric: alcohol dependence, anxiety, bipolar disease, depression, opioid dependence, substance abuse, bipolar disorder, MRE manic Endocrine: hypothyroidism, obesity, Cushingoid Blood Disorders: anemia (mild) Cancer(s): NONE CRYSTAL GAZER/Reproductive: X 2 Other Medical Hx: Unknown History of MRSA: Yes History of VRE: No History of CDIFF: No Influenza Vaccine: 05/11/17 Tetanus Vaccine: 11/28/14 Surgical History Surgical History: (x 2), S/P I&D ABSCESS S/P KNEE SURGERY C SECTION X 2 Past Family/Social History Family History Relations & Conditions if any MOTHER (smoker). , Age 70; Cause: Lung cancer. FH: lung cancer FATHER, , Age 75; Cause: SBO (small bowel obstruction). Psychosocial History Who Do You Live With? self Services at Home: None (3L nc), Oxygen Primary Language: Slovak ETOH Use: alcoholic Illicit Drug Use: denies illicit drug use Living Will? yes Power of Director Digital Sales/HCP? yes Name of POA/HCP: Pt's [phone] Functional Ability ADLs Independent: dressing, eating, toileting, bathing. Ambulation: independent IADLs Independent: shopping, housework, finances, food prep, telephone, transportation , medication admin. Review of Systems Review of Systems Constitutional: Denies: chills, diaphoresis, fever, malaise, weakness, unexplained weight loss. Cardiovascular: Denies: chest pain, edema, orthopena, palpitations, peripheral edema, syncope. Respiratory: Reports: cough, short of breath. Denies: see HPI, hemoptysis, orthopnea, sputum production, stridor, wheezing. GI: Denies: abdominal pain, bloating, constipation, diarrhea, distention, bowel incontinence, melena, nausea, bloody stool, changes in stool, vomiting, steatorrhea. Genitourinary: Denies: discharge, dysuria, frequency, hematuria, hesitation, nocturia, pain, urgency. Exam & Diagnostic Data Last 24 Hrs of Vital Signs/I&O Vital Signs Date Time Temp Pulse Resp B/P B/P Pulse O2 O2 Flow FiO2 Mean Ox Delivery Rate 09/01 2234 94 Nasal 3.0L Cannula 09/01 2231 97.6 09/01 2222 95.8 78 16 144/76 95 Room Air 09/01 2134 97.4 72 22 110/60 95 Room Air 09/01 1946 95 Nasal 3.0L Cannula 09/01 1936 97.9 76 22 111/57 93 Nasal 3.0L Cannula Intake & Output 09/02 0800 09/02 0000 09/01 1600 Intake Total Output Total Balance Patient 247 lb Weight Weight Reported by Patient Measurement Method Physical Exam General Appearance Oriented X3, Cooperative, No Acute Distress, lethargic Skin No Significant Lesion HEENT Atraumatic, PERRLA (dilated pupils), EOMI, Mucous Membr. moist/pink Neck Supple, No JVD Lymphatic Cervical nl Cardiovascular Regular Rate, Normal S1, Normal S2 Lungs b/l decreased breath sounds, bibasilar dry crackles Abdomen Soft, No Tenderness, distended Extremities b/l edema L>R Diagnostic Data EKG Results NSR , HR 72, QTC 456 CXR Results FINDINGS: No airspace opacities or pleural effusions are seen. The cardiomediastinal silhouette is normal. No acute osseous abnormality is seen. IMPRESSION: Clear lungs. No acute process. Assessment/Plan Assessment: 46-year-old morbidly obese woman, current smoker with a past medical history significant COPD on 3 L O2 at home, asthma, alcohol abuse (no history of inpatient detox, seizures or DTs), adrenal insufficiency on 10 prednisone daily, Joann's thyroiditis, benzodiazepine dependence, hypertension, bipolar disease, chronic unilateral right lower extremity swelling, 2 weeks ago ago she had a fall and imaging showed she had a fracture at level of T12 and was given a Brace, now BIBA for worsening shortness of breath one week duration. Vitals on admisson MAXIMUM TEMPERATURE 97.9, heart rate 78, blood pressure 144/ 76, 94% on 3 L Labs on admission WBC 14.6, hemoglobin 12.3, hematocrit 39.3, platelet 286, sodium 136, potassium 3.0, chloride 82, bicarbonate 40, BUN 13, creatinine 0.6, glucose 107, ABG pH 7.4, PCO2 60, PO2 of 78, bicarbonate 77, blood alcohol level I 23 units tox pending next line chest x-ray shows no abnormality Assessment and plan: Acute on chronic hypoxemic and hypercarbic respiratory failure Possible secondary to bronchitis (cxr neg for pneumonia) in the setting of continued smoking * Admit to ICU for Bipap, vitals per protocol, repeat ABG after 2 hrs on Bipap * IV solumedrol 125 now and 40q 8 from tommorrow * IV Azithromycin 500 mg IV daily * continue symbicort * TRC/ NEb ATC * continue symbicort/ventolin her leukocytosis likely secondary to her chronic steriod, currently afebrile, will follow antibiotics for now. will send for sputum culture. CRCU consult in am HTN: continue amlodipine 10 mg daily and propranolol 120 mg BID Hypokalemia likely secondary to metazolone use, will replete, f/up mag level Bilateral lower extremity swelling L>R, left leg is erthyematous however no increase in warmth noted, low suspicion for cellulitis f/up doppler contine her metazolone ( 2.5 mg SWF) Bipolar disorder will hold seroquel and xanax due to lethargy. Please confirm in the morning if she is on Divalproex Patient requesting Psychiatry consult in am as she is feeling depressed anxious EtOH abuse check CIWA score however will hole ativan due to lethargy Pain management holding hydrocordone for respiratory failure, if her mentation improves, please restart tommorrow Hypothryoidism continue levothryoxine, follow up tsh/t4 adrenal insufficiency Will be on IV steroids, vitals stable diet: heart healthy diet dvt ppx: sc lovenox full code. As Ranked By This Provider Problem List: 1. Hypercapnic respiratory failure 2. Alcohol intoxication 3. Hypokalemia Core Measures/Misc (03/27) Acute Coronary Syndrome ACS Diagnosis: No Congestive Heart Failure Congestive Heart Failure Diagnosis No Cerebrovascular Accident CVA/TIA Diagnosis: No VTE (View Protocol) VTE Risk Factors Smoker No Mechanical VTE Prophylaxis d/t Physical Contraindication No VTE Pharm Prophylaxis d/t NA PharmProphylax ordered Sepsis (View protocol) Sepsis Present: No Jevon JAIN, [facility] 09/02/17 0331: Attending MD Review Statement Attending Statement Attending MD Statement: examined this patient, discuss w/resident/PA/POLE CLASSIFIER, agreed w/resident/PA/POLE CLASSIFIER, reviewed images, amended to note Attending Assessment/Plan: 46 yo morbidly obese F smoker with h/o [place]'s disease on prednisone with Cushingoid features, chronic hypoxic respiratory failure, COPD/asthma on PRN 3L O2, chronic benzo dependence, chronic pain, alcohol dependence, BPD, HTN, hypothyroidism 2/2 Joann's, is here for c/o worsening dyspnea and cough productive of green phlegm over the past 1 week. She notes her oxygen levels dropped to 50's today and hence she came to ER. She has been using her oxygen constantly for the past few days. She reports drinking 3 shots of vodka and 1 beer today. She has never been through withdrawal seizures or DT's. She reports unilateral leg (left) swelling that has been evaluated with no concern for DVT or CHF. She is on metolazone for this. She also was recently diagnosed with a T12 fracture s/p fall, being treated with Vicodin and a support brace. She is tearful and feels helpless. Vitals stable except for sats drop down to 86-88% on 3L. Patient is lethargic and falls asleep multiple times during our assessment. MMM, skin warm and dry, Neck supple, PERRL, Chest b/l reduced air entry with basilar crackles and expiratory wheeze, Heart S1S2 regular, Abd soft, NT, LE edema L>R. Labs: WBC 14.6 (on prednisone), Na 136, K 3.0, bicarb 40, glucose 107, trop neg, alcohol 123. Rapid flu neg. AB.41/60/78/37 with carboxyhemoglobin of 7.1. CXR: lungs clear. EKG: sinus rhythm, no acute changes. Echo (2017): EF > 60%. Assessment and plan: 1. Acute on chronic hypercarbic and hypoxemic respiratory failure 2. Increasing bronchospasm reactive airways (asthma/COPD) with exacerbation with possible underlying obesity hypoventilation syndrome. No evidence of pneumonia. PE seems less likely. 3. Ongoing smoking and carboxyhemoglobinemia 4. Chronic benzo and opiate use likely contributing to her clinical condition 5. Alcohol use 6. Hypokalemia in the setting of diuretic use 7. Leukocytosis while on steroids 8. Bilateral LE edema (L>R) chronic, no recent change - Admit to ICU - Vitals Q1 hour - TRC nebs - Sputum and blood cultures - Bipap initiated, recheck ABG in 2 hours - IV solumedrol 40 Q8 (holding po home prednisone) - IV azithromycin for 5 days - Smoking cessation counseling, nicotine patch - Check urinalysis and urine drug screen - LE dopplers to rule out DVT, check D-dimer, TSH, free T4 and HbA1c. - If persistent hypoxemia, ?consider CTA to rule out PE - CRCU consult - Continue symbicort, singulair, amlodipine, propranolol, synthroid and statin. - Psych eval for depression - CIWA protocol, initiate ativan based on CIWA scores - Hold sedative meds seroquel and xanax. - Please resume vicodin and xanax in AM once patient is more awake alert so as to avoid withdrawal symptoms. If ativan is being initiated for alcohol withdrawal symptoms, please hold off xanax. GI ppx IV PPI, DVT ppx Lovenox. Full code (daughter Mimi is POA) TTS > 55 mins
[2017-09-02] VITALS (9 sets, daily range): BP systolic 102–145; BP diastolic 57–89
--- NOTE | 2017-09-02 03:33 | Admission Certification ---
Admission Certification Certification Statement - As attending physician, I certify that at the time of - admission, based on clinical presentation, severity of - symptoms, need for further diagnostic testing and - therapeutic interventions, and risk of adverse outcomes - without in-hospital treatment, in my clinical assessment, - this patient requires an acute hospital stay for a minimum - of two nights or longer. I have also considered psychsocial - factors such as support system, advanced age, financial - issues, cognitive issues, and failed out-patient treatments, - past re-admission history, safety of patient, and lack of - compliance as applicable. Specific rationale supporting this admission is: Acute on chronic hypercarbic and hypoxemic respiratory failure, requiring Bipap, reactive airways with exacerbation.
[2017-09-02 05:32] LABS: ABSOLUTE BASOPHIL COUNT 0 /CUMM (0.0-0.2); ABSOLUTE EOSINOPHIL COUNT 0 /CUMM (0.0-0.7); ABSOLUTE GRANULOCYTE CT 9.9 /CUMM (1.4-6.5); ABSOLUTE MONOCYTE COUNT 0.1 /CUMM (0.10-0.60); BASOPHIL % 0.2 % (0.0-2.0); EOSINOPHIL % 0 % (0-5); GRANULOCYTE % 90.4 % (42.2-75.2); HEMATOCRIT 37.8 % (37-47); MEAN CORPUSCULAR VOLUME 90.8 FL (81.0-99.0); MEAN PLATELET VOLUME 6.1 FL (7.4-10.4); PLATELET COUNT 260 /CUMM (130-400); RBC DISTRIBUTION WIDTH 23.4 % (11.5-14.5); RED BLOOD CELL CT 4.16 /CUMM (4.20-5.40); WHITE BLOOD CELL COUNT 10.9 /CUMM (4.8-10.8)
--- NOTE | 2017-09-02 07:43 | Cons- CRCU ---
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 She had a recent fall with fracture of T12 being treated with a brace and pain management with Vicodin. Patient presented with worsening shortness of breath, cough with green sputum production X1 week. Reports increase sent oxygen use at home for past few days as well. Patient desaturated to 50% at home and was brought in by ambulance for further evaluation. ROS: patient reports chills secondary to 2 abcesses in the groin which patient reports needs to be lanced. PMH: see above PSH: X2, knee surgery FH: Lung cancer in mother SH : 20 pack years currently 1pack/day, alcohol dependence 3 shots of vodka and 1 beer before presenting On presentation vital signs were stable except oxygen saturation dropping into the high 80s on 3 L. Patient was lethargic and sleepy during the assessment. Chest examination showed reduced entry along with expiratory wheezes. Left lower extremity edema L>R Pertinent labs on presentation WBC 14.6 (on prednisone), Na 136, K 3.0, bicarb 40, glucose 107, trop neg, alcohol 123. Rapid flu neg. CXR clear ABGs on presentation 7.41/60/78/37 with carboxyHb 7. 1 patient was started on BiPAP repeat ABG 7.49/54/82/40 carboxyhb 3.9 Patient was admitted to ICU for treatment and evaluation of acute on chronic hypercarbic and hypoxic make respiratory failure secondary to asthma/COPD exacerbation with possible underlying OHS along with chronic opiate and benzodiazepine use in setting of alcohol dependence Allergies/Medications Allergies: Coded Allergies: apple (Intermediate, HIVES FROM APPLE CIDER 02/15/17) hydromorphone (Intermediate, LIP SWELLING 02/15/17) phenytoin (Intermediate, HIVES 02/15/17) lidocaine (SVT 02/15/17) oxycodone (From Percocet) (ITCHY 02/15/17) valsartan (From DIOVAN) (ACUTE RENAL FAILURE 02/15/17) Home Med List: Albuterol Sulfate 2.5 MG/3 ML (0.083 %) VIAL.NEB 3 ML INH TID PRN asthma Albuterol Sulfate (Ventolin Hfa) 90 MCG HFA.AER.AD 2 PUF INH Q4-6 PRN PRN asthma Alprazolam 0.5 MG TABLET 1 TAB PO PRN ANXIETY (Reported) Amlodipine Besylate (Norvasc) 10 MG TABLET 1 TAB PO DAILY hypertension Aspirin/Acetaminophen/Caffeine (Excedrin Migraine Caplet) 250 MG-250 MG-65 MG TABLET 1 TAB PO DAILY SINUS HEADACHE (Reported) Atorvastatin Calcium 40 MG TABLET 1 TAB PO DAILY CHOLESTEROL (Reported) Benzonatate (Tessalon Perle) 100 MG CAPSULE 1 CAP PO TID PRN COUGH Budesonide/Formoterol Fumarate (Symbicort 160-4.5 Mcg Inhaler) 160 MCG-4.5 MCG/ ACTUATION HFA.AER.AD 2 PUF INH BID ASTHMA (Reported) Divalproex Sodium (Divalproex Sodium ER) 500 MG TAB.ER.24H 2 TAB PO QPM MENTAL HEALTH (Reported) Fexofenadine/Pseudoephedrine (Shannan-D 24 Hour Tablet) 180 MG-240 MG TAB.ER.24H 1 TAB PO DAILY ALLERGIES (Reported) Fluticasone Propionate (Flonase Allergy Relief) 50 MCG/ACTUATION SPRAY.SUSP 1 SPRAY ELLA BID ALLERGIES (Reported) Hydrocodone/Acetaminophen ([place] 7.5-325 Tablet) 7.5 MG-325 MG TABLET 1 TAB PO BID CHRONIC BACK PAIN Hydrocodone/Acetaminophen (Vicodin 5-300 MG Tablet) 5 MG-300 MG TABLET 1 TAB PO BID PRN PAIN Levothyroxine Sodium (Synthroid) 88 MCG TABLET 1 TAB PO DAILY THYROID ( Reported) Montelukast Sodium 10 MG TABLET 1 TAB PO QHS ASTHMA (Reported) Multivitamin (One Daily Multivitamin) 1 EACH TABLET 1 TAB PO DAILY supplement Prednisone 10 MG TABLET 1 TAB PO DAILY STEROID (Reported) Propranolol HCl (Propranolol HCl ER) 120 MG CAP.SA.24H 1 CAP PO BID HTN Quetiapine Fumarate (Seroquel) 50 MG TABLET 3 TAB PO QPM PRN MENTAL HEALTH/ SLEEP (Reported) Tramadol HCl 50 MG TABLET 1 TAB PO Q6P PRN PAIN Review of Systems Review of Systems Constitutional: Reports: see HPI. 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 , Age 70; Cause: Lung cancer. FH: lung cancer FATHER, , Age 75; Cause: SBO (small bowel obstruction). Psychosocial History Who Do You Live With? self Services at Home: None (3L n[place]), Oxygen Primary Language: Vincentian ETOH Use: alcoholic Illicit Drug Use: denies illicit drug use Living Will? yes Power of Airborne Sensor Specialist/HCP? yes Name of POA/HCP: Pt's [phone] Functional Ability ADLs Independent: dressing, eating, toileting, bathing. Ambulation: independent IADLs Independent: shopping, housework, finances, food prep, telephone, transportation , medication admin. Exam & Diagnostic Data Last 24 Hrs of Vital Signs/I&O Vital Signs Date Time Temp Pulse Resp B/P B/P Pulse O2 O2 Flow FiO2 Mean Ox Delivery Rate 09/02 1226 98.0 72 22 110/70 93 Nasal 3.0L Cannula 09/02 1121 Nasal 3.0L Cannula 09/02 1020 93 Nasal 3.0L Cannula 09/02 1006 78 102/71 09/02 1006 78 102/71 09/02 1004 98.1 78 20 102/70 97 09/02 1003 98.1 18 18 102/70 09/02 0854 97.8 72 18 133/77 94 09/02 0745 98.5 68 18 146/78 93 09/02 0645 98.9 86 18 141/83 09/02 0638 98.9 86 18 141/83 94 BIPAP 35% 09/02 0549 98.9 68 20 142/86 93 BIPAP 35% 09/02 0540 80 95 09/02 0446 98.6 92 18 145/83 93 BIPAP 35% 09/02 0445 98.6 92 18 145/83 09/02 0346 98.8 68 18 144/89 93 BIPAP 35% 09/02 0306 66 94 09/02 0250 96.1 64 16 144/89 95 BIPAP 35% 09/02 0245 96.1 65 16 144/89 09/02 0207 98.9 64 16 136/86 93 BIPAP 35% 09/02 0200 98.9 64 16 136/86 09/02 0045 96.7 75 22 121/57 09/02 0045 96.7 75 22 121/57 95 BIPAP 35% 09/02 0044 71 91 09/01 2234 94 Nasal 3.0L Cannula 09/01 2231 97.6 09/01 2222 95.8 78 16 144/76 95 Room Air 09/015 97.4 72 22 110/60 95 Room Air 09/017 95 Nasal 3.0L Cannula 09/01 1937 97.9 76 22 111/57 93 Nasal 3.0L Cannula Intake & Output 09/02 1600 09/02 0800 09/02 0000 Intake Total Output Total Balance Patient 247 lb Weight Weight Reported by Patient Measurement Method Physical Exam General Appearance: well developed/nourished, no apparent distress, awake Head: atraumatic Neck: normal inspection Respiratory: wheezing Cardiovascular: s1 s2 Gastrointestinal: normal bowel sounds, soft Extremities: no edema Neurologic/Psych: awake, alert, oriented x 3 Last 48 Hrs of Labs/Kartik: Laboratory Tests 09/02/17 0950: Methadone Screen Pending, Barbiturate Screen Pending, Ur Phencyclidine Scrn Pending, Amphetamines Screen Pending, U Benzodiazepines Scrn Pending, Urine Cocaine Screen Pending, Urine Cannabis Screen Pending, Urine Color Pending, Urine Clarity Pending, Urine pH Pending, Ur Specific [place] Pending, Urine Protein Pending, Urine Ketones Pending, Urine Nitrite Pending, Urine Bilirubin Pending, Urine Urobilinogen Pending, Ur Leukocyte Esterase Pending, Ur Microscopic Pending, Urine Hemoglobin Pending, Urine Glucose Pending 09/02/17 0545: pH 7.49 H, pCO2 54 H, pO2 82, HCO3 40 H, ABG O2 Sat (Measured) 92.0 L, P-50 (Temp Corrected) Y, Carboxyhemoglobin 3.9, O2 Concentration % 35%, Temperature 98.6, Respiration Rate 14, O2 Delivery Method VISION, Vent Mode ST, Expiratory Pressure 6, Inspiratory Pressure 14, Phlebotomy Draw Site RIGHT RADIAL 09/02/17 0518: Anion Gap 8, Estimated GFR > 60, BUN/Creatinine Ratio 23.3, Hemoglobin A1c 5.9 H, Magnesium 1.7, TSH 0.135 L, Free T4 1.39, D-Dimer High Sensitivty < 200, CBC w Diff MAN DIFF ORDERED, RBC 4.16 L, MCV 90.8, MCH 29.0, MCHC 32.0 L, RDW 23.4 H, MPV 6.1 L, Gran % 90.4 H, Lymphocytes % 8.8 L, Monocytes % 0.6 L, Eosinophils % 0, Basophils % 0.2, Absolute Granulocytes 9.9 H, Segmented Neutrophils 87 H, Band Neutrophils 3, Absolute Lymphocytes 1.0 L, Lymphocytes 8 L, Monocytes 2, Absolute Monocytes 0.1, Absolute Eosinophils 0, Absolute Basophils 0, Platelet Estimate ADEQUATE, Polychromasia 1+, Poikilocytosis 1+, Anisocytosis 2+, Stomatocytes 3+ 09/01/172229: pH 7.41, pCO2 60 *H, pO2 78 L, HCO3 37 H, ABG O2 Sat (Measured) 88.0 L, P-50 (Temp Corrected) N, Carboxyhemoglobin 7.1 *H, O2 Concentration % 3L, Temperature 97.6, O2 Delivery Method NC, Phlebotomy Draw Site RIGHT RADIAL 09/01/17 2015: Anion Gap 14, Estimated GFR > 60, BUN/Creatinine Ratio 21.7, Glucose 107 H, Calcium 9.7, Magnesium 1.8, Total Bilirubin 0.5, AST 22, ALT 30, Alkaline Phosphatase 90, Troponin I < 0.01, Total Protein 6.5, Albumin 3.9, Globulin 2.6, Albumin/Globulin Ratio 1.5, Total Beta HCG NEGATIVE, Cortisol PM Sample 1.4 L, CBC w Diff NO MAN DIFF REQ, RBC 4.28, MCV 91.8, MCH 28.7, MCHC 31.2 L, RDW 23.9 H, MPV 6.0 L, Gran % 82.8 H, Lymphocytes % 12.4 L, Monocytes % 4.4, Eosinophils % 0.1, Basophils % 0.3, Absolute Granulocytes 12.1 H, Absolute Lymphocytes 1.8, Absolute Monocytes 0.6, Absolute Eosinophils 0, Absolute Basophils 0, Serum Alcohol 123.0 Microbiology 09/01 2126 NASOPHARYN: Influenza Virus A & B Rapid Smear - COMP Assessment/Plan CRCU Impression/Plan: 46-year-old morbidly obese woman, current smoker with a past medical history significant COPD on 3 L O2 at home, asthma, alcohol abuse (no history of inpatient detox, seizures or DTs), adrenal insufficiency on 10 prednisone daily, Joann's thyroiditis, benzodiazepine dependence, hypertension, bipolar disease, chronic unilateral right lower extremity swelling, 2 weeks ago ago she had a fall and imaging showed she had a fracture at level of T12 and was given a Brace, now BIBA for worsening shortness of breath one week duration. -On presentation vital signs were stable except o2 saturation dropping into the high 80s on 3 L. Patient was lethargic and sleepy during the assessment -Pertinent labs on presentation WBC 14.6 (on prednisone), Na 136, K 3.0, bicarb 40, glucose 107, trop neg, alcohol 123. Rapid flu neg. CXR clear -ABGs on presentation 7.41/60/78/37 with carboxyHb 7. 1 patient was started on BiPAP repeat ABG 7.49/54/82/40 carboxyhb 3.9 Initially patient was admitted to ICU and later downgraded to general medicine floor. She is being evaluated for following conditions Respiratory #Acute on chronic hypoxemic and hypercarbic respiratory failure Most likely secondary to alcohol abuse and opiate abuse in setting of bronchitis with asthma/ COPD exacerbation with possible underlying obesity hypoventilation syndrome. -Discontinue BiPAP -TRC -Oxygen saturation above 90% with nasal cannula -Decrease Steroids to 40 mg every 12 -Continue azithromycin and Singular -Monitor fever WBC curve. Elevated white count in setting of chronic steroid use. -If persistent hypoxemia, consider CTA to rule out PE, of note patient is back to her baseline. Infection #Groin Abcess Patient is given history of chills along with bilateral groin abscesses. Reports having them more frequently lately. On examination patient has <5 cm tender hard non fluctuant swelling below the right labia. <2cm healing abcess (self drained after warm compression) on bottom edge of left labial fold. -ID consult in setting of chronic steroids patient is immunocompromised. -Monitor fever WBC curve. She might not spiked fever and WBC count may be falsely elevated in setting of steroid use. -Consider antibiotics as per ID -NSAIDS for symptomatic relief #Leukocytosis Can be secondary to steroids versus abcess -We'll continue to monitor -Follow up cultures Cardiovascular #HTN: continue amlodipine 10 mg daily and propranolol 120 mg BID #Bilateral LE edema (L>R) Is chronic without any recent change. -Echocardiogram done in 07/27 showed EF greater than 60 with mild left atrial dilation and trace Tricuspid regurgitation. 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 -F/u endocrinology recommendationo -F/U cortisol level to rule out HPA suppression #History of obesity -Consider checking HbA1c. #Patient might have tendency to run hyperglycemic because of steroid use for that we are going to initiate Accu-Cheks and add low-dose insulin scale Alimentary Heart healthy diet Neurology #Alcohol abuse Pt has hx of alcohol dependence currently on low-dose CIWA score. Last CIWA 0,0,0,0 #Chronic BDZ's and opiate use Patient's home medication of alprazolam 0.5 twice a day and Vicodin have been resumed, avoid increasing the doses #Mental health She has history of chronic opiate and benzodiazepine dependence,History of bipolar disorder we are going to resume patient's seraquel and history of anxiety, alprazolam has also been resumed from tomorrow. It appears that patient has some degree of [place] syndrome as well. -Will benefit from psychiatric evaluation. DVT prophylaxis -with Lovenox and ALPS She has been downgraded to general medicine, signed out to GM team #Things to be followed up 1. Attending/pulmonary note 2. Endo note 3. ID consult 4. Outpatient evaluation for OHS/VITOR with sleep study 5. Will be on CPAP (AutoPap) overnight just tonight for pt's comfort 6. Follow-up cortisone level added to September 01 labs 7. Follow-up cultures 8. Psy evaluation Consult Acknowledgment - Thank you for your consult request. Tom Hilton MD 09/02/17 1346: Assessment/Plan CRCU Other Findings/Comments: Tom Urena M.D. have examined this patient, reviewed available EMR data, personally reviewed images, discussed with resident/PA/STOCKBROKER, discussed management plan with housestaff and nursing staff, discussed managment plan all of healthcare providers, discussed management plan with patient and/or family, agreed with resident/PA/STOCKBROKER. The past history and parts of the chart have been autopopulated. Impression/Plan 46 year old woman, etoh, substance dependence, hx of adrenal insufficiency. Reactive airways, likely OHS/VITOR. Admitted for acute on chronic hypoxemic and hypercarbic respiratory failure, likely secondary to intoxication -reduce steroids 40mg iv q12h -trc/nebs -dc bipap -pt needs outpt sleep study, for comfort she asked for autopap at night, she understands she will need a sleep study prior to issuing of pap therapy -no longer requires ICU level of care -DG to gen med DVT prophylaxis at all times TTS 35 min Consult Acknowledgment - Thank you for your consult request.
--- NOTE | 2017-09-02 10:50 | ULTRASOUND REPORT ---
EXAMINATION: US TRIPLEX LOWER EXTREMITY, LEFT CLINICAL INFORMATION: Left lower extremity swelling. COMPARISON: 04/26/2017 TECHNIQUE: Color-flow triplex imaging with spectral analysis and compression Doppler were performed on the lower extremity. FINDINGS: Respiratory variation, normal compression and augmented flow are noted throughout the lower extremity. The visualized common femoral vein, superficial femoral vein, profunda femoral vein, popliteal vein and midcalf peroneal and posterior tibial venous segments show no evidence of deep venous thrombosis. There is no Luther's cyst. IMPRESSION: Normal triplex scan without evidence of deep venous thrombosis involving the lower extremity.
--- NOTE | 2017-09-02 16:28 | Cons- Infect Disease ---
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 On admission she was afebrile. Laboratory data revealed a white blood cell count of 15,000, BUN/creatinine 13 and 0.6, potassium 3.0, with normal liver enzymes, serum alcohol level 123, ABG 7.41/60/78 on 3 L/m. Chest x-ray was negative. Doppler of the left leg was negative. She was given Solumedrol and 1 dose of Azithromycin and was changed to Doxycycline today. She was to be admitted to the ICU, but her respiratory status improved overnight, and she has been downgraded to General medicine. She has been afebrile since admission (on steroids) and currently feels back to her baseline. Allergies/Medications Allergies: Coded Allergies: apple (Intermediate, HIVES FROM APPLE CIDER 02/15/17) hydromorphone (Intermediate, LIP SWELLING 02/15/17) phenytoin (Intermediate, HIVES 02/15/17) lidocaine (SVT 02/15/17) oxycodone (From Percocet) (ITCHY 02/15/17) valsartan (From DIOVAN) (ACUTE RENAL FAILURE 02/15/17) Home Med List: Albuterol Sulfate 2.5 MG/3 ML (0.083 %) VIAL.NEB 3 ML INH TID PRN asthma Albuterol Sulfate (Ventolin Hfa) 90 MCG HFA.AER.AD 2 PUF INH Q4-6 PRN PRN asthma Alprazolam 0.5 MG TABLET 1 TAB PO PRN ANXIETY (Reported) Amlodipine Besylate (Norvasc) 10 MG TABLET 1 TAB PO DAILY hypertension Aspirin/Acetaminophen/Caffeine (Excedrin Migraine Caplet) 250 MG-250 MG-65 MG TABLET 1 TAB PO DAILY SINUS HEADACHE (Reported) Atorvastatin Calcium 40 MG TABLET 1 TAB PO DAILY CHOLESTEROL (Reported) Benzonatate (Tessalon Perle) 100 MG CAPSULE 1 CAP PO TID PRN COUGH Budesonide/Formoterol Fumarate (Symbicort 160-4.5 Mcg Inhaler) 160 MCG-4.5 MCG/ ACTUATION HFA.AER.AD 2 PUF INH BID ASTHMA (Reported) Divalproex Sodium (Divalproex Sodium ER) 500 MG TAB.ER.24H 2 TAB PO QPM MENTAL HEALTH (Reported) Fexofenadine/Pseudoephedrine (Shannan-D 24 Hour Tablet) 180 MG-240 MG TAB.ER.24H 1 TAB PO DAILY ALLERGIES (Reported) Fluticasone Propionate (Flonase Allergy Relief) 50 MCG/ACTUATION SPRAY.SUSP 1 SPRAY ELLA BID ALLERGIES (Reported) Hydrocodone/Acetaminophen (Appling 7.5-325 Tablet) 7.5 MG-325 MG TABLET 1 TAB PO BID CHRONIC BACK PAIN Hydrocodone/Acetaminophen (Vicodin 5-300 MG Tablet) 5 MG-300 MG TABLET 1 TAB PO BID PRN PAIN Levothyroxine Sodium (Synthroid) 88 MCG TABLET 1 TAB PO DAILY THYROID ( Reported) Montelukast Sodium 10 MG TABLET 1 TAB PO QHS ASTHMA (Reported) Multivitamin (One Daily Multivitamin) 1 EACH TABLET 1 TAB PO DAILY supplement Prednisone 10 MG TABLET 1 TAB PO DAILY STEROID (Reported) Propranolol HCl (Propranolol HCl ER) 120 MG CAP.SA.24H 1 CAP PO BID HTN Quetiapine Fumarate (Seroquel) 50 MG TABLET 3 TAB PO QPM PRN MENTAL HEALTH/ SLEEP (Reported) Tramadol HCl 50 MG TABLET 1 TAB PO Q6P PRN PAIN Past History Travel History Traveled to [place] past 21 day No Medical History Neurological: NONE EENT: allergies Cardiovascular: hypertension, HIGH CHOLESTEROL Respiratory: asthma, bronchitis, COPD Gastrointestinal: NONE Hepatic: fatty liver Renal: acute kidney injury- resolved Musculoskeletal: chronic back pain Psychiatric: alcohol dependence, anxiety, bipolar disease, depression, opioid dependence, substance abuse, bipolar disorder, MRE manic Endocrine: hypothyroidism, obesity, Cushingoid Blood Disorders: anemia (mild) Cancer(s): NONE 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 , Age 70; Cause: Lung cancer. FH: lung cancer FATHER, , Age 75; Cause: SBO (small bowel obstruction). Psychosocial History Who Do You Live With? self Services at Home: None (3L nc), Oxygen Primary Language: Macedonian ETOH Use: alcoholic Illicit Drug Use: denies illicit drug use Living Will? yes Power of Pier Worker/HCP? yes Name of POA/HCP: Pt's [phone] Functional Ability ADLs Independent: dressing, eating, toileting, bathing. Ambulation: independent IADLs Independent: shopping, housework, finances, food prep, telephone, transportation , medication admin. Review of Systems Review of Systems All Other Systems: Reviewed and Negative (improved with) Exam & Diagnostic Data Last 24 Hrs of Vital Signs/I&O Vital Signs Date Time Temp Pulse Resp B/P B/P Pulse O2 O2 Flow FiO2 Mean Ox Delivery Rate 09/02 1437 81 24 137/75 09/02 1315 97.9 20 137/75 91 Nasal 4.0L Cannula 09/02 1226 98.0 72 22 110/70 93 Nasal 3.0L Cannula 09/02 1121 Nasal 3.0L Cannula 09/02 1020 93 Nasal 3.0L Cannula 09/02 1006 78 102/71 09/02 1006 78 102/71 09/02 1004 98.1 78 20 102/70 97 09/02 1003 98.1 18 18 102/70 09/02 0854 97.8 72 18 133/77 94 09/02 0745 98.5 68 18 146/78 93 09/02 0645 98.9 86 18 141/83 09/02 0638 98.9 86 18 141/83 94 BIPAP 35% 09/02 0549 98.9 68 20 142/86 93 BIPAP 35% 09/02 0540 80 95 09/02 0446 98.6 92 18 145/83 93 BIPAP 35% 09/02 0445 98.6 92 18 145/83 09/02 0346 98.8 68 18 144/89 93 BIPAP 35% 09/02 0306 66 94 09/02 0250 96.1 64 16 144/89 95 BIPAP 35% 09/02 0245 96.1 65 16 144/89 09/02 0207 98.9 64 16 136/86 93 BIPAP 35% 09/02 0200 98.9 64 16 136/86 09/02 0045 96.7 75 22 121/57 09/02 0045 96.7 75 22 121/57 95 BIPAP 35% 09/02 0044 71 91 09/01 2235 94 Nasal 3.0L Cannula 09/01 2231 97.6 09/01 2222 95.8 78 16 144/76 95 Room Air 09/01 2135 97.4 72 22 110/60 95 Room Air 09/01 1947 95 Nasal 3.0L Cannula 09/01 193 97.9 76 22 111/57 93 Nasal 3.0L Cannula Intake & Output 09/02 1600 09/02 0800 09/02 0000 Intake Total Output Total Balance Patient 247 lb Weight Weight Reported by Patient Measurement Method Physical Exam Other Physical Findings: She is afebrile on steroids. She is awake and alert in no acute distress. Skin reveals excoriations on the left leg. HEENT negative. Neck is supple with no adenopathy. Lungs are clear. Heart regular rhythm with no murmur. Abdomen is obese, soft, nontender with positive bowel sounds. Back no CVA tenderness. Extremities no cyanosis, clubbing or edema. Neuro is without focality. ecchymotic furuncle in the left groin, slightly tender to palpation, with no surrounding erythema or induration; several healed lesions also noted in the groin. Last 24 Hours of Lab Results: Laboratory Tests 09/02 09/02 0950 0545 Blood Gas pH (7.35 - 7.45 PH) 7.49 H pCO2 (35 - 45 TORR) 54 H pO2 (80 - 100 TORR) 82 HCO3 (21 - 28 MEQ/L) 40 H ABG O2 Sat (Measured) (>96.0 %) 92.0 L P-50 (Temp Corrected) Y Carboxyhemoglobin (1.5 - 5.0 %) 3.9 O2 Concentration % 35% Temperature (97.0 - 100.0 FARH) 98.6 Respiration Rate (BPM) 14 O2 Delivery Method VISION Vent Mode ST Expiratory Pressure (CM H2O P) 6 Inspiratory Pressure (CM H2O P) 14 Miscellaneous Phlebotomy Draw Site RIGHT RADIAL Toxicology Urine Opiates Screen (>2000 NG/ML) > 4000.00 H Methadone Screen (>300 NG/ML) 68 Barbiturate Screen (>200 NG/ML) 61 Ur Phencyclidine Scrn (>25 NG/ML) 9.20 Amphetamines Screen (>1000 NG/ML) 172 U Benzodiazepines Scrn (>200 NG/ML) > 800 H Urine Cocaine Screen (>300 NG/ML) < 50 Urine Cannabis Screen (>50 NG/ML) 5.00 Urines Urinalysis LIGHT H Urine Color (YEL,AMB,STR) YEL Urine Clarity (CLEAR) HAZY H Urine pH (5.0 - 8.0) 7.0 Ur Specific [place] (1.001 - 1.035) 1.025 Urine Protein (NEG,<30 MG/DL) NEG Urine Ketones (NEG) NEG Urine Nitrite (NEG) NEG Urine Bilirubin (NEG) NEG Urine Urobilinogen (0.1 - 1.0 EU/dl) 1.0 Ur Leukocyte Esterase (NEG) TRACE H Ur Microscopic SEDIMENT EXAMINED Urine RBC (0 - 5 /HPF) 1-3 Urine WBC (0 - 2 /HPF) 1-3 H Ur Epithelial Cells (NONE,FEW) MOD H Urine Bacteria (NEG/NONE) MOD H Urine Mucus (FEW,NONE) FEW Urine Hemoglobin (NEG) NEG Urine Glucose (N MG/DL) NEG 09/02 09/01 0518 2352 Chemistry Sodium (137 - 145 mmol/L) 135 L Potassium (3.5 - 5.1 mmol/L) 3.9 Chloride (98 - 107 mmol/L) 83 L Carbon Dioxide (22 - 30 mmol/L) 44 H Anion Gap (5 - 16) 8 BUN (7 - 17 mg/dL) 14 Creatinine (0.5 - 1.0 mg/dL) 0.6 Estimated GFR (>60 ml/min) > 60 BUN/Creatinine Ratio (7 - 25 %) 23.3 Hemoglobin A1c (4.2 - 5.8 %) 5.9 H Magnesium (1.6 - 2.3 mg/dL) 1.7 TSH (0.270 - 4.200 uIU/mL) 0.135 L Free T4 (0.64 - 1.79 ng/dL) 1.39 Coagulation D-Dimer High Sensitivty (0 - 243 ng/ml) < 200 Hematology CBC w Diff MAN DIFF ORDERED WBC (4.8 - 10.8 /CUMM) 10.9 H RBC (4.20 - 5.40 /CUMM) 4.16 L Hgb (12.0 - 16.0 G/DL) 12.1 Hct (37 - 47 %) 37.8 MCV (81.0 - 99.0 FL) 90.8 MCH (27.0 - 31.0 PG) 29.0 MCHC (33.0 - 37.0 G/DL) 32.0 L RDW (11.5 - 14.5 %) 23.4 H Plt Count (130 - 400 /CUMM) 260 MPV (7.4 - 10.4 FL) 6.1 L Gran % (42.2 - 75.2 %) 90.4 H Lymphocytes % (20.5 - 51.1 %) 8.8 L Monocytes % (1.7 - 9.3 %) 0.6 L Eosinophils % (0 - 5 %) 0 Basophils % (0.0 - 2.0 %) 0.2 Absolute Granulocytes (1.4 - 6.5 /CUMM) 9.9 H Segmented Neutrophils (42.2 - 75.2 %) 87 H Band Neutrophils (0.0 - 5.0 %) 3 Absolute Lymphocytes (1.2 - 3.4 /CUMM) 1.0 L Lymphocytes (20.5 - 51.1 %) 8 L Monocytes (1.7 - 9.3 %) 2 Absolute Monocytes (0.10 - 0.60 /CUMM) 0.1 Absolute Eosinophils (0.0 - 0.7 /CUMM) 0 Absolute Basophils (0.0 - 0.2 /CUMM) 0 Platelet Estimate (ADEQUATE) ADEQUATE Polychromasia 1+ Poikilocytosis 1+ Anisocytosis 2+ Stomatocytes 3+ Urines Urine Color Cancelled Urine Clarity Cancelled Urine pH Cancelled Ur Specific Gillett Cancelled Urine Protein Cancelled Urine Ketones Cancelled Urine Nitrite Cancelled Urine Bilirubin Cancelled Urine Urobilinogen Cancelled Ur Leukocyte Esterase Cancelled Ur Microscopic Cancelled Urine Hemoglobin Cancelled Urine Glucose Cancelled 09/01 Blood Gas pH (7.35 - 7.45 PH) 7.41 pCO2 (35 - 45 TORR) 60 *H pO2 (80 - 100 TORR) 78 L HCO3 (21 - 28 MEQ/L) 37 H ABG O2 Sat (Measured) (>96.0 %) 88.0 L P-50 (Temp Corrected) N Carboxyhemoglobin (1.5 - 5.0 %) 7.1 *H O2 Concentration % 3L Temperature (97.0 - 100.0 FARH) 97.6 O2 Delivery Method NC Chemistry Sodium (137 - 145 mmol/L) 136 L Potassium (3.5 - 5.1 mmol/L) 3.0 L Chloride (98 - 107 mmol/L) 82 L Carbon Dioxide (22 - 30 mmol/L) 40 H Anion Gap (5 - 16) 14 BUN (7 - 17 mg/dL) 13 Creatinine (0.5 - 1.0 mg/dL) 0.6 Estimated GFR (>60 ml/min) > 60 BUN/Creatinine Ratio (7 - 25 %) 21.7 Glucose (65 - 99 mg/dL) 107 H Calcium (8.4 - 10.2 mg/dL) 9.7 Magnesium (1.6 - 2.3 mg/dL) 1.8 Total Bilirubin (0.2 - 1.3 mg/dL) 0.5 AST (14 - 36 U/L) 22 ALT (9 - 52 U/L) 30 Alkaline Phosphatase (<127 U/L) 90 Troponin I (< 0.11 ng/ml) < 0.01 Total Protein (6.3 - 8.2 g/dL) 6.5 Albumin (3.5 - 5.0 g/dL) 3.9 Globulin (1.9 - 4.2 gm/dL) 2.6 Albumin/Globulin Ratio (1.1 - 2.2 %) 1.5 Total Beta HCG (NEGATIVE) NEGATIVE Cortisol PM Sample (1.7 - 14.1) 1.4 L Hematology CBC w Diff NO MAN DIFF REQ WBC (4.8 - 10.8 /CUMM) 14.6 H RBC (4.20 - 5.40 /CUMM) 4.28 Hgb (12.0 - 16.0 G/DL) 12.3 Hct (37 - 47 %) 39.3 MCV (81.0 - 99.0 FL) 91.8 MCH (27.0 - 31.0 PG) 28.7 MCHC (33.0 - 37.0 G/DL) 31.2 L RDW (11.5 - 14.5 %) 23.9 H Plt Count (130 - 400 /CUMM) 286 MPV (7.4 - 10.4 FL) 6.0 L Gran % (42.2 - 75.2 %) 82.8 H Lymphocytes % (20.5 - 51.1 %) 12.4 L Monocytes % (1.7 - 9.3 %) 4.4 Eosinophils % (0 - 5 %) 0.1 Basophils % (0.0 - 2.0 %) 0.3 Absolute Granulocytes (1.4 - 6.5 /CUMM) 12.1 H Absolute Lymphocytes (1.2 - 3.4 /CUMM) 1.8 Absolute Monocytes (0.10 - 0.60 /CUMM) 0.6 Absolute Eosinophils (0.0 - 0.7 /CUMM) 0 Absolute Basophils (0.0 - 0.2 /CUMM) 0 Miscellaneous Phlebotomy Draw Site RIGHT RADIAL Toxicology Serum Alcohol (<10 MG/DL) 123.0 Last 24 Hours of Kartik Results: Blood cultures 2 September 02 negative Rapid flu swab September 01 negative Diagnostic Data Recent Imaging Findings: Chest x-ray September 01 negative Doppler of the left leg September 02 negative Assessment/Plan Assessment/Plan Impression: This is a 46-year-old woman smoker with a history of COPD, maintained on 3 L of oxygen at home, adrenal insufficiency, maintained on 10 mg prednisone daily, alcohol and benzodiazepine dependence and a 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 She has a history of recurrent "abscesses" in the groin, which most likely recurrent furunculosis, and she does have one active lesion on the left. There is no surrounding inflammation; therefore this should respond to local wound care/warm compresses. If it does not improve, however, an I&D can be considered. She should not require systemic antibiotics for this, but the Doxycycline, which was presumably started for possible bronchitis, may provide some coverage for this. Suggestion: 1. Warm compresses to her left groin 2. Surgical evaluation if her furuncle does not resolve with the compresses 3. Taper steroids 4. Can continue Doxycycline Cami Davis MD will be covering until September 12 Consult Acknowledgment - Thank you for your consult request.
--- NOTE | 2017-09-02 16:43 | Cons- Endocrinology ---
General Information and HPI Consulting Request Date of Consult: 09/02/17 Requested By: medical team Reason for Consult: managmenet of secondary adrenal insufficiency Source of Information: patient, old records Exam Limitations: no limitations History of Present Illness: 46-year-old woman presented with change of mental status to the emergency room. She has been found to have acute hypercarbic respiratory failure. The patient has a past history of Joann's thyroiditis and is on replacement therapy with levothyroxine 88 g daily. She also in the past was diagnosed with adrenal insufficiency by her previous marketing intern which probably was due to the exogenous steroids which suppresses the pituitary adrenal axis. The patient has been on and off large doses of steroids for her lung disease. In addition, patient stated that she should be on minimal prednisone 10 mg daily. 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 As per patient, she has had T12 compressioj fracture. She is morbidly obese. She continues to smoke cigarettes and drinks alcohol. The urine test showed positive for ETOH, Benzo and Morphine. At this point, she was put on Solumedrol 40 mg twice a day as per pulmonary. Blood work showed random cortisol 1.4, TSH 0.135 and free T4 1.39. Her HbA1c was 5.9%. Her FSG was 159. She is on Novolog coverage before meals ( 2 units when her FSG is between 150 and 200, etc) Allergies/Medications Allergies: Coded Allergies: apple (Intermediate, HIVES FROM APPLE CIDER 02/15/17) hydromorphone (Intermediate, LIP SWELLING 02/15/17) phenytoin (Intermediate, HIVES 02/15/17) lidocaine (SVT 02/15/17) oxycodone (From Percocet) (ITCHY 02/15/17) valsartan (From DIOVAN) (ACUTE RENAL FAILURE 02/15/17) Home Med List: Albuterol Sulfate 2.5 MG/3 ML (0.083 %) VIAL.NEB 3 ML INH TID PRN asthma Albuterol Sulfate (Ventolin Hfa) 90 MCG HFA.AER.AD 2 PUF INH Q4-6 PRN PRN asthma Alprazolam 0.5 MG TABLET 1 TAB PO PRN ANXIETY (Reported) Amlodipine Besylate (Norvasc) 10 MG TABLET 1 TAB PO DAILY hypertension Aspirin/Acetaminophen/Caffeine (Excedrin Migraine Caplet) 250 MG-250 MG-65 MG TABLET 1 TAB PO DAILY SINUS HEADACHE (Reported) Atorvastatin Calcium 40 MG TABLET 1 TAB PO DAILY CHOLESTEROL (Reported) Benzonatate (Tessalon Perle) 100 MG CAPSULE 1 CAP PO TID PRN COUGH Budesonide/Formoterol Fumarate (Symbicort 160-4.5 Mcg Inhaler) 160 MCG-4.5 MCG/ ACTUATION HFA.AER.AD 2 PUF INH BID ASTHMA (Reported) Divalproex Sodium (Divalproex Sodium ER) 500 MG TAB.ER.24H 2 TAB PO QPM MENTAL HEALTH (Reported) Fexofenadine/Pseudoephedrine (Shannan-D 24 Hour Tablet) 180 MG-240 MG TAB.ER.24H 1 TAB PO DAILY ALLERGIES (Reported) Fluticasone Propionate (Flonase Allergy Relief) 50 MCG/ACTUATION SPRAY.SUSP 1 SPRAY ELLA BID ALLERGIES (Reported) Hydrocodone/Acetaminophen (Jefferson 7.5-325 Tablet) 7.5 MG-325 MG TABLET 1 TAB PO BID CHRONIC BACK PAIN Hydrocodone/Acetaminophen (Vicodin 5-300 MG Tablet) 5 MG-300 MG TABLET 1 TAB PO BID PRN PAIN Levothyroxine Sodium (Synthroid) 88 MCG TABLET 1 TAB PO DAILY THYROID ( Reported) Montelukast Sodium 10 MG TABLET 1 TAB PO QHS ASTHMA (Reported) Multivitamin (One Daily Multivitamin) 1 EACH TABLET 1 TAB PO DAILY supplement Prednisone 10 MG TABLET 1 TAB PO DAILY STEROID (Reported) Propranolol HCl (Propranolol HCl ER) 120 MG CAP.SA.24H 1 CAP PO BID HTN Quetiapine Fumarate (Seroquel) 50 MG TABLET 3 TAB PO QPM PRN MENTAL HEALTH/ SLEEP (Reported) Tramadol HCl 50 MG TABLET 1 TAB PO Q6P PRN PAIN Review of Systems Review of Systems Constitutional: Reports: see HPI. Cardiovascular: Denies: chest pain. Respiratory: Reports: short of breath. GI: Reports: bloating, distention. Genitourinary: Denies: dysuria. Hematologic/Endocrine: Denies: polyuria, polydipsia. 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 , Age 70; Cause: Lung cancer. FH: lung cancer FATHER, , Age 75; Cause: SBO (small bowel obstruction). Psychosocial History Who Do You Live With? self Services at Home: None (3L nc), Oxygen Primary Language: Brazilian ETOH Use: alcoholic Illicit Drug Use: denies illicit drug use Living Will? yes Power of Control Clerk Head/HCP? yes Name of POA/HCP: Pt's [phone] Functional Ability ADLs Independent: dressing, eating, toileting, bathing. Ambulation: independent IADLs Independent: shopping, housework, finances, food prep, telephone, transportation , medication admin. Exam & Diagnostic Data Last 24 Hrs of Vital Signs/I&O Vital Signs Date Time Temp Pulse Resp B/P B/P Pulse O2 O2 Flow FiO2 Mean Ox Delivery Rate 09/02 1437 81 24 137/75 09/02 1315 97.9 20 137/75 91 Nasal 4.0L Cannula 09/02 1226 98.0 72 22 110/70 93 Nasal 3.0L Cannula 09/02 1121 Nasal 3.0L Cannula 09/02 1020 93 Nasal 3.0L Cannula 09/02 1006 78 102/71 09/02 1006 78 102/71 09/02 1004 98.1 78 20 102/70 97 09/02 1003 98.1 18 18 102/70 09/02 0854 97.8 72 18 133/77 94 09/02 0745 98.5 68 18 146/78 93 09/02 0645 98.9 86 18 141/83 09/02 0638 98.9 86 18 141/83 94 BIPAP 35% 09/02 0549 98.9 68 20 142/86 93 BIPAP 35% 09/02 0540 80 95 09/02 0446 98.6 92 18 145/83 93 BIPAP 35% 09/02 0445 98.6 92 18 145/83 09/02 0346 98.8 68 18 144/89 93 BIPAP 35% 09/02 0306 66 94 09/02 0250 96.1 64 16 144/89 95 BIPAP 35% 09/02 0245 96.1 65 16 144/89 09/02 0207 98.9 64 16 136/86 93 BIPAP 35% 09/02 0200 98.9 64 16 136/86 09/02 0045 96.7 75 22 121/57 09/02 0045 96.7 75 22 121/57 95 BIPAP 35% 09/02 0044 71 91 09/01 223 94 Nasal 3.0L Cannula 09/01 2231 97.6 09/01 2222 95.8 78 16 144/76 95 Room Air 09/01 2135 97.4 72 22 110/60 95 Room Air 09/01 1947 95 Nasal 3.0L Cannula 09/01 193 97.9 76 22 111/57 93 Nasal 3.0L Cannula Intake & Output 09/02 1600 09/02 0800 09/02 0000 Intake Total Output Total Balance Patient 247 lb Weight Weight Reported by Patient Measurement Method Physical Exam General Appearance: no apparent distress, obese, Cushingnoid Neck: difficult to palpate her thyroid gland. Respiratory: decreased breath sounds Cardiovascular: regular rate/rhythm Gastrointestinal: distention Extremities: swelling (left LE) Skin: striaes over her abdomen Labs/Kartik Results: Laboratory Tests 09/02 09/02 1711 0950 Toxicology Urine Opiates Screen (>2000 NG/ML) > 4000.00 H Methadone Screen (>300 NG/ML) 68 Barbiturate Screen (>200 NG/ML) 61 Valproic Acid Pending Ur Phencyclidine Scrn (>25 NG/ML) 9.20 Amphetamines Screen (>1000 NG/ML) 172 U Benzodiazepines Scrn (>200 NG/ML) > 800 H Urine Cocaine Screen (>300 NG/ML) < 50 Urine Cannabis Screen (>50 NG/ML) 5.00 Urines Urinalysis LIGHT H Urine Color (YEL,AMB,STR) YEL Urine Clarity (CLEAR) HAZY H Urine pH (5.0 - 8.0) 7.0 Ur Specific [place] (1.001 - 1.035) 1.025 Urine Protein (NEG,<30 MG/DL) NEG Urine Ketones (NEG) NEG Urine Nitrite (NEG) NEG Urine Bilirubin (NEG) NEG Urine Urobilinogen (0.1 - 1.0 EU/dl) 1.0 Ur Leukocyte Esterase (NEG) TRACE H Ur Microscopic SEDIMENT EXAMINED Urine RBC (0 - 5 /HPF) 1-3 Urine WBC (0 - 2 /HPF) 1-3 H Ur Epithelial Cells (NONE,FEW) MOD H Urine Bacteria (NEG/NONE) MOD H Urine Mucus (FEW,NONE) FEW Urine Hemoglobin (NEG) NEG Urine Glucose (N MG/DL) NEG 09/02 09/02 0545 0518 Blood Gas pH (7.35 - 7.45 PH) 7.49 H pCO2 (35 - 45 TORR) 54 H pO2 (80 - 100 TORR) 82 HCO3 (21 - 28 MEQ/L) 40 H ABG O2 Sat (Measured) (>96.0 %) 92.0 L P-50 (Temp Corrected) Y Carboxyhemoglobin (1.5 - 5.0 %) 3.9 O2 Concentration % 35% Temperature (97.0 - 100.0 FARH) 98.6 Respiration Rate (BPM) 14 O2 Delivery Method VISION Vent Mode ST Expiratory Pressure (CM H2O P) 6 Inspiratory Pressure (CM H2O P) 14 Chemistry Sodium (137 - 145 mmol/L) 135 L Potassium (3.5 - 5.1 mmol/L) 3.9 Chloride (98 - 107 mmol/L) 83 L Carbon Dioxide (22 - 30 mmol/L) 44 H Anion Gap (5 - 16) 8 BUN (7 - 17 mg/dL) 14 Creatinine (0.5 - 1.0 mg/dL) 0.6 Estimated GFR (>60 ml/min) > 60 BUN/Creatinine Ratio (7 - 25 %) 23.3 Hemoglobin A1c (4.2 - 5.8 %) 5.9 H Magnesium (1.6 - 2.3 mg/dL) 1.7 TSH (0.270 - 4.200 uIU/mL) 0.135 L Free T4 (0.64 - 1.79 ng/dL) 1.39 Coagulation D-Dimer High Sensitivty (0 - 243 ng/ml) < 200 Hematology CBC w Diff MAN DIFF ORDERED WBC (4.8 - 10.8 /CUMM) 10.9 H RBC (4.20 - 5.40 /CUMM) 4.16 L Hgb (12.0 - 16.0 G/DL) 12.1 Hct (37 - 47 %) 37.8 MCV (81.0 - 99.0 FL) 90.8 MCH (27.0 - 31.0 PG) 29.0 MCHC (33.0 - 37.0 G/DL) 32.0 L RDW (11.5 - 14.5 %) 23.4 H Plt Count (130 - 400 /CUMM) 260 MPV (7.4 - 10.4 FL) 6.1 L Gran % (42.2 - 75.2 %) 90.4 H Lymphocytes % (20.5 - 51.1 %) 8.8 L Monocytes % (1.7 - 9.3 %) 0.6 L Eosinophils % (0 - 5 %) 0 Basophils % (0.0 - 2.0 %) 0.2 Absolute Granulocytes (1.4 - 6.5 /CUMM) 9.9 H Segmented Neutrophils (42.2 - 75.2 %) 87 H Band Neutrophils (0.0 - 5.0 %) 3 Absolute Lymphocytes (1.2 - 3.4 /CUMM) 1.0 L Lymphocytes (20.5 - 51.1 %) 8 L Monocytes (1.7 - 9.3 %) 2 Absolute Monocytes (0.10 - 0.60 /CUMM) 0.1 Absolute Eosinophils (0.0 - 0.7 /CUMM) 0 Absolute Basophils (0.0 - 0.2 /CUMM) 0 Platelet Estimate (ADEQUATE) ADEQUATE Polychromasia 1+ Poikilocytosis 1+ Anisocytosis 2+ Stomatocytes 3+ Miscellaneous Phlebotomy Draw Site RIGHT RADIAL 09/01 09/01 1196 5227 Blood Gas pH (7.35 - 7.45 PH) 7.41 pCO2 (35 - 45 TORR) 60 *H pO2 (80 - 100 TORR) 78 L HCO3 (21 - 28 MEQ/L) 37 H ABG O2 Sat (Measured) (>96.0 %) 88.0 L P-50 (Temp Corrected) N Carboxyhemoglobin (1.5 - 5.0 %) 7.1 *H O2 Concentration % 3L Temperature (97.0 - 100.0 FARH) 97.6 O2 Delivery Method NC Miscellaneous Phlebotomy Draw Site RIGHT RADIAL Urines Urine Color Cancelled Urine Clarity Cancelled Urine pH Cancelled Ur Specific [place] Cancelled Urine Protein Cancelled Urine Ketones Cancelled Urine Nitrite Cancelled Urine Bilirubin Cancelled Urine Urobilinogen Cancelled Ur Leukocyte Esterase Cancelled Ur Microscopic Cancelled Urine Hemoglobin Cancelled Urine Glucose Cancelled 09/01 2014 Chemistry Sodium (137 - 145 mmol/L) 136 L Potassium (3.5 - 5.1 mmol/L) 3.0 L Chloride (98 - 107 mmol/L) 82 L Carbon Dioxide (22 - 30 mmol/L) 40 H Anion Gap (5 - 16) 14 BUN (7 - 17 mg/dL) 13 Creatinine (0.5 - 1.0 mg/dL) 0.6 Estimated GFR (>60 ml/min) > 60 BUN/Creatinine Ratio (7 - 25 %) 21.7 Glucose (65 - 99 mg/dL) 107 H Calcium (8.4 - 10.2 mg/dL) 9.7 Magnesium (1.6 - 2.3 mg/dL) 1.8 Total Bilirubin (0.2 - 1.3 mg/dL) 0.5 AST (14 - 36 U/L) 22 ALT (9 - 52 U/L) 30 Alkaline Phosphatase (<127 U/L) 90 Troponin I (< 0.11 ng/ml) < 0.01 Total Protein (6.3 - 8.2 g/dL) 6.5 Albumin (3.5 - 5.0 g/dL) 3.9 Globulin (1.9 - 4.2 gm/dL) 2.6 Albumin/Globulin Ratio (1.1 - 2.2 %) 1.5 Total Beta HCG (NEGATIVE) NEGATIVE Cortisol PM Sample (1.7 - 14.1) 1.4 L Hematology CBC w Diff NO MAN DIFF REQ WBC (4.8 - 10.8 /CUMM) 14.6 H RBC (4.20 - 5.40 /CUMM) 4.28 Hgb (12.0 - 16.0 G/DL) 12.3 Hct (37 - 47 %) 39.3 MCV (81.0 - 99.0 FL) 91.8 MCH (27.0 - 31.0 PG) 28.7 MCHC (33.0 - 37.0 G/DL) 31.2 L RDW (11.5 - 14.5 %) 23.9 H Plt Count (130 - 400 /CUMM) 286 MPV (7.4 - 10.4 FL) 6.0 L Gran % (42.2 - 75.2 %) 82.8 H Lymphocytes % (20.5 - 51.1 %) 12.4 L Monocytes % (1.7 - 9.3 %) 4.4 Eosinophils % (0 - 5 %) 0.1 Basophils % (0.0 - 2.0 %) 0.3 Absolute Granulocytes (1.4 - 6.5 /CUMM) 12.1 H Absolute Lymphocytes (1.2 - 3.4 /CUMM) 1.8 Absolute Monocytes (0.10 - 0.60 /CUMM) 0.6 Absolute Eosinophils (0.0 - 0.7 /CUMM) 0 Absolute Basophils (0.0 - 0.2 /CUMM) 0 Toxicology Serum Alcohol (<10 MG/DL) 123.0 Assessment/Plan Assessment/Plan 46-year-old woman with the suppression of the pituitary adrenal axis due to the large doses of exogenous steroids that she has been on over many years, Cushingnoid appearance with Hx of T12 compression fracture, Joann's thyroiditis and hypothyroidism, hyperglycemia with HbA1c of 5.9%, was admitted for changes of mental status and hypercarbic and hypoxemic respiratory failure. She was placed on Solumedrol 40 mg twice a day which well covers adrenal insufficiency. Her TSH was mildly suppressed which could be due to sick euthyroid changes or steroid. I will continue Levothyroxine 88 mcg daily for now. With regards to hyperglycemia, I agree with monitoring patient's glucose level and giving patient Novolog coverage before meals according to the scale. will follow. Consult Acknowledgment - Thank you for your consult request.
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
[2017-09-03 07:10] VITALS: BP 134/64
--- NOTE | 2017-09-03 09:14 | PN- Housestaff ---
See Addendum Subjective Follow-up For: AHRF, chronic pred Subjective: No overnight events. Had extensive discussion with patient regarding her issues. She very much wants to taper off prednisone, but I told her this would have to be slow. She feels well tyhis morning, no breathing complaints or other issues. Review of Systems Constitutional: Reports: no symptoms. EENTM: Reports: no symptoms. Cardiovascular: Reports: no symptoms. Respiratory: Reports: no symptoms. Gastrointestinal: Reports: no symptoms. Genitourinary: Reports: no symptoms. Musculoskeletal: Reports: no symptoms. Skin: Reports: no symptoms. Neurological/Psychological: Reports: no symptoms. Hematologic/Endocrine: Reports: no symptoms. Immunologic/Allergic: Reports: no symptoms. Objective Last 24 Hrs of Vital Signs/I&O Vital Signs Date Time Temp Pulse Resp B/P B/P Pulse O2 O2 Flow FiO2 Mean Ox Delivery Rate 09/03 0710 97.5 72 20 134/64 91 09/03 0018 83 94 09/03 0000 Nasal 3.0L Cannula 09/02 2300 Nasal 4.0L Cannula 09/02 2300 97.7 86 20 132/74 95 Nasal 3.0L Cannula 09/02 2139 98.2 76 20 136/68 96 Nasal 3.0L Cannula 09/02 2138 98.2 76 18 136/68 09/02 1437 81 24 137/75 09/02 1315 97.9 20 137/75 91 Nasal 4.0L Cannula 09/02 1226 98.0 72 22 110/70 93 Nasal 3.0L Cannula 09/02 1121 Nasal 3.0L Cannula 09/02 1020 93 Nasal 3.0L Cannula 09/02 1006 78 102/71 09/02 1006 78 102/71 09/02 1004 98.1 78 20 102/70 97 09/02 1003 98.1 18 18 102/70 Intake & Output 09/03 1600 09/03 0800 09/03 0000 Intake Total 100 Output Total Balance 100 Intake, Oral 100 Patient 113.398 kg Weight Weight Reported by Patient Measurement Method Physical Exam General Appearance: Alert, Oriented X3, Cooperative, No Acute Distress, cushingoid Cardiovascular: Regular Rate, Normal S1, Normal S2 Lungs: Clear to Auscultation Abdomen: Normal Bowel Sounds, Soft, No Tenderness Extremities: 1+ pitting edema Current Medications: Current Medications Sig/Rosio Start time Last Medication Dose Route Stop Time Status Admin Acetaminophen 975 MG Q8P PRN 09/02 1100 AC PO Acetaminophen 650 MG Q4P PRN 09/02 0100 DC PO Albuterol Sulfate 3 ML TID 09/02 1600 AC 09/02 INH 1638 Albuterol Sulfate 2 PUF Q4-6 PRN PRN 09/02 0015 AC INH Albuterol Sulfate 3 ML TID PRN 09/02 0015 AC INH Alprazolam 0.5 MG DAILY 09/03 1000 AC PO 09/09 0944 Amlodipine Besylate 10 MG DAILY 09/02 1000 AC 09/02 PO 1006 Atorvastatin Calcium 40 MG 1700 09/02 1700 AC 09/02 PO 1844 Azithromycin 500 MG Q24H 09/03 0100 AC 09/03 Dextrose/Water 250 ML IV 0147 Budesonide/ 2 PUF BID 09/02 1000 AC 09/02 Formoterol Fumarate INH 2130 Divalproex Sodium 1,000 MG QPM 09/02 2200 AC 09/02 PO 2130 Docusate Sodium 100 MG DAILY NEEDED PRN 09/01 2345 AC PO Doxycycline Hyclate 0 .STK-MED ONE 09/02 1222 DC PO Doxycycline Hyclate 100 MG BID 09/02 1126 AC 09/02 PO 09/06 1126 2130 Enoxaparin Sodium 40 MG DAILY 09/02 1000 AC SC Fluticasone 2 SPRAY DAILY PRN 09/02 0015 AC Propionate ELLA Hydrocodone Bitart/ 0 .STK-MED ONE 09/02 2126 DC Acetaminophen PO Hydrocodone Bitart/ 0 .STK-MED ONE 09/02 1222 DC Acetaminophen PO Hydrocodone Bitart/ 1 TAB BID 09/02 1000 AC 09/02 Acetaminophen PO 2130 Ibuprofen 0 .STK-MED ONE 09/02 1846 DC PO Ibuprofen 600 MG ONCE ONE 09/02 1800 DC 09/02 PO 09/02 1801 1844 Insulin Aspart 0 TIDAC 09/02 1200 AC 09/02 SC 1222 Ipratropium [place] 2.5 ML TID 09/02 1600 AC 09/02 INH 1638 Levothyroxine Sodium 0.088 MG DAILY AC 09/02 0700 AC 09/03 PO 0626 Loratadine 10 MG DAILY 09/03 1000 AC PO Lorazepam 0 .STK-MED ONE 02/23 2237 DC PO Lorazepam 1 MG ONE ONE 09/020 DC 09/02 PO 09/02 220 222 Methylprednisolone 40 MG DAILY 09/03 1000 AC IV Methylprednisolone 40 MG Q12 09/02 1000 DC 09/02 IV 2130 Metolazone 2.5 MG SuWeFr@1000 09/04 1000 AC PO Montelukast Sodium 10 MG AT BEDTIME 09/02 2200 AC 09/02 PO 2229 Multivitamins 1 TAB DAILY 09/02 1000 AC 09/02 Therapeutic PO 1006 Nicotine 21 MG Q24 09/02 1000 AC TOP Prednisone 0 .STK-MED ONE 09/02 1221 DC PO Prednisone 10 MG DAILY 09/02 1100 DC 09/02 PO 1220 Propranolol HCl 120 MG DAILY 09/02 1000 AC 09/02 PO 1006 Pseudoephedrine HCl 30 MG Q6 09/03 0845 AC PO Quetiapine Fumarate 150 MG QPM PRN 09/02 0800 AC 09/03 PO 0153 Senna 187 MG AT BEDTIME NEED.. 09/02 0030 AC PO Last 24 Hrs of Lab/Kartik Results Last 24 Hrs of Labs/Mics: Laboratory Tests 09/02/17 1711: Valproic Acid 68.5 09/02/17 0950: Urine Opiates Screen > 4000.00 H, Methadone Screen 68, Barbiturate Screen 61, Ur Phencyclidine Scrn 9.20, Amphetamines Screen 172, U Benzodiazepines Scrn > 800 H, Urine Cocaine Screen < 50, Urine Cannabis Screen 5.00, Urinalysis LIGHT H, Urine Color YEL, Urine Clarity HAZY H, Urine pH 7.0, Ur Specific [place] 1.025, Urine Protein NEG, Urine Ketones NEG, Urine Nitrite NEG, Urine Bilirubin NEG, Urine Urobilinogen 1.0, Ur Leukocyte Esterase TRACE H, Ur Microscopic SEDIMENT EXAMINED, Urine RBC 1-3, Urine WBC 1-3 H, Ur Epithelial Cells MOD H, Urine Bacteria MOD H, Urine Mucus FEW, Urine Hemoglobin NEG, Urine Glucose NEG Assessment/Plan Assessment: 46-year-old morbidly obese woman, current smoker with a past medical history significant COPD on 3 L O2 at home, asthma, alcohol abuse (no history of inpatient detox, seizures or DTs), adrenal insufficiency on 10 prednisone daily, Joann's thyroiditis, benzodiazepine dependence, hypertension, bipolar disease, chronic unilateral right lower extremity swelling, 2 weeks ago ago she had a fall and imaging showed she had a fracture at level of T12 and was given a Brace, now BIBA for worsening shortness of breath one week duration. Acute on chronic hypoxemic and hypercarbic respiratory failure Possible secondary to bronchitis (cxr neg for pneumonia) in the setting of continued smoking * s/p ICU for Bipap * IV solumedrol, taper Q2 days on pred to home dose 10mg QD * IV Azithromycin 500 mg IV daily * continue symbicort * TRC/ NEb ATC * continue symbicort/ventolin appreciate pulm recs HTN: continue amlodipine 10 mg daily and propranolol 120 mg BID Hypokalemia likely secondary to metazolone use, will replete, f/up mag level Bilateral lower extremity swelling L>R, left leg is erthyematous however no increase in warmth noted, low suspicion for cellulitis f/up doppler contine her metazolone ( 2.5 mg SWF) EtOH abuse check CIWA score however will hole ativan due to lethargy appreciate psych recs Hypothryoidism continue levothryoxine, follow up tsh/t4 adrenal insufficiency Will be on IV steroids, tapered, vitals stable Endo recs appreciated Will need outpatient f/u Recurrent abscess ID recs appreciatesd warm compresses consider surgery consult if no improvement. diet: CC3 dvt ppx: sc lovenox full code. Problem List: 1. Hypercapnic respiratory failure Pain Ratin Pain Location: no Pain Goal: Remain pain free Pain Plan: see a/po Tomorrow's Labs & Rationales: cbc, bep
--- NOTE | 2017-09-03 12:25 | PN- Pulmonary ---
Subjective HPI/Critical Care Issues: Patient seen and examined this morning. She appears to be doing significantly better. Objective Current Medications: Current Medications Sig/Rosio Start time Last Medication Dose Route Stop Time Status Admin Acetaminophen 975 MG Q8P PRN 09/02 1100 AC PO Albuterol Sulfate 3 ML TID 09/02 1600 AC 09/03 INH 0920 Albuterol Sulfate 2 PUF Q4-6 PRN PRN 09/02 0015 AC INH Albuterol Sulfate 3 ML TID PRN 09/02 0015 AC INH Alprazolam 0.5 MG DAILY 09/03 1000 AC 09/03 PO 09/09 0944 1038 Amlodipine Besylate 10 MG DAILY 09/02 1000 AC 09/03 PO 1035 Atorvastatin Calcium 40 MG 1700 09/02 1700 AC 09/02 PO 1844 Azithromycin 500 MG Q24H 09/03 0100 AC 09/03 Dextrose/Water 250 ML IV 0147 Budesonide/ 2 PUF BID 09/02 1000 AC 09/03 Formoterol Fumarate INH 1036 Divalproex Sodium 1,000 MG QPM 09/02 2200 AC 09/02 PO 2130 Docusate Sodium 100 MG DAILY NEEDED PRN 09/01 2345 AC PO Doxycycline Hyclate 100 MG BID 09/02 1126 AC 09/03 PO 09/06 1126 1037 Enoxaparin Sodium 40 MG DAILY 09/02 1000 AC SC Fluticasone 2 SPRAY DAILY PRN 09/02 0015 AC Propionate ELLA Hydrocodone Bitart/ 0 .STK-MED ONE 09/02 2126 DC Acetaminophen PO Hydrocodone Bitart/ 1 TAB BID 09/02 1000 AC 09/03 Acetaminophen PO 1026 Ibuprofen 600 MG ACHS PRN 09/03 0915 AC 09/03 PO 1022 Ibuprofen 0 .STK-MED ONE 09/02 1846 DC PO Ibuprofen 600 MG ONCE ONE 09/02 1800 DC 09/02 PO 09/02 1801 1844 Insulin Aspart 0 TIDAC 09/02 1200 AC 09/02 SC 1222 Ipratropium [place] 2.5 ML TID 09/02 1600 AC 09/03 INH 0920 Levothyroxine Sodium 0.088 MG DAILY AC 09/02 0700 AC 09/03 PO 0626 Loratadine 10 MG DAILY 09/03 1000 AC PO Lorazepam 0 .STK-MED ONE 09/02 2237 DC PO Lorazepam 1 MG ONE ONE 09/02 2200 DC 09/02 PO 09/02 220 2229 Methylprednisolone 40 MG DAILY 09/03 1000 AC 09/03 IV 09/04 1100 1035 Methylprednisolone 40 MG Q12 09/02 1000 DC 09/02 IV 2130 Metolazone 2.5 MG SuWeFr@1000 09/04 1000 AC PO Montelukast Sodium 10 MG AT BEDTIME 09/02 2200 AC 09/02 PO 2229 Multivitamins 1 TAB DAILY 09/02 1000 AC 09/03 Therapeutic PO 1037 Nicotine 21 MG Q24 09/02 1000 AC TOP Omeprazole 20 MG 0700,1800 09/03 0930 AC 09/03 PO 1030 Prednisone 10 MG DAILY 09/11 1000 AC PO Prednisone 40 MG DAILY 09/05 1000 AC PO 09/11 0959 Prednisone 10 MG DAILY 09/02 1100 DC 09/02 PO 1220 Propranolol HCl 120 MG DAILY 09/02 1000 AC 09/03 PO 1031 Pseudoephedrine HCl 30 MG Q6 09/03 0845 AC PO Quetiapine Fumarate 150 MG QPM PRN 09/02 0800 AC 09/03 PO 0153 Senna 187 MG AT BEDTIME NEED.. 09/02 0030 AC PO Vital Signs & I&O Last 24 Hrs of Vitals and I&O: Vital Signs Date Time Temp Pulse Resp B/P B/P Pulse O2 O2 Flow FiO2 Mean Ox Delivery Rate 09/03 1031 73 134/64 09/03 0927 95 Nasal 3.0L Cannula 09/03 0710 97.5 72 20 134/64 91 09/03 0018 83 94 09/03 0000 Nasal 3.0L Cannula 09/02 2299 Nasal 4.0L Cannula 09/02 2299 97.7 86 20 132/74 95 Nasal 3.0L Cannula 09/02 2138 98.2 76 20 136/68 96 Nasal 3.0L Cannula 09/02 2137 98.2 76 18 136/68 09/02 1437 81 24 137/75 09/02 1315 97.9 20 137/75 91 Nasal 4.0L Cannula 09/02 1226 98.0 72 22 110/70 93 Nasal 3.0L Cannula Intake & Output 09/03 1600 09/03 0800 09/03 0000 Intake Total 100 Output Total Balance 100 Intake, Oral 100 Patient 250 lb Weight Weight Reported by Patient Measurement Method Exam Other Physical Findings: Generally - Awake, alert and comfortable without distress Head and neck - normocephalic, atraumatic, EOMI grossly intact Cardiovascular - S1, S2 Lungs - minor wheezing much improved Abdomen - Bowel sounds positive, soft, non-tender Extremities -edematous Results Last 24 Hrs of Lab Results: Laboratory Tests 09/02/17 1711: Valproic Acid 68.5 Impression/Plan Impression/Plan Impression/Plan: Impression/Plan 46 year old woman, etoh, substance dependence, hx of adrenal insufficiency. Reactive airways, likely OHS/VITOR. Admitted for acute on chronic hypoxemic and hypercarbic respiratory failure, likely secondary to intoxication -taper steroids as discussed with housestaff -dc planning -trc/nebs -pt needs outpt sleep study, for comfort she asked for autopap at night, she understands she will need a sleep study prior to issuing of pap therapy DVT prophylaxis at all times
--- NOTE | 2017-09-03 13:50 | PN- Endocrinology ---
Assessment/Plan Endoscopy Assessment: 46-year-old woman with the suppression of the pituitary adrenal axis due to the large doses of exogenous steroids that she has been on over many years, Cushingnoid appearance with Hx of T12 compression fracture, Joann's thyroiditis and hypothyroidism, hyperglycemia with HbA1c of 5.9%, was admitted for changes of mental status and hypercarbic and hypoxemic respiratory failure. She was placed on Solumedrol 40 mg twice a day which well covers adrenal insufficiency. Solumedrol was decreased to 40 mg daily today. Her TSH was mildly suppressed which could be due to sick euthyroid changes or steroid. I will continue Levothyroxine 88 mcg daily for now. With regards to hyperglycemia, her FSGs were 159, 127 and 139. She will continue the current Novolog coverage. 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 Plan: detail see the above. Subjective Subjective: Her breathing is better. Objective Last 24 Hrs of Vital Signs/I&O Vital Signs Date Time Temp Pulse Resp B/P B/P Pulse O2 O2 Flow FiO2 Mean Ox Delivery Rate 09/03 1031 73 134/64 09/03 0927 95 Nasal 3.0L Cannula 09/03 0800 Nasal 3.0L Cannula 09/03 0710 97.5 72 20 134/64 91 09/03 0018 83 94 09/03 0000 Nasal 3.0L Cannula 09/02 2300 Nasal 4.0L Cannula 09/02 230 97.7 86 20 132/74 95 Nasal 3.0L Cannula 09/029 98.2 76 20 136/68 96 Nasal 3.0L Cannula 09/02 2137 98.2 76 18 136/68 09/02 1437 81 24 137/75 Intake & Output 09/03 1600 09/03 0800 09/03 0000 Intake Total 100 Output Total Balance 100 Intake, Oral 100 Patient 250 lb Weight Weight Reported by Patient Measurement Method Results Pertinent Lab/Kartik Results: Laboratory Tests 09/02 1711 Toxicology Valproic Acid (50 - 120 ug/mL) 68.5
[2017-09-03 14:17] VITALS: BP 130/75
[2017-09-03 16:00] VITALS: BP 130/75
[2017-09-03 22:18] VITALS: BP 122/60
[2017-09-04 06:20] VITALS: BP 126/80
--- NOTE | 2017-09-04 09:36 | PN- Housestaff ---
See Addendum Subjective Follow-up For: COPD Subjective: No overnight events. She likes the aquaphor and venodyne boots a lot, wants a prescription for both. Her breathing is good and she feels good, but would like to stay another day. Wants to continue to improve and shower and shave legs Review of Systems Constitutional: Reports: no symptoms. EENTM: Reports: no symptoms. Cardiovascular: Reports: no symptoms. Respiratory: Reports: see HPI. Gastrointestinal: Reports: no symptoms. Genitourinary: Reports: no symptoms. Musculoskeletal: Reports: no symptoms. Skin: Reports: no symptoms. Neurological/Psychological: Reports: no symptoms. Hematologic/Endocrine: Reports: no symptoms. Immunologic/Allergic: Reports: no symptoms. Objective Last 24 Hrs of Vital Signs/I&O Vital Signs Date Time Temp Pulse Resp B/P B/P Pulse O2 O2 Flow FiO2 Mean Ox Delivery Rate 09/04 0824 96 Nasal 3.0L Cannula 09/04 0620 98.2 83 20 126/80 96 Nasal Cannula 09/04 0000 Nasal 3.0L Cannula 09/03 2218 98.2 98 20 122/60 94 09/03 2207 78 93 09/03 1600 98.2 80 20 130/75 09/03 1600 95 Nasal 3.0L Cannula 09/03 1417 98.2 80 21 130/75 95 Nasal Cannula 09/03 1031 73 134/64 Intake & Output 09/04 1600 09/04 0800 09/04 0000 Intake Total 200 300 Output Total Balance 200 300 Intake, Oral 200 300 Physical Exam General Appearance: Alert, Oriented X3, Cooperative, No Acute Distress Cardiovascular: Regular Rate, Normal S1, Normal S2 Lungs: mild wheezing Abdomen: Normal Bowel Sounds, Soft, No Tenderness Extremities: stable Current Medications: Current Medications Sig/Rosio Start time Last Medication Dose Route Stop Time Status Admin Acetaminophen 975 MG Q8P PRN 09/02 1100 AC PO Albuterol Sulfate 3 ML TID 09/02 1600 AC 09/04 INH 0820 Albuterol Sulfate 2 PUF Q4-6 PRN PRN 09/02 0015 AC INH Albuterol Sulfate 3 ML TID PRN 09/02 0015 AC INH Alprazolam 0.5 MG DAILY 09/03 1000 AC 09/03 PO 09/09 0944 1038 Amlodipine Besylate 10 MG DAILY 09/02 1000 AC 09/03 PO 1035 Atorvastatin Calcium 40 MG 1700 09/02 1700 AC 09/03 PO 1633 Azithromycin 500 MG Q24H 09/03 0100 AC 09/04 Dextrose/Water 250 ML IV 0003 Budesonide/ 2 PUF BID 09/02 1000 AC 09/03 Formoterol Fumarate INH 2108 Divalproex Sodium 1,000 MG QPM 09/02 2200 AC 09/03 PO 2107 Docusate Sodium 100 MG DAILY NEEDED PRN 09/01 2345 AC PO Doxycycline Hyclate 100 MG BID 09/02 1126 AC 09/03 PO 09/06 1126 2107 Enoxaparin Sodium 40 MG DAILY 09/02 1000 AC SC Fluticasone 2 SPRAY DAILY PRN 09/02 0015 AC Propionate ELLA Hydrocodone Bitart/ 1 TAB BID 09/02 1000 AC 09/03 Acetaminophen PO 2108 Ibuprofen 600 MG ACHS PRN 09/03 0915 AC 09/04 PO 0615 Insulin Aspart 0 TIDAC 09/02 1200 AC 09/03 SC 1633 Ipratropium [place] 2.5 ML TID 09/02 1600 AC 09/04 INH 0819 Levothyroxine Sodium 0.088 MG DAILY AC 09/02 0700 AC 09/04 PO 0615 Loratadine 10 MG DAILY 09/03 1000 AC PO Methylprednisolone 40 MG DAILY 09/03 1000 AC 09/03 IV 09/04 1100 1035 Metolazone 2.5 MG SuWeFr@1000 09/04 1000 AC PO Montelukast Sodium 10 MG AT BEDTIME 09/02 2200 AC 09/03 PO 2107 Multivitamins 1 TAB DAILY 09/02 1000 AC 09/03 Therapeutic PO 1037 Nicotine 21 MG Q24 09/02 1000 AC TOP Omeprazole 20 MG 0700,1800 09/03 0930 AC 09/04 PO 0615 Prednisone 10 MG DAILY 09/11 1000 AC PO Prednisone 40 MG DAILY 09/05 1000 AC PO 09/11 0959 Propranolol HCl 120 MG DAILY 09/02 1000 AC 09/03 PO 1031 Pseudoephedrine HCl 30 MG Q6 09/03 0845 AC PO Quetiapine Fumarate 150 MG QPM PRN 09/02 0800 AC 09/03 PO 2109 Senna 187 MG AT BEDTIME NEED.. 09/02 0030 AC PO Sodium Chloride 2 SPRAY Q4P PRN 09/03 1700 AC 09/03 ELLA 2113 Wool Wax Alcohol 1 KAYLEIGH BID 09/03 2199 AC 09/03 [facility] 2112 Last 24 Hrs of Lab/Kartik Results Last 24 Hrs of Labs/Mics: Laboratory Tests 09/03/172126: Valproic Acid 57.7 Assessment/Plan Assessment: 46-year-old morbidly obese woman, current smoker with a past medical history significant COPD on 3 L O2 at home, asthma, alcohol abuse (no history of inpatient detox, seizures or DTs), adrenal insufficiency on 10 prednisone daily, Joann's thyroiditis, benzodiazepine dependence, hypertension, bipolar disease, chronic unilateral right lower extremity swelling, 2 weeks ago ago she had a fall and imaging showed she had a fracture at level of T12 and was given a Brace, now BIBA for worsening shortness of breath one week duration. Acute on chronic hypoxemic and hypercarbic respiratory failure Possible secondary to bronchitis (cxr neg for pneumonia) in the setting of continued smoking * s/p ICU for Bipap * IV solumedrol, taper Q2 days on pred to home dose 10mg QD * IV Azithromycin 500 mg IV daily * continue symbicort * TRC/ NEb ATC * continue symbicort/ventolin appreciate pulm recs HTN: continue amlodipine 10 mg daily and propranolol 120 mg BID Hypokalemia likely secondary to metazolone use, will replete, f/up mag level Bilateral lower extremity swelling L>R, left leg is erthyematous however no increase in warmth noted, low suspicion for cellulitis f/up doppler contine her metazolone ( 2.5 mg SWF) Patient would like presciprtion for venodyne boots and aquaphor EtOH abuse appreciate psych recs Hypothryoidism continue levothryoxine, follow up tsh/t4 adrenal insufficiency Will be on IV steroids, tapered, vitals stable Endo recs appreciated Will need outpatient f/u Recurrent abscess ID recs appreciatesd warm compresses consider surgery consult if no improvement. Chronic pain - ibuprofen and omeprazole, trying to avoid opioids diet: CC3 dvt ppx: sc lovenox full code. Problem List: 1. Hypercapnic respiratory failure Pain Ratin Pain Location: no pain Pain Goal: Remain pain free Pain Plan: see a/p Tomorrow's Labs & Rationales: no
--- NOTE | 2017-09-04 12:41 | PN- Pulmonary ---
Subjective HPI/Critical Care Issues: Patient seen and examined this morning. She appears to be doing well from the respiratory perspective she wants to be discharged within the next 48 hours. Objective Current Medications: Current Medications Sig/Rosio Start time Last Medication Dose Route Stop Time Status Admin Acetaminophen 975 MG Q8P PRN 09/02 1100 AC PO Albuterol Sulfate 3 ML TID 09/02 1600 AC 09/04 INH 0820 Albuterol Sulfate 2 PUF Q4-6 PRN PRN 09/02 0015 AC INH Albuterol Sulfate 3 ML TID PRN 09/02 0015 AC INH Alprazolam 0.5 MG DAILY 09/03 1000 AC 09/04 PO 09/09 0944 1011 Amlodipine Besylate 10 MG DAILY 09/02 1000 AC 09/04 PO 1009 Atorvastatin Calcium 40 MG 1700 09/02 1700 AC 09/03 PO 1633 Azithromycin 250 MG DAILY 09/05 1000 AC PO 09/06 1001 Azithromycin 500 MG Q24H 09/03 0100 DC 09/04 Dextrose/Water 250 ML IV 0003 Budesonide/ 2 PUF BID 09/02 1000 AC 09/04 Formoterol Fumarate INH 1002 Divalproex Sodium 1,000 MG QPM 09/02 2200 AC 09/03 PO 2107 Docusate Sodium 100 MG DAILY NEEDED PRN 09/01 2345 AC PO Doxycycline Hyclate 100 MG BID 09/02 1126 AC 09/04 PO 09/06 1126 1007 Enoxaparin Sodium 40 MG DAILY 09/02 1000 AC SC Fluticasone 2 SPRAY DAILY PRN 09/02 0015 AC Propionate ELLA Hydrocodone Bitart/ 1 TAB BID 09/02 1000 AC 09/04 Acetaminophen PO 1010 Ibuprofen 600 MG ACHS PRN 09/03 0915 AC 09/04 PO 0615 Insulin Aspart 0 TIDAC 09/02 1200 AC 09/03 SC 1633 Ipratropium [place] 2.5 ML TID 09/02 1600 AC 09/04 INH 0819 Levothyroxine Sodium 0.088 MG DAILY AC 09/02 0700 AC 09/04 PO 0615 Loratadine 10 MG DAILY 09/03 1000 AC PO Methylprednisolone 40 MG DAILY 09/03 1000 DC 09/04 IV 09/04 1100 1005 Metolazone 2.5 MG SuWeFr@1000 09/04 1000 AC 09/04 PO 1011 Montelukast Sodium 10 MG AT BEDTIME 09/02 2200 AC 09/03 PO 2107 Multivitamins 1 TAB DAILY 09/02 1000 AC 09/04 Therapeutic PO 1009 Nicotine 21 MG Q24 09/02 1000 AC TOP Omeprazole 20 MG 0700,1800 09/03 0930 AC 09/04 PO 0615 Prednisone 10 MG DAILY 09/11 1000 AC PO Prednisone 40 MG DAILY 09/05 1000 AC PO 09/11 0959 Propranolol HCl 120 MG DAILY 09/02 1000 AC 09/04 PO 1008 Pseudoephedrine HCl 30 MG Q6 09/03 0845 AC PO Quetiapine Fumarate 150 MG QPM PRN 09/02 0800 AC 09/03 PO 2109 Senna 187 MG AT BEDTIME NEED.. 09/02 0030 AC PO Sodium Chloride 2 SPRAY Q4P PRN 09/03 1700 AC 09/03 ELLA 2113 Wool Wax Alcohol 1 [place] BID 09/03 220 AC 09/04 TOP 1002 Vital Signs & I&O Last 24 Hrs of Vitals and I&O: Vital Signs Date Time Temp Pulse Resp B/P B/P Pulse O2 O2 Flow FiO2 Mean Ox Delivery Rate 09/04 08 96 Nasal 3.0L Cannula 09/04 0620 98.2 83 20 126/80 96 Nasal Cannula 09/04 0000 Nasal 3.0L Cannula 09/03 2218 98.2 98 20 122/60 94 09/03 2207 78 93 09/03 1600 98.2 80 20 130/75 09/03 1600 95 Nasal 3.0L Cannula 09/03 1417 98.2 80 21 130/75 95 Nasal Cannula Intake & Output 09/04 1600 09/04 0800 09/04 0000 Intake Total 200 300 Output Total Balance 200 300 Intake, Oral 200 300 Exam Other Physical Findings: Generally - Awake, alert and comfortable without distress Head and neck - normocephalic, atraumatic, EOMI grossly intact Cardiovascular - S1, S2 Lungs - minor wheezing much improved Abdomen - Bowel sounds positive, soft, non-tender Extremities -edematous Results Last 24 Hrs of Lab Results: Laboratory Tests 09/03/172126: Valproic Acid 57.7 Impression/Plan Impression/Plan Impression/Plan: Impression/Plan 46 year old woman, etoh, substance dependence, hx of adrenal insufficiency. Reactive airways, likely OHS/VITOR. Admitted for acute on chronic hypoxemic and hypercarbic respiratory failure, likely secondary to intoxication -taper steroids as discussed with housestaff -dc planning -trc/nebs -pt needs outpt sleep study, for comfort she asked for autopap at night, she understands she will need a sleep study prior to issuing of pap therapy DVT prophylaxis at all times
--- NOTE | 2017-09-04 14:35 | PN- Endocrinology ---
Assessment/Plan Endoscopy Assessment: 46-year-old woman with the suppression of the pituitary adrenal axis due to the large doses of exogenous steroids that she has been on over many years, Cushingnoid appearance with Hx of T12 compression fracture, Joann's thyroiditis and hypothyroidism, hyperglycemia with HbA1c of 5.9%, was admitted for changes of mental status and hypercarbic and hypoxemic respiratory failure. She was placed on Solumedrol 40 mg twice a day which well covers adrenal insufficiency. Solumedrol was decreased to 40 mg daily on 09/03/2017. Starting on 09/05/2017, she will be on prednisone 40 mg daily Her TSH was mildly suppressed which could be due to sick euthyroid changes or steroid. I will continue Levothyroxine 88 mcg daily for now. Her TFT should be repeated in 4-6 weeks as outpatient. With regards to hyperglycemia, her FSGs were 139, 116, 180, 165 and 79.. She will continue the current Novolog coverage. 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 Plan: Detail see the note above. Subjective Subjective: Her breathing has been better. Objective Last 24 Hrs of Vital Signs/I&O Vital Signs Date Time Temp Pulse Resp B/P B/P Pulse O2 O2 Flow FiO2 Mean Ox Delivery Rate 09/04 823 96 Nasal 3.0L Cannula 09/04 06 98.2 83 20 126/80 96 Nasal Cannula 09/04 0000 Nasal 3.0L Cannula 09/03 2217 98.2 98 20 122/60 94 09/03 2207 78 93 09/03 1600 98.2 80 20 130/75 09/03 1600 95 Nasal 3.0L Cannula Intake & Output 09/04 1600 09/04 0800 09/04 0000 Intake Total 500 200 300 Output Total Balance 500 200 300 Intake, Oral 500 200 300 Results Pertinent Lab/Kartik Results: Laboratory Tests 09/03 2126 Toxicology Valproic Acid (50 - 120 ug/mL) 57.7
[2017-09-04 14:52] VITALS: BP 120/60
[2017-09-04 22:18] VITALS: BP 122/80
[2017-09-05 06:20] VITALS: BP 146/80
--- NOTE | 2017-09-05 07:51 | PN- Housestaff ---
See Addendum Subjective Follow-up For: AHRF Subjective: No overnight events. Her breathing is good and she is potentially ok going home today. She has multple requests for medications on discharge including a short course of pain meds. Review of Systems Constitutional: Reports: no symptoms. EENTM: Reports: no symptoms. Cardiovascular: Reports: no symptoms. Respiratory: Reports: see HPI. Gastrointestinal: Reports: no symptoms. Genitourinary: Reports: no symptoms. Musculoskeletal: Reports: no symptoms. Skin: Reports: no symptoms. Neurological/Psychological: Reports: no symptoms. Hematologic/Endocrine: Reports: no symptoms. Immunologic/Allergic: Reports: no symptoms. Objective Last 24 Hrs of Vital Signs/I&O Vital Signs Date Time Temp Pulse Resp B/P B/P Pulse O2 O2 Flow FiO2 Mean Ox Delivery Rate 09/05 0620 98.1 67 20 146/80 97 Nasal Cannula 09/05 0000 Nasal 3.0L Cannula 09/04 2218 98.4 82 22 122/80 92 Nasal Cannula 09/04 1955 95 Nasal 3.0L Cannula 09/04 1452 97.9 74 22 120/60 98 09/04 0824 96 Nasal 3.0L Cannula Intake & Output 09/05 0800 09/05 0000 09/04 1600 Intake Total 976 782 7787 Output Total Balance 846 423 4641 Intake, Oral 334 647 9019 Physical Exam General Appearance: Alert, Oriented X3, Cooperative, No Acute Distress Cardiovascular: Regular Rate, Normal S1, Normal S2 Lungs: Clear to Auscultation Abdomen: Normal Bowel Sounds, Soft, No Tenderness Extremities: mild edema Current Medications: Current Medications Sig/Rosio Start time Last Medication Dose Route Stop Time Status Admin Acetaminophen 975 MG Q8P PRN 09/02 1100 AC PO Albuterol Sulfate 3 ML TID 09/02 1600 AC 09/04 INH 1955 Albuterol Sulfate 2 PUF Q4-6 PRN PRN 09/02 0015 AC INH Albuterol Sulfate 3 ML TID PRN 09/02 0015 AC INH Alprazolam 0.5 MG ONCE ONE 09/04 1515 DC 09/04 PO 09/04 1516 1519 Alprazolam 0.5 MG DAILY 09/03 1000 AC 09/04 PO 09/15 0928 1011 Amlodipine Besylate 10 MG DAILY 09/02 1000 AC 09/04 PO 1009 Atorvastatin Calcium 40 MG 1700 09/02 1700 AC 09/04 PO 1800 Azithromycin 250 MG DAILY 09/05 1000 AC PO 09/06 1001 Azithromycin 500 MG Q24H 09/03 0100 DC 09/04 Dextrose/Water 250 ML IV 0003 Budesonide/ 2 PUF BID 09/02 1000 AC 09/04 Formoterol Fumarate INH 2111 Divalproex Sodium 1,000 MG QPM 09/02 2200 AC 09/04 PO 2112 Docusate Sodium 100 MG DAILY NEEDED PRN 09/01 2345 AC PO Doxycycline Hyclate 100 MG BID 09/02 1126 AC 09/04 PO 09/06 1126 2113 Enoxaparin Sodium 40 MG DAILY 09/02 1000 AC SC Fluticasone 2 SPRAY DAILY PRN 09/02 0015 AC Propionate ELLA Hydrocodone Bitart/ 1 TAB BID 09/02 1000 AC 09/04 Acetaminophen PO 211 Ibuprofen 600 MG ACHS PRN 09/03 0915 AC 09/05 PO 0626 Insulin Aspart 0 TIDAC 09/02 1200 AC 09/03 SC 1633 Ipratropium [place] 2.5 ML TID 09/02 1600 AC 09/04 INH 1955 Levothyroxine Sodium 0.088 MG DAILY AC 09/02 0700 AC 09/05 PO 0545 Loratadine 10 MG DAILY 09/03 1000 AC PO Methylprednisolone 40 MG DAILY 09/03 1000 DC 09/04 IV 09/04 1100 1005 Metolazone 2.5 MG SuWeFr@1000 09/04 1000 AC 09/04 PO 1011 Montelukast Sodium 10 MG AT BEDTIME 09/02 2200 AC 09/04 PO 2112 Multivitamins 1 TAB DAILY 09/02 1000 AC 09/04 Therapeutic PO 1009 Nicotine 21 MG Q24 09/02 1000 AC TOP Omeprazole 20 MG 0700,1800 09/03 0930 AC 09/05 PO 0545 Prednisone 10 MG DAILY 09/11 1000 AC PO Prednisone 40 MG DAILY 09/05 1000 AC PO 09/11 0959 Propranolol HCl 120 MG DAILY 09/02 1000 AC 09/04 PO 1008 Pseudoephedrine HCl 30 MG Q6 09/03 0845 AC PO Quetiapine Fumarate 150 MG QPM PRN 09/02 0800 AC 09/04 PO 2113 Senna 187 MG AT BEDTIME NEED.. 09/02 0030 AC PO Sodium Chloride 2 SPRAY Q4P PRN 09/03 1700 AC 09/04 ELLA 211 Wool Wax Alcohol 1 [place]IGH BID 09/03 2200 AC 09/04 TOP 2111 Last 24 Hrs of Lab/Kartik Results Last 24 Hrs of Labs/Mics: Microbiology 09/04 182 STOOL: Clostridium difficile Toxin A & B - COLB Assessment/Plan Assessment: 46-year-old morbidly obese woman, current smoker with a past medical history significant COPD on 3 L O2 at home, asthma, alcohol abuse (no history of inpatient detox, seizures or DTs), adrenal insufficiency on 10 prednisone daily, Joann's thyroiditis, benzodiazepine dependence, hypertension, bipolar disease, chronic unilateral right lower extremity swelling who was initially admitted to the ICU for respiratory failure and was transferred to general medicine on 09/03/2017 after stabilization of her condition. Problem list: 1. Acute on chronic hypoxemic hypercarbic respiratory failure 2. Lower extremity edema 3. Secondary adrenal insufficiency 4. Recurrent abscess #Acute on chronic hypoxemic hypercarbic respiratory failure: Patient presented with respiratory failure, likely multifactorial. She is a current smoker. She was initially admitted to the ICU and treated with steroids, nebulizers, and azithromycin. Her breathing is much improved and she is now back on her home 3 L oxygen. -Tapering prednisone -Azithromycin -[facility] nebs -Appreciate pulmonology recommendations -She will need an outpatient sleep study #Lower extremity edema: Patient has chronic swelling in her legs, left greater than right. Dopplers were negative for any DVT. The swelling is improved to Venodyne boots and she would like a prescription for this. She also notes that she has dry skin and likes the Aquaphor ointment. -Continue Aquaphor #Secondary adrenal insufficiency: Patient has been on chronic prednisone therapy for many years and has developed cushingoid features from it. She has experienced many of the toxic side effects of prednisone and would very much like to be tapered off of this. However, the taper will have to be slow and may take months or years given that she has been on it for so long. -Outpatient endocrinology follow-up for taper -Continue prednisone 10 mg daily after respiratory taper #Recurrent abscess: Patient was noted to have infected appearing abscess in her inguinal region. ID was consulted and recommends warm towels as well as doxycycline. She does have a history of MRSA. -Continue doxycycline #Chronic pain: Patient has suffered several vertebral fractures and has chronic pain from this. -ibuprofen -omeprazole #Chronic medical problems: Continue other home medications DVT prophylaxis with enoxaparin Consistent carbohydrate 3 diet Full code Problem List: 1. Hypercapnic respiratory failure Pain Ratin Pain Location: no Pain Goal: Remain pain free Pain Plan: see a/p Tomorrow's Labs & Rationales: no
--- NOTE | 2017-09-05 09:37 | PN- Endocrinology ---
Assessment/Plan Endoscopy Assessment: 46-year-old woman with the suppression of the pituitary adrenal axis due to the large doses of exogenous steroids that she has been on over many years, Cushingnoid appearance with Hx of T12 compression fracture, Joann's thyroiditis and hypothyroidism, hyperglycemia with HbA1c of 5.9%, was admitted for changes of mental status and hypercarbic and hypoxemic respiratory failure. She was placed on Solumedrol 40 mg twice a day which well covers adrenal insufficiency. Solumedrol was decreased to 40 mg daily on 09/03/2017. On 2017, steroid was decreased to prednisone 40 mg daily. Her TSH was mildly suppressed which could be due to sick euthyroid changes or steroid. I will continue Levothyroxine 88 mcg daily for now. Her TFT should be repeated in 4-6 weeks as outpatient. With regards to hyperglycemia, her FSGs were 79, 183, 157, 144 and 186. 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 Most likely she will go home today, she will contact office to set up a f/u with Dr. Lombardo in office. Plan: detail see the note above. Subjective Subjective: Most likely she is going home today. Objective Last 24 Hrs of Vital Signs/I&O Vital Signs Date Time Temp Pulse Resp B/P B/P Pulse O2 O2 Flow FiO2 Mean Ox Delivery Rate 09/05 0834 94 Nasal 3.0L Cannula 09/05 0620 98.1 67 20 146/80 97 Nasal Cannula 09/05 0000 Nasal 3.0L Cannula 09/04 2218 98.4 82 22 122/80 92 Nasal Cannula 09/04 1955 95 Nasal 3.0L Cannula 09/04 1452 97.9 74 22 120/60 98 Intake & Output 09/05 1600 09/05 0800 09/05 0000 Intake Total 300 300 Output Total Balance 300 300 Intake, Oral 300 300 Results Pertinent Lab/Kartik Results: Laboratory Tests 09/05 0917 Chemistry Sodium Pending Potassium Pending Chloride Pending Carbon Dioxide Pending Anion Gap Pending BUN Pending Creatinine Pending BUN/Creatinine Ratio Pending Hematology CBC w Diff Pending WBC Pending RBC Pending Hgb Pending Hct Pending MCV Pending MCH Pending MCHC Pending RDW Pending Plt Count Pending MPV Pending
[2017-09-05] MEDS ORDERED: VICODIN 5-3001 EACH PO ×2 (09:57→11:52)
[2017-09-05] MEDS ORDERED: PREDNISONE10 M2 PO ×2 (09:57→11:52)
--- NOTE | 2017-09-05 09:59 | Patient Discharge Instructions ---
Discharge Instructions General Discharge Information You were seen/treated for: Respiratory failure Watch for these problems: Fever, chest pain, shortness of breath Special Instructions: Please take all medications as directed. Please follow up with endoccrinology, pulmonology, psychiatry, and primary care. Diet Continue normal diet: Yes Activity Full Activity/No Limits: Yes Acute Coronary Syndrome Inclusion Criteria At DC or during hospital stay patient has or had the following: ACS DIAGNOSIS No Discharge Core Measures Meds if any: Prescribed or Continued at Discharge Meds if any: NOT Prescribed or Continued at Discharge Congestive Heart Failure Inclusion Criteria At DC or during hospital stay patient has or had the following: CHF DIAGNOSIS No Discharge Core Measures Meds if any: Prescribed or Continued at Discharge Meds if any: NOT Prescribed or Continued at Discharge Cerebrovascular accident Inclusion Criteria At DC or during hospital stay patient has or had the following: CVA/TIA Diagnosis No Discharge Core Measures Meds if any: Prescribed or Continued at Discharge Meds if any: NOT Prescribed or Continued at Discharge Venous thromboembolism Inclusion Criteria VTE Diagnosis No VTE Type NONE VTE Confirmed by (Test) NONE Discharge Core Measures - Per Current guidelines, there needs to be overlap - treatment for the first 5 days of Warfarin therapy. - If discharged on Warfarin prior to 5 days of - overlap therapy, the patient will need to be - assessed for post discharge needs including - *Post discharge parental anticoagulation - *Warfarin and/or parental anticoagulation education - *Follow up date to check INR post discharge At least 5 days overlap therapy as Inpatient No Meds if any: Prescribed or Continued at Discharge Note: Overlap Therapy is Warfarin and Anticoagulant Meds if any: NOT Prescribed or Continued at Discharge
[2017-09-05] MEDS ORDERED: AQUAPHOR OINTM396 GM TOP ×2 (10:02→11:52)
[2017-09-05 10:04] VITALS: BP 146/80
[2017-09-05 10:59] LABS: ABSOLUTE BASOPHIL COUNT 0 /CUMM (0.0-0.2); ABSOLUTE EOSINOPHIL COUNT 0 /CUMM (0.0-0.7); ABSOLUTE GRANULOCYTE CT 9.1 /CUMM (1.4-6.5); ABSOLUTE LYMPH COUNT 2.4 /CUMM (1.2-3.4); ABSOLUTE MONOCYTE COUNT 0.6 /CUMM (0.10-0.60); BASOPHIL % 0.3 % (0.0-2.0); EOSINOPHIL % 0.2 % (0-5); GRANULOCYTE % 74.7 % (42.2-75.2); HEMATOCRIT 36.8 % (37-47); MEAN CORPUSCULAR HGB 29.1 PG (27.0-31.0); MEAN CORPUSCULAR HGB CONC 31.7 G/DL (33.0-37.0); MEAN CORPUSCULAR VOLUME 91.6 FL (81.0-99.0); MEAN PLATELET VOLUME 6.9 FL (7.4-10.4); PLATELET COUNT 328 /CUMM (130-400); RBC DISTRIBUTION WIDTH 23.4 % (11.5-14.5); RED BLOOD CELL CT 4.01 /CUMM (4.20-5.40); WHITE BLOOD CELL COUNT 12.2 /CUMM (4.8-10.8)
--- NOTE | 2017-09-05 10:59 | Discharge Summary ---
Visit Information Visit Dates Admission Date: 09/01/17 Discharge Date: 09/05/17 Hospital Course Course Attending Physician: Ivanna Parsons MD Primary Care Physician: Hua Garcia MD Hospital Course: 46-year-old morbidly obese woman, current smoker with a past medical history significant COPD on 3 L O2 at home, asthma, alcohol abuse (no history of inpatient detox, seizures or DTs), adrenal insufficiency on 10 prednisone daily, Joann's thyroiditis, benzodiazepine dependence, hypertension, bipolar disease, chronic unilateral right lower extremity swelling who was initially admitted to the ICU for respiratory failure and was transferred to general medicine on 09/03/2017 after stabilization of her condition. Admission Data: Vitals stable except for sats drop down to 86-88% on 3L. Patient is lethargic and falls asleep multiple times during our assessment. MMM, skin warm and dry, Neck supple, PERRL, Chest b/l reduced air entry with basilar crackles and expiratory wheeze, Heart S1S2 regular, Abd soft, NT, LE edema L>R. Labs: WBC 14.6 (on prednisone), Na 136, K 3.0, bicarb 40, glucose 107, trop neg, alcohol 123. Rapid flu neg. AB.41/60/78/37 with carboxyhemoglobin of 7.1. CXR: lungs clear. EKG: sinus rhythm, no acute changes. Echo (2017): EF > 60%. She was initially admitted to the ICU and then transferred to general medicine after stabilization her condition and treated for following problems: 1. Acute on chronic hypoxemic hypercarbic respiratory failure 2. Lower extremity edema 3. Secondary adrenal insufficiency 4. Recurrent abscess #Acute on chronic hypoxemic hypercarbic respiratory failure: Patient presented with respiratory failure, likely multifactorial. She is a current smoker. She was initially admitted to the ICU and treated with steroids, nebulizers, and azithromycin. Her breathing is much improved and she is now back on her home 3 L oxygen. She continued the patellar prednisone taper as directed to 10 mg and follow-up with endocrinology. She should also follow-up with pulmonology for outpatient sleep study related to her obstructive sleep apnea. #Lower extremity edema: Patient has chronic swelling in her legs, left greater than right. Dopplers were negative for any DVT. The swelling is improved with Venodyne boots. She also notes that she has dry skin and likes the Aquaphor ointment. We gave her prescription for the Aquaphor ointment and she can follow- up with primary care. #Secondary adrenal insufficiency: Patient has history in her chart of [place]'s disease. We consulted endocrinology and there is no convincing evidence of [place]'s disease. It is likely that she has developed cushingoid features and secondary adrenal insufficiency secondary to chronic steroid therapy. She has experienced many of the toxic side effects of prednisone and would very much like to be tapered off of this. However, the taper will have to be slow and may take months or years given that she has been on it for so long. She should follow-up with endocrinology for long-term taper. She will also need to have her thyroid function test rechecked in about 4-6 weeks. #Recurrent abscess: Patient was noted to have infected appearing abscess in her inguinal region. ID was consulted and recommended warm towels as well as doxycycline. She does have a history of MRSA. She has improved and she continue good hygiene. #Chronic pain: Patient has suffered several vertebral fractures and has chronic pain from this. She was maintained on ibuprofen and omeprazole and should continue this as an outpatient. She was also given a very small prescription of hydrocortisone and should follow up with the pain specialist for this issue. #Chronic medical problems: Her home medications were continued. Allergies: Coded Allergies: apple (Intermediate, HIVES FROM APPLE CIDER 02/15/17) hydromorphone (Intermediate, LIP SWELLING 02/15/17) phenytoin (Intermediate, HIVES 02/15/17) lidocaine (SVT 02/15/17) oxycodone (From Percocet) (ITCHY 02/15/17) valsartan (From DIOVAN) (ACUTE RENAL FAILURE 02/15/17) Disposition Summary Disposition Principal Diagnosis: 1. Acute on chronic hypoxemic hypercarbic respiratory failure Additional Diagnosis: 2. Lower extremity edema 3. Secondary adrenal insufficiency 4. Recurrent abscess Discharge Disposition: home health services Discharge Instructions General Discharge Information Code Status: Full Code Patient's Diet: Diabetic diet Patient's Activity: As tolerated Follow-Up Instructions/Appts: Please take all medications as directed. Please follow-up with primary care, pulmonology, and endocrinology. Please follow-up with pain management. Medications at Discharge Discharge Medications: Stop taking the following medications: Cyclobenzaprine HCl (Cyclobenzaprine HCl) 5 MG TABLET ORAL DAILY as needed for MUSCLE SPASMS Qty = 60 Hydrocodone/Acetaminophen ([place] 7.5-325 Tablet) 7.5 MG-325 MG TABLET ORAL TWICE DAILY Qty = 15 Continue taking these medications: Fexofenadine/Pseudoephedrine (Shannan-D 24 Hour Tablet) 180 MG-240 MG TAB.ER.24H 1 Tablet ORAL DAILY Comments: Last Taken:09/05/17 Time:11:54A.M Fluticasone Propionate (Flonase Allergy Relief) 50 MCG/ACTUATION SPRAY.SUSP 1 [place] In the nose TWICE DAILY Comments: NOT GIVEN AT HOSPITAL Aspirin/Acetaminophen/Caffeine (Excedrin Migraine Caplet) 250 MG-250 MG-65 MG TABLET 1 Tablet ORAL DAILY Comments: NOT GIVEN IN HOSPITAL Montelukast Sodium (Montelukast Sodium) 10 MG TABLET 1 Tablet ORAL TAKE AT BEDTIME Qty = 30 Comments: Last Taken: 09/04/17 Time: 9:18P.M Albuterol Sulfate (Albuterol Sulfate) 2.5 MG/3 ML (0.083 %) VIAL.NEB 3 [place] Inhale through mouth THREE TIMES DAILY as needed for asthma Qty = 5 Comments: Last Taken: 09/05/17 Time: 8:32A.M Multivitamin (One Daily Multivitamin) 1 EACH TABLET 1 Tablet ORAL DAILY Qty = 30 Comments: Last Taken: 09/05/17 Time: 10:04A.M Amlodipine Besylate (Norvasc) 10 MG TABLET 1 Tablet ORAL DAILY Qty = 30 Comments: Last Taken: 09/05/17 Time: 10:08A.M Albuterol Sulfate (Ventolin Hfa) 90 MCG HFA.AER.AD 2 Puff Inhale through mouth EVERY 4-6 HOURS NEEDED as needed for asthma Qty = 1 Comments: DID NOT RECIEVE IN HOSPITAL Levothyroxine Sodium (Synthroid) 88 MCG TABLET 1 Tablet ORAL DAILY Comments: Last Taken: 09/05/17 Time: 5:45A.M Alprazolam (Alprazolam) 0.5 MG TABLET 1 Tablet ORAL as needed for ANXIETY Comments: Last Taken:09/05/17 Time:10:08A.M Quetiapine Fumarate (Seroquel) 50 MG TABLET 3 Tablet ORAL Every night as needed for MENTAL HEALTH/SLEEP Comments: NOT GIVEN THIS ADMISSION Propranolol HCl (Propranolol HCl ER) 120 MG CAP.SA.24H 1 Capsule ORAL TWICE DAILY Qty = 60 Comments: Last Taken: 09/05/17 Time: 10:04A.M Benzonatate (Tessalon Perle) 100 MG CAPSULE 1 Capsule ORAL THREE TIMES DAILY as needed for COUGH Qty = 21 Comments: NOT GIVEN THIS ADMISSION Divalproex Sodium (Divalproex Sodium ER) 500 MG TAB.ER.24H 2 Tablet ORAL Every night Qty = 60 Comments: Last Taken:09/04/17 Time:9:12P.M Prednisone (Prednisone) 10 MG TABLET 1 Tablet ORAL DAILY Qty = 60 Comments: Last Taken:09/05/17 Time:12:48A.M Atorvastatin Calcium (Atorvastatin Calcium) 40 MG TABLET 1 Tablet ORAL DAILY Qty = 30 Comments: Last Taken:09/04/17 Time:6P.M Tramadol HCl (Tramadol HCl) 50 MG TABLET 1 Tablet ORAL EVERY SIX HOURS NEEDED as needed for PAIN Qty = 10 Comments: NOT GIVEN THIS ADMISSION Start taking the following new medications: Mineral Oil/Hydrophil Petrolat (Aquaphor Ointment) 396 GM OINT...G. 1 Application On the skin DAILY Qty = 1 No Refills Instructions: . Comments: Last Taken:09/05/17 Time:10:04A.M Prednisone (Prednisone) 10 MG TABLET 10 [place] ORAL DAILY Qty = 14 No Refills Instructions: Please take 40mg on 09/06/17, 30mg from 09/07/17-09/08/17, 20mg from 09/09/17-09/10/17, then 10mg daily Comments: Last Taken:09/05/17 Time:12:48P.M The following medications have been changed: Old: Hydrocodone/Acetaminophen (Vicodin 5-300 MG Tablet) 5 MG-300 MG TABLET 1 Tablet ORAL TWICE DAILY as needed for SEVERE PAIN Qty = 10 New: Hydrocodone/Acetaminophen (Vicodin 5-300 MG Tablet) 5 MG-300 MG TABLET 1 Tablet ORAL TWICE DAILY as needed for SEVERE PAIN Qty = 10 Instructions: . Comments: Last Taken:09/05/17 Time:10:04A.M Old: Budesonide/Formoterol Fumarate (Symbicort 160-4.5 Mcg Inhaler) 160 MCG-4.5 MCG/ ACTUATION HFA.AER.AD 2 Puff Inhale through mouth TWICE DAILY Qty = 10 New: Budesonide/Formoterol Fumarate (Symbicort 160-4.5 Mcg Inhaler) 160 MCG-4.5 MCG/ ACTUATION HFA.AER.AD 2 Puff Inhale through mouth TWICE DAILY Qty = 10 Instructions: . Comments: Last Taken:09/05/17 Time:10;04A.M Copies To: Grupo JAIN,Leroy Barker; Angela JAIN,Camron Jenkins; Dillon JAIN,Lilly; Lida JAIN,Tom; Maninder JAIN,Gilbert Gold; Jose JAIN,Hua Clifford
[2017-09-05] MEDS ORDERED: SYMBICORT 16010.2 GM INH ×2 (11:31→11:52)
== END 2017-09-05 15:00 | disposition home health service (06) | DRG 189 ==
LOC: ERH 19:26 → ERHI 23:42 → 2NA 23:42 → ERHI 09-02 09:32 → EDBEDREQ 09-02 19:40 → CANRESERV 09-02 20:02 → ENRESERV 09-02 20:02 → ENTRNSPT 09-02 22:29 → 2NA 09-02 22:46 → CMPTRNSPT 09-03 09:13 → 2NA 09-05 08:54 → ENPENDDIS 09-05 11:19 → ENTRNSPT 09-05 14:40 → CMPTRNSPT 09-05 14:57 → 2NA 09-05 15:00
PROVIDERS: Internal Medicine; Physician Assistant; Radiology Vascular & Interventional Radiology
DX: J96.21 Acute and chronic respiratory failure with hypoxia (principal); Z99.81 Dependence on supplemental oxygen; E27.40 Unspecified adrenocortical insufficiency; Z68.42 Body mass index [BMI] 45.0-49.9, adult; F13.20 Sedative, hypnotic or anxiolytic dependence, uncomplicated; L02.214 Cutaneous abscess of groin; E66.01 Morbid (severe) obesity due to excess calories; J96.22 Acute and chronic respiratory failure with hypercapnia; S22.089D Unspecified fracture of T11-T12 vertebra, subsequent encounter for fracture with routine healing; W19.XXXD Unspecified fall, subsequent encounter; E06.3 Autoimmune thyroiditis; F31.9 Bipolar disorder, unspecified; E87.6 Hypokalemia; F17.210 Nicotine dependence, cigarettes, uncomplicated; G89.29 Other chronic pain; M54.9 Dorsalgia, unspecified
CPT/HCPCS: 2NAP; ERO; 36592; 71045; 80307; 81001; 82436; 87040; 87070; 87804; 87804-59; 93005; 93010; 96374; 97116-GO; 97161-GP; 99232; 99291; G0480; J0456; J1650; J2920; J2930; J3490; J7060; J7512

== ENCOUNTER 2017-10-18 01:46 | Emergency (ER) | payer OTHER ==
[~2017-10-18] VITALS: Ht 157.5 cm; Wt 112.5 kg
[~2017-10-18 01:46] MED LIST changes: +AQUAPHOR OINTM396 GM TOP
--- NOTE | 2017-10-18 02:12 | ED DYSPNEA/ASTHMA COMPLAINT ---
History of Present Illness General Chief Complaint: Dyspnea (COPD, CHF, Other) Stated Complaint: SOB; DIFF BREATHING Source: patient, old records, EMS Exam Limitations: no limitations Vital Signs & Intake/Output Vital Signs & Intake/Output Vital Signs Date Time Temp Pulse Resp B/P B/P Pulse O2 O2 Flow FiO2 Mean Ox Delivery Rate 10/18 336 97.7 83 18 136/85 91 Nasal 4.0L Cannula 10/18 0204 Nasal 3.0L Cannula 10/18 146 96.6 78 22 123/73 98 Aerosol 8L Mask Allergies Coded Allergies: apple (Intermediate, HIVES FROM APPLE CIDER 02/15/17) hydromorphone (Intermediate, LIP SWELLING 02/15/17) phenytoin (Intermediate, HIVES 02/15/17) lidocaine (SVT 02/15/17) oxycodone (From Percocet) (ITCHY 02/15/17) valsartan (From DIOVAN) (ACUTE RENAL FAILURE 02/15/17) Reconcile Medications Albuterol Sulfate 2.5 MG/3 ML (0.083 %) VIAL.NEB 3 ML INH TID PRN asthma Albuterol Sulfate (Ventolin Hfa) 90 MCG HFA.AER.AD 2 PUF INH Q4-6 PRN PRN asthma Alprazolam 0.5 MG TABLET 1 TAB PO PRN ANXIETY (Reported) Amlodipine Besylate (Norvasc) 10 MG TABLET 1 TAB PO DAILY hypertension Aspirin/Acetaminophen/Caffeine (Excedrin Migraine Caplet) 250 MG-250 MG-65 MG TABLET 1 TAB PO DAILY SINUS HEADACHE (Reported) Atorvastatin Calcium 40 MG TABLET 1 TAB PO DAILY CHOLESTEROL (Reported) Benzonatate (Tessalon Perle) 100 MG CAPSULE 1 CAP PO TID PRN COUGH Budesonide/Formoterol Fumarate (Symbicort 160-4.5 Mcg Inhaler) 160 MCG-4.5 MCG/ ACTUATION HFA.AER.AD 2 PUF INH BID ASTHMA . Divalproex Sodium (Divalproex Sodium ER) 500 MG TAB.ER.24H 2 TAB PO QPM MENTAL HEALTH (Reported) Fexofenadine/Pseudoephedrine (Shannan-D 24 Hour Tablet) 180 MG-240 MG TAB.ER.24H 1 TAB PO DAILY ALLERGIES (Reported) Fluticasone Propionate (Flonase Allergy Relief) 50 MCG/ACTUATION SPRAY.SUSP 1 SPRAY ELLA BID ALLERGIES (Reported) Hydrocodone/Acetaminophen (Vicodin 5-300 MG Tablet) 5 MG-300 MG TABLET 1 TAB PO BID PRN SEVERE PAIN . Levothyroxine Sodium (Synthroid) 88 MCG TABLET 1 TAB PO DAILY THYROID ( Reported) Mineral Oil/Hydrophil Petrolat (Aquaphor Ointment) 396 GM OINT...G. 1 [place] TOP DAILY Dry Skin . Montelukast Sodium 10 MG TABLET 1 TAB PO QHS ASTHMA (Reported) Multivitamin (One Daily Multivitamin) 1 EACH TABLET 1 TAB PO DAILY supplement Prednisone 10 MG TABLET 1 TAB PO DAILY STEROID (Reported) Prednisone 10 MG TABLET 10 MG PO DAILY Steroid Taper Please take 40mg on 09/06/17, 30mg from 09/07/17-09/08/17, 20mg from 09/09/17-09/10/17, then 10mg daily Propranolol HCl (Propranolol HCl ER) 120 MG CAP.SA.24H 1 CAP PO BID HTN Quetiapine Fumarate (Seroquel) 50 MG TABLET 3 TAB PO QPM PRN MENTAL HEALTH/ SLEEP (Reported) Tramadol HCl 50 MG TABLET 1 TAB PO Q6P PRN PAIN Triage Note: PT BIBA FROM HOME. PT REPORTS INCREASING SOB FOR THE LAST THREE WEEKS. PT HAS O2 SHE USES PRN AND REPORTS SHE HAS "BEEN USING IT CONSTANTLY". PT REPORTS THIS EVENING AT 2100 SHE "HAD A FEW DRINKS TO RELAX ME AND THAT DIDN'T WORK SO I TOOK SOME XANANX AND THAT DIDN'T WORK EITHER". EMS REPORTS THEY ADMINISTERED 2 DUO NEBS, 125 MG OF SOLUMEDROL AND 2 G OF MAGNESIUM. Triage Nurses Notes Reviewed? yes : No Patient currently breastfeeds: No HPI: Patient presents with increasing difficulty breathing. Patient uses oxygen as needed at home. Lately she has been using her oxygen constantly. Tonight she was feeling anxious so she had a few shots of alcohol but that did not help her calm down and so she took the Xanax. Patient then called 911. Patient was given a DuoNeb as well as steroids and magnesium. Patient states that she is currently feeling back to her baseline. Patient denies any chest pain. Patient has had multiple episodes of similar symptoms in the past. Past History Travel History Traveled to [place] past 21 day No Medical History Any Pertinent Medical History? see below for history Neurological: NONE EENT: allergies Cardiovascular: hypertension, HIGH CHOLESTEROL Respiratory: asthma, bronchitis, COPD Gastrointestinal: NONE Hepatic: fatty liver Renal: acute kidney injury- resolved Musculoskeletal: chronic back pain Psychiatric: alcohol dependence, anxiety, depression, opioid dependence, substance abuse, bipolar disorder, MRE manic Endocrine: hypothyroidism, obesity, Cushingoid Blood Disorders: anemia (mild) Cancer(s): NONE ADVERTISER/Reproductive: X 2 Other Medical Hx: Unknown History of MRSA: Yes History of VRE: No History of CDIFF: No Influenza Vaccine: 05/11/17 Tetanus Vaccine: 11/28/14 Surgical History Surgical History: (x 2), S/P I&D ABSCESS S/P KNEE SURGERY C SECTION X 2 Psychosocial History Who do you live with Patient/Self Services at Home None (3L nc), Oxygen What is your primary language Armenian Tobacco Use: Current Daily Use Daily Tobacco Use Amount/Type: => 5 Cigarettes daily ETOH Use: occasional use Illicit Drug Use: denies illicit drug use Family History Family History, If Any: MOTHER (smoker). , Age 70; Cause: Lung cancer. FH: lung cancer FATHER, , Age 75; Cause: SBO (small bowel obstruction). Hx Contributory? No Review of Systems Review of Systems Constitutional: Reports: no symptoms. EENTM: Reports: no symptoms. Respiratory: Reports: see HPI, short of breath. Cardiovascular: Reports: no symptoms. GI: Reports: no symptoms. Genitourinary: Reports: no symptoms. Musculoskeletal: Reports: no symptoms. Skin: Reports: no symptoms. Neurological/Psychological: Reports: no symptoms. Hematologic/Endocrine: Reports: no symptoms. Immunologic/Allergic: Reports: no symptoms. All Other Systems: Reviewed and Negative Physical Exam Physical Exam General Appearance: well developed/nourished, alert, awake, anxious, moderate distress Head: atraumatic, normal appearance Eyes: Bilateral: PERRL, EOMI. Ears, Nose, Throat: normal pharynx, normal ENT inspection, hearing grossly normal Neck: normal inspection, supple, full range of motion Respiratory: normal breath sounds, chest non-tender, no respiratory distress, lungs clear Cardiovascular: regular rate/rhythm, normal peripheral pulses Gastrointestinal: normal bowel sounds, soft, non-tender, no organomegaly Extremities: normal capillary refill, pedal edema Neurologic/Psych: no motor/sensory deficits, awake, alert, oriented x 3, normal mood/affect Skin: intact, normal color, warm/dry Lymphatic: no anterior cervical latha Core Measures ACS in differential dx? No CVA/TIA Diagnosis No Sepsis Present: No Sepsis Focused Exam Completed? No Progress Differential Diagnosis: AMI, bronchitis, CHF, COPD, pulmonary embolism, pneumonia Plan of Care: Orders Procedure Date/time Status Heart Healthy Diet 10/18 B Active TROPONIN LEVEL 10/18 210 Complete ETHANOL 10/18 210 Complete COMPREHENSIVE METABOLIC PANEL 10/18 210 Complete CBC WITHOUT DIFFERENTIAL 10/18 210 Complete EKG 10/18 210 Active Laboratory Tests 10/18/17212: Anion Gap 14, Estimated GFR > 60, BUN/Creatinine Ratio 20.0, Glucose 123 H, Calcium 9.1, Total Bilirubin 0.5, AST 18, ALT 33, Alkaline Phosphatase 97, Troponin I < 0.01, Total Protein 6.6, Albumin 3.9, Globulin 2.7, Albumin/ Globulin Ratio 1.4, CBC w Diff MAN DIFF ORDERED, RBC 4.36, MCV 90.5, MCH 29.3, MCHC 32.3 L, RDW 19.7 H, MPV 6.1 L, Gran % 74.6, Lymphocytes % 20.8, Monocytes % 4.0, Eosinophils % 0.1, Basophils % 0.5, Absolute Granulocytes 14.7 H, Segmented Neutrophils 67, Absolute Lymphocytes 4.1 H, Lymphocytes 29, Monocytes 3, Absolute Monocytes 0.8 H, Absolute Eosinophils 0, Absolute Basophils 0.1, Metamyelocytes 1, Platelet Estimate ADEQUATE, Polychromasia 1+, Anisocytosis 1+, Stomatocytes 2+, Elliptocytes 1+, Serum Alcohol 47.0 Diagnostic Imaging: Viewed by Me: Radiology Read. Discussed w/RAD: Radiology Read. CXR Impression: PATIENT: VENICE DAWKINS PRESENT AGE: 46 PATIENT ACCOUNT NO: [id number] : 71 LOCATION: [facility] ORDERING PHYSICIAN: Leroy Alejo MD SERVICE DATE: 10/18/17 EXAM TYPE: RAD - XRY- PORTABLE CHEST XRAY EXAMINATION: XR PORTABLE CHEST CLINICAL INFORMATION: Shortness of breath COMPARISON: 09/01/2017 TECHNIQUE: Portable frontal view of the chest was obtained. FINDINGS: Cardiac leads overlie the chest. The lungs are well expanded. There is no focal consolidation, edema, or effusion. No pneumothorax. The cardiomediastinal silhouette is within normal limits. No acute osseous abnormality. IMPRESSION: No acute pulmonary finding. DICTATED BY: Du Ureña MD DATE/TIME DICTATED:10/18/17234 CAKE WRINGER: SMILEY DATE/TIME TRANSCRIBED:10/18/17234 CONFIDENTIAL, DO NOT COPY WITHOUT APPROPRIATE AUTHORIZATION. <Electronically signed in Other Vendor System> SIGNED BY: Du Ureña MD 10/18/17238 Initial ED EKG: NSR, no ST T wave changes Prior EKG: unchanged Rhythm Strip: normal sinus rhythm Departure Departure Disposition: HOME OR SELF CARE Condition: Stable Clinical Impression Primary Impression: COPD (chronic obstructive pulmonary disease) Secondary Impressions: Dyspnea Referrals: Lida JAIN,Tom Garcia MD,Hua Clifford (PCP/Family) Additional Instructions: RETURN IF SYMPTOMS WORSEN OR FORANY CONCERNS Departure Forms: Customer Survey General Discharge Information Critical Care Note Critical Care Note Critical Care Time: non-applicable
[2017-10-18 02:26] LABS: ABSOLUTE BASOPHIL COUNT 0.1 /CUMM (0.0-0.2); ABSOLUTE EOSINOPHIL COUNT 0 /CUMM (0.0-0.7); ABSOLUTE GRANULOCYTE CT 14.7 /CUMM (1.4-6.5); ABSOLUTE LYMPH COUNT 4.1 /CUMM (1.2-3.4); ABSOLUTE MONOCYTE COUNT 0.8 /CUMM (0.10-0.60); BASOPHIL % 0.5 % (0.0-2.0); EOSINOPHIL % 0.1 % (0-5); GRANULOCYTE % 74.6 % (42.2-75.2); HEMATOCRIT 39.5 % (37-47); MEAN CORPUSCULAR HGB 29.3 PG (27.0-31.0); MEAN CORPUSCULAR HGB CONC 32.3 G/DL (33.0-37.0); MEAN CORPUSCULAR VOLUME 90.5 FL (81.0-99.0); MEAN PLATELET VOLUME 6.1 FL (7.4-10.4); PLATELET COUNT 378 /CUMM (130-400); RBC DISTRIBUTION WIDTH 19.7 % (11.5-14.5); RED BLOOD CELL CT 4.36 /CUMM (4.20-5.40); WHITE BLOOD CELL COUNT 19.7 /CUMM (4.8-10.8)
--- NOTE | 2017-10-18 02:39 | RADIOLOGY REPORT ---
EXAMINATION: XR PORTABLE CHEST CLINICAL INFORMATION: Shortness of breath COMPARISON: 09/01/2017 TECHNIQUE: Portable frontal view of the chest was obtained. FINDINGS: Cardiac leads overlie the chest. The lungs are well expanded. There is no focal consolidation, edema, or effusion. No pneumothorax. The cardiomediastinal silhouette is within normal limits. No acute osseous abnormality. IMPRESSION: No acute pulmonary finding.
[2017-10-18 06:49] VITALS: BP 121/79
== END 2017-10-18 07:09 ==
LOC: ERH 01:46
PROVIDERS: Emergency Medicine
DX: J44.9 Chronic obstructive pulmonary disease, unspecified (principal); F17.210 Nicotine dependence, cigarettes, uncomplicated
CPT/HCPCS: 71045; 93005; 93010; G0480